=== PATIENT | male | born 1960 | race Caucasian/White ===

== ENCOUNTER 2019-11-09 02:44 | Emergency (ER) | payer OTHER, SELFPAY ==
[2019-11-09 02:57] VITALS: BP 120/82; PULSE 78; RESP 20; TEMP 37.2; O2SAT 99
--- NOTE | 2019-11-09 03:41 | ED.GENADULT ---
HPI - General Adult General Chief complaint: Unspecified Stated complaint: SORE THROAT Time Seen by Provider: 11/09/19 02:48 History of Present Illness HPI narrative: Patient is a 58-year-old male who presents the ER with sore throat and cough. Patient reports that she has had some chronic runny nose with productive cough due to sinus issues have been left untreated due to not getting allergy shots. However the last couple days patient did develop a fever with sweats and then 2 days later he is developed a hoarse voice. Symptoms are worsened by wearing his CPAP which tends to dry out the back of his throat. He has been taking throat lozenges with only transient relief of symptoms. He has no shortness of breath. He is able to swallow however it is painful. 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 Related Data Allergies Allergy/AdvReac Type Severity Reaction Status Date / Time TUBERCULIN,OLD SKIN TEST AdvReac Intermediate SOB Uncoded 07/01/19 02:14 Review of Systems Review of Systems: All systems reviewed & are unremarkable except as noted in HPI and below Constitutional: Constitutional: Reports fever(s) and Denies weakness Comments: Sweats ENT: Denies dysphagia, Reports nasal congestion and Reports sore throat Respiratory: Respiratory: Reports cough, Denies dyspnea and Denies wheezing PMFSH Past Medical History Medical History (Updated 11/09/19 @ 03:55 by López Boo MD) GERD (gastroesophageal reflux disease) Obstructive sleep apnea Surgical History Surgical History (Updated 11/09/19 @ 03:50 by López Boo MD) History of hernia repair Family History Family History (Updated 12/28/16 @ 23:56 by DOCTOR UNKNOWN) Mother Hypertension, Onset Age: 73 Patient's mother is Father Malignant neoplasm of prostate Acute myocardial infarction, Onset Age: 72 Patient's father is Other Family history of allergic disorder Social History Social History Smoking status: Never smoker Second hand tobacco smoke exposure: No Alcohol intake: never Exam Narrative: Exam Narrative: GENERAL: Well-appearing, well-nourished, and in no acute distress. HEAD: Normocephalic, atraumatic. ENT: Mucous membranes moist. No posterior pharyngeal erythema or tonsillar exudate/hypertrophy. Uvula midline and nonedematous. NECK: Supple. CHEST: Clear to auscultation. No respiratory distress. HEART: Regular rate and rhythm. Normal peripheral pulses. NEURO: Alert and oriented x3. PSYCH: Normal mood and affect. Course Course Emergency Course: Influenza and strep testing negative. Discharge home with supportive therapy. Vital Signs Vital signs: Vital Signs Temperature 98.9 F 11/09/19 02:57 Pulse Rate 78 11/09/19 02:57 Respiratory Rate 20 11/09/19 02:57 Blood Pressure 120/82 11/09/19 02:57 Pulse Oximetry 99 11/09/19 02:57 Temperature 98.9 F 11/09/19 02:57 Pulse Rate 78 11/09/19 02:57 Respiratory Rate 20 11/09/19 02:57 Blood Pressure 120/82 11/09/19 02:57 Pulse Oximetry 99 11/09/19 02:57 Medical Decision Making Vital Signs Vital Signs: Vital Signs Temperature 98.9 F 11/09/19 02:57 Pulse Rate 78 11/09/19 02:57 Respiratory Rate 20 11/09/19 02:57 Blood Pressure 120/82 11/09/19 02:57 Pulse Oximetry 99 11/09/19 02:57 Temperature 98.9 F 11/09/19 02:57 Pulse Rate 78 11/09/19 02:57 Respiratory Rate 20 11/09/19 02:57 Blood Pressure 120/82 11/09/19 02:57 Pulse Oximetry 99 11/09/19 02:57 Lab Data Labs: Influenza A Screen Negative Reference Range: Negative Influenza B Screen Negative Reference Range: Negative Strep Screen Presumptive Negative *(Reference Range: Negative)* Discharge Plan Discharge Clinical Impression: Laryngitis Patient Disposition: Home, Self-Care Condition: Stable
[2019-11-09 04:09] VITALS: BP 132/81; PULSE 80; RESP 16; O2SAT 99
== END 2019-11-09 04:12 | disposition home or self-care (01) ==
PROVIDERS: Emergency Provider Emergency Medicine; PCP Physician Assistant
DX: K21.9 Gastro-esophageal reflux disease without esophagitis (principal); G47.33 Obstructive sleep apnea (adult) (pediatric); J04.0 Acute laryngitis
CPT/HCPCS: 87081; 87804; 87880; 99283

== ENCOUNTER 2020-10-29 02:58 | Emergency (ER) | payer OTHER, SELFPAY ==
--- NOTE | ~2020-10-29 | XR_ITS ---
EXAMINATION: XR hip RT 2V w AP pelvis DATE: 10/29/2020 03:46 INDICATION: Right hip pain. TECHNIQUE: An anteroposterior view of the pelvis and 2 views of right hip were obtained. COMPARISON: CT abdomen and pelvis 08/31/2018 FINDINGS: There is 5 degrees dextrocurvature of lumbar spine. There is moderate lumbar spondylosis. N o fracture. There is moderate right hip osteoarthritis and mild left hip osteoarthritis. There is a p hlebolith in right pelvis. IMPRESSION: 1. Moderate right hip osteoarthritis and mild left hip osteoarthritis. Reviewed, dictated and finalized at location A. [employer]
[2020-10-29 03:03] VITALS: BP 130/94; PULSE 69; RESP 18; TEMP 36.7; O2SAT 100
--- NOTE | 2020-10-29 03:43 | ED.GENADULT ---
HPI - General Adult General Chief complaint: Extremity Problem,Nontraumatic Stated complaint: right leg pain x 1 month Time Seen by Provider: 10/29/20 03:07 History of Present Illness HPI narrative: Patient is a 59-year-old male who presents ER with right hip/inguinal pain. Ongoing for last month. Worse when he goes from a squatting position to a standing position but also with forward flexion of the hip. Hurts mainly over an area where he had had a previous mesh placed. Has occasional radiation down to his knee and numbness that will radiate down to his foot. Has not tried any pain medications. Has tried resting it without success. Has had no imaging and has follow-up with his primary care physician later this month. No known trauma. Related Data Home Medications Medication Instructions Recorded Confirmed aspirin 81 mg tablet,delayed 81 mg PO DAILY 11/25/19 release multivitamin 1 tablet PO DAILY 11/25/19 omega-3 fatty acids 1,000 mg 1,000 mg PO DAILY 11/25/19 capsule Allergies Allergy/AdvReac Type Severity Reaction Status Date / Time tuberculin,PPD,multi-puncture Allergy Intermediate short of Verified 10/29/20 02:59 breath Review of Systems Gastrointestinal: Gastrointestinal: Denies abdominal pain, Denies nausea and Denies vomiting Musculoskeletal: Musculoskeletal: Denies back pain, Denies arthralgias and Denies muscle cramps Comments: right inguinal pain Neurologic: Denies focal weakness, Reports numbness and Denies weakness PMFSH Past Medical History Medical History (Updated 10/29/20 @ 04:07 by López Boo MD) GERD (gastroesophageal reflux disease) Obstructive sleep apnea Surgical History Surgical History History of hernia repair Family History Family History Mother Hypertension, Onset Age: 73 Patient's mother is Father Malignant neoplasm of prostate Acute myocardial infarction, Onset Age: 72 Patient's father is Other Family history of allergic disorder Social History Social History Smoking status: Never smoker Second hand tobacco smoke exposure: No Alcohol intake: never Substance use: never Exam Narrative: Exam Narrative: GENERAL: Well-appearing, well-nourished, and in no acute distress. HEAD: Normocephalic, atraumatic. HEART: Regular rate and rhythm. Normal peripheral pulses. EXTREMITIES: Focused exam of the right lower extremity reveals tenderness over the inguinal crease and increased pain the proximal thigh near inguinal crease with forward flexion of the hip. Negative straight leg raise. No swelling of the lower extremity. No rash. SKIN: Warm, dry, no rash. NEURO: No focal deficits. Alert and oriented x3. PSYCH: Normal mood and affect. Course Course Emergency Course: Exam and history seem consistent with iliopsoas bursitis. Will start naproxen twice daily. Recommend follow-up with his PCP. X-ray unremarkable. Vital Signs Vital signs: Vital Signs Temperature 98.1 F 10/29/20 03:03 Pulse Rate 69 10/29/20 03:03 Respiratory Rate 18 10/29/20 03:03 Blood Pressure 130/94 H 10/29/20 03:03 Pulse Oximetry 100 10/29/20 03:03 Temperature 98.1 F 10/29/20 03:03 Pulse Rate 69 10/29/20 03:03 Respiratory Rate 18 10/29/20 03:03 Blood Pressure 130/94 H 10/29/20 03:03 Pulse Oximetry 100 10/29/20 03:03 Medical Decision Making Vital Signs Vital Signs: Vital Signs Temperature 98.1 F 10/29/20 03:03 Pulse Rate 69 10/29/20 03:03 Respiratory Rate 18 10/29/20 03:03 Blood Pressure 130/94 H 10/29/20 03:03 Pulse Oximetry 100 10/29/20 03:03 Temperature 98.1 F 10/29/20 03:03 Pulse Rate 69 10/29/20 03:03 Respiratory Rate 18 10/29/20 03:03 Blood Pressure 130/94 H 10/29/20 03:03 Pulse O
[2020-10-29 04:15] VITALS: BP 134/85; PULSE 65; RESP 16; TEMP 36.6; O2SAT 98
== END 2020-10-29 04:16 | disposition home or self-care (01) ==
PROVIDERS: Emergency Provider Emergency Medicine; PCP Physician Assistant
DX: M70.71 Other bursitis of hip, right hip (principal); Z79.82 Long term (current) use of aspirin; K21.9 Gastro-esophageal reflux disease without esophagitis; G47.33 Obstructive sleep apnea (adult) (pediatric)
CPT/HCPCS: 73502; 99283

== ENCOUNTER 2021-03-09 08:20 | Outpatient (CLI) | payer OTHER, SELFPAY ==
[2021-03-09 08:43] LABS: Hematocrit 42.7 % (42.0-52.0); Hemoglobin 14.4 g/dL (14.0-18.0); Mean Corpuscular HGB Conc 33.7 g/dl (32-36); Mean Corpuscular Hemoglobin 29.8 pg (26-34); Mean Corpuscular Volume 88.2 fl (80-100); Mean Platelet Volume 9.7 fl (7.4-10.4); Platelet Count Result 180 k/mm3 (150-375); Red Blood Count 4.84 M/mm3 (4.6-6.20); Red Cell Distribution Width 12.1 % (11.5-14.5)
[2021-03-09 08:52] LABS: Alanine Aminotransferase 22 U/L (4-50); Albumin Level 4.1 g/dL (3.5-5.1); Alkaline Phosphatase 59 U/L (38-126); Anion Gap 7 mmol/L (8-16); Aspartate Amino Transferase 24 U/L (17-59); Bilirubin,Total 0.8 mg/dL (0.2-1.3); Blood Urea Nitrogen 12 mg/dL (9-20); Calcium 9.6 mg/dL (8.4-10.2); Carbon Dioxide 27 mmol/L (22-30); Chloride 107 mmol/L (98-107); Cholesterol 165 mg/dL (0-200); Estimated Glomerular Filt Rate > 60; Glucose 93 mg/dL (75-110); HDL Direct 55 mg/dL; Potassium 4.3 mmol/L (3.4-5.0); Sodium 141 mmol/L (137-145); Triglycerides 138 mg/dL (<150)
[2021-03-09 10:19] LABS: Folic Acid 15.8 ng/mL (2.76->20); LDL Cholesterol Direct 72 mg/dL; Prostate Specific Antigen 0.7 ng/mL (< OR = 4.0); Thyroid Stimulating Hormone 0.951 uIU/mL (0.465-4.680)
== END 2021-03-09 08:21 | disposition home or self-care (01) ==
PROVIDERS: PCP Physician Assistant; Visit Provider Physician Assistant
DX: Z00.00 Encounter for general adult medical examination without abnormal findings (principal); Z12.5 Encounter for screening for malignant neoplasm of prostate
CPT/HCPCS: 36415; 80053; 80061; 82607; 82746; 84153; 84443; 85027; G0103

== ENCOUNTER 2021-04-12 11:08 | Emergency (ER) | payer OTHER, SELFPAY ==
[2021-04-12 11:20] VITALS: BP 136/87; PULSE 76; RESP 18; TEMP 36.8; O2SAT 100
--- NOTE | 2021-04-12 12:46 | ED.GENADULT ---
HPI - General Adult General Chief complaint: Head Injury Stated complaint: HEAD INJURY Time Seen by Provider: 04/12/21 11:12 Source: patient and RN notes reviewed Mode of arrival: ambulatory Limitations: no limitations History of Present Illness HPI narrative: Patient is a 60-year-old male who presents with abrasion to the left frontal parietal scalp there is a mild aching pain patient denies any fever chills nausea vomiting loss of conscious syncope. Patient notes only mild pain at the abrasion has no other complaints resting comfortably in the room Related Data Home Medications Medication Instructions Recorded Confirmed aspirin 81 mg tablet,delayed 81 mg PO DAILY 11/25/19 12/19/20 release multivitamin 1 tablet PO DAILY 11/25/19 12/19/20 omega-3 fatty acids 1,000 mg 1,000 mg PO DAILY 11/25/19 12/19/20 capsule Allergies Allergy/AdvReac Type Severity Reaction Status Date / Time tuberculin,PPD,multi-puncture Allergy Intermediate short of Verified 04/12/21 11:23 breath Review of Systems Review of Systems: All systems reviewed & are unremarkable except as noted in HPI and below PMFSH Past Medical History Medical History (Updated 04/12/21 @ 12:49 by Howard Garcia PA-C) GERD (gastroesophageal reflux disease) Obstructive sleep apnea Surgical History Surgical History History of hernia repair Family History Family History Mother Hypertension, Onset Age: 73 Patient's mother is Father Malignant neoplasm of prostate Acute myocardial infarction, Onset Age: 72 Patient's father is Other Family history of allergic disorder Social History Social History Smoking status: Never smoker Second hand tobacco smoke exposure: No Alcohol intake: never Substance use: never Exam Narrative: Exam Narrative: GENERAL: Well-appearing, well-nourished, and in no acute distress. HEAD: Normocephalic, small abrasion to the left frontal parietal scalp EYES: PERRLA and EOMI. ENT: Nares clear, no rhinorrhea or epistaxis. Mucous membranes moist. NECK: Supple. No adenopathy or masses. CHEST: Clear to auscultation. No respiratory distress. No wheezes rales or rhonchi HEART: Regular rate and rhythm. No murmur heard. EXTREMITIES: Normal range of motion. No edema. SKIN: Warm, dry, no rash. NEURO: No focal deficits. Alert and oriented x3. Cranial nerves II through XII grossly intact PSYCH: Normal mood and affect. Course Course Emergency Course: Patient in the room at this time aware of case findings treatment plan diagnosis felt appropriate for outpatient reevaluation agreeing to follow-up as instructed Vital Signs Vital signs: Vital Signs Temperature 98.3 F 04/12/21 11:20 Pulse Rate 76 04/12/21 11:20 Respiratory Rate 18 04/12/21 11:20 Blood Pressure 136/87 04/12/21 11:20 Pulse Oximetry 100 04/12/21 11:20 Temperature 98.3 F 04/12/21 11:20 Pulse Rate 76 04/12/21 11:20 Respiratory Rate 18 04/12/21 11:20 Blood Pressure 136/87 04/12/21 11:20 Pulse Oximetry 100 04/12/21 11:20 Medical Decision Making MDM Narrative Medical decision making narrative: Patient with minor head injury felt appropriate for outpatient reevaluation Vital Signs Vital Signs: Vital Signs Temperature 98.3 F 04/12/21 11:20 Pulse Rate 76 04/12/21 11:20 Respiratory Rate 18 04/12/21 11:20 Blood Pressure 136/87 04/12/21 11:20 Pulse Oximetry 100 04/12/21 11:20 Temperature 98.3 F 04/12/21 11:20 Pulse Rate 76 04/12/21 11:20 Respiratory Rate 18 04/12/21 11:20 Blood Pressure 136/87 04/12/21 11:20 Pulse Oximetry 100 04/12/21 11:20 Discharge Plan Discharge Clinical Impression: Abrasion of scalp, Head injury Patient Disposition: Home, Self-Care
[2021-04-12] MEDS: TETANUS,DIPHTHERIA,AC PERTUSSIS ADULT (0.5 ML) BOOSTRIX IM (12:58)
--- NOTE | 2021-04-12 13:00 | PC.NURSE ---
wound cleaned and dressed by PA
== END 2021-04-12 13:01 | disposition home or self-care (01) ==
PROVIDERS: Emergency Provider Emergency Medicine; PCP Physician Assistant
DX: S00.01XA Abrasion of scalp, initial encounter (principal); K21.9 Gastro-esophageal reflux disease without esophagitis; G47.30 Sleep apnea, unspecified; W22.09XA Striking against other stationary object, initial encounter; Z23 Encounter for immunization
CPT/HCPCS: 90471; 90715; 99282

== ENCOUNTER 2021-09-05 07:42 | Outpatient (CLI) | payer OTHER, SELFPAY ==
--- NOTE | 2021-09-25 12:40 | WPDSLEEPSTUD ---
Sleep Study Date of Study: 09/05/21 Ordering Provider: Prudencio Gill PA-C Interpreting Physician: Cori Webb MD Sleep Study Type: CPAP Titration Height: 1.75 m Weight: 80.286 kg Body Mass Index: 26.1 Neck Circumference (inches): 14.5 [place]: 19 Reason for Sleep Study Obstructive sleep apnea; current machine is old and it was recalled; he is repeating a titration due to fatigue, excessive daytime sleepiness, and needing a new machine. * 04/24/2016 - difficult CPAP titration; at 9 cm he had continued respiratory events and low sleep efficiency; Auto PAP was recommended 8-20 cm with a download in a month. * 12/02/2015 - basic sleep study, AHI 17.6, mild to moderate snoring and multiple oxygen desaturations to 85% Sleep History Adalgisa Thacker is a 60 year old man with History of obstructive sleep apnea who has a CPAP machine that was recalled. His machine is not been working well for the last year, including shutting off during the night. He feels exhausted during the day. There is a positive family history with his mother having a history of sleep apnea. He rarely awakens from sleep feeling short of breath. He does not awaken at night with heartburn, belching or coughing. He frequently snores loudly. He does not have trouble sleeping with a cold. He frequently wakes up gasping for breath at night. He constantly has breathing problems at night observed by others. He does not sweat excessively at night. he rarely notices his heart pounding or beating irregularly night. He occasionally falls asleep during the day, constantly falls asleep involuntarily and he constantly falls asleep while driving which is quite dangerous. He does not have loss of muscle tone was strong emotion. He does not have daytime difficulties at his job due to sleepiness. He does not feel paralyzed on waking or falling asleep. He rarely has vivid dreamlike scenes on awakening or falling asleep. He does not feel afraid to go to sleep. He constantly has nightmares. He constantly remembers his dreams. Occasionally has racing thoughts. He constantly feels sad, depressed and anxious. He does not have muscular tension or notice parts his body jerking. He does not kick at night. He constantly has crawling and aching feelings in his legs and leg pain at night. He does not have morning jaw pain. He does not grind his teeth during sleep. He constantly has bothered by pain during the day, constantly awakened by pain at night and constantly wakes up feeling stiff in the morning. Does not wake up with sore achy muscles but he does always wake up with pain in the neck and spine. He takes [id number] sedatives. He feels panicky when he is in traffic. He has memory problems and concentration difficulties. He takes antacids regularly. Normal bedtime is 9:00 p.m. falling asleep within 5 minutes typically waking once at night to turn over. He is able to return to sleep within 5 minutes. He wakes the morning at 5:30 a.m.. On the weekends he also goes to bed at 9:00 p.m. and wakes at 7 in the morning. He is able to sleep longer on the days off. He takes naps in the afternoon or evening. A short 10 or 15 minutes nap may be refreshing. He feels better in the morning compared other times of day. Habits: Never smoked tobacco. No caffeine, alcohol or recreational drugs. [facility] Past Medical History Medical History (Updated 09/25/21 @ 13:30 by Cori Webb MD) GERD (gastroesophageal reflux disease) Obstructive sleep apnea Surgical History Surgical History History of hernia repair Family History Family History Mother Hypertension, Onset Age: 73 Patient's mother is Father Malignant neoplasm of prostate Acute myocardial infarction, Onset Age: 72 Patient's father is Other Family history of aller
[2021-09-25 14:02] VITALS: BMI 26.1
== END 2021-09-06 06:56 | disposition home or self-care (01) ==
LOC: ANHCSM 07:43
PROVIDERS: PCP Physician Assistant; Visit Provider Physician Assistant
DX: G47.33 Obstructive sleep apnea (adult) (pediatric) (principal)
CPT/HCPCS: 95811

== ENCOUNTER 2021-10-04 10:58 | Outpatient (CLI) | payer OTHER, SELFPAY ==
--- NOTE | 2021-10-04 11:34 | ECG_ITS ---
Measurements Intervals [place] Rate: 61 P: 41 DC: 164 QRS: 18 QRSD: 88 T: 9 QT: 394 QTc: 398 Interpretive Statements SINUS RHYTHM EARLY PRECORDIAL R/S TRANSITION BORDERLINE ECG Electronically Signed On 10-04-2021 12:44:14 [employer] ENGINE[employer] by Storm Linda D.O.
[2021-10-04 11:47] LABS: Hematocrit 42.8 % (42.0-52.0); Hemoglobin 14.5 g/dL (14.0-18.0)
[2021-10-04 11:56] LABS: Urine Cotinine NEGATIVE
[2021-10-04 11:58] LABS: Hemoglobin A1C 5.2 % (<5.7)
[2021-10-04 12:00] LABS: Albumin Level 4.4 g/dL (3.5-5.1); Estimated Glomerular Filt Rate > 60; Glucose 99 mg/dL (65-110)
== END 2021-10-04 10:59 | disposition home or self-care (01) ==
PROVIDERS: PCP Physician Assistant; Visit Provider Orthopaedic Surgery
DX: Z01.818 Encounter for other preprocedural examination (principal); K21.9 Gastro-esophageal reflux disease without esophagitis; G47.33 Obstructive sleep apnea (adult) (pediatric)
CPT/HCPCS: 80307; 82040; 82565; 82947; 83036; 85014; 85018; 93005

== ENCOUNTER 2021-11-20 09:50 | Outpatient (CLI) | payer OTHER, SELFPAY ==
[2021-11-20 11:15] LABS: Basophils Percent Auto 0.5 % (0.2-1.2); Eosinophils Absolute Auto 0.3 K/mm3 (0-0.3); Eosinophils Percent Auto 4.3 % (0-4.4); Hematocrit 45.2 % (42.0-52.0); Hemoglobin 15.2 g/dL (14.0-18.0); Immature Granulocyte Absolute 0.02 K/mm3 (0.00-0.031); Immature Granulocyte Percent A 0.3 % (0-0.5); Lymphocytes Absolute Auto 1.89 K/mm3 (0.9-3.2); Mean Corpuscular HGB Conc 33.6 g/dl (32-36); Mean Corpuscular Volume 89.2 fl (80-100); Mean Platelet Volume 10.1 fl (7.4-10.4); Monocytes Absolute Auto 0.8 K/mm3 (0.1-0.6); Monocytes Percent Auto 12.4 % (2.6-8.5); Neutrophils Absolute Auto 3.3 K/mm3 (1.3-6.7); Neutrophils Percent Auto 52.5 % (45.5-73.1); Platelet Count Result 188 k/mm3 (150-375); Red Blood Count 5.07 M/mm3 (4.6-6.20); Red Cell Distribution Width 11.9 % (11.5-14.5); White Blood Count 6.3 K/mm3 (4.5-10.0)
[2021-11-20 11:26] LABS: Albumin Level 4.5 g/dL (3.5-5.1); Estimated Glomerular Filt Rate > 60; Glucose 94 mg/dL (65-110); Urine Cotinine NEGATIVE
== END 2021-11-20 09:51 | disposition home or self-care (01) ==
LOC: ANHSURGERY 09:56
PROVIDERS: PCP Physician Assistant; Visit Provider Orthopaedic Surgery
DX: Z01.818 Encounter for other preprocedural examination (principal); M16.11 Unilateral primary osteoarthritis, right hip
CPT/HCPCS: 80307; 82040; 82565; 82947; 85025; 87081

== ENCOUNTER 2021-11-30 17:40 | Emergency (ER) | payer OTHER, SELFPAY ==
--- NOTE | ~2021-11-30 | XR_ITS ---
EXAMINATION: XR hip RT 2V w AP pelvis DATE: 11/30/2021 18:56 INDICATION: Worsening right hip pain TECHNIQUE: Anteroposterior view of the pelvis and anteroposterior and frog-leg lateral views of the r ight hip were obtained. COMPARISON: 10/29/2020 FINDINGS: Alignment is normal. No fracture or suspected avascular necrosis. Mild osteoarthritis at the left hip . More severe osteoarthritis at the right hip with moderate to severe joint space narrowing superolat erally with the hip in the frog-leg lateral position. Mild bilateral sacroiliac osteoarthritis. At le ast moderate lumbar spondylosis. IMPRESSION: 1. Interval progression of now moderate to severe right hip osteoarthritis. No acute osseous abnormal ity. Reviewed, dictated and finalized at location A. [employer] ASSOCIATE IMPRESSION: 1. Interval progression of now moderate to severe right hip osteoarthritis. No acute osseous abnormality.
[2021-11-30 18:02] VITALS: BP 139/99; PULSE 80; RESP 14; TEMP 36.9; O2SAT 97
--- NOTE | 2021-11-30 18:43 | ED.LOWEXIN ---
HPI - Extremity Injury (Lower) General Chief Complaint: Extremity Injury, Lower Stated Complaint: Right Hip Pain Time Seen by Provider: 11/30/21 18:09 Source: patient Mode of arrival: ambulatory Limitations: no limitations History of Present Illness HPI Narrative: 60 year old male with know history of issues to his right hip. Patient states he has surgery scheduled for December 19 to have a hip replacement. Patient worked all day today and at home he felt sore. He used his cane to get inside the house when he felt/herd a pop to the right hip and had shooting pains. Patient able to ambulate after that but the pain had him concerned so he came here. Pain currently tolerable in a sitting position. No shortening of the leg noted. Point tenderness to the right hip area. Denies any recent falls. Related Data Home Medications Medication Instructions Recorded Confirmed multivitamin 1 tablet PO QAM 11/25/19 11/21/21 cetirizine 10 mg PO HS 11/20/21 11/21/21 rosuvastatin [Crestor] 10 mg PO HS 11/20/21 11/21/21 Allergies Allergy/AdvReac Type Severity Reaction Status Date / Time tuberculin,PPD,multi-puncture Allergy Intermediate short of Verified 11/30/21 18:21 breath Review of Systems Review of Systems: CONSTITUTIONAL: Denies fever, chills, or sweats. EYES: Denies visual changes, redness, or discharge. ENT: Denies rhinorrhea, congestion, sore throat, or otalgia. CARDIOVASCULAR: Denies chest pain, palpitations, or edema. RESPIRATORY: Denies cough or dyspnea. GASTROINTESTINAL: Denies abdominal pain, nausea, vomiting, or diarrhea. GENITOURINARY: Denies dysuria or hematuria. SKIN: Denies rash or itching. MUSCULOSKELETAL: Right hip pain. Denies back pain or myalgia. NEUROLOGIC: Denies headache, numbness, dizziness, or weakness. PSYCHIATRIC: Denies anxiety or depression. [facility] Past Medical History Medical History GERD (gastroesophageal reflux disease) Obstructive sleep apnea Surgical History Surgical History History of hernia repair Family History Family History Mother Hypertension, Onset Age: 73 Patient's mother is Father Malignant neoplasm of prostate Acute myocardial infarction, Onset Age: 72 Patient's father is Other Family history of allergic disorder Social History Social History Second hand tobacco smoke exposure: Yes (OCCASIONAL WHEN RELITIVES VISIT - SMOKE OUTSIDE) Additional smoking assessment comments: PT DENIES ALL FORMS OF TOBACCO USE Alcohol intake: former Alcohol use details: STATES OCCASIONAL GLASS OF WINE - NONE SINCE 2006 Substance use: never Substance use type: does not use Spiritual care concerns: No Exam Narrative: GENERAL: Well-appearing, well-nourished, and in no acute distress. HEAD: Normocephalic, atraumatic. EYES: PERRLA and EOMI. ENT: Nares clear, no rhinorrhea or epistaxis. Mucous membranes moist. Oropharynx without tonsillar hypertrophy exudate or other lesions. Bilateral TMs pearly meade nonbulging NECK: Supple. No adenopathy or masses. No carotid bruits or JVD CHEST: Clear to auscultation. No respiratory distress. No wheezes rales or rhonchi HEART: Regular rate and rhythm. No murmur heard. Normal peripheral pulses. ABDOMEN: Soft, nontender, nondistended, normal active bowel sounds. EXTREMITIES: Tenderness with palpation to the right hip. Normal range of motion. No edema. SKIN: Warm, dry, no rash. NEURO: No focal deficits. Alert and oriented x3. PSYCH: Normal mood and affect. Course Course Emergency Course: Results reviewed with patient. Patient aware there is no fracture but the arthritis looks worse. Patient has pain medication at home. He is ready for discharge. Patient has walker and cane av
--- NOTE | 2021-11-30 19:09 | PC.NURSE ---
assuming care of pt.
[2021-11-30 19:19] VITALS: BP 117/85; PULSE 71; RESP 14; O2SAT 98
[2021-11-30] MEDS: HYDROcodone/acetaminophen (*CRX) 5-325 MG TABLET 1 TAB PO (19:44)
[2021-11-30 20:23] VITALS: BP 128/86; PULSE 75; RESP 14; O2SAT 97
== END 2021-11-30 20:23 | disposition home or self-care (01) ==
PROVIDERS: Emergency Provider Nurse Practitioner Family; PCP Physician Assistant
DX: M16.11 Unilateral primary osteoarthritis, right hip (principal); K21.9 Gastro-esophageal reflux disease without esophagitis; G47.33 Obstructive sleep apnea (adult) (pediatric)
CPT/HCPCS: 73502; 99283; A9270

== ENCOUNTER 2021-12-19 00:58 | Day surgery (SDC) | payer OTHER, SELFPAY ==
--- NOTE | 2021-11-20 10:04 | PC.NURSE ---
Report to the Outpatient Waiting Room, entrance under the green pavilion located off [facility], at time _0830_ on date _12/19/21_. OR Time: _1030__. - You and your visitor will be asked a series of questions to screen for COVID 19 for your protection. - A mask is required within the hospital. One visitor will be allowed to accompany the patient into the hospital. Patients visitor will be instructed to remain with patient at all times or leave the building. We will allow the visitor to come back to the postoperative area when patient is ready. (VISITING HOURS 10AM-7PM, USE MAIN ENTRANCE) Preoperative COVID Testing Requirements: NONE Patients may have clear liquids (water, carbonated beverages, clear teas, apple juice) until 3 hours prior to surgery (0730 AM) with a maximum of 20 ounces. - No food from midnight until time of surgery Take the following medications with a SIP of water the morning of surgery: _NONE_ Medications to discontinue per ANESTHESIA - MULTIVITAMIN 3 DAYS PRIOR TO SURGERY, LAST DOSE TO BE TAKEN ON 12/15/21 Please no deodorant, or body powder the day of surgery. No jewelry (including any body piercings) or valuables the day of surgery, leave them at home. Please take a shower or bath the night before, or the morning of, surgery with an antibacterial soap. Wear comfortable, loose fitting clothing. - Jewelry must be removed prior to entering the operating room. Rings and piercings that are not removed may be cut off. - The hospital will not accept responsibility for valuables. - Please leave all valuables, including medications, at home the day of surgery. If you are going home after surgery, a licensed garbage collector driver must drive you home. - NO public transportation without another adult. - We recommend that an adult stay with you for 24 hours following discharge. - We also recommend that you do not drive, make important decision, drink alcoholic beverages, or take any drugs that were not prescribed by your health care provider for at least 24 hours after your discharge time. One visitor will be allowed to accompany the patient into the hospital. Patients visitor will be instructed to remain with patient at all times or leave the building. We will allow the visitor to come back to the postoperative area when patient is ready. Follow any additional instructions given to you from your surgeon. Instructions given to _PT & SPOUSE (CARMEN)_and asked if any additional questions and then verbalized understanding. Patient advised to call surgeon office or pre surgery nurse liaisonCARLINE [phone] if any additional questions.
[2021-11-20 10:23] VITALS: BP 138/86; PULSE 62; RESP 20; TEMP 36.7; O2SAT 99; BMI 26.2
[2021-12-19] VITALS (15 sets, daily range): BP systolic 101–131; BP diastolic 63–83; PULSE 71–108; RESP 12–18; TEMP 36.2–37.2; O2SAT 94–100
--- NOTE | ~2021-12-19 | XR_ITS ---
EXAMINATION: XR hip RT min 2V DATE: 12/19/2021 13:29 INDICATION: Total right hip arthroplasty. Postop. TECHNIQUE: 2 views of right hip were obtained. COMPARISON: Right hip radiographs 11/30/2021 FINDINGS: There is a total right hip arthroplasty in near-anatomic alignment. No fracture. There is g as in the soft tissues, consistent with recent surgery. IMPRESSION: 1. Total right hip arthroplasty in near-anatomic alignment. Reviewed, dictated and finalized at location A.
--- NOTE | 2021-12-19 07:17 | W.PM.PROC2 ---
Procedure Note - Detailed Date of Procedure 12/19/21 Pre-op Diagnosis primary OA right hip Post-op Diagnosis Same Procedure Performed Right Total Hip Arthroplasty Surgeon Brian Tobias MD [facility] Staff Nurse Kylah Ortiz PA-C Anesthesia General Findings Fairly good bone quality. 5 degrees southern ute femoral anteversion, and 25 degrees acetabular anteversion. Description of Procedure The patient was given preoperative antibiotics. A general anesthetic was administered. The patient was carefully placed in the lateral decubitus position on the PEG board. The shoulders and hips were carefully positioned for component and leg length positioning reference. The hip was prepped and draped in the usual sterile fashion. A longitudinal incision was created over the posterior aspect of the greater trochanter. Careful dissection was brought down through the deep fascia with electrocautery. A minimally invasive optimized posterior approach to the hip was performed. The short external rotators and capsule were taken down in an L-shaped capsulotomy. The tissue was tagged for later repair using number 2 high strength suture. The femoral neck was measured and taken in situ. The femoral head was removed. The acetabulum was carefully exposed. The inferior capsule was released. The labrum was resected. The acetabulum was sequentially reamed to one over the intended cup size. The cup was impacted into position with excellent press-fit. Typical anatomic landmarks, including the bony contact points as well as the inferior transverse acetabular ligament were used to confirm cup positioning with preoperative templating. Attention was turned to the femur, which was carefully exposed. The hip was reamed and then broached sequentially. Excellent press-fit was obtained with the broach. The hip was trialed. Measurements were utilized, including the lesser trochanter as well as the center of the femoral head and the tip of the trochanter, and excellent assessment of the offset and leg lengths were confirmed. The real component was impacted into position. Trialing confirmed appropriate leg length and offset with soft tissue balancing as well apparent feel of the leg, both at the knee and the heel. Soft tissues were assessed using the the iliotibial band. Reduction of the posterior capsule and external rotators were also used as a secondary assessment. The hip was copiously irrigated with pulsatile lavage antibiotic solution periodically throughout the procedure. The real components were then assembled and reduced. The hip was stable throughout typical maneuvers, including extension, external rotation to 70 degrees, the position of sleep as well as flexion to 90 degrees with internal rotation past 35 degrees. The shake test confirmed stability without impingement. Osteophytes were removed as necessary. The short external rotators and capsule were repaired back to the posterior trochanter through drill holes. The deep fascia was repaired with running number 2 Quill suture, followed by 0 Stratafix suture and 2-0 Stratafix suture in the dermis. Steri-Strips were placed on the skin, followed by a sterile silver occlusive dressing. There were no complications. Meticulous hemostasis was maintained with the AquaMantys device. The patient was brought to the recovery room in stable condition. There were no complications. Physician assistant professor of philosophy, Kylah Ortiz PA-C, required for surgery; including patient positioning, draping, tissue retraction, maintaining instrument position, hip dislocation/ relocation, wound closure, and dressing placement. Implants The Accolade II hip stem, 132 degree size 6 , was utilized with excellent press-fit. The 52 mm Trident II acetabular component with 10 degree elevated liner was impacted with excellent press-fit stability. The +5 , 36 mm Biolox ceramic femoral head was utilized. Estimated Blood Loss 200 Drains No Packing No Pathology None sent
--- NOTE | 2021-12-19 07:17 | WPDHPUPDATE1 ---
History and Physical Update Update Date/Time: 12/19/21 07:17 History and Physical has been reviewed, including an updated exam of the patient. There are NO changes in the patient's condition. Risks, benefits, and alternatives have been discussed and questions answered. Patient agrees to proceed with procedure.
--- NOTE | 2021-12-19 08:04 | WPDANESEPPF ---
Anes - Initial Pre Proc Eval Procedure: Operation Date: 12/19/21 10:30 Proposed Procedures p Right Total Hip Arthroplasty - Brian Tobias MD Date/Time: 12/19/21 08:04 Surgeon: Brian Tobias MD Pre Op Diagnosis: primary OA right hip Patient Data Age: 60 Gender: M Height: 1.75 m Weight: 80.7 kg Last Vital Signs Temp 36.7 C 11/20/21 10:23 Pulse 62 11/20/21 10:23 Resp 20 11/20/21 10:23 BP 138/86 11/20/21 10:23 Pulse Ox 99 11/20/21 10:23 Allergies Allergy/AdvReac Type Severity Reaction Status Date / Time tuberculin,PPD,multi-puncture Allergy Intermediate short of Verified 11/30/21 18:21 breath Home Medications Medication Instructions Recorded Confirmed Type multivitamin 1 tablet PO QAM 11/25/19 11/21/21 History pantoprazole 40 mg tablet,delayed 40 mg PO QAM #30 tablet 05/07/21 11/21/21 Rx release cetirizine 10 mg PO HS 11/20/21 11/21/21 History rosuvastatin [Crestor] 10 mg PO HS 11/20/21 11/21/21 History ECG: Date of Service: 10/04/21 Procedure(s): CA 12 lead EKG Accession Number(s): [id number] cc: ~ Measurements Intervals [place] Rate: 61 P: 41 [place]: 164 QRS: 18 QRSD: 88 T: 9 QT: 394 QTc: 398 Interpretive Statements SINUS RHYTHM EARLY PRECORDIAL R/S TRANSITION BORDERLINE ECG Electronically Signed On 10-04-2021 12:44:14 BOOK ILLUSTRATOR by Storm Linda D.O. Dictated By: Storm Linda DO 10/04/21 1244 Signed By: <Electronically signed by Storm Linda DO in OV> Patient hx anesthesia problems: none Family hx anesthesia problems: none Results Review: All pre-operative results and documents have been reviewed as part of the pre-operative evaluation. [facility] Past Medical History Medical History (Updated 12/19/21 @ 08:05 by Spencer Borjas MD) Arthritis of right hip GERD (gastroesophageal reflux disease) Hyperlipidemia Obstructive sleep apnea Overweight (BMI 25.0-29.9) Surgical History Surgical History History of hernia repair Family History Family History Mother Hypertension, Onset Age: 73 Patient's mother is Father Malignant neoplasm of prostate Acute myocardial infarction, Onset Age: 72 Patient's father is Other Family history of allergic disorder Social History Social History Second hand tobacco smoke exposure: Yes (OCCASIONAL WHEN RELITIVES VISIT - SMOKE OUTSIDE) Additional smoking assessment comments: PT DENIES ALL FORMS OF TOBACCO USE Alcohol intake: former Alcohol use details: STATES OCCASIONAL GLASS OF WINE - NONE SINCE 2006 Substance use: never Substance use type: does not use Living arrangements: with family Spiritual care concerns: No Anes - Eval Final PreProcedure Day of Procedure 12/19/21 08:04 Patient weight: overweight Heart: regular rate and rhythm Lungs: clear to auscultation and normal air movement Airway: Mallampati scale class II Neurological: alert and oriented Last oral intake: >/= 8 hours ASA classification: II Emergent: no Anesthetic plan: proceed Anesthesia type and monitoring: general LMA and ETT Results Review: All pre-operative results and documents have been reviewed as part of the pre-operative evaluation. Informed Consent: The patient's anesthetic plan and its attendant risks and benefits were discussed with the patient/family/POA. Questions were solicited and answers provided to the satisfaction of the patient/family/POA.
[2021-12-19] MEDS: ACETAMINOPHEN 500 MG TABLET 1000 MG PO (09:13)
[2021-12-19] MEDS: LACTATED RINGERS 1,000 ML 30 ML IV CONT ×2 (09:19→13:08)
[2021-12-19] MEDS: TRANEXAMIC ACID 1,000MG/ISO100 1,000 MG/100 ML BAG 200 MG IVPB (09:19)
[2021-12-19] MEDS: SCOPOLAMINE 1.5 MG PATCH TRANSDERM (10:10)
[2021-12-19] MEDS: ceFAZolin 2 GM/D5W 50 ML 2 GM/50 ML BAG IVPB ×3 (10:49→23:21)
[2021-12-19] MEDS: fentaNYL CITRATE INJ (*CRX) 100 MCG/2 ML VIAL 25 MCG IV PUSH ×8 (13:31→14:15)
--- NOTE | 2021-12-19 14:32 | ADMGEN ---
This patient, Adalgisa Thacker, was admitted to 2 Medical Room 258-. Patient/family oriented to hospital policies and general routines including ID bracelet, bed and alarms, visiting hours, pain management, procedures, bathroom and other care routines, personal items, smoking policy, room service/diet, and visiting hours. Information on how to activate the Rapid Response Team has been discussed. Patient/Family are encouraged to report perceived risks to care and to ask questions if they do not understand what they are told or what they should do.
[2021-12-19] MEDS: SODIUM CHLORIDE 0.9% IV 1,000 ML 125 ML IV CONT (15:37)
[2021-12-19] MEDS: ASPIRIN 81 MG ENTERIC TABLET PO (17:18)
[2021-12-19] MEDS: SENNA/DOCUSATE SODIUM TABLET 2 TAB PO (17:18)
[2021-12-19] MEDS: CALCIUM CARBONATE (TUMS) 500 MG (200 MG ELEMENTAL) PO (18:38)
[2021-12-19] MEDS: LORATADINE 10 MG TABLET PO (20:15)
[2021-12-19] MEDS: ROSUVASTATIN 10 MG TABLET PO (20:15)
[2021-12-19] MEDS: FAMOTIDINE 20 MG TABLET PO (20:15)
[2021-12-19] MEDS: oxyCODONE HCL (*CRX) 5 MG TAB IR PO (23:23)
[2021-12-20 00:06] VITALS: BP 131/65; PULSE 91; RESP 16; TEMP 37; O2SAT 99
[2021-12-20] MEDS: CYCLOBENZAPRINE HCL 10 MG TABLET PO (00:20)
[2021-12-20 02:47] VITALS: O2SAT 97
[2021-12-20] MEDS: oxyCODONE HCL (*CRX) 5 MG TAB IR PO (03:02)
[2021-12-20 05:29] VITALS: BP 114/73; PULSE 88; RESP 16; TEMP 36.9; O2SAT 99
[2021-12-20] MEDS: FAMOTIDINE 20 MG TABLET PO (08:01)
[2021-12-20] MEDS: SENNA/DOCUSATE SODIUM TABLET 2 TAB PO (08:01)
[2021-12-20] MEDS: ASPIRIN 81 MG ENTERIC TABLET PO (08:01)
[2021-12-20] MEDS: ceFAZolin 2 GM/D5W 50 ML 2 GM/50 ML BAG IVPB (08:02)
[2021-12-20] MEDS: PANTOPRAZOLE 40 MG TABLET PO (08:02)
[2021-12-20] MEDS: polyethylene glycoL 3350 17 GM POWD.PACK PO (08:02)
[2021-12-20] MEDS: oxyCODONE HCL (*CRX) 5 MG TAB IR 10 MG PO (08:09)
[2021-12-20 10:00] VITALS: BP 133/80; PULSE 88; RESP 16; TEMP 37.1; O2SAT 98
--- NOTE | 2021-12-20 13:44 | PM.DS ---
DS: Admitting Diagnosis Discharge Date 12/20/21 Admitting Diagnosis OA Right hip DS: Discharge Diagnosis Discharge Diagnosis (1) Status post total hip replacement, right: Code(s): Z96.641 - Presence of right artificial hip joint Status: Acute Assessment and Plan: Postop day 1: Total hip arthroplasty. Patient tolerated procedure well. No complications. Pain manageable with pain medication. No numbness or tingling. We had a lengthy discussion regarding postoperative wound care, limitations, expectations, and exercises. Patient shows good understanding. Patient has had initial physical therapy and is tolerating it well. DVT prophylaxis: 81 mg baby aspirin b.i.d. for 14 days. Short frequent walks. Pain medication: Percocet. Ibuprofen. Patient has followup appointment with Dr. Tobias in 3 weeks DS: Summary Hospital Course Reason for hospitalization: Total hip arthroplasty Hospital Course: Patient tolerated procedure well. Has had initial PT/OT and made good progress. Status at Discharge Functional status at discharge: uses cane/walker Overall status at discharge: patient is progressing back to baseline Time Spent with Patient Time attestation: Total time spent providing and/or coordinating discharge services: Exam Narrative: Normal weight 60 y/o male. Resting comfortably in bed. Wearing compression socks bilaterally. Dressing dry and intact with no drainage. Moderate swelling. No ecchymosis. No erythema. No hematoma. Range of motion limited due to pain. Calf nontender. Thigh nontender. Neurologic status intact. No varicosities. Distal pulses palpable. Discharge Plan Discharge Patient Disposition: Home, Self-Care Discharge Instructions: Remove the Scopolamine patch that was placed behind your ear in 72 hours or less. Wash your hands after touching. Review green instruction sheet and green medication sheet. Stand Alone Forms: General Discharge Instructions Discharge Medications: New oxycodone-acetaminophen 5-325 mg tablet 1 - 2 tablet PO Q4-6H MDD 6 PRN (Reason: pain) Qty: 30 RF: 0 aspirin 81 mg tablet,delayed release (DR/EC) 81 mg PO BID 14 Days Qty: 28 RF: 0 Continued multivitamin [Multiple Vitamins] Tablet 1 tablet PO QAM RF: 0 cetirizine 10 mg tablet 10 mg PO HS RF: 0 rosuvastatin [Crestor] 10 mg tablet 10 mg PO HS RF: 0 pantoprazole 40 mg tablet,delayed release (DR/EC) 40 mg PO QAM Qty: 30 RF: 11
== END 2021-12-20 15:20 | disposition home or self-care (01) ==
LOC: ANHSURGERY 11:01 → ANH2MED 14:24
PROVIDERS: PCP Physician Assistant; Visit Provider Orthopaedic Surgery
PROC: (CPT 27130; principal; 2021-12-19 10:30)
DX: M16.11 Unilateral primary osteoarthritis, right hip (principal); E78.5 Hyperlipidemia, unspecified; G47.33 Obstructive sleep apnea (adult) (pediatric); K21.9 Gastro-esophageal reflux disease without esophagitis
CPT/HCPCS: 27130; 36415; 73502; 86850; 86900; 86901; 97110; 97116; 97161; 97165; A9270; C1776; J0131; J0171; J0330; J0690; J1100; J1170; J1885; J2250; J2270; J2405; J2704; J2710; J2795; J3010; J7030; J7120

== ENCOUNTER 2022-01-27 19:34 | Inpatient (IN) | payer OTHER, SELFPAY ==
--- NOTE | ~2022-01-27 | XR_ITS ---
EXAMINATION: XR chest 1V portable Exam Date/Time: 01/27/2022 20:15 CDT CLINICAL HISTORY: cp Comparison: 08/21/2014. RESULT: Lines, tubes, and devices: None. Lungs and pleura: Senescent changes, otherwise clear. Cardiomediastinal silhouette: Stable cardiomediastinal silhouette. Other: No acute osseous or upper abdominal finding. IMPRESSION: No acute cardiopulmonary process Reviewed, dictated and finalized at location K.
[2022-01-27 19:36] VITALS: BP 124/81; PULSE 89; RESP 17; TEMP 36.8; O2SAT 99
--- NOTE | 2022-01-27 19:46 | ECG_ITS ---
Measurements Intervals [place] Rate: 84 P: 38 [place]: 179 QRS: 9 QRSD: 80 T: 30 QT: 356 QTc: 423 Interpretive Statements SINUS RHYTHM ATRIAL PREMATURE COMPLEXES EARLY PRECORDIAL R/S TRANSITION BORDERLINE ST-T WAVE ABNORMALITY- ANTERIOR LEADS BASELINE ARTIFACT- I, III, AVR, AVF BORDERLINE ECG Electronically Signed On 01-28-2022 8:50:11 CDT by Storm Linda D.O.
[2022-01-27 20:00] LABS: Basophils Percent Auto 0.3 % (0.2-1.2); Eosinophils Absolute Auto 0.3 K/mm3 (0-0.3); Eosinophils Percent Auto 2.4 % (0-4.4); Hematocrit 41.9 % (42.0-52.0); Immature Granulocyte Absolute 0.04 K/mm3 (0.00-0.031); Immature Granulocyte Percent A 0.3 % (0-0.5); Lymphocytes Absolute Auto 1.89 K/mm3 (0.9-3.2); Mean Corpuscular HGB Conc 33.4 g/dl (32-36); Mean Corpuscular Hemoglobin 30.3 pg (26-34); Mean Corpuscular Volume 90.7 fl (80-100); Mean Platelet Volume 10.2 fl (7.4-10.4); Monocytes Absolute Auto 1.4 K/mm3 (0.1-0.6); Monocytes Percent Auto 10.9 % (2.6-8.5); Neutrophils Percent Auto 71.1 % (45.5-73.1); Platelet Count Result 167 k/mm3 (150-375); Red Blood Count 4.62 M/mm3 (4.6-6.20); Red Cell Distribution Width 12.6 % (11.5-14.5); White Blood Count 12.6 K/mm3 (4.5-10.0)
--- NOTE | 2022-01-27 20:07 | ECG_ITS ---
Measurements Intervals [place] Rate: 87 P: 32 NC: 184 QRS: -9 QRSD: 85 T: 17 QT: 361 QTc: 435 Interpretive Statements SINUS RHYTHM ATRIAL PREMATURE COMPLEXES EARLY PRECORDIAL R/S TRANSITION BORDERLINE ST-T WAVE ABNORMALITY- ANTERIOR LEADS BORDERLINE ECG Electronically Signed On 01-28-2022 8:50:39 CDT by Storm Linda D.O.
[2022-01-27 20:10] LABS: Alanine Aminotransferase 57 U/L (4-50); Albumin Level 4.2 g/dL (3.5-5.1); Alkaline Phosphatase 85 U/L (38-126); Anion Gap 7 mmol/L (8-16); Aspartate Amino Transferase 248 U/L (17-59); Bilirubin,Total 0.4 mg/dL (0.2-1.3); Blood Urea Nitrogen 10 mg/dL (9-20); Calcium 9.4 mg/dL (8.4-10.2); Carbon Dioxide 30 mmol/L (22-30); Chloride 102 mmol/L (98-107); Estimated CRCL calculation 69 ml/min; Estimated Glomerular Filt Rate > 60; Glucose 120 mg/dL (65-110); Lipase 72 U/L (23-300); Potassium 3.8 mmol/L (3.4-5.0); Sodium 139 mmol/L (137-145)
[2022-01-27 20:12] VITALS: BP 116/82; PULSE 99; RESP 18; O2SAT 98; O2SAT 99
[2022-01-27 20:12] LABS: INR 1.1; Prothrombin Time 13.3 Seconds (11.1-14.7)
[2022-01-27 20:13] LABS: Partial Thromboplastin Time 29.6 SECONDS (22.3-36.8)
[2022-01-27 20:14] VITALS: PULSE 88
[2022-01-27] MEDS: ASPIRIN 81 MG CHEWABLE TABLET 324 MG PO (20:25)
[2022-01-27] MEDS: NITROGLYCERIN SL 0.4 MG TABLET SUBLINGUAL (20:25)
[2022-01-27 20:36] VITALS: BP 107/75; PULSE 89; RESP 24; O2SAT 97
--- NOTE | 2022-01-27 20:46 | ED.GENADULT ---
HPI - General Adult General Chief complaint: Chest Pain Stated complaint: chills/chest pressure Time Seen by Provider: 01/27/22 20:00 History of Present Illness HPI narrative: Patient is a 61-year-old gentleman who presents the emergency department with chief complaint of chest pain. Patient reports that he started having discomfort yesterday evening the patient states it felt as though it was indigestion felt a tightness and heaviness in his chest. The patient decided today since the pain was not going away he should come to the emergency department for evaluation. Patient states that he has no prior history of PA reports he does have history of reflux and has had a prior hip surgery in the last couple of months. The patient states that the pain is not worsened by anything or is improved by anything. Related Data Home Medications Medication Instructions Recorded Confirmed multivitamin 1 tablet PO QAM 11/25/19 01/08/22 cetirizine 10 mg PO HS 11/20/21 01/08/22 rosuvastatin [Crestor] 10 mg PO HS 11/20/21 01/08/22 Allergies Allergy/AdvReac Type Severity Reaction Status Date / Time tuberculin,PPD,multi-puncture Allergy Intermediate Other Verified 01/27/22 19:35 Review of Systems Review of Systems: A 10 system review of systems was completed on the patient and is negative except for what is stated in the HPI. Nursing and ancillary documentation was reviewed. [facility] Past Medical History Medical History Arthritis of right hip GERD (gastroesophageal reflux disease) Hyperlipidemia Obstructive sleep apnea Overweight (BMI 25.0-29.9) Surgical History Surgical History History of hernia repair Family History Family History Mother Hypertension, Onset Age: 73 Patient's mother is Father Malignant neoplasm of prostate Acute myocardial infarction, Onset Age: 72 Patient's father is Other Family history of allergic disorder Social History Social History Smoking status: Never smoker Second hand tobacco smoke exposure: Yes Alcohol intake: former Alcohol use details: STATES OCCASIONAL GLASS OF WINE - NONE SINCE 2006 Substance use: never Substance use type: does not use Spiritual care concerns: No Exam Narrative: GENERAL: Well-appearing, well-nourished, and in no acute distress. HEAD: Normocephalic, atraumatic. EYES: PERRLA and EOMI. ENT: Nares clear, no rhinorrhea or epistaxis. Mucous membranes moist. NECK: Supple. CHEST: Clear to auscultation. No respiratory distress. HEART: Regular rate and rhythm. No murmur heard. Normal peripheral pulses. ABDOMEN: Soft, nontender, nondistended, normal active bowel sounds. EXTREMITIES: Normal range of motion. No edema. SKIN: Warm, dry, no rash. NEURO: No focal deficits. Alert and oriented x3. PSYCH: Normal mood and affect. Course Course Emergency Course: Initial triage EKG showed less than 1/[address] elevation and 3 and aVF there was reciprocal ST depressions in V2 and V3. Rate was 84 sinus rhythm. This EKG was interpreted by Dr. Moore Repeat EKG showed sinus rhythm rate of [address] elevations and 3 or aVF there was ST depressions in V2 and V3. The patient's pain was minimally improved with sublingual nitro is still having minimal pain at this time patient's initial troponin was 29.7 this was discussed with the interventionalists on-call. The EKG does not meet emergent criteria for ST elevation but given the patient is still having chest discomfort and has a significantly elevated troponin with a indeterminate EKG decision was made to emergently bring the patient to the [place] [facility]. 30 minutes of critical care time was provided excluding any separate billable procedures
[2022-01-27] MEDS: MORPHINE SULFATE (*CRX) 4 MG/ML INJ IV PUSH (21:07)
[2022-01-27 21:09] LABS: Basophils Percent Auto 0.3 % (0.2-1.2); Eosinophils Absolute Auto 0.3 K/mm3 (0-0.3); Eosinophils Percent Auto 1.9 % (0-4.4); Hematocrit 39.9 % (42.0-52.0); Hemoglobin 13.3 g/dL (14.0-18.0); Immature Granulocyte Absolute 0.05 K/mm3 (0.00-0.031); Immature Granulocyte Percent A 0.4 % (0-0.5); Lymphocytes Absolute Auto 1.88 K/mm3 (0.9-3.2); Lymphocytes Percent Auto 14.4 % (18.3-44.2); Mean Corpuscular HGB Conc 33.3 g/dl (32-36); Mean Corpuscular Hemoglobin 30.7 pg (26-34); Mean Corpuscular Volume 92.1 fl (80-100); Mean Platelet Volume 10.9 fl (7.4-10.4); Monocytes Absolute Auto 1.5 K/mm3 (0.1-0.6); Monocytes Percent Auto 11.1 % (2.6-8.5); Neutrophils Absolute Auto 9.4 K/mm3 (1.3-6.7); Neutrophils Percent Auto 71.9 % (45.5-73.1); Platelet Count Result 175 k/mm3 (150-375); Red Blood Count 4.33 M/mm3 (4.6-6.20); Red Cell Distribution Width 12.6 % (11.5-14.5); White Blood Count 13.1 K/mm3 (4.5-10.0)
[2022-01-27] MEDS: HEPARIN SOD/D5W 100 UNITS/ML 25,000 UNITS/250 ML BAG 10 UNITS IV CONT (21:10)
[2022-01-27] MEDS: SODIUM CHLORIDE 0.9% IV 1,000 ML 150 ML IV CONT (21:11)
[2022-01-27 21:19] LABS: INR 1.1; Prothrombin Time 13.9 Seconds (11.1-14.7)
[2022-01-27 21:26] LABS: Partial Thromboplastin Time 181.2 SECONDS (22.3-36.8)
--- NOTE | 2022-01-27 21:34 | PC.NURSE ---
Pt ambulatory to ED tonight after chest pain started last night. EKG showed no STEMI but due to high troponin level and unstable angina the banquet director was notified and wanted a STEMI alert called. Protocols discussed w/ Dr. Joiner and followed per his VORB. All pertinent paper documentation filled out and placed in ED educator mail box and sent with cath team.
[2022-01-27 21:42] LABS: SARS-CoV-2 RNA PCR Negative
--- NOTE | 2022-01-27 22:47 | PM.CNCAR ---
Assessment and Plan Additional Plan STEMI inf-post wall, late pattern but recurrent chest pain, plan Heparin, ASA, statin, B-arlene and emergency LHC, TTE History of Present Illness History of Present Illness Consult date/time: 01/27/22 22:47 Consult reason: chest pain Reason For Visit: chills/chest pressure Narrative: Acute chest pain started yesterday at 10 pm was moderate in severity, and couldn't have good sleep and resolved in AM but was recurrent at 5 PM when he deiced to come to ER. Pain improved in ER with NTG. Pain is mid sternal squeezing, non radiating. No prior similar episodes. Review of Systems Review of Systems: All systems reviewed & are unremarkable except as noted in HPI and below PMFSH Past Medical History Medical History Arthritis of right hip GERD (gastroesophageal reflux disease) Hyperlipidemia Obstructive sleep apnea Overweight (BMI 25.0-29.9) Surgical History Surgical History History of hernia repair Family History Family History Mother Hypertension, Onset Age: 73 Patient's mother is Father Malignant neoplasm of prostate Acute myocardial infarction, Onset Age: 72 Patient's father is Other Family history of allergic disorder Social History Social History Smoking status: Never smoker Second hand tobacco smoke exposure: Yes Alcohol intake: former Alcohol use details: STATES OCCASIONAL GLASS OF WINE - NONE SINCE 2006 Substance use: never Substance use type: does not use Spiritual care concerns: No Meds Home Medications and Allergies Home Medications Medication Instructions Recorded Confirmed Type multivitamin 1 tablet PO QAM 11/25/19 01/08/22 History pantoprazole 40 mg tablet,delayed 40 mg PO QAM #30 tablet 05/07/21 01/08/22 Rx release cetirizine 10 mg PO HS 11/20/21 01/08/22 History rosuvastatin [Crestor] 10 mg PO HS 11/20/21 01/08/22 History Allergies Allergy/AdvReac Type Severity Reaction Status Date / Time tuberculin,PPD,multi-puncture Allergy Intermediate Other Verified 01/27/22 19:35 Vital Signs Vital Signs - 24 hr 01/27/22 19:36 01/27/22 20:12 01/27/22 20:14 Temperature 36.8 C Pulse Rate 89 99 88 Respiratory Rate 17 18 Blood Pressure 124/81 116/82 Pulse Oximetry 99 99 01/27/22 20:36 Temperature Pulse Rate 89 Respiratory Rate 24 H Blood Pressure 107/75 Pulse Oximetry 97 Exam Const: General: comfortable and no acute distress Other: Able to lie flat HENMT: General nose exam: Normal nares present and no epistaxis Mouth: Yes moist mucous membranes Eyes: Sclera: sclerae normal Pupils: Equal, round and reactive pupils present Neck: Neck: supple and no JVD Carotids: no bruits Resp: Auscultation: clear to auscultation bilaterally and lung sounds not diminished Other: No chest wall tenderness Cardio: Rate: regular rate Rhythm: regular rhythm Heart sounds: no gallops, no murmurs and no rubs GI: GI Palp: Yes Soft to palpation and No Tenderness to palpation present (GI) Auscultation: normal bowel sounds Skin: General skin exam: normal color, rashes and/or lesions noted and no erythema Other: Warm Neuro: Cranial nerves: Yes Equal, round and reactive pupils present Speech: normal speech Other: No obvious focal deficit or facial asymmetry Extrem: General: no edema Other: Normal capillary refills Intact distal pulses. Results Labs and Meds Result diagrams: 01/27/22 21:01 01/27/22 19:54 Lab results: Cardiac Enzymes 01/27/22 Range/Units 19:54 AST 248 H (17-59) U/L Troponin I 29.700 H* (0.000-0.034) ng/mL Coagulation 01/27/22 01/27/22 Range/Units 19:54 21:01 PT 13.
--- NOTE | 2022-01-27 22:53 | WPDCARDPROC ---
Cardiac Cath Procedure Note Date of procedure:: 01/27/22 Performing physician:: Woo Dacosta MD Assessment and Plan Additional Plan PROCEDURE 1. LHC and coronary angiogram 2. PCI to culprit lesion of NH with EVENS 3. Aspiration thrombectomy of RCA 4. IVUS 5. IC tPA INDICATION STEMI HISTORY 61 Yrs old male presented with acute chest pain and found to have STEMI inf post wall PROCEDURE DETAILS Consent obtained and access site prepped and draped in sterile fashion Time out was done Sedation was done with versed 2 mg and fentanyl 100 mcg with continuos monitoring and supervision by myself and change number operator Obtained in rt radial artery with modified Seldinger technique Coronary angiogram was done using TIG 5 F HEMODYNAMICS Aorta: 110/70 LV: 15 CORONARY ANGIOGRAM Left main: bifrucates into LAD, ramus and LCX LAD: large ectatic vessel that gives large diagonal branches, slow flow in ALD but no obstructive disease LCX: Non dominant vessel that gives large OM branch. Ectasia of LCX and OM branch with slow flow. RCA: Dominant vessel that gives PDA and rPL, ectasia of RCA and thrombus in distal RCA extending into rPL. NADINE 1 flow in rPL PCI DETAILS #1 lesion: distal RCA and rPL Pre-intervention: 99% occlusion and NADINE 1 flow, very large thrombus burden , class C lesion not previosuly treated Guide catheter: AL1 Guide wire: Whisper wire used to cross lesion into distal vessel Balloon angioplasty: aspiration thrombectomy was done using penumbra catheter but was not successful. IVUS done using [place] [facility] [place] and showed very large thrombus burden in distal RCA and rPL. Decision to proceed with IC tPA, slow injection of 10 was given over 20 min. Post-intervention: 99% occlusion in RCA, subtotal occlusion with NADINE 1 flow in rPL. very large thrombus burden COMPLICATION: None CONCLUSION unsuccessful PCI to rPL and distal RCA because of very large thrombus burden and very large vessel > 9 mm in diameter, not amenable for intervention. IC tPA was given and Ic NTG and systemic heparin and Integrilin. RECOMMENDATION Start heparin infusion in 2 hours with no bolus ASA, start Ticagrelor tomorrow He will need to be on [facility] anticoagulation along with single antiplatelet therapy consider repeat Angiogram in 72 hours
--- NOTE | 2022-01-27 23:33 | ECG_ITS ---
Measurements Intervals [place] Rate: 95 P: 27 PA: 208 QRS: -19 QRSD: 75 T: 40 QT: 335 QTc: 422 Interpretive Statements SINUS RHYTHM EARLY PRECORDIAL R/S TRANSITION INFERIOR ST ELEVATION MYOCARDIAL INFARCT- ACUTE POSTERIOR INFARCT, ACUTE BASELINE ARTIFACT- I, II, AVR ABNORMAL ECG Electronically Signed On 01-28-2022 19:13:49 CDT by Storm Linda D.O.
[2022-01-27 23:37] LABS: Activated Clotting Time 255 SEC (74-137)
[2022-01-27 23:55] VITALS: BMI 28.0
[2022-01-28] VITALS (39 sets, daily range): BP systolic 80–121; BP diastolic 51–85; PULSE 88–110; RESP 12–30; TEMP 36.6–38.2; O2SAT 89–99
[2022-01-28] MEDS: SODIUM CHLORIDE 0.9% IV 1,000 ML 125 ML IV CONT ×2 (00:16→13:17)
[2022-01-28 00:47] LABS: Basophils Percent Auto 0.3 % (0.2-1.2); Eosinophils Absolute Auto 0.2 K/mm3 (0-0.3); Eosinophils Percent Auto 1.5 % (0-4.4); Hematocrit 36.5 % (42.0-52.0); Hemoglobin 12.3 g/dL (14.0-18.0); Immature Granulocyte Absolute 0.03 K/mm3 (0.00-0.031); Immature Granulocyte Percent A 0.3 % (0-0.5); Lymphocytes Absolute Auto 1.85 K/mm3 (0.9-3.2); Lymphocytes Percent Auto 15.9 % (18.3-44.2); Mean Corpuscular HGB Conc 33.7 g/dl (32-36); Mean Corpuscular Hemoglobin 30.2 pg (26-34); Mean Corpuscular Volume 89.7 fl (80-100); Mean Platelet Volume 10.1 fl (7.4-10.4); Monocytes Absolute Auto 1.2 K/mm3 (0.1-0.6); Monocytes Percent Auto 10.4 % (2.6-8.5); Neutrophils Absolute Auto 8.3 K/mm3 (1.3-6.7); Neutrophils Percent Auto 71.6 % (45.5-73.1); Platelet Count Result 142 k/mm3 (150-375); Red Blood Count 4.07 M/mm3 (4.6-6.20); Red Cell Distribution Width 12.7 % (11.5-14.5); White Blood Count 11.6 K/mm3 (4.5-10.0)
[2022-01-28 00:57] LABS: INR 1.2; Prothrombin Time 14.9 Seconds (11.1-14.7)
--- NOTE | 2022-01-28 01:00 | ADMIMU ---
This patient, Adalgisa Thacker, was admitted to ICU status, and placed in Intensive Care Unit-4 at 2330. Patient/family oriented to hospital policies and general routines including ID bracelet, bed and alarms, visiting hours, pain management, procedures, bathroom and other care routines, personal items, smoking policy, room service/diet, and visiting hours. Information on how to activate the Rapid Response Team has been discussed. Patient/Family are encouraged to report perceived risks to care and to ask questions if they do not understand what they are told or what they should do.
[2022-01-28 01:22] LABS: Partial Thromboplastin Time > 200.0 SECONDS (22.3-36.8)
[2022-01-28 04:38] LABS: Basophils Percent Auto 0.2 % (0.2-1.2); Eosinophils Absolute Auto 0.1 K/mm3 (0-0.3); Hematocrit 37.6 % (42.0-52.0); Hemoglobin 12.4 g/dL (14.0-18.0); Immature Granulocyte Absolute 0.04 K/mm3 (0.00-0.031); Immature Granulocyte Percent A 0.3 % (0-0.5); Immature Platelet Fraction Pct 4.3 % (0.9-11.2); Lymphocytes Absolute Auto 1.45 K/mm3 (0.9-3.2); Mean Corpuscular Hemoglobin 30.5 pg (26-34); Mean Corpuscular Volume 92.6 fl (80-100); Mean Platelet Volume 10.7 fl (7.4-10.4); Monocytes Absolute Auto 1.5 K/mm3 (0.1-0.6); Monocytes Percent Auto 12.2 % (2.6-8.5); Neutrophils Percent Auto 74.3 % (45.5-73.1); Platelet Count Result 137 k/mm3 (150-375); Red Blood Count 4.06 M/mm3 (4.6-6.20); Red Cell Distribution Width 12.7 % (11.5-14.5); White Blood Count 12.1 K/mm3 (4.5-10.0)
[2022-01-28 04:47] LABS: Partial Thromboplastin Time 33.9 SECONDS (22.3-36.8)
[2022-01-28] MEDS: HEPARIN SOD/D5W 100 UNITS/ML 25,000 UNITS/250 ML BAG 10 UNITS IV CONT (06:40)
[2022-01-28] MEDS: SODIUM CHLORIDE 0.9% IV 500 ML IV CONT (09:19)
[2022-01-28] MEDS: NITROGLYCERIN SL 0.4 MG TABLET SUBLINGUAL (09:23)
[2022-01-28] MEDS: MORPHINE SULFATE (*CRX) 2 MG/ML INJ 1 MG IV PUSH ×3 (09:37→18:55)
[2022-01-28] MEDS: ONDANSETRON INJ 4 MG/2 ML VIAL IV PUSH (09:38)
[2022-01-28] MEDS: SODIUM CHLORIDE 0.9% IV 500 ML 999 ML (09:49)
[2022-01-28] MEDS: NITROGLYCERIN/D5W 200 MCG/ML 50 MG/250 ML BTL IV CONT (10:39)
--- NOTE | 2022-01-28 11:20 | WPDCNINT ---
Assessment and Plan Assessment and plan (1) Acute [place]: Qualifiers: Involved coronary artery: unspecified coronary artery Myocardial infarction type: unspecified Qualified Code(s): I21.9 - Acute myocardial infarction, unspecified Code(s): I21.9 - Acute myocardial infarction, unspecified Status: Acute Assessment and Plan: Patient presented with chest pain/pressure -he showed acute inferior wall injury -status post angiogram with unsuccessful intervention to RPL in distal RCA because of very large thrombus burden and large vessel. Intracoronary tPA and nitroglycerin were given -patient continues to have symptoms, he will be taking the patient back to laboratory equipment installer for intra-aortic balloon pump -patient has been accepted to [facility] for possible bypass surgery (2) Obstructive sleep apnea: Code(s): G47.33 - Obstructive sleep apnea (adult) (pediatric) Status: Acute Assessment and Plan: P.r.n. CPAP (3) GERD (gastroesophageal reflux disease): Code(s): K21.9 - Gastro-esophageal reflux disease without esophagitis Status: Acute Assessment and Plan: PPI Additional Plan Discussed with patient and spouse and updated them with patient's condition plan of care. Both of them aware that patient will be transferred to [facility] for possible surgical option. They also were that he has will be taken back to the laboratory equipment installer for intra-aortic balloon pump insertion. Code status: Full code Critical care time spent: 44 minute This dictation may have been done utilizing a voice recognition system. Attempts have been made to correct errors. However, there may be uncorrected grammatical, spelling, and recognition errors present. Due to a high probability of clinically significant, life threatening deterioration, the patient required my highest level of preparedness to intervene emergently and I personally spent this critical care time directly and personally managing the patient. This critical care time included obtaining a history; examining the patient; pulse oximetry; ordering and review of studies; arranging urgent treatment with development of a management plan; evaluation of patient's response to treatment; frequent reassessment; and discussions with other providers. It was exclusive of separately billable procedures and treating other patients and teaching time. Please see Assessment and Plan section and the rest of the note for further information on patient assessment and treatment [employer] Specialist Consult Note Consult date: 01/28/22 Time Seen: 07:04 Reason for consult: STEMI, status post angiogram with unsuccessful intervention to RPL and distal RCA because of very large thrombus burden and large vessel. Intracoronary tPA was given as well as intracoronary nitroglycerin. HPI: Adalgisa Thacker is a 61 year old male past medical history of hyperlipidemia, obstructive sleep apnea, overweight, GERD, arthritis presented the ED on 01/27/2022 with complaints of chest pressure/chest pain which started on 01/26/2022. Patient is initially thought it was indigestion minute tightness and heaviness in the chest increased and patient decided to come to the ER on 01/27/2022. Patient does not have any prior history of coronary artery disease/[place]. EKG showed acute inferior myocardial injury, patient was taken to laboratory equipment installer status post angiogram with unsuccessful intervention to RPL in distal RCA because of very large thrombus burden and large vessel. Intracoronary tPA and nitroglycerin were given. Patient was sent to the ICU for further management This morning patient complains of chest pain 5/10 intensity, discussed with Cardiology, patient will be transferred to high level of care after insertion of for intra-aortic balloon pump.-patient denies any shortness of breath, nausea, vomiting, abdominal pain, is anxious. is at bedside Review of Systems Review of Systems: All systems reviewed & are u
[2022-01-28] MEDS: ASPIRIN 81 MG ENTERIC TABLET PO (11:30)
[2022-01-28] MEDS: EPTIFIBATIDE 20 MG/10 ML VIAL 15.5 MG IV PUSH (11:31)
[2022-01-28] MEDS: EPTIFIBATIDE 0.75 MG/ML 75 MG/100 ML VIAL 13.79 MG IV CONT ×2 (11:32→17:24)
[2022-01-28 14:38] LABS: Partial Thromboplastin Time 120.2 SECONDS (22.3-36.8)
[2022-01-28] MEDS: ACETAMINOPHEN 325 MG TABLET PO (15:01)
[2022-01-28] MEDS: SODIUM CHLORIDE 0.9% IV 1,000 ML 999 ML IV CONT (15:14)
--- NOTE | 2022-01-28 16:58 | PM.PNCARD ---
Progress Note: A&P Additional Plan STEMI inf post wall, coronary artery ectasai and slow flow all branches, large thrombus burden in RCA, attempt for tpa and thrombectomy is not successful. Likely organized thrombus, discussed case with dr Fulton and dr Thomas in [place] and other interventionalists and surgeons dr Patterson, there is not good intervention option and decision to attempt medical therapy with triple anticoagulation and IABP. Patient was accepted by Dr Patterson at [facility]. Plan IABP insertion (done), Heparin, Integrillin, and statin Subjective Date/time seen: 01/28/22 16:58 Interval history: recurrent chest pain and BP is lower Review of Systems Review of Systems: All systems reviewed & are unremarkable except as noted in HPI and below Exam Const: General: comfortable and no acute distress HENMT: General nose exam: Normal nares present and no epistaxis Mouth: Yes moist mucous membranes Eyes: Sclera: sclerae normal Pupils: Equal, round and reactive pupils present Neck: Neck: supple and no JVD Carotids: no bruits Resp: Auscultation: clear to auscultation bilaterally and lung sounds not diminished Cardio: Rate: regular rate Rhythm: regular rhythm Heart sounds: no gallops, no murmurs and no rubs GI: Auscultation: normal bowel sounds Skin: General skin exam: normal color, rashes and/or lesions noted and no erythema Neuro: Cranial nerves: Yes Equal, round and reactive pupils present Speech: normal speech Extrem: General: no edema Objective Data Vital Signs Vital Signs: Vital Signs - 24 hr 01/27/22 19:36 01/27/22 20:12 01/27/22 20:14 Temperature 36.8 C Pulse Rate 89 99 88 Respiratory Rate 17 18 Blood Pressure 124/81 116/82 Pulse Oximetry 99 99 01/27/22 20:36 01/28/22 00:00 01/28/22 01:15 Temperature 36.8 C Pulse Rate 89 94 Respiratory Rate 24 H 19 Blood Pressure 107/75 91/67 L Pulse Oximetry 97 93 99 01/28/22 01:20 01/28/22 01:49 01/28/22 01:56 Temperature Pulse Rate 92 92 92 Respiratory Rate 18 15 15 Blood Pressure 98/67 L 98/67 L Pulse Oximetry 99 95 95 01/28/22 02:19 01/28/22 03:19 01/28/22 04:00 Temperature 36.6 C Pulse Rate 97 94 94 Respiratory Rate 17 17 15 Blood Pressure 100/68 105/71 98/67 L Pulse Oximetry 95 94 93 01/28/22 04:19 01/28/22 04:25 01/28/22 05:19 Temperature Pulse Rate 94 94 94 Respiratory Rate 17 17 15 Blood Pressure 105/71 96/67 L Pulse Oximetry 94 95 94 01/28/22 06:00 01/28/22 06:45 01/28/22 07:43 Temperature 37.4 C Pulse Rate 91 101 H 98 Respiratory Rate 16 30 H 21 H Blood Pressure 98/67 L 109/70 109/70 Pulse Oximetry 95 95 95 01/28/22 08:00 01/28/22 08:28 01/28/22 09:15 Temperature Pulse Rate 97 Respiratory Rate 25 H Blood Pressure 103/69 104/69 Pulse Oximetry 93 93 01/28/22 09:51 01/28/22 10:00 01/28/22 10:39 Temperature Pulse Rate 88 90 95 Respiratory Rate 18 17 Blood Pressure 104/65 92/64 L 90/59 L Pulse Oximetry 97 93 01/28/22 10:41 01/28/22 10:50 01/28/22 11:30 Temperature Pulse Rate 94 90 97 Respiratory Rate 16 18 Blood Pressure 101/62 94/70 L 93/61 L Pulse Oximetry 01/28/22 13:00 01/28/22 13:01 01/28/22 13:17 Temperature 37.4 C Pulse Rate 95 95 95 Respiratory Rate 22 H 22 H 22 H Blood Pressure 106/77 106/77 99/72 L Pulse Oximetry 93 93 92 01/28/22 13:30 01/28/22 14:00 01/28/22 14:30 Temperature 37.3 C Pulse Rate 93 91 94 Respiratory Rate 20 21 H Blood Pressure 103/80 103/71 106/69 Pulse Oximetry 96 95 01/28/22 15:00 01/28/22 15:30 01/28/22 15:53 Temperature 36.9 C Pulse Rate 96 93 96 Respiratory Rate 20 23 H Blood Pressure 121/81 112/68 99/64 L Pulse Oximetry 96 95 01/28/22 16:00 01/28/22 16:21 01/28/22 16:55 Temperature 37.2 C 37.3 C Pulse Rate 95 98 Respiratory Rate 15 15 Blood Pressure 98/68 L 97/65 L Pulse Oximetry 92 91 Intake/Output Intake/Output: Intake & Output 01/25/22 01/26/22 01/27/22
--- NOTE | 2022-01-28 17:05 | P.PCNCC_ITS ---
Cardiac Cath Procedure Note Date of procedure:: 01/28/22 Performing physician:: Procedure: Insertion of IABP Access site: Rt SILK SCREEN OPERATOR with US and fluoroscopy guidance Procedure details: rt SILK SCREEN OPERATOR access upgraded to 8 F sheath IABP inserted over wire and appropriate augmentation started Sheath sutured in place Plan transfer to ICU for further management Woo Dacosta MD
--- NOTE | 2022-01-28 17:05 | WPDCARDPROC ---
Cardiac Cath Procedure Note Date of procedure:: 01/28/22 Performing physician:: Procedure: Insertion of IABP Access site: Rt MECHANICAL MAINTENANCE FOREMAN with US and fluoroscopy guidance Procedure details: rt MECHANICAL MAINTENANCE FOREMAN access upgraded to 8 F sheath IABP inserted over wire and appropriate augmentation started Sheath sutured in place Plan transfer to ICU for further management Woo Dacosta MD
[2022-01-28] MEDS: NOREPINEPHRINE 8 MG/D5W 250 ML 8 MG/250 ML BAG 9.38 MG IV CONT (18:39)
--- NOTE | 2022-01-28 19:31 | PC.NURSE ---
Report called to LAKEISHA Schmidt at [facility]. All questions answered. Ramsey present to transfer patient to [facility] CV Bed 3. Patient discharged via [facility] ambulance, accompanied by LAKEISHA Gibbons.
--- NOTE | 2022-01-28 20:56 | WPDPROCEDUR ---
Procedures Central Line Placement Left Femoral: Central Line Date: 01/28/22 Central Line Time: 18:30 Discussed w/ the patient/family/POA,the placement of a central venous catheter, including its clinical necessity/indication & associated potential risks, benifits and alternatives.: Yes The patient/family/POA understand(s) and acknowledge(s) the need to proceed with central venous catheter insertion as an important element of the patient's clinical management.: Yes Time Out Performed: Yes Patient Position: supine Patient placed on monitor/pulse ox: Yes Provider Prep: mask, sterile gown, sterile gloves, Max. sterile barrier precautions, cap and hand hygiene with conventional soap/water or alcohol based hand rub Central line prep: 2% Chlorhexidine scrub Local anesthesia used: lidocaine 1% Amount of anesthesia used (ml): 6 Sterile US Technique with sterile gel/sterile probe covers: Yes Central line lumen inserted: triple Guyanese: 7 Length (cm): 20 Depth of Insertion (cm): 20 Post Procedure: sutured in place, good blood return, all ports aspirated, flushed, capped, transparent dressing, antimicrobial product and aseptic technique maintained throughout procedure Patient tolerated procedure: well Complications: none Additional comments: Miles and by
--- NOTE | 2022-02-15 19:26 | PM.TDS ---
Transfer Discharge Sum: Prov Provider Date of admission: 01/27/22 20:45 Primary care physician: Prudencio Gill PA-C Admitting clinician: Woo Dacosta MD Consults: 01/28/22 Consult to Physician Routine Comment: Consulting Provider: Rahat Bravo weight caller/MD group to consult: Lawrence Reason for consultation: critical care patient Has provider been notified: Yes DS: Admitting Diagnosis Discharge Date 01/28/22 Admitting Diagnosis STEMI DS: Discharge Diagnosis Discharge Diagnosis Plan STEMI inf post wall, coronary artery ectasia and slow flow all branches, large thrombus burden in RCA, attempt for tpa and thrombectomy is not successful. Likely organized thrombus, discussed case with dr Fulton and dr Thomas in [place] and other interventionalists and surgeons dr Patterson, there is not good intervention option and decision to attempt medical therapy with triple anticoagulation and IABP.? Patient was accepted by Dr Patterson at [facility]. IABP insertion (done), Heparin, Integrillin, and statin and transfer. Transfer Discharge Sum: Med Medications Active and Home Medications: Home Medications multivitamin (Multiple Vitamins) 1 tablet PO QAM 11/25/19 [History Confirmed 01/28/22] cetirizine 10 mg tablet 10 mg PO HS 11/20/21 [History Confirmed 01/28/22] rosuvastatin 10 mg tablet (Crestor) 10 mg PO HS 11/20/21 [History Confirmed 01/28/22] famotidine 40 mg tablet 40 mg PO DAILY #30 tabs 02/06/22 [Rx] Active Medications Multivitamins Therapeutic (Multivitamins Therapeutic Tab (*Bkc)) 1 tablet PO QAM [facility] Non-Formulary Medication (Cetirizine) 10 mg PO HS MARGARET Stop: 03/17/22 20:59 Rosuvastatin Calcium (Rosuvastatin 10 Mg Tablet) 10 mg PO HS MARGARET ASA, Integrillin, heparin and statin Transfer Discharge Sum: Hosp Hospital Course Hospital course: Adalgisa Thacker is a 61 year old male presented with STEMI inf post wall, coronary artery ectasia and slow flow all branches, large thrombus burden in RCA, attempt for tpa and thrombectomy is not successful. Likely organized thrombus, discussed case with dr Fulton and dr Thomas in [place] and other interventionalists and surgeons dr Patterson, there is not good intervention option and decision to attempt medical therapy with triple anticoagulation and IABP.? Patient was accepted by Dr Patterson at [facility]. Plan IABP insertion (done), Heparin, Integrillin, and statin Time Spent with Patient Time attestation: Total time spent providing and/or coordinating transfer services: > 0 min Exam Const: General: comfortable and no acute distress Other: Able to lie flat HENMT: General nose exam: Normal nares present and no epistaxis Mouth: Yes moist mucous membranes Eyes: Sclera: sclerae normal Pupils: Equal, round and reactive pupils present Neck: Neck: supple and no JVD Carotids: no bruits Resp: Auscultation: clear to auscultation bilaterally and lung sounds not diminished Other: No chest wall tenderness Cardio: Rate: regular rate Rhythm: regular rhythm Heart sounds: no gallops, no murmurs and no rubs GI: GI Palp: Yes Soft to palpation and No Tenderness to palpation present (GI) Auscultation: normal bowel sounds Skin: General skin exam: normal color, rashes and/or lesions noted and no erythema Other: Warm Neuro: Cranial nerves: Yes Equal, round and reactive pupils present Speech: normal speech Other: No obvious focal deficit or facial asymmetry Extrem: General: no edema Other: Normal capillary refills Intact distal pulses.
== END 2022-01-28 19:00 | disposition short-term general hospital (02) | DRG 272 ==
LOC: ANHED 21:21 → ANHCATHLAB 21:32 → ANHICU 01-28 00:25 → ANHCATHLAB 01-30 15:22 → ANHED 01-30 15:22 → ANHICU 01-30 15:22
PROVIDERS: Emergency Medicine; Admitting Provider Internal Medicine Interventional Cardiology; Emergency Provider Emergency Medicine; PCP Physician Assistant; Visit Provider Internal Medicine Interventional Cardiology
PROC: 4A023N7 Measurement of Cardiac Sampling and Pressure, Left Heart, Percutaneous Approach (ICD-10-PCS; CPT 93452; principal; 2022-01-27 21:10)
PROC: 02703ZZ Dilation of Coronary Artery, One Artery, Percutaneous Approach (ICD-10-PCS; CPT 92920; 2022-01-27 21:10)
PROC: 4A023N7 Measurement of Cardiac Sampling and Pressure, Left Heart, Percutaneous Approach (ICD-10-PCS; CPT 92973; 2022-01-27 21:10)
PROC: 4A023N7 Measurement of Cardiac Sampling and Pressure, Left Heart, Percutaneous Approach (ICD-10-PCS; 2022-01-27 21:10)
PROC: 5A02210 Assistance with Cardiac Output using Balloon Pump, Continuous (ICD-10-PCS; principal; 2022-01-28 11:05)
DX: I21.11 ST elevation (STEMI) myocardial infarction involving right coronary artery (principal); M16.11 Unilateral primary osteoarthritis, right hip; K21.9 Gastro-esophageal reflux disease without esophagitis; E78.5 Hyperlipidemia, unspecified; G47.33 Obstructive sleep apnea (adult) (pediatric); Z20.822 Contact with and (suspected) exposure to COVID-19; E66.3 Overweight; Z68.28 Body mass index [BMI] 28.0-28.9, adult; Z79.899 Other long term (current) drug therapy; Z88.8 Allergy status to other drugs, medicaments and biological substances
CPT/HCPCS: 33967; 36415; 71045; 80053; 83690; 84484; 85025; 85055; 85610; 85730; 92920; 92973; 92978; 93005; 93458; 96374; 96375; 99285; A9270; C1725; C1751; C1753; C1757; C1769; C1887; C1894; C9803; J0153; J1327; J1644; J2001; J2250; J2270; J2405; J3010; J7030; J7040; U0003; U0005

== ENCOUNTER 2022-02-12 14:44 | Outpatient (NON) | payer OTHER, SELFPAY ==
[2022-02-12 19:30] LABS: Hemoglobin 10.7 g/dL (14.0-18.0); Mean Corpuscular HGB Conc 30.6 g/dl (32-36); Mean Corpuscular Hemoglobin 29.8 pg (26-34); Mean Corpuscular Volume 97.5 fl (80-100); Mean Platelet Volume 9.2 fl (7.4-10.4); Platelet Count Result 791 k/mm3 (150-375); Red Blood Count 3.59 M/mm3 (4.6-6.20); White Blood Count 11.3 K/mm3 (4.5-10.0)
[2022-02-12 19:38] LABS: Alanine Aminotransferase 31 U/L (6-50); Albumin Level 4.2 g/dL (3.5-5.1); Alkaline Phosphatase 119 U/L (38-126); Anion Gap 11 mmol/L (8-16); Aspartate Amino Transferase 132 U/L (17-59); Bilirubin,Total 0.6 mg/dL (0.2-1.3); Blood Urea Nitrogen 18 mg/dL (9-20); Calcium 9.3 mg/dL (8.4-10.2); Carbon Dioxide 27 mmol/L (22-30); Chloride 97 mmol/L (98-107); Estimated Glomerular Filt Rate > 60; Glucose 107 mg/dL (65-110); Potassium 4.6 mmol/L (3.4-5.0); Sodium 135 mmol/L (137-145)
== END 2022-02-12 14:45 | disposition home or self-care (01) ==
PROVIDERS: PCP Physician Assistant
DX: I10 Essential (primary) hypertension (principal); Z48.812 Encounter for surgical aftercare following surgery on the circulatory system; I21.11 ST elevation (STEMI) myocardial infarction involving right coronary artery
CPT/HCPCS: 80053; 85027

== ENCOUNTER 2022-06-11 15:00 | Outpatient (RCR) | payer OTHER, SELFPAY ==
[2022-03-20 08:41] VITALS: BP 116/70; PULSE 71; O2SAT 97
[2022-03-20 09:04] VITALS: PULSE 71
== END 2022-06-13 11:25 | disposition home or self-care (01) ==
LOC: ANHCPREHAB 15:00
PROVIDERS: PCP Physician Assistant; Visit Provider Internal Medicine Cardiovascular Disease
DX: Z95.1 Presence of aortocoronary bypass graft (principal)
CPT/HCPCS: 93798

== ENCOUNTER 2022-08-02 17:23 | Emergency (ER) | payer OTHER, SELFPAY ==
--- NOTE | ~2022-08-02 | XR_ITS ---
EXAMINATION: XR foot LT min 3V DATE: 08/02/2022 18:14 INDICATION: Left foot pain. TECHNIQUE: 4 views of left foot were obtained. COMPARISON: None. FINDINGS: There is mild hallux valgus. No fracture. There is severe osteoarthritis of first metatarso phalangeal joint. There is an enthesophyte at plantar aspect of calcaneal tuberosity. IMPRESSION: 1. Mild hallux valgus. 2. Severe osteoarthritis of first metatarsophalangeal joint. Reviewed, dictated and finalized at location A. O OPERATOR
[2022-08-02 17:59] VITALS: BP 110/69; PULSE 72; RESP 16; TEMP 37.6; O2SAT 100
--- NOTE | 2022-08-02 19:18 | ED.LOWEXIN ---
HPI - Extremity Injury (Lower) General Chief Complaint: Extremity Injury, Lower Stated Complaint: toe pain Time Seen by Provider: 08/02/22 18:08 History of Present Illness HPI Narrative: 61-year-old male presents the emergency room for gradual onset of left foot pain patient states he has been experiencing pain for several days, reporting the pain is worse at the end of the day. Patient denies any new footwear. Feels like he is walking on a PE or a rock. Patient has been putting Biofreeze and applying ice to the affected area, which she states is helping his pain slightly. Related Data Home Medications Medication Instructions Recorded Confirmed multivitamin (Multiple Vitamins 1 tablet PO QAM 11/25/19 06/12/22 tablet) aspirin 81 mg tablet,delayed 81 mg PO DAILY 03/05/22 06/12/22 release clopidogrel 75 mg tablet 75 mg PO DAILY 03/05/22 06/12/22 Allergies Allergy/AdvReac Type Severity Reaction Status Date / Time tuberculin,PPD,multi-puncture Allergy Intermediate Other Verified 06/12/22 09:29 Review of Systems Review of Systems: CONSTITUTIONAL: Denies fever, chills, or sweats. EYES: Denies visual changes, redness, or discharge. ENT: Denies rhinorrhea, congestion, sore throat, or otalgia. CARDIOVASCULAR: Denies chest pain, palpitations, or edema. RESPIRATORY: Denies cough or dyspnea. GASTROINTESTINAL: Denies abdominal pain, nausea, vomiting, or diarrhea. GENITOURINARY: Denies dysuria or hematuria. SKIN: Denies rash or itching. MUSCULOSKELETAL: Reports left foot pain NEUROLOGIC: Denies headache, numbness, dizziness, or weakness. PSYCHIATRIC: Denies anxiety or depression. [facility] Past Medical History Medical History Arthritis of right hip GERD (gastroesophageal reflux disease) History of [place] (myocardial infarction) (~12/2021) Hyperlipidemia Obstructive sleep apnea Overweight (BMI 25.0-29.9) Surgical History Surgical History History of hernia repair History of total right hip arthroplasty (~12/19/21) Family History Family History Mother Hypertension, Onset Age: 73 Patient's mother is Father Malignant neoplasm of prostate Acute myocardial infarction, Onset Age: 72 Patient's father is Other Family history of allergic disorder Social History Social History Smoking status: Never smoker Second hand tobacco smoke exposure: Yes Alcohol intake: former Alcohol use details: STATES OCCASIONAL GLASS OF WINE - NONE SINCE 2006 Substance use: never Substance use type: does not use Spiritual care concerns: No Exam Narrative: GENERAL: Well-appearing, well-nourished, no physical limitations, and in no acute distress. HEAD: Normocephalic, atraumatic. EYES: Conjunctivae normal, PERRLA and EOMI. CHEST: Clear to auscultation. No respiratory distress. No wheezes rales or rhonchi. HEART: Regular rate and rhythm. No murmur heard. Normal peripheral pulses. EXTREMITIES: Left foot: Tenderness in between the first/second and second/third metatarsal webbing. No palpable mass. Full range of motion second and third toes. No obvious bony abnormalities. No erythema/ecchymosis noted, no soft tissue swelling, neurovascular is intact distally SKIN: Warm, dry, no rash. No noted wounds NEURO: No focal deficits. Alert and oriented x3. MAEW. CN's II-XI intact bilaterally, antalgic gait PSYCH: Cooperative. Normal mood and affect. Course Vital Signs Vital signs: Vital Signs Temperature 37.6 C 08/02/22 17:59 Pulse Rate 72 08/02/22 17:59 Respiratory Rate 16 08/02/22 17:59 Blood Pressure 110/69 08/02/22 17:59 Pulse Oximetry 100 08/02/22 17:59 Oxygen Delivery Room Air 08/02/22 17:59 Temperature 37.6 C 08/02/22 17:59 Pulse Rate
== END 2022-08-02 19:29 | disposition home or self-care (01) ==
LOC: ANHED 19:18
PROVIDERS: Emergency Provider Nurse Practitioner Family; PCP Physician Assistant
DX: M79.672 Pain in left foot (principal); I25.2 Old myocardial infarction; E78.5 Hyperlipidemia, unspecified; M16.11 Unilateral primary osteoarthritis, right hip; K21.9 Gastro-esophageal reflux disease without esophagitis; G47.33 Obstructive sleep apnea (adult) (pediatric); E66.3 Overweight; Z68.22 Body mass index [BMI] 22.0-22.9, adult; Z96.641 Presence of right artificial hip joint; M19.072 Primary osteoarthritis, left ankle and foot
CPT/HCPCS: 73630; 99283

== ENCOUNTER 2023-01-15 16:35 | Emergency (ER) | payer OTHER, SELFPAY ==
[2023-01-15 16:48] VITALS: BP 117/80; PULSE 86; RESP 17; TEMP 36.8; O2SAT 100
--- NOTE | 2023-01-15 17:11 | ED.WOUNDLAC ---
HPI - Wound/Laceration General Chief Complaint: Wound/Laceration Stated Complaint: post op skin ca bleeding Time Seen by Provider: 01/15/23 16:47 Source: patient Mode of arrival: ambulatory Limitations: no limitations History of Present Illness HPI narrative: Patient is a 62-year-old male who presents to the ED with report of bleeding from his skin cancer removal site. Patient reports he had a skin cancer removed from the top of his head this morning around 1030 at an outpatient dermatology center. He is unsure exactly what type of surgery was performed. He began noticing bleeding from the surgical site around dinnertime around 4:30 PM. He was unable to control the bleeding at home, which prompted his presentation. Patient was advised not to remove his bandage until 24 hours after the procedure. He is on aspirin and Plavix due to previous CABG. He denies any syncope, significant lightheadedness or dizziness, pain, vision changes. Related Data Home Medications Medication Instructions Recorded Confirmed multivitamin (Multiple Vitamins 1 tablet PO QAM 11/25/19 12/24/22 tablet) aspirin 81 mg tablet,delayed 81 mg PO DAILY 03/05/22 12/24/22 release clopidogrel 75 mg tablet 75 mg PO DAILY 03/05/22 12/24/22 Allergies Allergy/AdvReac Type Severity Reaction Status Date / Time tuberculin,PPD,multi-puncture Allergy Intermediate Other Verified 01/15/23 16:52 Review of Systems Review of Systems: CONSTITUTIONAL: Denies fever, chills, or sweats. CARDIOVASCULAR: Denies chest pain. RESPIRATORY: Denies dyspnea. GASTROINTESTINAL: Denies abdominal pain, nausea, vomiting. GENITOURINARY: Denies dysuria or hematuria. SKIN: See HPI. MUSCULOSKELETAL: Denies back pain, joint pain, or myalgia. NEUROLOGIC: See HPI. All systems reviewed & are unremarkable except as noted in HPI and below PMFSH Past Medical History Medical History Arthritis of right hip GERD (gastroesophageal reflux disease) History of [place] (myocardial infarction) (~12/2021) Hyperlipidemia Obstructive sleep apnea Overweight (BMI 25.0-29.9) Surgical History Surgical History History of hernia repair History of total right hip arthroplasty (~12/19/21) Hx of CABG Family History Family History Mother Hypertension, Onset Age: 73 Patient's mother is Father Malignant neoplasm of prostate Acute myocardial infarction, Onset Age: 72 Patient's father is Other Family history of allergic disorder Social History Social History Smoking status: Never smoker Second hand tobacco smoke exposure: Yes Alcohol intake: former Alcohol use details: STATES OCCASIONAL GLASS OF WINE - NONE SINCE 2006 Substance use: never Substance use type: does not use Lack of Transportation: No Lack of Food: Never True Current Housing: I Have Housing Concerned About Future Housing: No Difficulty Paying Gas/Electric Bills: No Difficulty Paying for Meds: No Currently Unemployed: No Education: Trade/Vocational Certificate Difficulty w/ Childcare or Family Care: No Living arrangements: with family Spiritual care concerns: No Exam Narrative: GENERAL: Well appearing, well-nourished, non-toxic, in no acute distress. HEAD: Normocephalic, atraumatic. 4 x 3.5cm scalp excision to midline top of skull, parietal region. Areas of dried blood and more recent bleeding beginning to form clots, but no active bleeding. No hematoma formation. No significant tenderness to palpation of scalp. NECK: Supple. No adenopathy, no masses. RESPIRATORY: Airway patent, respirations nonlabored. Clear to auscultation bilaterally, no rales, rhonchi, wheezing. CARDIOVASCULAR: Regular rate and rhythm without murmur
[2023-01-15] MEDS: SILVER NITRATE (*SP) STICK 1 EACH TOPICAL (17:29)
[2023-01-15] MEDS: CELLULOSE OXIDIZED 2 x 14 INCH 1 PKT XX (17:29)
[2023-01-15 18:42] VITALS: BP 116/79; PULSE 72; RESP 17; O2SAT 99
== END 2023-01-15 18:44 | disposition home or self-care (01) ==
PROVIDERS: Emergency Provider Physician Assistant; PCP Physician Assistant
DX: L76.21 Postprocedural hemorrhage of skin and subcutaneous tissue following a dermatologic procedure (principal); C44.40 Unspecified malignant neoplasm of skin of scalp and neck; K21.9 Gastro-esophageal reflux disease without esophagitis; E78.5 Hyperlipidemia, unspecified; G47.30 Sleep apnea, unspecified
CPT/HCPCS: 99282

== ENCOUNTER 2023-03-05 13:08 | Outpatient (CLI) | payer OTHER, SELFPAY ==
--- NOTE | ~2023-03-05 | CT_ITS ---
EXAMINATION: CT BRAIN W/O DATE: 03/05/2023 13:43 INDICATION: Atypical fibroxanthoma of the skin TECHNIQUE: Computed tomography (CT) of the head was performed with 100 cc Omnipaque 350 intravenous c ontrast. The dose-length product was 605.33 mGy-cm. Automated exposure control and iterative reconstr uction technique were employed. COMPARISON: No prior studies for comparison. FINDINGS: Normal brain parenchymal volume for age. Normal meade-white differentiation. No acute intrac ranial hemorrhage, infarction, mass or mass effect. No abnormal contrast enhancement. No ventriculomegaly or midline shift. Midline sagittal images demonstrate a normal corpus callosum, c raniovertebral junction and sella turcica. Basilar cisterns are patent. Paranasal sinuses and mastoids are pneumatized. No depressed skull fractures. IMPRESSION: 1. No acute intracranial abnormality. Reviewed, dictated and finalized at location L.
--- NOTE | ~2023-03-05 | CT_ITS ---
EXAMINATION: CT soft tissue neck w con DATE: 03/05/2023 13:43 INDICATION: Atypical fibroxanthoma of skin. TECHNIQUE: Computed tomography (CT) of the neck was performed with 75 mL Omnipaque-350 intravenous co ntrast. Automated exposure control and iterative reconstruction technique were employed. The dose-tod gth product was 547.43 mGy-cm. COMPARISON: None FINDINGS: There is mild scarring at the lung apices. There are likely changes of ocular lens replacem ent surgeries. There are no pathologically enlarged lymph nodes. The paranasal sinuses are clear. The mastoid air cells are normal. There is severe cervical spondylosis. IMPRESSION: 1. No evidence of metastatic disease. Reviewed, dictated and finalized at location A.
[2023-03-05 13:33] LABS: Estimated Glomerular Filt Rate > 60
== END 2023-03-05 13:09 | disposition home or self-care (01) ==
PROVIDERS: PCP Physician Assistant; Visit Provider Otolaryngology
DX: D48.5 Neoplasm of uncertain behavior of skin (principal)
CPT/HCPCS: 70460; 70491; Q9967

== ENCOUNTER 2023-03-06 14:59 | Emergency (ER) | payer OTHER, SELFPAY | END 2023-03-06 17:38 | disposition home or self-care (01) | LOC: ANHED 17:34 | PROVIDERS: Emergency Provider Physician Assistant; PCP Physician Assistant | DX: Z48.01 Encounter for change or removal of surgical wound dressing (principal); C44.40 Unspecified malignant neoplasm of skin of scalp and neck | CPT/HCPCS: 99282 ==

== ENCOUNTER 2023-04-17 07:57 | Outpatient (CLI) | payer OTHER, SELFPAY ==
[2023-04-17 08:33] LABS: Hemoglobin 14.2 g/dL (14.0-18.0); Mean Corpuscular HGB Conc 33.8 g/dl (32-36); Mean Corpuscular Hemoglobin 30.5 pg (26-34); Mean Corpuscular Volume 90.1 fl (80-100); Mean Platelet Volume 10.6 fl (7.4-10.4); Platelet Count Result 194 k/mm3 (150-375); Red Blood Count 4.66 M/mm3 (4.6-6.20); Red Cell Distribution Width 12.3 % (11.5-14.5); White Blood Count 6.2 K/mm3 (4.5-10.0)
[2023-04-17 08:45] LABS: Alanine Aminotransferase 27 U/L (6-50); Albumin Level 4.5 g/dL (3.5-5.1); Alkaline Phosphatase 77 U/L (38-126); Anion Gap 7 mmol/L (8-16); Aspartate Amino Transferase 30 U/L (17-59); Bilirubin,Total 0.8 mg/dL (0.2-1.3); Blood Urea Nitrogen 19 mg/dL (9-20); Calcium 9.6 mg/dL (8.4-10.2); Carbon Dioxide 28 mmol/L (22-30); Chloride 103 mmol/L (98-107); Cholesterol 185 mg/dL (0-200); Estimated Glomerular Filt Rate > 60; Glucose 93 mg/dL (65-110); HDL Direct 53 mg/dL; Potassium 4.2 mmol/L (3.4-5.0); Sodium 138 mmol/L (137-145); Triglycerides 106 mg/dL (<150)
[2023-04-17 08:55] LABS: LDL Cholesterol Direct 95 mg/dL
[2023-04-17 09:14] LABS: Prostate Specific Antigen 0.7 ng/mL (< OR = 4.0); Thyroid Stimulating Hormone 0.832 uIU/mL (0.465-4.680)
[2023-04-17 10:01] LABS: Folic Acid > 20.0 ng/mL (2.76->20)
== END 2023-04-17 07:58 | disposition home or self-care (01) ==
LOC: ANHLAB 07:59
PROVIDERS: PCP Physician Assistant; Visit Provider Physician Assistant
DX: Z00.00 Encounter for general adult medical examination without abnormal findings (principal); Z12.5 Encounter for screening for malignant neoplasm of prostate
CPT/HCPCS: 36415; 80053; 80061; 82607; 82746; 84153; 84443; 85027; G0103

== ENCOUNTER 2023-08-26 08:35 | Emergency (ER) | payer OTHER, SELFPAY ==
[2023-08-26 08:42] VITALS: BP 113/71; PULSE 87; RESP 20; TEMP 36.9; O2SAT 95
--- NOTE | 2023-08-26 08:51 | ED.URI ---
HPI - URI/Sore Throat General Chief Complaint: Upper Respiratory Infection Stated Complaint: sneezing/cough Time Seen by Provider: 08/26/23 08:55 Source: patient, RN notes reviewed and old records reviewed Mode of arrival: ambulatory Limitations: no limitations History of Present Illness HPI Narrative: 62-year-old male patient presents [facility] with complaint of cough and sinus congestion that started on Saturday. Patient states taking [id number] sinus/cold medications, that relieves sinus congestion, but not helping with the cough. Patient denies chest pain, dizziness, weakness, fevers, myalgias, headache. MD elicited complaint: cough and nasal congestion Onset (ago): day(s) (3-4) Severity: moderate Related Data Home Medications Medication Instructions Recorded Confirmed multivitamin (Multiple Vitamins 1 tablet PO QAM 11/25/19 08/26/23 tablet) aspirin 81 mg tablet,delayed 81 mg PO DAILY 03/05/22 08/26/23 release clopidogrel 75 mg tablet 75 mg PO DAILY 03/05/22 08/26/23 Allergies Allergy/AdvReac Type Severity Reaction Status Date / Time tuberculin,PPD,multi-puncture Allergy Intermediate Other Verified 05/01/23 07:36 Review of Systems Constitutional: Constitutional: Reports no additional constitutional complaints Eyes: Eyes: Reports no additional eye complaints ENT: Reports as per HPI, Reports nasal congestion and Reports nasal discharge Cardiovascular: Cardiovascular: Reports no additional cardiovascular complaints Respiratory: Respiratory: Reports as per HPI, Reports chest congestion and Reports cough Neurologic: Reports system reviewed and no additional complaints, except as documented [facility] Past Medical History Medical History Arthritis of right hip GERD (gastroesophageal reflux disease) History of ID (myocardial infarction) (~12/2021) Hyperlipidemia Obstructive sleep apnea Overweight (BMI 25.0-29.9) Surgical History Surgical History History of hernia repair History of total right hip arthroplasty (~12/19/21) Hx of CABG Family History Family History Mother Hypertension, Onset Age: 73 Patient's mother is Father Malignant neoplasm of prostate Acute myocardial infarction, Onset Age: 72 Patient's father is Other Family history of allergic disorder Social History Social History Smoking status: Never smoker Second hand tobacco smoke exposure: Yes Alcohol intake: former Alcohol use details: STATES OCCASIONAL GLASS OF WINE - NONE SINCE 2006 Substance use: never Substance use type: does not use Lack of Transportation: No Lack of Food: Never True Current Housing: I Have Housing Concerned About Future Housing: No Difficulty Paying Gas/Electric Bills: No Difficulty Paying for Meds: No Currently Unemployed: No Education: Trade/Vocational Certificate Difficulty w/ Childcare or Family Care: No Living arrangements: with family Spiritual care concerns: No Comments At the time of my signature, I reviewed and agree with the nursing past medical, surgical, social, and family history. There is no relevant family history pertinent to the patient complaint. Exam Const: General: cooperative, healthy appearing, no acute distress and well nourished Nutritional Appearance: well nourished Orientation/consciousness: patient oriented x3 Limitations: no limitations HENMT: Head: normal to inspection and normocephalic Ears: external ears normal, TM's normal bilaterally, mastoids normal and Abnormal EAC present Face/Nose/Sinus: normal facial exam Face and sinus: normal facial exam Mouth: Yes Normal oral and palatal mucosa present, Yes oropharynx normal and Yes moist mucous membranes Throat: po
== END 2023-08-26 09:02 | disposition home or self-care (01) ==
PROVIDERS: Emergency Provider Registered Nurse; PCP Physician Assistant
DX: J20.8 Acute bronchitis due to other specified organisms (principal); M16.11 Unilateral primary osteoarthritis, right hip; K21.9 Gastro-esophageal reflux disease without esophagitis; E78.5 Hyperlipidemia, unspecified; I25.2 Old myocardial infarction; Z95.1 Presence of aortocoronary bypass graft; Z96.641 Presence of right artificial hip joint; Z79.82 Long term (current) use of aspirin
CPT/HCPCS: 99213; G0463

== ENCOUNTER 2024-01-20 15:29 | Outpatient (CLI) | payer OTHER, SELFPAY ==
--- NOTE | ~2024-01-20 | CT_ITS ---
EXAMINATION: CT brain wo/w con DATE: 01/20/2024 16:18 INDICATION: Atypical fibroxanthoma of skin. TECHNIQUE: Computed tomography (CT) of the head was performed without and with 100 mL Omnipaque 350 i ntravenous contrast. The mA was adjusted according to patient size. Iterative reconstruction techniqu e was employed. The dose-length product was 1286.33 mGy-cm. COMPARISON: Head CT 03/05/2023 FINDINGS: There is no intracranial hemorrhage, acute infarction, or abnormal intracranial mass lesion . The ventricles are normal in size. There is mild mucosal thickening in the ethmoid sinuses. There a re likely changes of ocular lens replacement surgeries. There is a small right mastoid effusion. Ther e is a 12 x 6 x 10 mm hyperenhancing mass at the posterior superior scalp. IMPRESSION: 1. 12 x 6 x 10 mm hyperenhancing mass at the posterior superior scalp, consistent with malignancy. 2. Normal brain. Reviewed, dictated and finalized at location A. IMPRESSION: 1. 12 x 6 x 10 mm hyperenhancing mass at the posterior superior scalp, consiste nt with malignancy. 2. Normal brain.
[2024-01-20 16:04] LABS: Estimated Glomerular Filt Rate > 60
== END 2024-01-20 15:30 | disposition home or self-care (01) ==
LOC: ANHIMG 15:30
PROVIDERS: PCP Physician Assistant; Visit Provider Otolaryngology
DX: D48.5 Neoplasm of uncertain behavior of skin (principal)
CPT/HCPCS: 70470; Q9967

== ENCOUNTER 2024-02-10 07:44 | Emergency (ER) | payer OTHER, SELFPAY ==
[2024-02-10 07:56] VITALS: BP 138/94; PULSE 72; RESP 16; TEMP 36.6; O2SAT 98
[2024-02-10] MEDS: LIDOCAINE 5% PATCH 1 PATCH TRANSDERM (08:41)
[2024-02-10] MEDS: ACETAMINOPHEN 500 MG TABLET 1000 MG PO (08:41)
[2024-02-10] MEDS: predniSONE 20 MG TABLET 40 MG PO (08:42)
[2024-02-10 08:56] LABS: Appearance Urine Clear (Clear); Bilirubin Urine Negative (Negative); Blood Urine Negative (Negative); Color Urine Dark Yellow (Yellow); Glucose Urine UA Negative (Negative); Ketones Urine Negative (Negative); Leukocyte Esterase Ur Negative LEU/UL (Negative); Nitrate Urine Negative (Negative); Protein Urine Negative (Negative); Specific Grav Ur 1.016 (1.001-1.035); Urobilinogen Urine 0.2 mg/dL (<2.0)
[2024-02-10 09:14] LABS: Add Urine Microscopic? NO
--- NOTE | 2024-02-10 15:47 | ED.BACK ---
HPI - Back Pain/Injury General Chief Complaint: Back Pain/Injury Stated Complaint: sciatic nerve pain Time Seen by Provider: 02/10/24 08:19 History of Present Illness HPI Narrative: Patient with history of sciatic nerve pain on his left lower extremity presents here because he was hauling a bunch of rugs at work and thinks he hurt his back, and now has pain going down his right lower back down his leg. Is able to walk without issues. He has been doing the exercises he was prescribed by physical therapy years ago and that does help Related Data Home Medications Medication Instructions Recorded Confirmed multivitamin (Multiple Vitamins 1 tablet PO QAM 11/25/19 08/26/23 tablet) aspirin 81 mg tablet,delayed 81 mg PO DAILY 03/05/22 08/26/23 release clopidogrel 75 mg tablet 75 mg PO DAILY 03/05/22 08/26/23 Allergies Allergy/AdvReac Type Severity Reaction Status Date / Time tuberculin,PPD,multi-puncture Allergy Intermediate Other Verified 02/10/24 08:00 Review of Systems Review of Systems: All systems reviewed & are unremarkable except as noted in HPI and below PMFSH Past Medical History Medical History Arthritis of right hip GERD (gastroesophageal reflux disease) History of PA (myocardial infarction) (~12/2021) Hyperlipidemia Obstructive sleep apnea Overweight (BMI 25.0-29.9) Surgical History Surgical History History of hernia repair History of total right hip arthroplasty (~12/19/21) Hx of CABG Family History Family History Mother Hypertension, Onset Age: 73 Patient's mother is Father Malignant neoplasm of prostate Acute myocardial infarction, Onset Age: 72 Patient's father is Other Family history of allergic disorder Social History Social History Smoking status: Never smoker Second hand tobacco smoke exposure: Yes Alcohol intake: former Alcohol use details: STATES OCCASIONAL GLASS OF WINE - NONE SINCE 2006 Substance use: never Substance use type: does not use Lack of Transportation: No Lack of Food: Never True Current Housing: I Have Housing Concerned About Future Housing: No Difficulty Paying Gas/Electric Bills: No Difficulty Paying for Meds: No Currently Unemployed: No Education: Trade/Vocational Certificate Difficulty w/ Childcare or Family Care: No Living arrangements: with family Spiritual care concerns: No Exam Narrative: EXAMINATION OF ORGAN SYSTEMS/BODY AREAS: Constitutional: Vital signs per nursing GENERAL:[No acute distress, non-toxic appearing.] Very well-appearing HEAD: Normal with no signs of head trauma. EYES: EOMI, conjunctiva normal ENT: Hearing grossly intact LUNGS: Nonlabored breathing. HEART: [Regular rate and rhythm] ABD: [Soft], [tender to palpation] EXT: Normal range of motion, no midline tenderness SKIN: [No rashes or lesions.] NEURO: [Alert and oriented x 3. No gross focal sensory or strength deficits.] Ambulating with normal steady gait PSYCH: Normal affect Course Vital Signs Vital signs: Vital Signs Temperature 97.8 F 02/10/24 07:56 Pulse Rate 72 02/10/24 07:56 Respiratory Rate 16 02/10/24 07:56 Blood Pressure 138/94 H 02/10/24 07:56 Pulse Oximetry 98 02/10/24 07:56 Oxygen Delivery Room Air 02/10/24 07:56 Temperature 97.8 F 02/10/24 07:56 Pulse Rate 72 02/10/24 07:56 Respiratory Rate 16 02/10/24 07:56 Blood Pressure 138/94 H 02/10/24 07:56 Pulse Oximetry 98 02/10/24 07:56 Oxygen Delivery Room Air 02/10/24 07:56 MDM - Back Pain/Injury MDM Narrative Medical decision making narrative: ED COURSE AND MEDICAL DECISION MAKIN-year-old male with acute back pain. Normal motor and sensory exam.
== END 2024-02-10 09:54 | disposition home or self-care (01) ==
PROVIDERS: Emergency Provider Emergency Medicine; PCP Physician Assistant
DX: M54.50 Low back pain, unspecified (principal); M79.604 Pain in right leg; I25.2 Old myocardial infarction; E78.5 Hyperlipidemia, unspecified; E66.3 Overweight; Z68.24 Body mass index [BMI] 24.0-24.9, adult; G47.33 Obstructive sleep apnea (adult) (pediatric); K21.9 Gastro-esophageal reflux disease without esophagitis; M16.11 Unilateral primary osteoarthritis, right hip; Z79.82 Long term (current) use of aspirin; Z95.1 Presence of aortocoronary bypass graft; Z96.641 Presence of right artificial hip joint
CPT/HCPCS: 81003; 99283; A9270; J7512

== ENCOUNTER 2024-03-01 09:49 | Outpatient (CLI) | payer OTHER, SELFPAY ==
--- NOTE | ~2024-03-01 | CT_ITS ---
Clinical Indication: Squamous cell carcinoma scalp CT Scan of the Neck and Chest with Contrast: Technique: Contiguous sections were acquired throughout the neck and chest after intravenous administ ration of 75 cc of Omnipaque 350. Dose reduction technique was used on this scan by utilizing automat ed exposure control and iterative reconstruction technique. The dose-length product (DLP) was 863.42 mGy-cm. Findings: No lymphadenopathy or abnormal soft tissue mass seen in the neck. Parotid and submandibular glands are unremarkable. Parapharyngeal fat preserved bilaterally. Visualized aerodigestive tract is unremarkable. Thyroid gland unremarkable. Vascular structures are unremarkable. Paranasal sinuses and mastoid air c ells are clear. No orbital abnormality identified. There is no evidence of any significant mediastinal, hilar or axillary lymphadenopathy. There is no f illing defect in the pulmonary arterial tree to suggest pulmonary embolus. There is no evidence of ao rtic dissection or aneurysm. There is no evidence of pleural or pericardial effusion. The lungs are clear. No pulmonary nodules or infiltrates are noted. Images through the upper abdomen reveal 6 mm nonobstructing left renal stone. Impression: No evidence of metastatic disease in the neck or chest. 6 mm nonobstructing left renal stone. Reviewed, dictated and finalized at [facility]. Impression: No evidence of metastatic disease in the neck or chest. 6 mm nonobstructing left renal stone.
[2024-03-01 10:18] LABS: Estimated Glomerular Filt Rate > 60
== END 2024-03-01 09:50 | disposition home or self-care (01) ==
LOC: ANHIMG 09:49
PROVIDERS: PCP Physician Assistant; Visit Provider Otolaryngology
DX: C44.42 Squamous cell carcinoma of skin of scalp and neck (principal); N20.0 Calculus of kidney
CPT/HCPCS: 70491; 71260; Q9967

== ENCOUNTER 2024-07-22 08:15 | Outpatient (CLI) | payer OTHER, SELFPAY ==
[2024-07-22 09:06] LABS: Basophils Percent Auto 0.7 % (0.2-1.2); Eosinophils Absolute Auto 0.3 K/mm3 (0-0.3); Eosinophils Percent Auto 5.6 % (0-4.4); Hematocrit 41.5 % (42.0-52.0); Hemoglobin 13.2 g/dL (14.0-18.0); Immature Granulocyte Absolute 0.02 K/mm3 (0.00-0.031); Immature Granulocyte Percent A 0.3 % (0-0.5); Lymphocytes Absolute Auto 1.27 K/mm3 (0.9-3.2); Mean Corpuscular HGB Conc 31.8 g/dl (32-36); Mean Platelet Volume 11.2 fl (7.4-10.4); Monocytes Absolute Auto 0.9 K/mm3 (0.1-0.6); Monocytes Percent Auto 14.7 % (2.6-8.5); Neutrophils Absolute Auto 3.5 K/mm3 (1.3-6.7); Neutrophils Percent Auto 57.7 % (45.5-73.1); Platelet Count Result 194 k/mm3 (150-375); Red Blood Count 4.88 M/mm3 (4.6-6.20); Red Cell Distribution Width 15.1 % (11.5-14.5); White Blood Count 6.1 K/mm3 (4.5-10.0)
[2024-07-22 09:07] LABS: Alanine Aminotransferase 33 U/L (6-50); Albumin Level 4.4 g/dL (3.5-5.1); Alkaline Phosphatase 86 U/L (38-126); Anion Gap 9 mmol/L (4-12); Aspartate Amino Transferase 31 U/L (17-59); Bilirubin,Total 0.6 mg/dL (0.2-1.3); Blood Urea Nitrogen 16 mg/dL (9-20); Calcium 9.7 mg/dL (8.4-10.2); Carbon Dioxide 28 mmol/L (22-30); Chloride 103 mmol/L (98-107); Cholesterol 183 mg/dL (0-200); Estimated Glomerular Filt Rate > 60; Glucose 92 mg/dL (65-110); HDL Direct 51 mg/dL; Potassium 4.4 mmol/L (3.4-5.0); Sodium 140 mmol/L (137-145); Triglycerides 138 mg/dL (<150)
[2024-07-22 09:18] LABS: LDL Cholesterol Direct 96 mg/dL
== END 2024-07-22 08:16 | disposition home or self-care (01) ==
LOC: ANHLAB 08:17
PROVIDERS: PCP Internal Medicine; Visit Provider Internal Medicine
DX: Z00.00 Encounter for general adult medical examination without abnormal findings (principal); Z12.5 Encounter for screening for malignant neoplasm of prostate; E78.5 Hyperlipidemia, unspecified
CPT/HCPCS: 36415; 80053; 80061; 84153; 85025; G0103

== ENCOUNTER 2024-10-13 11:49 | Outpatient (CLI) | payer OTHER, SELFPAY ==
--- NOTE | ~2024-10-13 | PE_ITS ---
EXAMINATION: PET skull to mid thigh DATE: 10/13/2024 14:25 INDICATION: Lung nodule. TECHNIQUE: 9.451 mCi of 18-fluorodeoxyglucose (18-FDG) was administered i.v. Low dose computed tomogr aphy (CT) images were acquired from the base of the brain to the proximal thighs for attenuation eb ection and anatomic localization. Automated exposure control was employed. Dose-length product (DLP) was 1073 mGy-cm. Positron emission tomography (PET) images were acquired in the same distribution. COMPARISON: Chest CT 03/01/2024 FINDINGS: Head/neck: There are likely changes of ocular lens replacement surgeries. There are no pathologically enlarged lymph nodes. Chest: There is mild scarring at the lung apices. There is a 10 mm nodule in right middle lobe with m aximum SUV of 6.5. There is mild atelectasis bilaterally. A calcified left hilar lymph node is consis tent with old granulomatous disease. There is a stable 7 mm nodule in the lingula without increased a ctivity, likely benign. No pleural effusion. The heart size is normal. No pericardial effusion. There are changes of coronary artery bypass grafting. Abdomen/pelvis/proximal thighs: There are cysts in the liver measuring up to 10 mm. The gallbladder, spleen, and pancreas are normal. There are cysts in the kidneys measuring up to 7.6 cm on the left. T here is a 7 mm stone in left kidney. There is a left inguinal hernia containing fat. There is diverti culosis of the colon without evidence of diverticulitis. There are no dilated loops of bowel. The radha endix is normal. There are no pathologically enlarged lymph nodes. There is no free intraperitoneal f luid. There is a total right hip arthroplasty. IMPRESSION: 1. 10 mm right middle lobe pulmonary nodule with increased activity, new from 03/01/2024, suspicious fo r primary bronchogenic carcinoma. CT-guided biopsy is recommended. Reviewed, dictated and finalized at location B. HT [employer] IMPRESSION: 1. 10 mm right middle lobe pulmonary nodule with increased activity, new from , suspicious for primary bronchogenic carcinoma. CT-guided biopsy is rec ommended.
[2024-10-13 12:37] LABS: Glucose Point of Care 99 mg/dl (65-105)
--- OUTSIDE RECORDS SUMMARY | 2024-10-15 18:04 | XMS_ITS | Referral Summary ---
Author Organization [facility] Address [address] [place] [id number] Care Team Providers Care Financial Associate Name Role Phone Ian Michel MD Unavailable [phone] Parul Baldwin MD Unavailable [phone] Gabe George DO Primary Care Provider [phone] Encounters Date Type Department Care Team Description 10/06/2024 Telephone [facility] Surgery [address] [place] [id number] Patt Riley RMA 10/06/2024 Orders Only [facility] Surgery [address] [place] [id number] Dre Cerna MD Lung nodule (Primary Dx) 10/01/2024 Orders Only RAD ONC TREATMENTS Miscellaneous, Not In File 10/01/2024 Orders Only [facility] Department of Otolaryngology Head-Neck Division [address] Floor 5 [place] [address] Minh Orozco MD Lung nodule (Primary Dx) 09/10/2024 11:00 AM TRANSCRIBING MACHINE MECHANIC Office Visit [facility]) - [facility] ENT [address] 2nd Floor, [address] [place] [address] Minh Orozco MD Squamous cell carcinoma of scalp (Primary Dx); Pulmonary nodule 09/10/2024 9:16 AM TRANSCRIBING MACHINE MECHANIC - 09/10/2024 11:59 PM TRANSCRIBING MACHINE MECHANIC Hospital Encounter [facility] Radiology at [facility] Medicine [address] [place] [address] Squamous cell carcinoma of scalp Discharge Disposition: Discharge to home or self care 09/10/2024 9:16 AM TRANSCRIBING MACHINE MECHANIC - 09/10/2024 11:59 PM TRANSCRIBING MACHINE MECHANIC Hospital Encounter [facility] Radiology at [facility] Medicine [address] [place] [address] Squamous cell carcinoma of scalp Discharge Disposition: Discharge to home or self care 08/11/2024 9:30 AM TRANSCRIBING MACHINE MECHANIC Office Visit [facility] Radiation Oncology [address] [place] [address] Justo Wright MD Squamous cell carcinoma of scalp [C44.42] (Primary Dx) 08/03/2024 12:15 PM TRANSCRIBING MACHINE MECHANIC Office Visit [facility] Cardiology [address] [place] [address] Fleix Sher MD S/P CABG (coronary artery bypass graft) (Primary Dx); Postoperative atrial fibrillation (CMS/HCC) (HCC); Mixed hyperlipidemia; Coronary artery disease involving the [place] coronary artery of [place] heart without angina pectoris from Last 3 Months Allergies Active Allergy Reactions Criticality Noted Date Comments Tuberculin Ppd Other (See comments) Low 01/28/2022 Pt endorses TB skin test gives him bronchitis and walking pneumonia Medications cetirizine (ZyrTEC) 10 mg tabletIndication s:Allergic Rhinitis Take 1 tablet (10 mg total) by mouth nightly 2 Active rosuvastatin (CRESTOR) 10 mg tabletIndication s:hyperlipidemia Take 1 tablet (10 mg total) by mouth nightly 2 Active diphenhydrAMINE (BENADRYL) 25 mg capsule Take 0.5 tablet/capsule (12.5 mg total) by mouth nightly as needed for sleep Active aspirin 81 mg enteric coated tablet Take 1 tablet (81 mg total) by mouth daily 30 tablet 1 2 Active Additional Information Patient taking differently:81 mg oralEvery morning, Indications: prevention of thrombosis, Informant: Self, Reported on 08/03/2024 famotidine (PEPCID) 40 mg tabletIndication s:gastroesophage al reflux disease Take 1 tablet (40 mg total) by mouth every morning 3 Active MULTIVITAMIN ORALIndications: supplement Take 1 tablet by mouth every morning Active lactose-reduced food (ENSURE COMPLETE ORAL)Indications :supplement Take 1 Dose by mouth every morning Active acetaminophen (TYLENOL) 325 mg tablet Take 2 tablets (650 mg total) by mouth every 6 (six) hours as needed for pain 4 Active gabapentin (NEURONTIN) 300 mg capsule Take 1 capsule (300 mg total) by mouth 3 (three) times a day for 7 days, THEN 1 capsule (300 mg total) 2 (two) times a day for 7 days, THEN 1 capsule (300 mg total) daily for 7 days. 42 capsule 4 Active senna-docusate (PERICOLACE) 8.6-50 mgIndications:co nstipation Take 1 tablet by mouth daily as needed for constipation 14 tablet 1 4 Active oxyCODONE (ROXICODONE) 5 mg immediate release tabletIndication s:Pain Take 1 tablet (5 mg total) by mouth every 4 (four) hours as needed for pain 20 tablet 4 Active silver sulfadiazine (SILVADENE, SSD) 1 % creamIndications :Squamous cell carcinoma of scalp APPLY TOPICALLY TO THE AFFECTED AREA DAILY 50 g 4 Active clopidogreL (PLAVIX) 75 mg tablet TAKE 1 TABLET BY MOUTH DAILY 30 tablet 11 4 Active Active Problems Problem Noted Date Diagnosed Date Aftercare following surgery for neoplasm 024 Squamous cell carcinoma of scalp 03/04/2024 Mixed hyperlipidemia 06/17/2023 Atypical fibroxanthoma of skin 02/08/2023 Postoperative atrial fibrillation (CMS/HCC) 02/21 S/P CABG (coronary artery bypass graft) 03/05/20 Coronary artery disease invo lving the [place] coronary artery of [place] heart without angina pectoris 01/28/2022 Overview (01/29/2022): Added automatically from request for surgery [id number] ST elevation myocardial infa rction involving right coronary artery Social History Tobacco Use Types Packs/Day Years Used Date Smoking Tobacco: Never Smokeless Tobacco: Never Tobacco Cessation:Counseling Given: Not Answered AUDIT-C Answer Date Recorded Q1: How often do you have a drink containing alcohol? Never 06/02/2024 Q2: How many drinks containi ng alcohol do you have on a typical day when you are drinking? Patient does not drink Q3: How often do you have si x or more drinks on one occasion? Never 06/02/2024 Personal Safety Answer Date Recorded Have you ever been in or are you currently in a harmful physical or emotional relationship or is someone making you feel afraid or unsafe? Denies 04/17/2024 Sex and Gender Information Value Date Recorded Sex Assigned at Not on file Legal Sex Male 7:35 PM TRANSCRIBING MACHINE MECHANIC Gender Identity Not on file Sexual Orientation Not on file Last Filed Vital Signs Vital Sign Reading Time Taken Comments Blood Pressure 114/72 08/11/2024 9:41 AM TRANSCRIBING MACHINE MECHANIC Pulse 69 08/11/2024 9:41 AM TRANSCRIBING MACHINE MECHANIC Temperature 36.4 ??C (97.5 ??F) 08/11/2024 9:41 AM CS T Respiratory Rate 16 08/11/2024 9:41 AM TRANSCRIBING MACHINE MECHANIC Oxygen Saturation 99% 08/11/2024 9:41 AM TRANSCRIBING MACHINE MECHANIC Inhaled Oxygen Concentration - - Weight 81 kg (178 lb 9.6 oz) 09/10/2024 11:14 AM TRANSCRIBING MACHINE MECHANIC Height 175.3 cm (5' 9 ) 08/03/2024 11:58 AM TRANSCRIBING MACHINE MECHANIC Body Mass Index 26.37 08/03/2024 11:58 AM TRANSCRIBING MACHINE MECHANIC Plan of Treatment Not on file Medical Devices Implanted Type Area Planning Feeder Device Identifier Shelf Expiration Date Model / Serial / Lot [employer] Luly Blackmon Microvascular 3mm Ring Pin Protective Cover Jaw Assembly Latex Free [id number] - [id number] Implanted:Qty: 1 on 03/16/2024 by Minh Orozco MD at [facility] [place] [employer] [id number] 01/08/2028 [id number] / / [id number] Procedures Procedure Name Priority Date/Time Associated Diagnosis Comments RAD ONC ARIA COURSE SUMMARY 10/01/2024 6:53 [address]CRIBING MACHINE MECHANIC CT CHEST W CONTRAST Schedule Routine, Read Routine (OP Routine) 09/10/2024 9:54 AM TRANSCRIBING MACHINE MECHANIC Squamous cell carcinoma of scalp CT SOFT TISSUE NECK W CONTRAST Schedule Routine, Read Routine (OP Routine) 09/10/2024 9:50 AM TRANSCRIBING MACHINE MECHANIC Squamous cell carcinoma of scalp CT HEAD STEALTH W CONTRAST Schedule Routine, Read Routine (OP Routine) 09/10/2024 9:50 AM TRANSCRIBING MACHINE MECHANIC Squamous cell carcinoma of scalp POCT CREATININE - DEVICE Routine 09/10/2024 9:33 AM TRANSCRIBING MACHINE MECHANIC POCT LIPID PANEL Routine 08/03/2024 11:5 4 AM TRANSCRIBING MACHINE MECHANIC Mixed hyperlipidemia Coronary artery disease involving the [place] coronary artery of the [place] heart without angina pectoris from Last 3 Months Results * RAD ONC ARIA COURSE SUMMARY (10/01/2024 6:53 PM TRANSCRIBING MACHINE MECHANIC) Course Name [id number] ARIA Course Plan Date 05/05/2024 12:17 PM ARIA Elapsed Days 45 ARIA Treatment Start Date 05/19/2024 ARIA Treatment Site [id number] ARIA Dose Given To Date (cGy) 6,600 ARIA Session Dosage Given (cGy) 0 ARIA Plan ID SCALP ARIA Fractions Treated 33 ARIA Prescribed Dose Per Fraction (cGy) 200 ARIA Prescribed Total Dose (cGy) 6,600 ARIA 10/01/2024 6:53 PM TRANSCRIBING MACHINE MECHANIC us Not In File Miscellaneous RADIATION ONCOLOGY ORD ERABLES Final Result ARIA * CT Chest with Contrast (09/10/2024 9:54 AM TRANSCRIBING MACHINE MECHANIC) Anatomical Region Laterality Modality Body N/A Computed Tomogra phy 09/10/2024 10:2 6 AM TRANSCRIBING MACHINE MECHANIC Impressions 09/10/2024 10:26 AM TRANSCRIBING MACHINE MECHANIC 1. ??8 mm right middle lobe pulmonary nodule with ill-defined borders new from March 2024 prior worrisome for malignancy such as metastatic disease. Electronically signed by: Prakash Gan M.D. Narrative 09/10/2024 10:26 AM TRANSCRIBING MACHINE MECHANIC EXAMINATION: ??Computed tomography of the chest with intravenous contrast HISTORY: Scalp tumor; pleomorphic dermal sarcoma TECHNIQUE: ??Transaxial computed tomographic images of the chest were obtained with intravenous contrast according to standard protocol after the uneventful administration of intravenous contrast. FINDINGS: ?? Comparison March 2024. ??8 mm spiculated pulmonary nodule right middle lobe lung window image 79 not present on March 2024 prior.d 6 mm left upper lobe pulmonary nodule with morphology suggestive of intrapulmonary lymph node lung window image 63 stable compared to prior August 2023 and likely benign. ??Small nodule right lower lobe 3 mm lung window image 63 stable compared to 2022 and probably a ellen-fissural lymph node; there are similar areas of small indolent appearing nodularity throughout the left major fissure in the right minor fissure. ??There is mild atelectasis throughout the lung bases. There is some motion artifact throughout the lower chest/ lung bases CT acquisition. No suspicious thoracic lymphadenopathy. ??Assessment lower neck deferred sent to a neck CT. ??Median sternotomy wires. ??Heart size upper limit normal. There is a hypoattenuating cysts and probable cyst throughout the liver is present grossly stable to prior chest CT. ??No findings suspicious for malignancy in the imaged upper abdomen. ??There are indolent appearing left renal cysts. Procedure Note Prakash Gan MD - 09/10/2024 EXAMINATION: Computed tomography of the chest with intravenous contrast HISTORY: Scalp tumor; pleomorphic dermal sarcoma TECHNIQUE: Transaxial computed tomographic images of the chest were obtained with intravenous contrast according to standard protocol after the uneventful administration of intravenous contrast. FINDINGS: Comparison March 2024. 8 mm spiculated pulmonary nodule right middle lobe lung window image 79 not present on March 2024 prior.d 6 mm left upper lobe pulmonary nodule with morphology suggestive of intrapulmonary lymph node lung window image 63 stable compared to prior August 2023 and likely benign. Small nodule right lower lobe 3 mm lung window image 63 stable compared to 2022 and probably a ellen-fissural lymph node; there are similar areas of small indolent appearing nodularity throughout the left major fissure in the right minor fissure. There is mild atelectasis throughout the lung bases. There is some motion artifact throughout the lower chest/ lung bases CT acquisition. No suspicious thoracic lymphadenopathy. Assessment lower neck deferred sent to a neck CT. Median sternotomy wires. Heart size upper limit normal. There is a hypoattenuating cysts and probable cyst throughout the liver is present grossly stable to prior chest CT. No findings suspicious for malignancy in the imaged upper abdomen. There are indolent appearing left renal cysts. IMPRESSION: 1. 8 mm right middle lobe pulmonary nodule with ill-defined borders new from March 2024 prior worrisome for malignancy such as metastatic disease. Electronically signed by: Prakash Gan M.D. us Minh Orozco MD IMG CT PROCEDURES Final Res ult * CT Head Stealth W Contrast (09/10/2024 9:50 AM TRANSCRIBING MACHINE MECHANIC) Anatomical Region Laterality Modality Head and Neck N/A Computed Tomogra phy 09/10/2024 11:1 7 AM TRANSCRIBING MACHINE MECHANIC Impressions 09/10/2024 2:42 PM TRANSCRIBING MACHINE MECHANIC 1. Interval change of parietal scalp mass resection and latissimus dorsi flap reconstruction without enhancing nodularity in the resection bed. ??New osseous irregularity and defect of the parietal outer table along the flap reconstruction which may represent postoperative shaving of the bone. ??However without a history of surgical bony resection, osseous destruction from tumor cannot be entirely excluded. 2. No pathologically enlarged cervical lymph nodes. ??A few right cervical level 4 lymph nodes are slightly increased in size since 01/20/2024. ??Short-term follow-up is recommended. Dictated by: Eduardo Reyes M.D. The radiology attending physician has personally reviewed this study, and had reviewed and/or edited this written report and agrees with it. Electronically signed by: Anni Aguirre M.D. Narrative 09/10/2024 2:42 PM TRANSCRIBING MACHINE MECHANIC EXAMINATION: 1. CT head with contrast 2. CT neck with contrast HISTORY: Squamous cell carcinoma of the scalp status post resection and radiation 07/03/2024. ??Patient had recurrent disease within the flap reconstruction performed 03/16/2024 TECHNIQUE: CT of the head was performed with images acquired from skull base to vertex with intravenous contrast. CT of the neck was performed according to the standard protocol with intravenous contrast. Contrast information: 100 mL Optiray-350 COMPARISON: 01/20/2024, 08/29/2023 FINDINGS: HEAD: Changes of midline parietal scalp resection and muscle flap reconstruction. ??No enhancing nodularity along the resection bed. Irregularity of the outer table is seen along the flap reconstruction, new since 01/20/2024. ??This is seen series 4 image 183. No acute intracranial hemorrhage. ??No mass effect or midline shift. The meade-white differentiation is normal. ??Scattered white matter hypoattenuation is nonspecific but most commonly due to chronic small vessel ischemia. ??Ventricles are unchanged in size and morphology. No enhancing intracranial lesion. ??Lens replacements. ??Torus mandibularis. ??Mild paranasal sinus disease. ??Surgical clips are seen in the left temporal scalp. NECK: Slightly increased size of some right level 4 cervical lymph nodes. For reference a node measures 8 mm previously 5 mm seen series 2 image 178. ??No pathologically enlarged lymph nodes. Airways patent. ??The vessels of the neck are patent. ??Unchanged calcification in the left anterior parotid gland. ??Changes of median sternotomy. ??Mild dependent atelectasis within the lungs. ??Multilevel degenerative disc disease in the cervical spine. Procedure Note VoAnni MD - 09/10/2024 EXAMINATION: 1. CT head with contrast 2. CT neck with contrast HISTORY: Squamous cell carcinoma of the scalp status post resection and radiation 07/03/2024. Patient had recurrent disease within the flap reconstruction performed 03/16/2024 TECHNIQUE: CT of the head was performed with images acquired from skull base to vertex with intravenous contrast. CT of the neck was performed according to the standard protocol with intravenous contrast. Contrast information: 100 mL Optiray-350 COMPARISON: 01/20/2024, 08/29/2023 FINDINGS: HEAD: Changes of midline parietal scalp resection and muscle flap reconstruction. No enhancing nodularity along the resection bed. Irregularity of the outer table is seen along the flap reconstruction, new since 01/20/2024. This is seen series 4 image 183. No acute intracranial hemorrhage. No mass effect or midline shift. The meade-white differentiation is normal. Scattered white matter hypoattenuation is nonspecific but most commonly due to chronic small vessel ischemia. Ventricles are unchanged in size and morphology. No enhancing intracranial lesion. Lens replacements. Torus mandibularis. Mild paranasal sinus disease. Surgical clips are seen in the left temporal scalp. NECK: Slightly increased size of some right level 4 cervical lymph nodes. For reference a node measures 8 mm previously 5 mm seen series 2 image 178. No pathologically enlarged lymph nodes. Airways patent. The vessels of the neck are patent. Unchanged calcification in the left anterior parotid gland. Changes of median sternotomy. Mild dependent atelectasis within the lungs. Multilevel degenerative disc disease in the cervical spine. IMPRESSION: 1. Interval change of parietal scalp mass resection and latissimus dorsi flap reconstruction without enhancing nodularity in the resection bed. New osseous irregularity and defect of the parietal outer table along the flap reconstruction which may represent postoperative shaving of the bone. However without a history of surgical bony resection, osseous destruction from tumor cannot be entirely excluded. 2. No pathologically enlarged cervical lymph nodes. A few right cervical level 4 lymph nodes are slightly increased in size since 01/20/2024. Short-term follow-up is recommended. Dictated by: Eduardo Reyes M.D. The radiology attending physician has personally reviewed this study, and had reviewed and/or edited this written report and agrees with it. Electronically signed by: Anni Aguirre M.D. Minh Orozco MD IM CT PROCEDURES Final Res ult * CT Neck Soft Tissue W Contrast (09/10/2024 9:50 AM TRANSCRIBING MACHINE MECHANIC) Anatomical Region Laterality Modality Head and Neck N/A Computed Tomogra phy 09/10/2024 11:1 7 AM TRANSCRIBING MACHINE MECHANIC Impressions 09/10/2024 2:42 PM TRANSCRIBING MACHINE MECHANIC 1. Interval change of parietal scalp mass resection and latissimus dorsi flap reconstruction without enhancing nodularity in the resection bed. ??New osseous irregularity and defect of the parietal outer table along the flap reconstruction which may represent postoperative shaving of the bone. ??However without a history of surgical bony resection, osseous destruction from tumor cannot be entirely excluded. 2. No pathologically enlarged cervical lymph nodes. ??A few right cervical level 4 lymph nodes are slightly increased in size since 01/20/2024. ??Short-term follow-up is recommended. Dictated by: Eduardo Reyes M.D. The radiology attending physician has personally reviewed this study, and had reviewed and/or edited this written report and agrees with it. Electronically signed by: Anni Aguirre M.D. Narrative 09/10/2024 2:42 PM TRANSCRIBING MACHINE MECHANIC EXAMINATION: 1. CT head with contrast 2. CT neck with contrast HISTORY: Squamous cell carcinoma of the scalp status post resection and radiation 07/03/2024. ??Patient had recurrent disease within the flap reconstruction performed 03/16/2024 TECHNIQUE: CT of the head was performed with images acquired from skull base to vertex with intravenous contrast. CT of the neck was performed according to the standard protocol with intravenous contrast. Contrast information: 100 mL Optiray-350 COMPARISON: 01/20/2024, 08/29/2023 FINDINGS: HEAD: Changes of midline parietal scalp resection and muscle flap reconstruction. ??No enhancing nodularity along the resection bed. Irregularity of the outer table is seen along the flap reconstruction, new since 01/20/2024. ??This is seen series 4 image 183. No acute intracranial hemorrhage. ??No mass effect or midline shift. The meade-white differentiation is normal. ??Scattered white matter hypoattenuation is nonspecific but most commonly due to chronic small vessel ischemia. ??Ventricles are unchanged in size and morphology. No enhancing intracranial lesion. ??Lens replacements. ??Torus mandibularis. ??Mild paranasal sinus disease. ??Surgical clips are seen in the left temporal scalp. NECK: Slightly increased size of some right level 4 cervical lymph nodes. For reference a node measures 8 mm previously 5 mm seen series 2 image 178. ??No pathologically enlarged lymph nodes. Airways patent. ??The vessels of the neck are patent. ??Unchanged calcification in the left anterior parotid gland. ??Changes of median sternotomy. ??Mild dependent atelectasis within the lungs. ??Multilevel degenerative disc disease in the cervical spine. Procedure Note Anni Aguirre MD - 09/10/2024 EXAMINATION: 1. CT head with contrast 2. CT neck with contrast HISTORY: Squamous cell carcinoma of the scalp status post resection and radiation 07/03/2024. Patient had recurrent disease within the flap reconstruction performed 03/16/2024 TECHNIQUE: CT of the head was performed with images acquired from skull base to vertex with intravenous contrast. CT of the neck was performed according to the standard protocol with intravenous contrast. Contrast information: 100 mL Optiray-350 COMPARISON: 01/20/2024, 08/29/2023 FINDINGS: HEAD: Changes of midline parietal scalp resection and muscle flap reconstruction. No enhancing nodularity along the resection bed. Irregularity of the outer table is seen along the flap reconstruction, new since 01/20/2024. This is seen series 4 image 183. No acute intracranial hemorrhage. No mass effect or midline shift. The meade-white differentiation is normal. Scattered white matter hypoattenuation is nonspecific but most commonly due to chronic small vessel ischemia. Ventricles are unchanged in size and morphology. No enhancing intracranial lesion. Lens replacements. Torus mandibularis. Mild paranasal sinus disease. Surgical clips are seen in the left temporal scalp. NECK: Slightly increased size of some right level 4 cervical lymph nodes. For reference a node measures 8 mm previously 5 mm seen series 2 image 178. No pathologically enlarged lymph nodes. Airways patent. The vessels of the neck are patent. Unchanged calcification in the left anterior parotid gland. Changes of median sternotomy. Mild dependent atelectasis within the lungs. Multilevel degenerative disc disease in the cervical spine. IMPRESSION: 1. Interval change of parietal scalp mass resection and latissimus dorsi flap reconstruction without enhancing nodularity in the resection bed. New osseous irregularity and defect of the parietal outer table along the flap reconstruction which may represent postoperative shaving of the bone. However without a history of surgical bony resection, osseous destruction from tumor cannot be entirely excluded. 2. No pathologically enlarged cervical lymph nodes. A few right cervical level 4 lymph nodes are slightly increased in size since 01/20/2024. Short-term follow-up is recommended. Dictated by: Eduardo Reyes M.D. The radiology attending physician has personally reviewed this study, and had reviewed and/or edited this written report and agrees with it. Electronically signed by: Anni Aguirre M.D. us Minh Orozco MD IM CT PROCEDURES Final Res ult * POCT creatinine (09/10/2024 9:33 AM TRANSCRIBING MACHINE MECHANIC) Creatinine POC 1.1 0.7 - 1.3 mg/dL Blood 09/10/2024 9:33 AM TRANSCRIBING MACHINE MECHANIC 09/10/2024 9:33 AM TRANSCRIBING MACHINE MECHANIC us Self Referral LAB POCT ORDERABLES - DEVICE Fin al Result [facility] Department [place] [address] * POCT lipid panel (08/03/2024 11:54 AM TRANSCRIBING MACHINE MECHANIC) Cholesterol, POC 166 mg/dL HDL, POC 43 mg/dL Triglycerides, POC 211 mg/dL LDL Cholesterol POC 80 mg/dL Chol/HDL Ratio, POC 1.8 Non-HDL Cholesterol, POC 122 mg/dL Cholesterol Total, POC 166 mg/dL Capillary blood 08/03/2024 1 1:54 AM TRANSCRIBING MACHINE MECHANIC Felix Sher MD POINT OF CARE TEST O RDERABLES Final Result from Last 3 Months Insurance [facility] [facility] Address: [facility] [address] [place] [address] [facility] Address: [place] [phone] [place] [address] [facility] Address: [place] [phone] [place] [address] [facility] Address: [facility] [address] [place] [address] Advance Directives For more information, please contact: [phone] * Full Code (Latest Code Status on File) Date Activated Date Inactivated Comments 03/16/2024 4:36 PM 03/21/2024 3:59 PM * Full Code Date Activated Date Inactivated Comments 01/28/2022 9:19 PM 02/05/2022 5:17 PM Care Teams Financial Associate Relationship Specialty Start Date End Date Gabe George DO [address] [place] [address] PCP - General Internal Medicine 08/03/24 Ian Michel MD [address] [place] [address] [place] [address] Dermatology 02/10/23 Parul Baldwin MD [address] [place] [address] Referring Physician Dermatology 02/10/23
--- OUTSIDE RECORDS SUMMARY | 2024-10-15 18:04 | XMS_ITS | Clinical Summary ---
Author Organization [facility] Address [address] [place] [address] Care Team Providers Care Welding Foreman Name Role Phone Ian Michel MD Unavailable [phone] Parul Baldwin MD Unavailable [phone] Gabe George DO Primary Care Provider [phone] Allergies Active Allergy Reactions Criticality Noted Date [...] graft) 03/05/20 Coronary artery disease invo lving [place] coronary artery of [place] heart without angina pectoris 01/28/2022 Overview (01/29/2022): Added automatically from request for surgery [id number] ST elevation myocardial infa rction involving right coronary artery Encounters Date Type Department Care Team Description 10/06/2024 Telephone [facility] Surgery [address] [facility] [address] [place] [id number] Patt Riley RMA 10/06/2024 Orders Only [facility] Surgery [address] [facility] [address] [place] [address] Dre Cerna MD Lung nodule (Primary Dx) 10/01/2024 Orders Only RAD ONC TREATMENTS Miscellaneous, Not In File 10/01/2024 Orders Only [facility] Department of Otolaryngology Head-Neck Division [address] [facility] Floor 5 [place] [address] Minh Orozco MD Lung nodule (Primary Dx) 09/10/2024 11:00 AM ASSISTANT TEACHER Office Visit [facility] - [facility] ENT [address] [facility] 2nd Floor, [address] [place] [address] Minh Orozco MD Squamous cell carcinoma of scalp (Primary Dx); Pulmonary nodule 09/10/2024 9:16 AM ASSISTANT TEACHER - 09/10/2024 11:59 PM ASSISTANT TEACHER Hospital Encounter [facility] Radiology at [facility] [address] [place] [address] Squamous cell carcinoma of scalp Discharge Disposition: Discharge to home or self care 09/10/2024 9:16 AM ASSISTANT TEACHER - 09/10/2024 11:59 PM ASSISTANT TEACHER Hospital Encounter [facility] Radiology at [facility] [address] [place] [address] Squamous cell carcinoma of scalp Discharge Disposition: Discharge to home or self care 08/11/2024 9:30 AM ASSISTANT TEACHER Office Visit [facility] Radiation Oncology [address] [place] [address] Justo Wright MD Squamous cell carcinoma of scalp [C44.42] (Primary Dx) 08/03/2024 12:15 PM ASSISTANT TEACHER Office Visit [facility] Cardiology [address] [facility] [address] [place] [address] Felix Sher MD S/P CABG (coronary artery bypass graft) (Primary Dx); Postoperative atrial fibrillation (CMS/HCC) (HCC); Mixed hyperlipidemia; Coronary artery disease involving holy cross coronary artery of [place] cross heart without angina pectoris from Last 3 Months Surgical History Surgery Date Site/Laterality Comments CORONARY ARTERY BYPASS GRAFT [id number] HERNIA REPAIR 2017 x2, 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 HIP ARTHROPLASTY 09/23/2021 - 09/22/2022 Right COLONOSCOPY TONSILLECTOMY AND ADENOIDECTOMY CATARACT EXTRACTION Bilateral JOINT REPLACEMENT [id number] Medical History Medical History Date Comments Arthritis Sleep apnea History of transfusion Coronary artery disease PONV (postoperative nausea and vomiting) scopolamine patch has been helpful in past Family History Medical History Relation Name Comments Heart attack Father George mendoza Arthritis Mother Leanna mendoza Depression Mother Leanna mendzoa Anesthesia problems Neg Hx Relation Name Status Comments Father George mendoza Mother Leanna mendoza Social History Tobacco Use Types Packs/Day Years [...] on file Legal Sex Male 7:35 PM ASSISTANT TEACHER Gender Identity Not on file Sexual Orientation Not on file Obstetrics History Last Filed Vital Signs Vital Sign Reading Time Taken Comments Blood Pressure 114/72 08/11/2024 9:41 AM ASSISTANT TEACHER Pulse 69 08/11/2024 9:41 AM ASSISTANT TEACHER Temperature 36.4 ??C (97.5 ??F) 08/11/2024 9:41 AM CS T Respiratory Rate 16 08/11/2024 9:41 AM ASSISTANT TEACHER Oxygen Saturation 99% 08/11/2024 9:41 AM ASSISTANT TEACHER Inhaled Oxygen Concentration - - Weight 81 kg (178 lb 9.6 oz) 09/10/2024 11:14 AM ASSISTANT TEACHER Height 175.3 cm (5' 9 ) 08/03/2024 11:58 AM ASSISTANT TEACHER Body Mass Index 26.37 08/03/2024 11:58 AM ASSISTANT TEACHER Plan of Treatment Health Maintenance Due Date Last Done Comments Colon Cancer Screening-Colonoscopy 1961 Depression Screening 1961 Hepatitis C Screening 1961 Prostate Cancer Screening-PSA 1961 Pneumococcal vaccine <65 (1 of 2 - PCV) 12/29/1967 Hepatitis B Screening 12/29/1979 Regular Well Visit/Exam 18-64 12/29/1979 Zoster Vaccine (1 of 2) 1980 Covid-19 Vaccine (4 - season) 2024 06/30/2021, 09/30/2020, 09/09/2020 Influenza Vaccine (#1) 2024 DTaP/Tdap/Td Vaccine (2 - Td or Tdap) 04/12/2031 Medical Devices Implanted Type Area Recreation Counselor Device Identifier Shelf Expiration Date Model / Serial / Lot Thuuz Luly Greer Microvascular 3mm Ring Pin Protective Cover Jaw Assembly Latex Free [id number] - [id number] Implanted:Qty: 1 on 03/16/2024 by Minh Orozco MD at [facility] [place] [employer] [id number] 01/08/2028 [id number] / / [id number] Procedures Procedure Name Priority Date/Time Associated Diagnosis Comments RAD ONC ARIA COURSE SUMMARY 10/01/2024 6:[address] CHEST W CONTRAST Schedule Routine, Read Routine (OP Routine) 09/10/2024 9:54 AM ASSISTANT TEACHER Squamous cell carcinoma of scalp CT SOFT TISSUE NECK W CONTRAST Schedule Routine, Read Routine (OP Routine) 09/10/2024 9:50 AM ASSISTANT TEACHER Squamous cell carcinoma of scalp CT HEAD STEALTH W CONTRAST Schedule Routine, Read Routine (OP Routine) 09/10/2024 9:50 AM ASSISTANT TEACHER Squamous cell carcinoma of scalp POCT CREATININE - DEVICE Routine 09/10/2024 9:33 AM ASSISTANT TEACHER POCT LIPID PANEL Routine 08/03/2024 11:5 4 AM ASSISTANT TEACHER Mixed hyperlipidemia Coronary artery disease involving holy cross coronary artery of [place] cross heart without angina pectoris from Last 3 Months Results * RAD ONC ARIA COURSE SUMMARY (10/01/2024 6:53 PM ASSISTANT TEACHER) Course Name [id number] ARIA Course Plan Date 05/05/2024 12:17 PM ARIA Elapsed Days 45 ARIA Treatment Start Date 05/19/2024 ARIA Treatment Site [id number] ARIA Dose Given To Date (cGy) 6,600 ARIA Session Dosage Given (cGy) 0 ARIA Plan ID SCALP ARIA Fractions Treated 33 ARIA Prescribed Dose Per Fraction (cGy) 200 ARIA Prescribed Total Dose (cGy) 6,600 ARIA 10/01/2024 6:53 PM ASSISTANT TEACHER us Not In File Miscellaneous RADIATION ONCOLOGY ORD ERABLES Final Result ARIMarjorie * CT Chest with Contrast (09/10/2024 9:54 AM ASSISTANT TEACHER) Anatomical Region Laterality Modality Body N/A Computed Tomogra phy 09/10/2024 10:2 6 AM ASSISTANT TEACHER Impressions 09/10/2024 10:26 AM ASSISTANT TEACHER 1. ??8 mm right middle lobe pulmonary nodule with ill-defined borders new from March 2024 prior worrisome for malignancy such as metastatic disease. Electronically signed by: Prakash Gan M.D. Narrative 09/10/2024 10:26 AM ASSISTANT TEACHER EXAMINATION: ??Computed tomography of the chest with [...] disease. Electronically signed by: Prakash Gan M.D. Minh Orozco MD IM CT PROCEDURES Final Res ult * CT Head Stealth W Contrast (09/10/2024 9:50 AM ASSISTANT TEACHER) Anatomical Region Laterality Modality Head and Neck N/A Computed Tomogra phy 09/10/2024 11:1 7 AM ASSISTANT TEACHER Impressions 09/10/2024 2:42 PM ASSISTANT TEACHER 1. Interval change of parietal scalp mass [...] Anni Aguirre M.D. Narrative 09/10/2024 2:42 PM ASSISTANT TEACHER EXAMINATION: 1. CT head with contrast 2. [...] Soft Tissue W Contrast (09/10/2024 9:50 AM ASSISTANT TEACHER) Anatomical Region Laterality Modality Head and Neck N/A Computed Tomogra phy 09/10/2024 11:1 7 AM ASSISTANT TEACHER Impressions 09/10/2024 2:42 PM ASSISTANT TEACHER 1. Interval change of parietal scalp mass [...] Anni Aguirre M.D. Narrative 09/10/2024 2:42 PM ASSISTANT TEACHER EXAMINATION: 1. CT head with contrast 2. [...] by: Anni Aguirre M.D. Minh Orozco MD IMG CT PROCEDURES Final Res ult * POCT creatinine (09/10/2024 9:33 AM ASSISTANT TEACHER) Creatinine POC 1.1 0.7 - 1.3 mg/dL Blood 09/10/2024 9:33 AM ASSISTANT TEACHER 09/10/2024 9:33 AM ASSISTANT TEACHER us Self Referral LAB POCT ORDERABLES - DEVICE Fin al Result [facility]SA [facility] Department [place] [address] * POCT lipid panel (08/03/2024 11:54 AM ASSISTANT TEACHER) Cholesterol, POC 166 mg/dL HDL, POC 43 mg/dL Triglycerides, POC 211 mg/dL LDL Cholesterol POC 80 mg/dL Chol/HDL Ratio, POC 1.8 Non-HDL Cholesterol, POC 122 mg/dL Cholesterol Total, POC 166 mg/dL Capillary blood 08/03/2024 1 1:54 AM ASSISTANT TEACHER Felix Sher MD POINT OF CARE TEST O RDERABLES Final Result from Last 3 Months Insurance [facility]PP[facility] Address: [address] [phone] [facility] H[facility]/PPO Address: [address] [phone] [facility] Address: [place] [address] [facility] Address: [place] [address] Advance Directives For more information, please contact: [phone] * Full Code (Latest Code Status on File) Date Activated Date Inactivated Comments 03/16/2024 4:36 PM 03/21/2024 3:59 PM * Full Code Date Activated Date Inactivated Comments 01/28/2022 9:19 PM 02/05/2022 5:17 PM Care Teams Welding Foreman Relationship Specialty Start Date End Date Gabe George DO [address] [place] [id number] PCP - General Internal Medicine 08/03/24 Ian Michel MD [address] [place] [address] [place] [address] Dermatology 02/10/23 Parlu Baldwin MD [address] [place] [id number] Referring Physician Dermatology 02/10/23
--- OUTSIDE RECORDS SUMMARY | 2024-10-15 18:04 | XMS_ITS ---
Author Organization [facility] Address [address] [place] [address] Care Team Providers Care Control Inspector Name Role Phone Ian Michel MD Unavailable [phone] Parul Baldwin MD Unavailable [phone] Gabe George DO Primary Care Provider [phone] Active Problems Problem Noted Date Diagnosed Date Aftercare following surgery for neoplasm 024 Squamous cell carcinoma of scalp 03/04/2024 Mixed hyperlipidemia 06/17/2023 Atypical fibroxanthoma of skin 02/08/2023 Postoperative atrial fibrillation (CMS/HCC) 02/21 S/P CABG (coronary artery bypass graft) 03/05/20 22 Coronary artery disease invo lving [place] coronary artery of [place] heart without angina pectoris 01/28/2022 Overview (01/29/2022): Added automatically from request for surgery [id number] ST elevation myocardial infa rction involving right coronary artery Current Oncology Plans No current plan information found. Past Plans No past plan information found. Radiation Treatments * Plan Last Treated On Elapsed Days Fractions Treated Prescribed Fraction Dose Prescribed Total Dose SCALP 10/01/2024 45 33 200 cGy 6,600 cGy Reference Point Last Treated On Elapsed Days Session Dose Total Dose [id number] 10/01/2024 45 0 cGy 6,600 cGy Lifetime Dose Tracking * Chemical Lifetime Dose Automatic Entry Manual Entr y DLP 3,572 mGycm 3,572 mGycm 0 mGycm
--- OUTSIDE RECORDS SUMMARY | 2024-10-15 18:05 | XMS_ITS | Encounter Summary ---
Author Organization [facility] Address [address] [place] [address] Phone Care Team Providers Care Research Assistant Member Name Role Phone Ian Michel MD Unavailable [phone] Parul Baldwin MD Unavailable [phone] Gabe George DO Primary Care Provider [phone] Encounter Details Date Type Department Care Team (Late st Contact Info) Description 10/06/2024 Telephone [facility] Surgery [address] [facility] [address] [facility] [address] [place] [address] Patt Riley RMA Social History Tobacco Use Types Packs/Day Years Used Date Smoking Tobacco: Never Smokeless Tobacco: Never AUDIT-C Answer Date Recorded Q1: How often [...] on file Legal Sex Male 7:35 PM LICENSED DIRECT ENTRY MIDWIFE Gender Identity Not on file Sexual Orientation Not on file documented as of this encounter Miscellaneous Notes * Telephone Encounter - Patt Riley RMA - 10/14/2024 2:42 PM LICENSED DIRECT ENTRY MIDWIFE Spoke to pt's . They are aware of date, time and location NSED DIRECT ENTRY MIDWIFE * Telephone Encounter - Patt Riley RMA - 10/14/2024 2:14 PM LICENSED DIRECT ENTRY MIDWIFE Called pt no answer left message NSED DIRECT ENTRY MIDWIFE * Telephone Encounter - Patt Riley RMA - 10/06/2024 12:39 PM LICENSED DIRECT ENTRY MIDWIFE Scheduled pt PFT 10/27 9:30am [facility] Called pt no answer left message NSED DIRECT ENTRY MIDWIFE documented in this encounter Plan of Treatment Not on file documented as of this encounter Visit Diagnoses Not on filedocumented in this encounter Care Teams Research Assistant Member Relationship Specialty Start Date End Date Gabe George DO [address] [place] [address] PCP - General Internal Medicine 08/03/24 Ian Michel MD [address] [place] [address] Dermatology 02/10/23 Parul Baldwin MD [address] [place] [address] Referring Physician Dermatology 02/10/23 documented as of this encounter
== END 2024-10-13 11:50 | disposition home or self-care (01) ==
LOC: ANHIMG 11:55
PROVIDERS: PCP Internal Medicine; Visit Provider Otolaryngology
DX: R91.1 Solitary pulmonary nodule (principal)
CPT/HCPCS: 78815; A9552

== ENCOUNTER 2024-10-28 12:21 | Outpatient (CLI) | payer OTHER, SELFPAY ==
--- OUTSIDE RECORDS SUMMARY | 2024-10-28 13:29 | XMS_ITS | Clinical Summary ---
Author Organization [facility] Address [address] [place] [address] Care Team Providers Care Metal [employer]er [employer] Name Role Phone Ian Michel MD Unavailable Parul Baldwin MD Unavailable [phone] Gabe George DO Primary Care Provider [phone] Felix Sher MD Unavailable [phone] Allergies Active Allergy Reactions Criticality Noted Date [...] mouth daily 30 tablet 1 2 Active famotidine (PEPCID) 40 mg tabletIndication s:gastroesophage al [...] 30 tablet 11 4 Active Active Problems Patient Care Coordination No te Formatting of this note migh t be different from the original. Referring provider: Dr. Minh Orozco Mr. Adalgisa Mendoza is a 63-year-old with a lung nodule. 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 This was initially resected in 2022. He had negative margins. Unfortunately he developed recurrence. On 03/16/2024 the patient underwent a wide local resection of recurrent scalp cancer with calvarial decortication and left leg numbness dorsally free flap. He went on to receive postoperative radiation therapy that was completed in June of 2024. On 09/10/2024 the patient underwent a CT of the head, neck and chest with contrast which showed interval changes of parietal scalp mass 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 and Gerardo thus Hancock flap reconstruction without enhancing nodularity in the resection bed. There was new osseous irregularity and defect of the parietal outer table along the flap reconstruction which may represent postoperative shaving of the bone. However without a history of surgical bony resection, osseous destruction from tumor can not be entirely excluded. There was no pathologically enlarged cervical lymph nodes. There was a few right cervical level 4 lymph nodes which are slightly increased in size since 01/20/2024. There was an 8 mm right middle lobe lung nodule with ill- defined borders which was new from April 11, 2024. Patient has a history of atrial fibrillation and coronary artery disease. He has a history of a CABG x2 in 2021. He is on aspirin and Plavix. Patient is a never smoker. Patient is scheduled for pulmonary function testing on 10/28/2024. Patient presents today for further surgical evaluation. 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 [address] [place] [phone] Dre Cerna MD Lung nodule (Primary Dx) 10/22/2024 Telephone [facility] Surgery [address] [facility] [address] [place] [phone] Patt Riley RMA 10/20/2024 11:45 AM FAN MAIL CLERK Office Visit [facility] Surgery [address] [place] [phone] Dre Cerna MD Lung nodule (Primary Dx) 10/19/2024 5:00 PM FAN MAIL CLERK - 10/19/2024 11:59 PM FAN MAIL CLERK Hospital Encounter [facility] [address] [place] [address] Discharge Disposition: Discharge to home or self care 10/06/2024 Telephone [facility] Surgery [address] [place], [place] [address] [address] [place] [address] Patt Riley RMA 10/06/2024 Orders Only [facility] Surgery [address] [facility] [address] [place] [address] Dre Cerna MD Lung nodule (Primary Dx) 10/01/2024 Orders Only RAD ONC TREATMENTS Miscellaneous, Not In File 10/01/2024 Orders Only [facility] Department of Otolaryngology Head-Neck Division [address] [facility] [address] 5 [place] [address] Minh Orozco MD Lung nodule (Primary Dx) 09/10/2024 11:00 AM FAN MAIL CLERK Office Visit [facility] - [facility] ENT [address] [facility] 2nd Floor, [address] [place] [address] Minh Orozco MD Squamous cell carcinoma of scalp (Primary Dx); Pulmonary nodule 09/10/2024 9:16 AM FAN MAIL CLERK - 09/10/2024 11:59 PM FAN MAIL CLERK Hospital Encounter [facility] Radiology at [facility] [address] [place] [address] Squamous cell carcinoma of scalp Discharge Disposition: Discharge to home or self care 09/10/2024 9:16 AM FAN MAIL CLERK - 09/10/2024 11:59 PM FAN MAIL CLERK Hospital Encounter [facility] Radiology at [facility] [address] [place] [address] Squamous cell carcinoma of scalp Discharge Disposition: Discharge to home or self care 08/11/2024 9:30 AM FAN MAIL CLERK Office Visit [facility] Radiation Oncology [address] [place] [address] Justo Wright MD Squamous cell carcinoma of scalp [C44.42] (Primary Dx) 08/03/2024 12:15 PM FAN MAIL CLERK Office Visit [facility] Cardiology [address] [facility] [address] [place] [address] Felix Sher MD S/P CABG (coronary artery bypass graft) (Primary Dx); Postoperative atrial fibrillation (CMS/HCC) (HCC); Mixed hyperlipidemia; Coronary artery disease involving [place] coronary artery of [place] heart without angina pectoris from Last 3 Months Surgical History Surgery Date Site/Laterality Comments CORONARY ARTERY BYPASS GRAFT [id number] HERNIA REPAIR 2016 x2, 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 HIP ARTHROPLASTY 09/23/2021 - 09/22/2022 Right COLONOSCOPY TONSILLECTOMY AND ADENOIDECTOMY CATARACT EXTRACTION Bilateral JOINT REPLACEMENT [id number] Medical History Medical History Date Comments Arthritis Sleep apnea History of transfusion Coronary artery disease PONV (postoperative nausea and vomiting) scopolamine patch has been helpful in past Family History Medical History Relation Name Comments Heart attack Father George mendoza Arthritis Mother Leanna mendoza Depression Mother Leanna mendoza Anesthesia problems Neg Hx Relation Name Status [...] on file Legal Sex Male 7:35 PM FAN MAIL CLERK Gender Identity Not on file Sexual Orientation Not on file Obstetrics History Last Filed Vital Signs Vital Sign Reading Time Taken Comments Blood Pressure 123/76 10/20/2024 11:27 AM FAN MAIL CLERK Pulse 63 10/20/2024 11:27 AM FAN MAIL CLERK Temperature 36.4 ??C (97.6 ??F) 10/20/2024 11:[address] Respiratory Rate 16 10/20/2024 11:27 AM FAN MAIL CLERK Oxygen Saturation 98% 10/20/2024 11:27 AM FAN MAIL CLERK Inhaled Oxygen Concentration - - Weight 79.4 kg (175 lb) 10/20/2024 11:27 AM FAN MAIL CLERK Height 173.1 cm (5' 8.15 ) 10/20/2024 11:[address] Body Mass Index 26.49 10/20/2024 11:27 AM FAN MAIL CLERK Plan of Treatment Health Maintenance Due Date [...] Tdap) 04/12/2031 Medical Devices Implanted Type Area Manager Crisis Device Identifier Shelf Expiration Date Model / Serial / Lot [employer] Clacendix Allmarcelino Tarrant Microvascular 3mm Ring Pin Protective Cover Jaw Assembly Latex Free [id number] - [id number] Implanted:Qty: 1 on 03/16/2024 by Minh Orozco MD at [facility] [employer] Cl[employer]endix Allian [id number] 01/08/2028 [id number] / / [id number] Procedures Procedure Name Priority Date/Time Associated Diagnosis Comments PET OUTSIDE REFERENCE Routine 10/19/2024 5:00 PM FAN MAIL CLERK RAD ONC ARIA COURSE SUMMARY 10/01/2024 6:[address] CHEST W CONTRAST Schedule Routine, Read Routine (OP Routine) 09/10/2024 9:54 AM FAN MAIL CLERK Squamous cell carcinoma of scalp CT SOFT TISSUE NECK W CONTRAST Schedule Routine, Read Routine (OP Routine) 09/10/2024 9:50 AM FAN MAIL CLERK Squamous cell carcinoma of scalp CT HEAD STEALTH W CONTRAST Schedule Routine, Read Routine (OP Routine) 09/10/2024 9:50 AM FAN MAIL CLERK Squamous cell carcinoma of scalp POCT CREATININE - DEVICE Routine 09/10/2024 9:33 AM FAN MAIL CLERK POCT LIPID PANEL Routine 08/03/2024 11:5 4 AM FAN MAIL CLERK Mixed hyperlipidemia Coronary artery disease involving n[place] coronary artery of [place] heart without angina pectoris from Last 3 Months Results * PET Outside Reference (10/19/2024 5:00 PM FAN MAIL CLERK) Impressions [facility] - 10/19/2024 5:00 PM FAN MAIL CLERK These images are for Reference purposes only and have not been reviewed by [facility] Radiology. ??There will be no report generated by a [facility] Radiologist. Narrative [facility] - 10/19/2024 5:00 PM FAN MAIL CLERK EXAMINATION: ??Images For Reference Purposes Only us Dre Cerna MD IMG PET PROCEDURES Final Result Performing Organization Address City/[facility]/ZIP Co de Phone Number [email or web address] * RAD ONC ARIA COURSE SUMMARY (10/01/2024 6:53 PM FAN MAIL CLERK) Course Name [id number] ARIA Course Plan Date 05/05/2024 12:17 PM ARIA Elapsed Days 45 ARIA Treatment Start Date 05/19/2024 ARIA Treatment Site [id number] ARIA Dose Given To Date (cGy) 6,600 ARIA Session Dosage Given (cGy) 0 ARIA Plan ID SCALP ARIA Fractions Treated 33 ARIA Prescribed Dose Per Fraction (cGy) 200 ARIA Prescribed Total Dose (cGy) 6,600 ARIA 10/01/2024 6:53 PM FAN MAIL CLERK us Not In File Miscellaneous RADIATION ONCOLOGY ORD ERABLES Final Result ARIA * CT Chest with Contrast (09/10/2024 9:54 AM FAN MAIL CLERK) Anatomical Region Laterality Modality Body N/A Computed Tomogra phy 09/10/2024 10:2 6 AM FAN MAIL CLERK Impressions 09/10/2024 10:26 AM FAN MAIL CLERK 1. ??8 mm right middle lobe pulmonary nodule with ill-defined borders new from March 2024 prior worrisome for malignancy such as metastatic disease. Electronically signed by: Prakash Gan M.D. Narrative 09/10/2024 10:26 AM FAN MAIL CLERK EXAMINATION: ??Computed tomography of the chest with [...] Head Stealth W Contrast (09/10/2024 9:50 AM FAN MAIL CLERK) Anatomical Region Laterality Modality Head and Neck N/A Computed Tomogra phy 09/10/2024 11:1 7 AM FAN MAIL CLERK Impressions 09/10/2024 2:42 PM FAN MAIL CLERK 1. Interval change of parietal scalp mass [...] Anni Aguirre M.D. Narrative 09/10/2024 2:42 PM FAN MAIL CLERK EXAMINATION: 1. CT head with contrast 2. [...] Soft Tissue W Contrast (09/10/2024 9:50 AM FAN MAIL CLERK) Anatomical Region Laterality Modality Head and Neck N/A Computed Tomogra phy 09/10/2024 11:1 7 AM FAN MAIL CLERK Impressions 09/10/2024 2:42 PM FAN MAIL CLERK 1. Interval change of parietal scalp mass [...] Anni Aguirre M.D. Narrative 09/10/2024 2:42 PM FAN MAIL CLERK EXAMINATION: 1. CT head with contrast 2. [...] Anni Aguirre M.D. us Minh Orozco MD IMG CT PROCEDURES Final Res ult * POCT creatinine (09/10/2024 9:33 AM FAN MAIL CLERK) Creatinine POC 1.1 0.7 - 1.3 mg/dL Blood 09/10/2024 9:33 AM FAN MAIL CLERK 09/10/2024 9:33 AM FAN MAIL CLERK us Self Referral LAB POCT ORDERABLES - DEVICE Fin al [facility] Department [place] [address] * POCT lipid panel (08/03/2024 11:54 AM FAN MAIL CLERK) Cholesterol, POC 166 mg/dL HDL, POC 43 mg/dL Triglycerides, POC 211 mg/dL LDL Cholesterol POC 80 mg/dL Chol/HDL Ratio, POC 1.8 Non-HDL Cholesterol, POC 122 mg/dL Cholesterol Total, POC 166 mg/dL Capillary blood 08/03/2024 1 1:54 AM FAN MAIL CLERK us Felix Sher MD POINT OF CARE TEST O RDERABLES Final Result from Last 3 Months Insurance [facility] [place] [id number] [facility] Advance Directives For more information, please contact: [phone] * Full Code (Latest Code Status on File) Date Activated Date Inactivated Comments 03/16/2024 4:36 PM 03/21/2024 3:59 PM * Full Code Date Activated Date Inactivated Comments 01/28/2022 9:19 PM 02/05/2022 5:17 PM Care Teams Metal [employer]er [employer] Relationship Specialty Start Date End Date Gabe George DO [address] [place] [address] PCP - General Internal Medicine 08/03/24 Ian Michel MD [address] [place] [place] [address] Dermatology 02/10/23 Parul Baldwin MD [address] [place] [address] Referring Physician Dermatology 02/10/23 Felix Sher MD [address] [facility] [address] [facility] [place] [address] Consulting Physician Cardiology 10/21/24
--- OUTSIDE RECORDS SUMMARY | 2024-10-28 13:29 | XMS_ITS ---
Author Organization [facility] Address [address] [place] [address] Care Team Providers Care Cashier Self Service [employer] Name Role Phone Ian Michel MD Unavailable [phone] Parul Baldwin MD Unavailable [phone] Gabe George DO Primary Care Provider [phone] Felix Sher MD Unavailable [phone] Active Problems Patient Care Coordination No te Formatting of this note migh t be different from the original. Referring provider: Dr. Minh Orozco Mr. Adalgisa Thacker is a 63-year-old with a lung nodule. [...] showed interval changes of parietal scalp mass weekend 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 and Gerardo thus Hancock flap reconstruction [...] graft) 03/05/20 Coronary artery disease invo lving [place] coronary artery of [place] heart without angina pectoris 01/28/2022 Overview (01/29/2022): Added automatically from request for surgery [id number] ST elevation myocardial infa rction involving right [...]
--- OUTSIDE RECORDS SUMMARY | 2024-10-28 13:29 | XMS_ITS | Referral Summary ---
Author Organization [facility] Address [address] [place] [address] Care Team Providers Care Carbon Furnace Operator Name Role Phone Ian Michel MD Unavailable [phone] Parul Baldwin MD Unavailable [phone] Gabe George DO Primary Care Provider [phone] Felix Sher MD Unavailable [phone] Encounters Date Type Department Care Team Description 10/22/2024 Orders Only [facility] Surgery [address] [place] [address] [place] [phone] Dre Cerna MD Lung nodule (Primary Dx) 10/22/2024 Telephone [facility] Surgery [address] [place] [address] [place] [phone] Patt Riley RMA 10/20/2024 11:45 AM PRODUCTION SUPERVISOR TRAINEE Office Visit [facility] Surgery [address] [place] [phone] Dre Cerna MD Lung nodule (Primary Dx) 10/19/2024 5:00 PM PRODUCTION SUPERVISOR TRAINEE - 10/19/2024 11:59 PM PRODUCTION SUPERVISOR TRAINEE Hospital Encounter [facility] [address] [place] [address] Discharge Disposition: Discharge to home or self care 10/06/2024 Telephone [facility] Surgery [address] [place] [address] [place] [phone] Patt Riley RMA 10/06/2024 Orders Only [facility] Surgery [address] [place] [address] Dre Cerna MD Lung nodule (Primary Dx) 10/01/2024 Orders Only RAD ONC TREATMENTS Miscellaneous, Not In File 10/01/2024 Orders Only [facility] Department of Otolaryngology Head-Neck Division [address] [facility] Floor 5 [place] [address] Minh Orozco MD Lung nodule (Primary Dx) 09/10/2024 11:00 AM PRODUCTION SUPERVISOR TRAINEE Office Visit [facility]) - [facility] ENT [address] [facility] 2nd Floor, [address] [place] [address] Minh Orozco MD Squamous cell carcinoma of scalp (Primary Dx); Pulmonary nodule 09/10/2024 9:16 AM PRODUCTION SUPERVISOR TRAINEE - 09/10/2024 11:59 PM PRODUCTION SUPERVISOR TRAINEE Hospital Encounter [facility] Radiology at [facility] Medicine [address] [place] [address] Squamous cell carcinoma of scalp Discharge Disposition: Discharge to home or self care 09/10/2024 9:16 AM PRODUCTION SUPERVISOR TRAINEE - 09/10/2024 11:59 PM PRODUCTION SUPERVISOR TRAINEE Hospital Encounter [facility] Radiology at [address] [address] Squamous cell carcinoma of scalp Discharge Disposition: Discharge to home or self care 08/11/2024 9:30 AM PRODUCTION SUPERVISOR TRAINEE Office Visit [facility] Radiation Oncology [address] [place] [address] Justo Wright MD Squamous cell carcinoma of scalp [C44.42] (Primary Dx) 08/03/2024 12:15 PM PRODUCTION SUPERVISOR TRAINEE Office Visit [facility] Cardiology [address] [place] [address] Felix Sher MD S/P CABG (coronary artery bypass graft) (Primary Dx); Postoperative atrial fibrillation (CMS/HCC) (HCC); Mixed hyperlipidemia; Coronary artery disease involving [place] coronary artery of [place] heart without angina pectoris from Last 3 [...] showed interval changes of parietal scalp mass office manager 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 and Gerardo thus Hancock flap reconstruction [...] graft) 03/05/20 Coronary artery disease invo lving [place] coronary artery of [place] heart without angina pectoris 01/28/2022 Overview (01/29/2022): Added automatically from request for surgery [id number] ST elevation myocardial infa rction involving right [...] on file Legal Sex Male 7:35 PM PRODUCTION SUPERVISOR TRAINEE Gender Identity Not on file Sexual Orientation Not on file Last Filed Vital Signs Vital Sign Reading Time Taken Comments Blood Pressure 123/76 10/20/2024 11:27 AM PRODUCTION SUPERVISOR TRAINEE Pulse 63 10/20/2024 11:27 AM PRODUCTION SUPERVISOR TRAINEE Temperature 36.4 ??C (97.6 ??F) 10/20/2024 11:[address] Respiratory Rate 16 10/20/2024 11:27 AM PRODUCTION SUPERVISOR TRAINEE Oxygen Saturation 98% 10/20/2024 11:27 AM PRODUCTION SUPERVISOR TRAINEE Inhaled Oxygen Concentration - - Weight 79.4 kg (175 lb) 10/20/2024 11:27 AM PRODUCTION SUPERVISOR TRAINEE Height 173.1 cm (5' 8.15 ) 10/20/2024 11:[address] Body Mass Index 26.49 10/20/2024 11:27 AM PRODUCTION SUPERVISOR TRAINEE Plan of Treatment Not on file Medical Devices Implanted Type Area Radio Station Audio Engineer Device Identifier Shelf Expiration Date Model / Serial / Lot [employer] ODIN Luly Blackmon Microvascular 3mm Ring Pin Protective Cover Jaw Assembly Latex Free [id number] - [id number] Implanted:Qty: 1 on 03/16/2024 by Minh Orozco MD at [facility] Neck [employer] ODIN Ikeian [id number] 01/08/2028 [id number] / / [id number] Procedures Procedure Name Priority Date/Time Associated Diagnosis Comments PET OUTSIDE REFERENCE Routine 10/19/2024 5:00 PM PRODUCTION SUPERVISOR TRAINEE RAD ONC ARIA COURSE SUMMARY 10/01/2024 6:53 PM PR[address] SUPERVISOR TRAINEE CT CHEST W CONTRAST Schedule Routine, Read Routine (OP Routine) 09/10/2024 9:54 AM PRODUCTION SUPERVISOR TRAINEE Squamous cell carcinoma of scalp CT SOFT TISSUE NECK W CONTRAST Schedule Routine, Read Routine (OP Routine) 09/10/2024 9:50 AM PRODUCTION SUPERVISOR TRAINEE Squamous cell carcinoma of scalp CT HEAD STEALTH W CONTRAST Schedule Routine, Read Routine (OP Routine) 09/10/2024 9:50 AM PRODUCTION SUPERVISOR TRAINEE Squamous cell carcinoma of scalp POCT CREATININE - DEVICE Routine 09/10/2024 9:33 AM PRODUCTION SUPERVISOR TRAINEE POCT LIPID PANEL Routine 08/03/2024 11:5 4 AM PRODUCTION SUPERVISOR TRAINEE Mixed hyperlipidemia Coronary artery disease involving [place] coronary artery of [place] heart without angina pectoris from Last 3 Months Results * PET Outside Reference (10/19/2024 5:00 PM PRODUCTION SUPERVISOR TRAINEE) Impressions RAD_PACS_[facility] - 10/19/2024 5:00 PM PRODUCTION SUPERVISOR TRAINEE These images are for Reference purposes only and have not been reviewed by [facility] Radiology. ??There will be no report generated by a [facility] Radiologist. Narrative RAD_PACS_BJ - 10/19/2024 5:00 PM PRODUCTION SUPERVISOR TRAINEE EXAMINATION: ??Images For Reference Purposes Only us Dre Cerna MD IMG PET PROCEDURES Final Result RAD_PACS_[facility] * RAD ONC ARIA COURSE SUMMARY (10/01/2024 6:53 PM PRODUCTION SUPERVISOR TRAINEE) Course Name [id number] ARIA Course Plan Date 05/05/2024 12:17 PM ARIA Elapsed Days 45 ARIA Treatment Start Date 05/19/2024 ARIA Treatment Site [id number] ARIA Dose Given To Date (cGy) 6,600 ARIA Session Dosage Given (cGy) 0 ARIA Plan ID SCALP ARIA Fractions Treated 33 ARIA Prescribed Dose Per Fraction (cGy) 200 ARIA Prescribed Total Dose (cGy) 6,600 ARIA 10/01/2024 6:53 PM PRODUCTION SUPERVISOR TRAINEE us Not In File Miscellaneous RADIATION ONCOLOGY ORD ERABLES Final Result ARIA * CT Chest with Contrast (09/10/2024 9:54 AM PRODUCTION SUPERVISOR TRAINEE) Anatomical Region Laterality Modality Body N/A Computed Tomogra phy 09/10/2024 10:2 6 AM PRODUCTION SUPERVISOR TRAINEE Impressions 09/10/2024 10:26 AM PRODUCTION SUPERVISOR TRAINEE 1. ??8 mm right middle lobe pulmonary nodule with ill-defined borders new from March 2024 prior worrisome for malignancy such as metastatic disease. Electronically signed by: Prakash Gan M.D. Narrative 09/10/2024 10:26 AM PRODUCTION SUPERVISOR TRAINEE EXAMINATION: ??Computed tomography of the chest with [...] Head Stealth W Contrast (09/10/2024 9:50 AM PRODUCTION SUPERVISOR TRAINEE) Anatomical Region Laterality Modality Head and Neck N/A Computed Tomogra phy 09/10/2024 11:1 7 AM PRODUCTION SUPERVISOR TRAINEE Impressions 09/10/2024 2:42 PM PRODUCTION SUPERVISOR TRAINEE 1. Interval change of parietal scalp mass [...] Anni Aguirre M.D. Narrative 09/10/2024 2:42 PM PRODUCTION SUPERVISOR TRAINEE EXAMINATION: 1. CT head with contrast 2. [...] Soft Tissue W Contrast (09/10/2024 9:50 AM PRODUCTION SUPERVISOR TRAINEE) Anatomical Region Laterality Modality Head and Neck N/A Computed Tomogra phy 09/10/2024 11:1 7 AM PRODUCTION SUPERVISOR TRAINEE Impressions 09/10/2024 2:42 PM PRODUCTION SUPERVISOR TRAINEE 1. Interval change of parietal scalp mass [...] Anni Aguirre M.D. Narrative 09/10/2024 2:42 PM PRODUCTION SUPERVISOR TRAINEE EXAMINATION: 1. CT head with contrast 2. [...] ult * POCT creatinine (09/10/2024 9:33 AM PRODUCTION SUPERVISOR TRAINEE) Creatinine POC 1.1 0.7 - 1.3 mg/dL Blood 09/10/2024 9:33 AM PRODUCTION SUPERVISOR TRAINEE 09/10/2024 9:33 AM PRODUCTION SUPERVISOR TRAINEE Self Referral LAB POCT ORDERABLES - DEVICE Fin al Result [facility] Department [place] [address] * POCT lipid panel (08/03/2024 11:54 AM PRODUCTION SUPERVISOR TRAINEE) Cholesterol, POC 166 mg/dL HDL, POC 43 mg/dL Triglycerides, POC 211 mg/dL LDL Cholesterol POC 80 mg/dL Chol/HDL Ratio, POC 1.8 Non-HDL Cholesterol, POC 122 mg/dL Cholesterol Total, POC 166 mg/dL Capillary blood 08/03/2024 1 1:54 AM PRODUCTION SUPERVISOR TRAINEE us Felix Sher MD POINT OF CARE TEST O RDERABLES Final Result from Last 3 Months Insurance [facility]PP[facility] Address: [address] [facility]PPO Address: [address] [address] [facility]PPO Address: [place] [address] [facility] Address: [address] Advance Directives For more information, please contact: [phone] * Full Code (Latest Code Status on File) Date Activated Date Inactivated Comments 03/16/2024 4:36 PM 03/21/2024 3:59 PM * Full Code Date Activated Date Inactivated Comments 01/28/2022 9:19 PM 02/05/2022 5:17 PM Care Teams Carbon Furnace Operator Relationship Specialty Start Date End Date Gabe George DO [address] [place] [address] PCP - General Internal Medicine 08/03/24 Ian Michel MD [address] [facility] [place] [address] Dermatology 02/10/23 Parul Baldwin MD [address] [place] [address] Referring Physician Dermatology 02/10/23 Felix Sher MD [address] [facility] [address] [place] [address] Consulting Physician Cardiology 10/21/24
--- NOTE | 2024-10-28 18:08 | WPDPFTINT ---
PFT Procedure Performed PFT Procedure Performed Plethysmography (Lung Vol) Diffusing Cap (DLCO) Flow Vol Loop Spirometry w/o Bronchodil PFT Interpretation This is a pulmonary function test with spirometry, plethysmography and diffusing capacity. The test was performed and results interpreted in accordance with the 2019 and 2005 ATS/ERS Task Force guidelines respectively using the Global Lung Function Initiative-2012 reference equations. Patient demonstrated good effort and cooperation. Reproducibility criteria were met. The quality of the spirometry maneuver was Grade B. Findings: Spirometry: There is decreased maximal expiratory airflow at low lung volumes with concave expiratory flow tracing. The contour the inspiratory flow tracing is truncated. The FVC is 3.80 L, 89% predicted. The FEV1 is 2.44 L, 74% predicted. The FEV1: FVC ratio 64%. Plethysmography: The total lung capacity is 6.45 L, 97% predicted. The functional residual capacity is 3.27 L, 95% predicted. The residual volume is 2.07 L, 95% predicted. Diffusing capacity: The diffusing capacity unadjusted for hemoglobin and carboxyhemoglobin is 13.6, 50% predicted. The diffusing capacity adjusted for alveolar volume is 3.66, 85% predicted. Impression: There is a mild obstructive abnormality. The lung volumes are normal. The diffusing capacity unadjusted for hemoglobin and carboxyhemoglobin is moderately decreased and normalizes when adjusted for alveolar volume. There are no prior studies for comparison
== END 2024-10-28 12:22 | disposition home or self-care (01) ==
PROVIDERS: PCP Internal Medicine; Visit Provider Thoracic Surgery (Cardiothoracic Vascular Surgery)
DX: R91.1 Solitary pulmonary nodule (principal)
CPT/HCPCS: 94375; 94726; 94729

== ENCOUNTER 2024-12-01 11:03 | Outpatient (CLI) | payer OTHER, SELFPAY ==
--- NOTE | ~2024-12-01 | CT_ITS ---
Clinical Indication: Lung nodule CT Scan of the Chest with Contrast: Technique: Contiguous sections were acquired throughout the chest after intravenous administration of 75 cc of Omnipaque 350. Dose reduction technique was used on this scan by utilizing automated exposu re control and iterative reconstruction technique. The dose-length product (DLP) was 166.98 mGy-cm. COMPARISON: 03/01/2024, 10/13/2024 Findings: There is no evidence of any significant mediastinal, hilar or axillary lymphadenopathy. There is no f illing defect in the pulmonary arterial tree to suggest pulmonary embolus. There is no evidence of ao rtic dissection or aneurysm. There is no evidence of pleural or pericardial effusion. There is minimal biapical scarring. 12 mm right middle lobe pulmonary nodule is present, probably mil dly increased since 10/13/2024, suspicious for malignancy. Left lung otherwise clear. Images through the upper abdomen reveal no abnormalities. Impression: 12 mm right middle lobe pulmonary nodule, probably minimally increased since 10/13/2024. This also dem onstrate hypermetabolic activity on recent PET scan. This lesion is suspicious for malignancy until p roven otherwise. Reviewed, dictated and finalized at location . Impression: 12 mm right middle lobe pulmonary nodule, probably minimally increased since . This also demonstrate hypermetabolic activity on recent PET scan. This lesion is suspicious for malignancy until proven otherwise.
[2024-12-01 11:30] LABS: Estimated Glomerular Filt Rate > 60
--- OUTSIDE RECORDS SUMMARY | 2024-12-01 12:50 | XMS_ITS ---
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 Problem Noted Date Diagnosed Date Nodule of middle lobe of right lung 11/09/2024 Aftercare following surgery for neoplasm 024 Squamous cell carcinoma of scalp 03/04/2024 Mixed hyperlipidemia 06/17/2023 Atypical fibroxanthoma of skin 02/08/2023 Postoperative atrial fibrillation 03/05/2022 S/P CABG (coronary artery bypass graft) 03/05/20 22 Coronary artery disease invo lving [place] coronary artery of [place] heart without angina pectoris 01/28/2022 Overview (01/29/2022): Added automatically from request for surgery [id number] ST elevation myocardial infa rction involving right coronary artery Current Treatment and Therapy Plans No current plan information found. Past Treatment and Therapy Plans No past plan information found. Radiation Treatments * Course [id number]/19/2024 - 10/01/2024 Treatment Period Energy Fraction Dose Fractions Total Dose Plans Planned SCALP 05/19/2024 - 10/01/2024 200 33 / 6,600 Reference Points Delivered [id number] 05/19/2024 - 10/01/2024 6,600 Lifetime Dose Tracking * Chemical Lifetime Dose Automatic Entry Manual Entr y DLP 3,572 mGycm 3,572 mGycm 0 mGycm
--- OUTSIDE RECORDS SUMMARY | 2024-12-01 12:50 | XMS_ITS | Clinical Summary ---
Author Organization [facility] Address [address] [place] [address] Care Team Providers Care Gathering Machine Feeder Name Role Phone Ian Michel MD Unavailable [phone] Parul Baldwin MD Unavailable [phone] Gabe George DO Primary Care Provider Felix Sher MD Unavailable [phone] Allergies Active Allergy Reactions Criticality Noted Date Comments Tuberculin Ppd Other (See comments) Low 01/28/2022 Pt endorses TB skin test gives him bronchitis and walking pneumonia Medications cetirizine (ZyrTEC) 10 mg tabletIndication s:Allergic Rhinitis Take 1 tablet (10 mg total) by mouth nightly 11/10/19 22 Active rosuvastatin (CRESTOR) 10 mg tabletIndication s:hyperlipidemia Take 1 tablet (10 mg total) by mouth nightly 01/07/20 22 Active diphenhydrAMINE (BENADRYL) 25 mg capsule Take 0.5 tablet/capsule (12.5 mg total) by mouth nightly as needed for sleep Active famotidine (PEPCID) 40 mg tabletIndication s:gastroesophage al reflux disease Take 1 tablet (40 mg total) by mouth every morning 01/24/20 23 Active MULTIVITAMIN ORALIndications: supplement Take 1 tablet by mouth every morning Active lactose-reduced food (ENSURE COMPLETE ORAL)Indications :supplement Take 1 Dose by mouth every morning Active clopidogreL (PLAVIX) 75 mg tablet TAKE 1 TABLET BY MOUTH DAILY 30 tablet 11 08/12/20 24 Active aspirin 81 mg enteric coated tablet Take 1 tablet (81 mg total) by mouth daily Active chlorhexidine (PERIDEX) 0.12 % oral rinseIndications :Mouth Infection Prevention Swish and spit 15 mL 3 (three) times a day for 5 days 225 mL 12/01/19 25 025 Active aspirin 81 mg enteric coated tablet Take 1 tablet (81 mg total) by mouth daily 30 tablet 1 02/07/20 22 025 Discontin ued(Dupli tania order) acetaminophen (TYLENOL) 325 mg tablet Take 2 tablets (650 mg total) by mouth every 6 (six) hours as needed for pain 03/21/20 24 025 Discontin ued(Thera py completed ) gabapentin (NEURONTIN) 300 mg capsule Take 1 capsule (300 mg total) by mouth 3 (three) times a day for 7 days, THEN 1 capsule (300 mg total) 2 (two) times a day for 7 days, THEN 1 capsule (300 mg total) daily for 7 days. 42 capsule 03/21/20 24 025 Discontin ued(Thera py completed ) senna-docusate (PERICOLACE) 8.6-50 mgIndications:co nstipation Take 1 tablet by mouth daily as needed for constipation 14 tablet 1 03/21/20 24 025 Discontin ued(Thera py completed ) oxyCODONE (ROXICODONE) 5 mg immediate release tabletIndication s:Pain Take 1 tablet (5 mg total) by mouth every 4 (four) hours as needed for pain 20 tablet 03/21/20 24 025 Discontin ued(Thera py completed ) silver sulfadiazine (SILVADENE, SSD) 1 % creamIndications :Squamous cell carcinoma of scalp APPLY TOPICALLY TO THE AFFECTED AREA DAILY 50 g 07/14/20 24 025 Discontin ued(Thera py completed ) Active Problems Patient Care Coordination No te [...] showed interval changes of parietal scalp 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 unit 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 and Gerardo thus Hancock flap reconstruction [...] 03/05/20 22 Coronary artery disease invo lving jamul coronary artery of jamul heart without angina pectoris 01/28/2022 Overview (01/29/2022): Added automatically from request for surgery [id number] ST elevation myocardial infa rction involving right coronary artery Encounters Date Type Department Care Team Description 11/30/2024 1:03 PM CDT - 11/30/2024 11:59 PM CDT Hospital Encounter [facility] [address] [place] [id number] Arrived Discharge Disposition: Discharge to home or self care 11/30/2024 12:15 PM CDT Pre-Admission Testing [facility] Pre Anesthesia Testing [address] [place] [address] Preoperative testing (Primary Dx) 11/30/2024 Orders Only [facility] Surgery [address] [facility] Floor [address] [place] [phone] Radha Riley NP Gingivitis (Primary Dx) 11/20/2024 Telephone [facility] Surgery [address] [place] [address] [place] [phone] Patt Riley [facility] 11/19/2024 Telephone [facility] Surgery [address] [place] [address] [place] [phone] Patt Riley A 11/13/2024 Orders Only [facility] Surgery [address] [place] [address] [place] [phone] Dre Cerna MD Lung nodule (Primary Dx) 11/13/2024 Orders Only [facility] Surgery [address] [place] [phone] Cori Carpenter 11/02/2024 12:15 PM MARINE PILOT - 11/02/2024 11:59 PM MAR[facility] PILOT Hospital Encounter [facility] [address] [place] [phone] Diagnosis unknown Discharge Disposition: Discharge to home or self care 10/22/2024 Orders Only [facility] Surgery [address] [place] [address] [place] [phone] Dre Cerna MD Lung nodule (Primary Dx) 10/22/2024 Telephone [facility] Surgery [address] [place] [address] [place] [phone] Patt Riley RMMarjorie 10/20/2024 11:45 AM MARINE PILOT Office Visit [facility] [address] [place] [phone] Dre Cerna MD Lung nodule (Primary Dx) 10/19/2024 5:00 PM MARINE PILOT - 10/19/2024 11:59 PM MARINE PILOT Hospital Encounter [facility] ([facility]) [address] [place] [address] Discharge Disposition: Discharge to home or self care 10/06/2024 Telephone [facility] Surgery [address] [facility] [address] [place] [address] Patt Riley RMA 10/06/2024 Orders Only [facility] Surgery [address] [facility] [address] [place] [phone] Dre Cerna MD Lung nodule (Primary Dx) 10/01/2024 Orders Only RAD ONC TREATMENTS Miscellaneous, Not In File 10/01/2024 Orders Only [facility] Department of Otolaryngology Head-Neck Division [address] [facility] [address] [place] [address] Minh Orozco MD Lung nodule (Primary Dx) 09/10/2024 11:00 AM MARINE PILOT Office Visit [facility] ([facility]) - [facility] ENT [address] [facility] 2nd Floor, [address] [place] [address] Minh Orozco MD Squamous cell carcinoma of scalp (Primary Dx); Pulmonary nodule 09/10/2024 9:16 AM MARINE PILOT - 09/10/2024 11:59 PM MARINE PILOT Hospital Encounter [facility] Radiology at [facility] [address] [place] [address] Squamous cell carcinoma of scalp Discharge Disposition: Discharge to home or self care 09/10/2024 9:16 AM MARINE PILOT - 09/10/2024 11:59 PM MARINE PILOT Hospital Encounter [facility]iology at [facility] [address] [place] [address] Squamous cell carcinoma of scalp Discharge Disposition: Discharge to home or self care from Last 3 Months Surgical History Surgery Date Site/Laterality Comments CORONARY ARTERY BYPASS GRAFT [id number] double bypass HERNIA REPAIR 2016 x2, 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 HIP ARTHROPLASTY 09/23/2021 - 09/22/2022 Right COLONOSCOPY TONSILLECTOMY AND ADENOIDECTOMY CATARACT EXTRACTION Bilateral JOINT REPLACEMENT [id number] Medical History Medical History Date Comments Arthritis Sleep apnea History of transfusion Coronary artery disease PONV (postoperative nausea and vomiting) scopolamine patch has been helpful in past Myocardial infarction (HCC) STEM I Atrial fibrillation (HCC) postop erative afib Postoperative atrial fibrillation (HCC) Hyperlipidemia 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 Nodule of middle lobe of right lung GERD (gastroesophageal reflux disease) Kidney stone patient-reported Anxiety Cataract Family History Medical History Relation Name Comments [...] you have a drink containing alcohol? Never 11/30/2024 Q2: How many drinks containi ng alcohol do you have on a typical day when you are drinking? Patient does not drink Q3: How often do you have si x or more drinks on one occasion? Never 11/30/2024 Personal Safety Answer Date Recorded Have you ever been in or are you currently in a harmful physical or emotional relationship or is someone making you feel afraid or unsafe? Denies 04/17/2024 Sex and Gender Information Value Date Recorded Sex Assigned at Not on file Legal Sex Male 7:35 PM MARINE PILOT Gender Identity Not on file Sexual Orientation Not on file Obstetrics History Last Filed Vital Signs Vital Sign Reading Time Taken Comments Blood Pressure 133/82 11/30/2024 12:52 PM CDT Pulse 61 11/30/2024 12:52 PM CDT Temperature 36.8 C (98.3 F) 11/30/2024 12:52 PM CDT Respiratory Rate 18 11/30/2024 12:52 PM CDT Oxygen Saturation 99% 11/30/2024 12:52 PM CDT Inhaled Oxygen Concentration - - Weight 79.4 kg (175 lb) 10/20/2024 11:27 AM MARINE PILOT Height 173.1 cm (5' 8.15 ) 10/20/2024 11:[address] Body Mass Index 26.49 10/20/2024 11:27 AM MARINE PILOT Plan of Treatment Upcoming Encounters Date Type Department Care Team (Latest Contact Info) Description 12/11/2024 10:00 AM CDT Hospital Encounter [facility] [id number] [place] [address] Dre Cerna MD [id number] [place] [address] 12/11/2024 10:00 AM CDT Anesthesia Event [facility] [address] [place] [address] [place] [address] [facility] [place] [address] [place] [address] [facility] [address] [place] [address] 12/11/2024 10:00 AM CDT - 12/11/2024 2:00 PM CDT Surgery [facility] [address] [place] [address] Dre Cerna MD [address] [facility] [id number] [place] [address] XI ROBOTIC THORACIC RIGHT MIDDLE LOBE WEDGE RESECTION, POSSIBLE LOBECTOMY, POSSIBLE OPEN/180MIN [09108 (CPT )] Scheduled Procedures Name Priority Associated Diagnoses Date/Ti me XI ROBOTIC THORACIC WEDGE RESECTION Nodule of middle lobe of right lung 12/11/2024 10:00 AM CDT Health Maintenance Due Date Last Done Comments Colon Cancer Screening-Colonoscopy 1961 Depression Screening 1961 Hepatitis C Screening 1961 Prostate Cancer Screening-PSA 1961 Hepatitis B Screening 12/29/1979 Regular Well Visit/Exam 18-64 12/29/1979 Pneumococcal vaccine <65 (1 of 2 - PCV) 1980 Zoster Vaccine (1 of 2) 1980 Covid-19 Vaccine (4 - 2023- season) 2024 06/30/2021, 09/30/2020, 09/09/2020 Influenza Vaccine (#1) 2024 DTaP/Tdap/Td Vaccine (2 - Td or Tdap) 04/12/2031 Medical Devices Implanted Type Area Gas Desulfurizer Device Identifier Shelf Expiration Date Model / Serial / Lot [employer] Luly Blackmon Microvascular 3mm Ring Pin Protective Cover Jaw Assembly Latex Free [id number] - [id number] Implanted:Qty: 1 on 03/16/2024 by Minh Orozco MD at [facility] [employer] Luly [id number] 01/08/2028 [id number] / / [id number] Procedures Procedure Name Priority Date/Time Associated Diagnosis Comments ECG 12-LEAD Routine 11/30/2024 1:25 PM CDT Preoperative testing XR CHEST PA LATERAL 2 VIEWS Schedule Routine, Read Routine (OP Routine) 11/30/2024 1:16 PM CDT Preoperative testing EGFR Routine 11/30/2024 1:03 PM CDT Preoperative testing DIFFERENTIAL AUTO Routine 11/30/2024 1:0 3 PM CDT Preoperative testing BASIC METABOLIC PANEL Routine 11/30/2024 1:03 PM CDT Preoperative testing CBC WITH AUTO DIFFERENTIAL Routine 11/30/2024 1:03 PM CDT Preoperative testing TYPE AND SCREEN Routine 11/30/2024 1:03 PM CDT Preoperative testing PROTIME-INR Routine 11/30/2024 1:03 PM CDT Preoperative testing APTT Routine 11/30/2024 1:03 PM CDT Preoperative testing URINALYSIS AND REFLEX TO MICROSCOPIC AND CULTURE Routine 11/30/2024 1:03 PM CDT Preoperative testing PET OUTSIDE CONSULT Routine 11/02/2024 1 2:15 PM MARINE PILOT Diagnosis unknown PET OUTSIDE REFERENCE Routine 10/19/2024 5:00 PM MARINE PILOT RAD ONC ARIA COURSE SUMMARY 10/01/2024 6:[address] CHEST W CONTRAST Schedule Routine, Read Routine (OP Routine) 09/10/2024 9:54 AM MARINE PILOT Squamous cell carcinoma of scalp CT SOFT TISSUE NECK W CONTRAST Schedule Routine, Read Routine (OP Routine) 09/10/2024 9:50 AM MARINE PILOT Squamous cell carcinoma of scalp CT HEAD STEALTH W CONTRAST Schedule Routine, Read Routine (OP Routine) 09/10/2024 9:50 AM MARINE PILOT Squamous cell carcinoma of scalp POCT CREATININE - DEVICE Routine 09/10/2024 9:33 AM MARINE PILOT from Last 3 Months Results * ECG 12 lead (11/30/2024 1:25 PM CDT) 11/30/2024 1:25 PM CDT Narrative [facility] - 11/30/2024 1:41 PM CDT Vent Rate: 60 bpm RR Interval: 999 msec TN Interval: 119 msec QRS Duration: 87 msec QT Interval: 396 msec QTC Interval: 396 msec P-R-T [place]: 34 - -14 - -18 degrees IMPRESSION: SINUS RHYTHM WITH SHORT TN INTERVAL BORDERLINE ECG Electronically Signed By: Emilie Vance MD us Shayla Goff NP ECG ORDERABLES Final Result [facility] * XR Chest PA Lateral 2 Views (11/30/2024 1:16 PM CDT) Anatomical Region Laterality Modality Body, Chest N/A Computed Radiogr aphy 11/30/2024 1:19 PM CDT Impressions 11/30/2024 1:19 PM CDT No active disease. Electronically signed by: oH Pretty M.D. Narrative 11/30/2024 1:19 PM CDT EXAMINATION: XR CHEST PA LATERAL 2 VIEWS DATE: 11/30/2024 1:05 PM HISTORY: lung nodule, pre-op FINDINGS: Sternal wires indicate prior cardiac surgery. There is no infiltrate, effusion or pneumothorax. Heart size, mediastinum and pulmonary vascularity are normal. Procedure Note Ho Pretty MD - 11/30/2024 EXAMINATION: XR CHEST PA LATERAL 2 VIEWS DATE: 11/30/2024 1:05 PM HISTORY: lung nodule, pre-op FINDINGS: Sternal wires indicate prior cardiac surgery. There is no infiltrate, effusion or pneumothorax. Heart size, mediastinum and pulmonary vascularity are normal. IMPRESSION: No active disease. Electronically signed by: Ho Pretty M.D. us Shayla Goff NP IMG XR PROCEDURES Final Result * eGFR (11/30/2024 1:03 PM CDT) eGFR 85 >=60 mL/min/1. 73 m2 Comment: Interpretive Data Reference Interval Normal >/= 90 mL/min/1.73m2 Mildly decreased* 60 - 89 mL/min/1.73m2 Mildly to moderately decreased 45 - 59 mL/min/1.73m2 Moderately to severely decreased 30 - 44 mL/min/1.73m2 Severely decreased 15 - 29 mL/min/1.73m2 Kidney Failure < 15 mL/min/1.73m2 *Relative to young adult level Estimated glomerular filtration rate is determined by the 2020 CKD-EPI equation recommended by the National Kidney Foundation (A Unifying Approach to GFR Estimation: Recommendations of the NKF-ASK Task Force on Reassessing the Inclusion of Race in Diagnosing Kidney Disease, JASN 2020). The CKD-EPI equation should not be used for patients with unstable renal function and has not been validated in children and those over 70. Current interpretive data was last reviewed 2021. Blood 11/30/2024 1:03 PM CDT 11/30/2024 1:16 PM CDT us Shayla Goff NP LAB BLOOD ORDERABLES Final Res ult ASA [address] [place] [address] * Differential, auto (11/30/2024 1:03 PM CDT) Neutrophil abs 4.6 1.5 - 6.5 K/cumm Imm gran abs 0.0 0.0 - 0.1 K/cumm CERNER Lymphocyte abs 1.6 0.8 - 3.3 K/cumm CERNER Monocyte abs 0.7 0.2 - 0.8 K/cumm CERNER Eosinophil abs 0.3 0.0 - 0.5 K/cumm CERNER Basophil abs 0.0 0.0 - 0.1 K/cumm [facility] Neutrophil pct 63.2 % CERNER Comment: Interpretive Data Percent cell count reference ranges are not reported, since discordance with absolute values may lead to misinterpretation of CBC data. Current Interpretive Data was last revised on 2017. Imm gran pct 0.4 % CERNER Comment: Interpretive Data Percent cell count reference ranges are not reported, since discordance with absolute values may lead to misinterpretation of CBC data. Current Interpretive Data was last revised on 2017. Lymphocyte pct 22.2 % [facility] Comment: Interpretive Data Percent cell count reference ranges are not reported, since discordance with absolute values may lead to misinterpretation of CBC data. Current Interpretive Data was last revised on 2017. Monocyte pct 10.1 % CERNER Comment: Interpretive Data Percent cell count reference ranges are not reported, since discordance with absolute values may lead to misinterpretation of CBC data. Current Interpretive Data was last revised on 2017. Eosinophil pct 3.5 % CERNER Comment: Interpretive Data Percent cell count reference ranges are not reported, since discordance with absolute values may lead to misinterpretation of CBC data. Current Interpretive Data was last revised on 2017. Basophil pct 0.6 % CERNER Comment: Interpretive Data Percent cell count reference ranges are not reported, since discordance with absolute values may lead to misinterpretation of CBC data. Current Interpretive Data was last revised on 2017. Blood 11/30/2024 1:03 PM CDT 11/30/2024 1:17 PM CDT Shayla Goff NP LAB BLOOD ORDERABLES Final Res ult Performing Organization Address City/[facility]/ZIP Co de Phone Number ASA BELLO [address] [place] [address] * Urinalysis reflex to microscopic and culture Urine, clean voided (11/30/2024 1:03 PM CDT) Color, ur Yellow Yellow Clarity, ur Clear Clear CERNER CH Specific gravity, ur 1.017 1.003 - 1.030 CERNER CH pH, urine 6.5 [facility]ER CH Comment: Interpretive Data U rine pH is affected by diet, medications, systemic acid-base disturbances, and renal tubular function. pH may affect urinary stone formation. For example, urine pH below 6.0 may help reduce the tendency for calcium phosphate stones and pH greater than 6.0 may reduce the tendency for uric acid stone formation. Source: [facility] [employer] Current Interpretive Data was last revised on 2017 Protein, ur ql Negative Negative C[facility]ER CH Glucose, ur ql Negative Negative [facility] CH Ketones, ur Negative Negative [facility] CH Bilirubin, ur Negative Negative [facility] CH Blood, ur Negative Negative [facility] CH Urobilinogen, ur <2.0 <2.0 mg/dL [facility] CH Nitrite, ur Negative Negative [facility] CH Leukocyte esterase, ur Negative Negative [facility] CH UA reflex comment Reflex conditions for microscopic UA and culture not met. [facility] CH Urine, clean voided 11/30/2024 1:03 PM CDT 11/30/2024 2:06 PM CDT Shayla Goff NP LAB MICROBIOLOGY - GENERAL ORD ERABLES Final Result [facility]SA BE[facility]O [address] Department [place] [address] * CBC with auto differential (11/30/2024 1:03 PM CDT) WBC 7.2 3.8 - 9.9 K/cumm Hgb 14.4 13.0 - 17.5 g/dL C[facility] CH Hct 42.7 38.9 - 50.3 % [facility] Plt 191 150 - 400 K/cumm [facility] MPV 10.1 9.1 - 12.3 fL [facility] RBC 4.72 4.30 - 5.80 M/cumm [facility] MCV 90.5 81.3 - 96.4 fL [facility] MCH 30.5 27.1 - 33.3 pg [facility] MCHC 33.7 32.3 - 35.7 g/dL [facility] RDW CV 12.2 11.1 - 14.9 % [facility] RDW SD 40.3 35.7 - 48.1 fL [facility] NRBC abs 0.00 0.00 - 0.01 K/cumm [facility] Blood 11/30/2024 1:03 PM CDT 11/30/2024 1:17 PM CDT Shayla Goff NP LAB BLOOD ORDERABLES Final Res ult Performing Organization Address [facility] Co de Phone Number ASA BELLO [phone] [place] [address] * aPTT (11/30/2024 1:03 PM CDT) aPTT 34 28 - 38 sec Comment: Interpretive Data Heparin therapeutic range: 66.0 - 100.0 seconds. Range based on correlation with therapeutic heparin activity range of 0.3 - 0.7 Units/mL. Current interpretive data was last revised on 2023. Blood 11/30/2024 1:03 PM CDT 11/30/2024 1:17 PM CDT Shayla Goff MEDICAL BILLING SERVICE LAB BLOOD ORDERABLES Final Res ult Performing Organization Address City/[facility] Co de Phone Number ASA BELLO [phone] [address] [facility] [employer] [place] [address] * Protime-INR (11/30/2024 1:03 PM CDT) PT 10.9 9.7 - 13.0 sec INR 1.01 0.90 - 1.20 [facility] Comment: Interpretive data Oral anticoagulant therapeutic ranges: Venous thromboembolism prophylaxis or treatment: 2.0-3.0 CARDIOLOGY Standard range: 2.0-3.0 High-intensity range: 2.5-3.5 Refer to indication-specific guidelines for appropriate target ranges for prosthetic heart valve replacement. Current interpretive data was last revised on 2019. Blood 11/30/2024 1:03 PM CDT 11/30/2024 1:17 PM CDT Shayla Goff NP LAB BLOOD ORDERABLES Final Res ult Performing Organization Address [facility] Co de Phone Number ASA ACE [phone] [place] [address] * Type and screen (11/30/2024 1:03 PM CDT) Pathologist [facility] Jacek, indirect Negative ABO Rh O Positive [facility] Blood 11/30/2024 1:03 PM CDT 11/30/2024 1:21 PM CDT Narrative [facility] - 11/30/2024 2:04 PM CDT Is this test being ordered in advance for a procedure?->Yes Expected date of procedure:->12/11/24 Has the patient been transfused in the past 3 months?->Unknown Shayla Goff NP LAB BLOOD BANK TEST ORDERABLES Final Result Performing Organization Address [facility] Co de Phone Number [facility] BELLO [phone] [address] [facility] [employer] [place], [place] [id number] * Basic metabolic panel (11/30/2024 1:03 PM CDT) Sodium 140 135 - 145 mmol/L Potassium, pl 4.3 3.3 - 4.9 mmol/L [facility] Chloride 105 97 - 110 mmol/L [facility] CO2 24 22 - 32 mmol/L [facility] Anion gap 11 2 - 15 mmol/L [facility] BUN 18 6 - 25 mg/dL [facility] Creatinine 1.00 0.80 - 1.30 mg/dL [facility] Glucose 75 70 - 199 mg/dL [facility] Comment: Interpretive Data Fasting glucose >/= 126 mg/dl is diagnostic for diabetes. Fasting is defined as no caloric intake for at least 8 hours. Fasting glucose between 100 mg/dl to 125 mg/dl is diagnostic of prediabetes. In a patient with classic symptoms of hyperglycemia or hyperglycemic crisis, a random glucose >/= 200 mg/dl is diagnostic for diabetes. In the absence of unequivocal hyperglycemia, results should be confirmed by repeat testing. The classification and Diagnosis of Diabetes Diabetes Care 2021; 46: S19-S40. Current interpretive data was last revised 2022. Calcium 9.7 8.5 - 10.3 mg/dL [facility] Blood 11/30/2024 1:03 PM CDT 11/30/2024 1:16 PM CDT us Shayla Goff MEDICAL BILLING SERVICE LAB BLOOD ORDERABLES Final Res ult [facility] [address] Department [place] [address] * PET Outside Consult (11/02/2024 12:15 PM MARINE PILOT) Anatomical Region Laterality Modality N/A Nuclear Medicine 11/02/2024 3:25 PM MARINE PILOT Impressions 11/02/2024 3:58 PM MARINE PILOT 1. Indeterminant right middle lobe pulmonary nodule. Differential diagnosis includes metastasis, primary lung malignancy, and less likely infectious/inflammatory nodule. 2. No identifiable FDG avid underlying occult malignancy. The findings, conclusions and recommendations within this report do not replace the initial findings, conclusions and recommendations made at the facility where the study was performed based upon the imaging and clinical condition at that time. Comparison with the prior report and clinical history is necessary. The provided images may or may not represent the jamul source data set and thus may contain changes that may lower the accuracy of this second-opinion interpretation. Dictated by: Larry Corral MD The radiology attending physician has personally reviewed this study, and had reviewed and/or edited this written report and agrees with it. Electronically signed by: Antony Rodas DO Narrative 11/02/2024 3:58 PM MARINE PILOT EXAMINATION: RADIOLOGY CONSULTATION ON OUTSIDE IMAGING STUDY . STUDY INITIALLY PERFORMED: 10/13/2024, images acquired at [facility]. TYPE OF STUDY: FDG-PET/CT. The images available for review consisted of axial attenuation-corrected and uncorrected PET images and axial CT images. The total scanned area was skull base to the proximal thighs. The mean liver SUV (reported for software quality analyst purposes) is 3.8. The study was interpreted on the [employer] workstation. The protocol was adequate to address the clinical question. The outside final report was available at the time of this second opinion interpretation. 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 Initial treatment strategy. All reported SUVs are maximum SUVs, unless otherwise specified. COMPARISON: CT 08/31/2024, 04/18/2024 DESCRIPTORS OF LESION FDG AVIDITY: Minimal: <= blood pool Mild: > blood pool and <= liver Moderate: > liver and <= 2x SUVmax liver Moderate to marked: >2x SUVmax liver and <= 3x SUVmax liver Marked: > 3x SUVmax liver FINDINGS: There is an oval-shaped 9 mm pulmonary nodule in the right middle lobe, with SUV measuring 6.5. It is unchanged in size or configuration compared to CT dated 09/10/2024, but new compared to 04/18/2024. There is no abnormal hilar adenopathy. No additional suspicious or avid pulmonary nodule. There is dependent atelectasis. No abnormal radiotracer uptake below the diaphragm. The most FDG-avid lesion is a right middle lobe pulmonary nodule, has a maximum SUV of 6.5, and approximate axial dimensions of [address] findings: Postsurgical changes of median sternotomy. Aortic atherosclerotic calcifications, and coronary artery atherosclerotic calcifications are noted. Nonobstructing renal calculus seen in the left upper pole collecting system. Bilateral non-FDG avid cystic lesions arising off both kidneys are compatible with simple cysts. There is extensive colonic diverticulosis, predominantly in the sigmoid colon. Significant streak artifact from a right hip arthroplasty is noted. Multilevel spondylosis in the imaged spine. Procedure Note Antony Rodas DO - 11/02/2024 EXAMINATION: RADIOLOGY CONSULTATION ON OUTSIDE IMAGING STUDY . STUDY INITIALLY PERFORMED: 10/13/2024, images acquired at [facility]. TYPE OF STUDY: FDG-PET/CT. The images available for review consisted of axial attenuation-corrected and uncorrected PET images and axial CT images. The total scanned area was skull base to the proximal thighs. The mean liver SUV (reported for software quality analyst purposes) is 3.8. The study was interpreted on the [employer] workstation. The protocol was adequate to address the clinical question. The outside final report was available at the time of this second opinion interpretation. 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 Initial treatment strategy. All reported SUVs are maximum SUVs, unless otherwise specified. COMPARISON: CT 08/31/2024, 04/18/2024 DESCRIPTORS OF LESION FDG AVIDITY: Minimal: <= blood pool Mild: > blood pool and <= liver Moderate: > liver and <= 2x SUVmax liver Moderate to marked: >2x SUVmax liver and <= 3x SUVmax liver Marked: > 3x SUVmax liver FINDINGS: There is an oval-shaped 9 mm pulmonary nodule in the right middle lobe, with SUV measuring 6.5. It is unchanged in size or configuration compared to CT dated 09/10/2024, but new compared to 04/18/2024. There is no abnormal hilar adenopathy. No additional suspicious or avid pulmonary nodule. There is dependent atelectasis. No abnormal radiotracer uptake below the diaphragm. The most FDG-avid lesion is a right middle lobe pulmonary nodule, has a maximum SUV of 6.5, and approximate axial dimensions of [address] findings: Postsurgical changes of median sternotomy. Aortic atherosclerotic calcifications, and coronary artery atherosclerotic calcifications are noted. Nonobstructing renal calculus seen in the left upper pole collecting system. Bilateral non-FDG avid cystic lesions arising off both kidneys are compatible with simple cysts. There is extensive colonic diverticulosis, predominantly in the sigmoid colon. Significant streak artifact from a right hip arthroplasty is noted. Multilevel spondylosis in the imaged spine. IMPRESSION: 1. Indeterminant right middle lobe pulmonary nodule. Differential diagnosis includes metastasis, primary lung malignancy, and less likely infectious/inflammatory nodule. 2. No identifiable FDG avid underlying occult malignancy. The findings, conclusions and recommendations within this report do not replace the initial findings, conclusions and recommendations made at the facility where the study was performed based upon the imaging and clinical condition at that time. Comparison with the prior report and clinical history is necessary. The provided images may or may not represent the jamul source data set and thus may contain changes that may lower the accuracy of this second-opinion interpretation. Dictated by: Larry Corral MD The radiology attending physician has personally reviewed this study, and had reviewed and/or edited this written report and agrees with it. Electronically signed by: Antony Rodas DO Dre Cerna MD IMG PET PROCEDURES Final Result * PET Outside Reference (10/19/2024 5:00 PM MARINE PILOT) Impressions RAD_PACS_[facility]J - 10/19/2024 5:00 PM MARINE PILOT These images are for Reference purposes only and have not been reviewed by [facility] Radiology. There will be no report generated by a [facility] Radiologist. Narrative RAD_PACS_BJ - 10/19/2024 5:00 PM MARINE PILOT EXAMINATION: Images For Reference Purposes Only Dre Cerna MD IM PET PROCEDURES Final Result Performing Organization Address City/[facility] Co de Phone Number [id number] * RAD ONC ARIA COURSE SUMMARY (10/01/2024 6:53 PM MARINE PILOT) Course Name [id number] ARIA Course Plan Date 05/05/2024 12:17 PM ARIA Elapsed Days 45 ARIA Treatment Start Date 05/19/2024 ARIA Treatment Site [id number] ARIA Dose Given To Date (cGy) 6,600 ARIA Session Dosage Given (cGy) 0 ARIA Plan ID SCALP ARIA Fractions Treated 33 ARIA Prescribed Dose Per Fraction (cGy) 200 ARIA Prescribed Total Dose (cGy) 6,600 ARIA 10/01/2024 6:53 PM MARINE PILOT us Not In File Miscellaneous RADIATION ONCOLOGY ORD ERABLES Final Result Performing Organization Address City/[facility] Co de Phone Number ARIA * CT Chest with Contrast (09/10/2024 9:54 AM MARINE PILOT) Anatomical Region Laterality Modality Body N/A Computed Tomogra phy 09/10/2024 10:2 6 AM MARINE PILOT Impressions 09/10/2024 10:26 AM MARINE PILOT 1. 8 mm right middle lobe pulmonary nodule with ill-defined borders new from March 2024 prior worrisome for malignancy such as metastatic disease. Electronically signed by: Prakash Gan M.D. Narrative 09/10/2024 10:26 AM MARINE PILOT EXAMINATION: Computed tomography of the chest with [...] There are indolent appearing left renal cysts. Procedure [...] lung window image 63 stable compared to 202 and probably a ellen-fissural lymph node; there [...] Head Stealth W Contrast (09/10/2024 9:50 AM MARINE PILOT) Anatomical Region Laterality Modality Head and Neck N/A Computed Tomogra phy 09/10/2024 11:1 7 AM MARINE PILOT Impressions 09/10/2024 2:42 PM MARINE PILOT 1. Interval change of parietal scalp mass [...] Anni Aguirre M.D. Narrative 09/10/2024 2:42 PM MARINE PILOT EXAMINATION: 1. CT head with contrast 2. [...] Soft Tissue W Contrast (09/10/2024 9:50 AM MARINE PILOT) Anatomical Region Laterality Modality Head and Neck N/A Computed Tomogra phy 09/10/2024 11:1 7 AM MARINE PILOT Impressions 09/10/2024 2:42 PM MARINE PILOT 1. Interval change of parietal scalp mass [...] Anni Aguirre M.D. Narrative 09/10/2024 2:42 PM MARINE PILOT EXAMINATION: 1. CT head with contrast 2. [...] ult * POCT creatinine (09/10/2024 9:33 AM MARINE PILOT) Creatinine POC 1.1 0.7 - 1.3 mg/dL Blood 09/10/2024 9:33 AM MARINE PILOT 09/10/2024 9:33 AM MARINE PILOT us Self Referral LAB POCT ORDERABLES - DEVICE Fin al Result Performing Organization Address City/State/[facility] Co de Phone Number [facility] Department [place] [address] from Last 3 Months Insurance [facility] Member Subscriber Plan / Payer (Ef fective 2012-Present) Name:Adalgisa Mendoza Relation to Subscriber:Self Name:Adalgisa Mendoza Payer ID:[id number] (NA) Type:[facility] Address: [address] Advance Directives For more information, please contact: [phone] * Full Code (Latest Code Status on File) Date Activated Date Inactivated Comments 03/16/2024 4:36 PM 03/21/2024 3:59 PM * Full Code Date Activated Date Inactivated Comments 01/28/2022 9:19 PM 02/05/2022 5:17 PM Care Teams Gathering Machine Feeder Relationship Specialty Start Date End Date Gabe George DO [address] [place] [address] PCP - General Internal Medicine 08/03/24 Ian Michel MD [address] [place] [address] [place] [address] Dermatology 02/10/23 Parul Baldwin MD [address] [place] [address] Referring Physician Dermatology 02/10/23 Felix Sher MD [address] [facility] [address], [place] [address] Consulting Physician Cardiology 10/21/24
--- OUTSIDE RECORDS SUMMARY | 2024-12-01 12:50 | XMS_ITS | Encounter Summary ---
Author Organization [facility] Address [address] [place] [address] Phone Care Team Providers Care Literary Writer Name Role Phone Ian Michel MD Unavailable [phone] Parul Baldwin MD Unavailable [phone] Gabe George DO Primary Care Provider [phone] Felix Sher MD Unavailable [phone] Encounter Details Date Type Department Care Team (Late st Contact Info) Description 11/30/2024 Orders Only [facility] Surgery [address] [facility] [address] 5 [place] [address] Radha Riely, HANSARD REPORTER [address] [place] [address] Gingivitis (Primary Dx) Social History Tobacco Use Types Packs/Day Years [...] on file 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 Never 11/30/2024 12:48 PM aRdha Wilks RN Q2: How many drinks containing alcohol do you have on a typical day when you are drinking? Patient does not drink 11/30/2024 12:48 PM Radha Wilks RN Q3: How often do you have six or more drinks on one occasion? Never 11/30/2024 12:48 PM Radha Wilks RN documented as of this encounter Ordered Prescriptions Prescription Sig Dispense Quantity Refills Last Filled Start Date End Date chlorhexidine (PERIDEX) 0.12 % oral rinseIndications:[facility] Infection Prevention Swish and spit 15 mL 3 (three) times a day for 5 days 225 mL 11/30/2024 12/05/2024 documented in this encounter Plan of Treatment Upcoming Encounters Date Type Department Care Team (Latest Contact Info) Description 12/11/2024 10:00 AM CDT Hospital Encounter [facility] Operating Room [address] [place] [address] Dre Cerna MD [id number] [place] [address] 12/11/2024 10:00 AM CDT Anesthesia Event [facility] Operating Room [address] [place] [address] [place] [address] [facility] [place] [address] [place] [address] [facility] [address] [place] [address] 12/11/2024 10:00 AM CDT - 12/11/2024 2:00 PM CDT Surgery [facility] Operating Room [address] [place] [address] Dre Cerna MD [id number] [place] [address] XI ROBOTIC THORACIC RIGHT MIDDLE LOBE WEDGE RESECTION, POSSIBLE LOBECTOMY, POSSIBLE OPEN/180MIN [04607 (CPT )] Scheduled Procedures Name Priority Associated Diagnoses Date/Ti me XI ROBOTIC THORACIC WEDGE RESECTION Nodule of middle lobe of right lung 12/11/2024 10:00 AM CDT documented as of this encounter Visit Diagnoses Diagnosis Nodule of middle lobe of right lung- Primary Gingivitis- Primary Chronic gingivitis, plaque induced Nodule of middle lobe of right lung documented in this encounter Care Teams Literary Writer Relationship Specialty Start Date End Date Gabe George DO [address] [place] [address] PCP - General Internal Medicine 08/03/24 Ian Michel MD [address] [facility] [place] [address] Dermatology 02/10/23 Parul Baldwin MD [address] [place] [address] Referring Physician Dermatology 02/10/23 Felix Sher MD [address] [facility] [address] [address] Consulting Physician Cardiology 10/21/24 documented as of this encounter
--- OUTSIDE RECORDS SUMMARY | 2024-12-01 12:50 | XMS_ITS | Encounter Summary ---
Author Organization [facility] Healthcare Address [address] [place] [address] Care Team Providers Care Ball Thread Machine Tender Name Role Phone Ian Michel MD Unavailable [phone] Parul Baldwin MD Unavailable [phone] Gabe George DO Primary Care Provider [phone] Fleix Sher MD Unavailable [phone] Encounter Details Date Type Department Care Team (Latest Contact Info) Description 11/30/2024 1:03 PM CDT - 11/30/2024 11:59 PM CDT Hospital Encounter 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 Never 11/30/2024 12:48 PM Radha Wilks RN Q2: How many drinks containing alcohol do you have on a typical day when you are drinking? Patient does not drink 11/30/2024 12:48 PM Radha Wilks RN Q3: How often do you have six or more drinks on one occasion? Never 11/30/2024 12:48 PM Radha Wilks RN documented as of this encounter Medications at Time of Discharge aspirin 81 mg enteric coated tablet Take 1 tablet (81 mg total) by mouth daily cetirizine (ZyrTEC) 10 mg tabletIndications :Allergic Rhinitis Take 1 tablet (10 mg total) by mouth nightly 11/10/2021 chlorhexidine (PERIDEX) 0.12 % oral rinseIndications: Mouth Infection Prevention Swish and spit 15 mL 3 (three) times a day for 5 days 225 mL 11/30/2024 12/05/2024 clopidogreL (PLAVIX) 75 mg tablet TAKE 1 TABLET BY MOUTH DAILY 30 tablet 11 08/12/2024 diphenhydrAMINE (BENADRYL) 25 mg capsule Take 0.5 tablet/capsul e (12.5 mg total) by mouth nightly as needed for sleep famotidine (PEPCID) 40 mg tabletIndications :gastroesophageal reflux disease Take 1 tablet (40 mg total) by mouth every morning 01/23/2023 lactose-reduced food (ENSURE COMPLETE ORAL)Indications: supplement Take 1 Dose by mouth every morning MULTIVITAMIN ORALIndications:s upplement Take 1 tablet by mouth every morning rosuvastatin (CRESTOR) 10 mg tabletIndications :hyperlipidemia Take 1 tablet (10 mg total) by mouth nightly 01/06/2022 documented as of this encounter Discharge Disposition Disposition Code Departure Means Destination Discharge to home or self care documented in this encounter Plan of Treatment Upcoming Encounters Date Type Department Care Team (Latest Contact Info) Description 12/11/2024 10:00 AM CDT Hospital Encounter [facility] Operating Room [address] [place] [address] Dre Cerna MD [id number] [place] [address] 12/11/2024 10:00 AM CDT Anesthesia Event [facility] Operating Room [address] [place] [address] [place] [address] [facility] [place] [address] [place] [address] [facility] [address] [place] [address] 12/11/2024 10:00 AM CDT - 12/11/2024 2:00 PM CDT Surgery [facility] Operating Room [address] [place] [address] Dre Cerna MD [address] [facility] [id number] [place] [address] XI ROBOTIC THORACIC RIGHT MIDDLE LOBE WEDGE RESECTION, POSSIBLE LOBECTOMY, POSSIBLE OPEN/180MIN [66312 (CPT )] Scheduled Procedures Name Priority Associated Diagnoses Date/Ti me XI ROBOTIC THORACIC WEDGE RESECTION Nodule of middle lobe of right lung 12/11/2024 10:00 AM CDT documented as of this encounter Procedures Procedure Name Priority Date/Time Associated Diagnosis Comments XR CHEST PA LATERAL 2 VIEWS Schedule Routine, Read Routine (OP Routine) 11/30/2024 1:16 PM CDT Preoperative testing documented in this encounter Results * XR Chest PA Lateral 2 Views (11/30/2024 1:16 PM CDT) Anatomical Region Laterality Modality Body, Chest N/A Computed Radiogr aphy 11/30/2024 1:19 PM CDT Impressions 11/30/2024 1:19 PM CDT No active disease. Electronically signed by: Ho Pretty M.D. Narrative 11/30/2024 1:19 PM CDT EXAMINATION: XR CHEST PA LATERAL 2 VIEWS DATE: 11/30/2024 1:05 PM HISTORY: lung nodule, pre-op FINDINGS: Sternal wires indicate prior cardiac surgery. There is no infiltrate, effusion or pneumothorax. Heart size, mediastinum and pulmonary vascularity are normal. Procedure Note Ho Pretyt MD - 11/30/2024 EXAMINATION: XR CHEST PA LATERAL 2 VIEWS DATE: 11/30/2024 1:05 PM HISTORY: lung nodule, pre-op FINDINGS: Sternal wires indicate prior cardiac surgery. There is no infiltrate, effusion or pneumothorax. Heart size, mediastinum and pulmonary vascularity are normal. IMPRESSION: No active disease. Electronically signed by: Ho Pretty M.D. Shayla Goff TH[facility] IMG XR PROCEDURES Final Result documented in this encounter Visit Diagnoses Not on filedocumented in this encounter Care Teams Ball Thread Machine Tender Relationship Specialty Start Date End Date Gabe George DO [address] [place] [address] PCP - General Internal Medicine 08/03/24 Ian Michel MD [address] [facility] [place] [address] Dermatology 02/10/23 Parul Baldwin MD [address] [place] [address] Referring Physician Dermatology 02/10/23 Felix Sher MD [address] [place] [address], [place] [address] Consulting Physician Cardiology 10/21/24 documented as of this encounter
--- OUTSIDE RECORDS SUMMARY | 2024-12-01 12:51 | XMS_ITS | Referral Summary ---
Author Organization [facility] Address [address] [place] [address] Care Team Providers Care Work Adjustment Instructor Name Role Phone Ian Michel MD Unavailable [phone] Parul Baldwin MD Unavailable [phone] Gabe George DO Primary Care Provider [phone] Felix Sher MD Unavailable [phone] Encounters Date Type Department Care Team Description 11/30/[address] [facility] Surgery [address] [facility] Floor 5 [place] [address] Radha Riley NP Gingivitis (Primary Dx) 11/30/2024 1:03 PM CDT - 11/30/2024 11:59 PM CDT Hospital Encounter [facility] Diagnostic Imaging [address] [place] [address] Arrived Discharge Disposition: Discharge to home or self care 11/30/2024 12:15 PM CDT Pre-Admission Testing [facility] Pre Anesthesia Testing [address] [place] [address] Preoperative testing (Primary Dx) 11/20/[address] [facility] Surgery [address] [place] [address] [place] [phone] Patt Riley RMA 11/19/[address] [facility] Surgery [address] [place] [address] [place] [phone] Patt Riley RMA 11/13/[address] [facility] Surgery [address] [facility] [address] [place] [address] Dre Cerna MD Lung nodule (Primary Dx) 11/13/[address] [facility] Surgery [address] [place] [phone] CarpenterCori moraJemma 11/02/2024 12:15 PM AREA CLEANER - 11/02/2024 11:59 PM AREA CLEANER Hospital Encounter [facility] [address] [place] [address] Diagnosis unknown Discharge Disposition: Discharge to home or self care 10/22/[address] [facility] Surgery [address] [place] [address] [place] [phone] Dre Cerna MD Lung nodule (Primary Dx) 10/22/[address] [facility] Surgery [address] [place] [address] [place] [phone] Patt Riley RMA 10/20/2024 11:45 AM AREA CLEANER Office Visit [facility] Surgery [address] [place] [phone] Dre Cerna MD Lung nodule (Primary Dx) 10/19/2024 5:00 PM AREA CLEANER - 10/19/2024 11:59 PM AREA CLEANER Hospital Encounter [facility] [address] [place] [address] Discharge Disposition: Discharge to home or self care 10/06/[address] [facility] Surgery [address] [place] [address] [place] [phone] Patt Riley RMMarjorie 10/06/[address] [facility] Surgery [address] [place] [address] [place] [phone] Dre Cerna MD Lung nodule (Primary Dx) 10/01/2024 Orders Only RAD ONC TREATMENTS Miscellaneous, Not In File 10/01/[address] [facility] Department of Otolaryngology Head-Neck Division [address] [facility] Floor 5 [place] [phone] Minh Orozco MD Lung nodule (Primary Dx) 09/10/2024 11:00 AM AREA CLEANER Office Visit [facility] [address] [facility] 2nd Floor, [address] [place] [address] Minh Orozco MD Squamous cell carcinoma of scalp (Primary Dx); Pulmonary nodule 09/10/2024 9:16 AM AREA CLEANER - 09/10/2024 11:59 PM AREA CLEANER Hospital Encounter [facility] [address] [place] [address] Squamous cell carcinoma of scalp Discharge Disposition: Discharge to home or self care 09/10/2024 9:16 AM AREA CLEANER - 09/10/2024 11:59 PM AREA CLEANER Hospital Encounter [facility] [address] [place] [address] Squamous cell carcinoma of scalp Discharge Disposition: Discharge to home or self care from Last 3 Months Allergies Active Allergy [...] showed interval changes of parietal scalp mass outpatient 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 and Gerardo thus [place] flap reconstruction without enhancing nodularity in the [...] 03/05/20 22 Coronary artery disease invo lving [place] coronary artery of [place] heart without angina pectoris 01/28/2022 Overview (01/29/2022): Added automatically from request for surgery [id number] ST elevation myocardial infa rction involving right [...] on file Legal Sex Male 7:35 PM AREA CLEANER Gender Identity Not on file Sexual Orientation [...] 79.4 kg (175 lb) 10/20/2024 11:27 AM AREA CLEANER Height 173.1 cm (5' 8.15 ) 10/20/2024 11:[address] Body Mass Index 26.49 10/20/2024 11:27 AM AREA CLEANER Plan of Treatment Upcoming Encounters Date Type Department Care Team (Latest Contact Info) Description 12/11/2024 10:00 AM CDT Hospital Encounter [facility] Operating Room [address] [place] [address] Dre Cerna MD [id number] [place] [address] 12/11/2024 10:00 AM CDT Anesthesia Event [facility] Operating Room [address] [place] [address] [place] [address] [facility] [place] [address] [place] [address] [facility] [address] [place] [address] 12/11/2024 10:00 AM CDT - 12/11/2024 2:00 PM CDT Surgery [facility] Operating Room [address] [place] [address] Dre Cerna MD [id number] [place] [address] XI ROBOTIC THORACIC RIGHT MIDDLE LOBE WEDGE RESECTION, POSSIBLE LOBECTOMY, POSSIBLE OPEN/180MIN [22331 (CPT )] Scheduled Procedures Name Priority Associated Diagnoses Date/Ti me XI ROBOTIC THORACIC WEDGE RESECTION Nodule of middle lobe of right lung 12/11/2024 10:00 AM CDT Medical Devices Implanted Type Area Cupola Patcher Helper Device Identifier Shelf Expiration Date Model / Serial / Lot [employer] Luly [employer] Microvascular 3mm Ring Pin Protective Cover Jaw Assembly Latex Free [id number] - [id number] Implanted:Qty: 1 on 03/16/2024 by Minh Orozco MD at [facility] [place] [employer]uly [id number] 01/08/2028 [id number] / / [id number] Procedures Procedure Name Priority Date/Time Associated Diagnosis [...] OUTSIDE CONSULT Routine 11/02/2024 1 2:15 PM AREA CLEANER Diagnosis unknown PET OUTSIDE REFERENCE Routine 10/19/2024 5:00 PM AREA CLEANER RAD ONC ARIA COURSE SUMMARY 10/01/2024 6:[address] CHEST W CONTRAST Schedule Routine, Read Routine (OP Routine) 09/10/2024 9:54 AM AREA CLEANER Squamous cell carcinoma of scalp CT SOFT TISSUE NECK W CONTRAST Schedule Routine, Read Routine (OP Routine) 09/10/2024 9:50 AM AREA CLEANER Squamous cell carcinoma of scalp CT HEAD STEALTH W CONTRAST Schedule Routine, Read Routine (OP Routine) 09/10/2024 9:50 AM AREA CLEANER Squamous cell carcinoma of scalp POCT CREATININE - DEVICE Routine 09/10/2024 9:33 AM AREA CLEANER from Last 3 Months Results * ECG 12 lead (11/30/2024 1:25 PM CDT) 11/30/2024 1:25 PM CDT Narrative [facility] - 11/30/2024 1:41 PM CDT Vent Rate: 60 bpm RR Interval: 999 msec IA Interval: 119 msec QRS Duration: 87 msec QT Interval: 396 msec QTC Interval: 396 msec P-R-T [place]: 34 - -14 - -18 degrees IMPRESSION: SINUS RHYTHM WITH SHORT IA INTERVAL BORDERLINE ECG Electronically Signed By: Emilie Vance MD us Shayla Goff NP ECG ORDERABLES Final Result [facility] * XR Chest PA Lateral [...] signed by: Ho Pretty M.D. Shayla Goff HEATING PLANT SUPERINTENDENT IMG XR PROCEDURES Final Result * eGFR [...] 11/30/2024 1:16 PM CDT us Shayla Goff HEATING PLANT SUPERINTENDENT LAB BLOOD ORDERABLES Final Res ult [facility] [address] [place] [address] * Differential, auto (11/30/2024 1:03 PM CDT) Neutrophil abs 4.6 1.5 - 6.5 K/cumm Imm gran abs 0.0 0.0 - 0.1 K/cumm [facility] Lymphocyte abs 1.6 0.8 - 3.3 K/cumm [facility] Monocyte abs 0.7 0.2 - 0.8 K/cumm [facility] Eosinophil abs 0.3 0.0 - 0.5 K/cumm [facility] Basophil abs 0.0 0.0 - 0.1 K/cumm [facility] Neutrophil pct 63.2 % [facility] Comment: Interpretive Data Percent cell count reference ranges are not reported, since discordance with absolute values may lead to misinterpretation of CBC data. Current Interpretive Data was last revised on 2017. Imm gran pct 0.4 % [facility] Comment: Interpretive Data Percent cell count reference ranges are not reported, since discordance with absolute values may lead to misinterpretation of CBC data. Current Interpretive Data was last revised on 2017. Lymphocyte pct 22.2 % [facility] Comment: Interpretive Data Percent cell count reference ranges are not reported, since discordance with absolute values may lead to misinterpretation of CBC data. Current Interpretive Data was last revised on 2017. Monocyte pct 10.1 % [facility] Comment: Interpretive Data Percent cell count reference ranges are not reported, since discordance with absolute values may lead to misinterpretation of CBC data. Current Interpretive Data was last revised on 2017. Eosinophil pct 3.5 % [facility] Comment: Interpretive Data Percent cell count reference ranges are not reported, since discordance with absolute values may lead to misinterpretation of CBC data. Current Interpretive Data was last revised on 2017. Basophil pct 0.6 % [facility] Comment: Interpretive Data Percent cell count reference ranges are not reported, since discordance with absolute values may lead to misinterpretation of CBC data. Current Interpretive Data was last revised on 2017. Blood 11/30/2024 1:03 PM CDT 11/30/2024 1:17 PM CDT Shayla Goff HEATING PLANT SUPERINTENDENT LAB BLOOD ORDERABLES Final Res ult [facility] [address] Department [place] [address] * Urinalysis reflex to microscopic and culture [...] tendency for uric acid stone formation. Source: [facility] Current Interpretive Data was last revised on [...] GENERAL ORD ERABLES Final Result [facility] [address] [place] [address] * CBC with auto differential (11/30/2024 1:03 PM CDT) WBC 7.2 3.8 - 9.9 K/cumm Hgb 14.4 13.0 - 17.5 g/dL [facility] Hct 42.7 38.9 - 50.3 % [facility] Plt 191 150 - 400 K/cumm [facility] MPV 10.1 9.1 - 12.3 fL [facility] RBC 4.72 4.30 - 5.80 M/cumm [facility] MCV 90.5 81.3 - 96.4 fL [facility] MCH 30.5 27.1 - 33.3 pg [facility] MCHC 33.7 32.3 - 35.7 g/dL [facility] RDW CV 12.2 11.1 - 14.9 % [facility] RDW SD 40.3 35.7 - 48.1 fL [facility] NRBC abs 0.00 0.00 - 0.01 K/cumm [facility] Blood 11/30/2024 1:03 PM CDT 11/30/2024 1:17 PM CDT Shayla Goff NP LAB BLOOD ORDERABLES Final Res ult [facility] [address] [place], [place] [id number] * aPTT (11/30/2024 1:03 PM CDT) aPTT [...] ORDERABLES Final Res ult Performing Organization Address [facility] Co de Phone Number [facility] [address] [facility] [place] [address] * Protime-INR (11/30/2024 1:03 PM CDT) PT 10.9 9.7 - 13.0 sec INR 1.01 0.90 - 1.20 [facility] Comment: Interpretive data Oral anticoagulant therapeutic ranges: Venous thromboembolism prophylaxis or treatment: 2.0-3.0 CARDIOLOGY Standard range: 2.0-3.0 High-intensity range: 2.5-3.5 Refer to indication-specific guidelines for appropriate target ranges for prosthetic heart valve replacement. Current interpretive data was last revised on 2019. Blood 11/30/2024 1:03 PM CDT 11/30/2024 1:17 PM CDT Shayla Goff NP LAB BLOOD ORDERABLES Final Res ult Performing Organization Address [facility] de Phone Number [facility] [address] [facility] [place] [address] * Type and screen (11/30/2024 1:03 PM CDT) Jacek, indirect Negative ABO Rh O Positive [facility] Blood 11/30/2024 1:03 PM CDT 11/30/2024 1:21 PM CDT Narrative [facility] - 11/30/2024 2:04 PM CDT Is this test being ordered in advance for a procedure?->Yes Expected date of procedure:->12/11/24 Has the patient been transfused in the past 3 months?->Unknown Shayla Goff NP LAB BLOOD BANK TEST ORDERABLES Final Result Performing Organization Address City/[facility] Co de Phone Number [facility] [address] [facility] [place] [address] * Basic metabolic panel (11/30/2024 1:03 PM CDT) Sodium 140 135 - 145 mmol/L Potassium, pl 4.3 3.3 - 4.9 mmol/L [facility] Chloride 105 97 - 110 mmol/L [facility] CO2 24 22 - 32 mmol/L [facility] Anion gap 11 2 - 15 mmol/L [facility] BUN 18 6 - 25 mg/dL [facility] Creatinine 1.00 0.80 - 1.30 mg/dL [facility] Glucose 75 70 - 199 mg/dL [facility] Comment: Interpretive Data Fasting glucose >/= 126 [...] 2022. Calcium 9.7 8.5 - 10.3 mg/dL [facility] Blood 11/30/2024 1:03 PM CDT 11/30/2024 1:16 PM CDT us Shayla Goff HEATING PLANT SUPERINTENDENT LAB BLOOD ORDERABLES Final Res ult [facility] [address] Department [place] [address] * PET Outside Consult (11/02/2024 12:15 PM AREA CLEANER) Anatomical Region Laterality Modality N/A Nuclear Medicine 11/02/2024 3:25 PM AREA CLEANER Impressions 11/02/2024 3:58 PM AREA CLEANER 1. Indeterminant right middle lobe pulmonary nodule. [...] images may or may not represent the [place] source data set and thus may contain changes that may lower the accuracy of this second-opinion interpretation. Dictated by: Larry Corral MD The radiology attending physician has personally reviewed this study, and had reviewed and/or edited this written report and agrees with it. Electronically signed by: DO Elisabeth Cadena 11/02/2024 3:58 PM AREA CLEANER EXAMINATION: RADIOLOGY CONSULTATION ON OUTSIDE IMAGING STUDY . STUDY INITIALLY PERFORMED: 10/13/2024, images acquired at [facility]. TYPE OF STUDY: FDG-PET/CT. The images available for review consisted of axial attenuation-corrected and uncorrected PET images and axial CT images. The total scanned area was skull base to the proximal thighs. The mean liver SUV (reported for quality consultant purposes) is 3.8. The study was interpreted on the [employer] workstation. The protocol was adequate to address [...] in the imaged spine. Procedure Note Antony Rodas, - 11/02/2024 EXAMINATION: RADIOLOGY CONSULTATION ON OUTSIDE IMAGING STUDY . STUDY INITIALLY PERFORMED: 10/13/2024, images acquired at [facility]. TYPE OF STUDY: FDG-PET/CT. The images available for review consisted of axial attenuation-corrected and uncorrected PET images and axial CT images. The total scanned area was skull base to the proximal thighs. The mean liver SUV (reported for quality consultant purposes) is 3.8. The study was interpreted on the [employer] workstation. The protocol was adequate to address [...] images may or may not represent the [place] source data set and thus may contain changes that may lower the accuracy of this second-opinion interpretation. Dictated by: Larry Corral MD The radiology attending physician has personally reviewed this study, and had reviewed and/or edited this written report and agrees with it. Electronically signed by: Antony Rodas DO Dre Cerna MD IM PET PROCEDURES Final Result * PET Outside Reference (10/19/2024 5:00 PM AREA CLEANER) Impressions [facility] - 10/19/2024 5:00 PM AREA CLEANER These images are for Reference purposes only and have not been reviewed by [facility]. There will be no report generated by a [facility] Radiologist. Narrative [facility] - 10/19/2024 5:00 PM AREA CLEANER EXAMINATION: Images For Reference Purposes Only Dre Cerna MD IM PET PROCEDURES Final Result [facility] * RAD ONC ARIA COURSE SUMMARY (10/01/2024 6:53 PM AREA CLEANER) Course Name [id number] [facility] Course Plan Date 05/05/2024 12:17 PM [facility]A Elapsed Days 45 ARIA Treatment Start Date 05/19/2024 [facility] Treatment Site [id number] [facility] Dose Given To Date (cGy) 6,600 [facility] Session Dosage Given (cGy) 0 ARIA Plan ID SCALP [facility]A Fractions Treated 33 [facility] Prescribed Dose Per Fraction (cGy) 200 [facility] Prescribed Total Dose (cGy) 6,600 ARIA 10/01/2024 6:53 PM AREA CLEANER us Not In File Miscellaneous RADIATION ONCOLOGY ORD ERABLES Final Result [facility] * CT Chest with Contrast (09/10/2024 9:54 AM AREA CLEANER) Anatomical Region Laterality Modality Body N/A Computed Tomogra phy 09/10/2024 10:2 6 AM AREA CLEANER Impressions 09/10/2024 10:26 AM AREA CLEANER 1. 8 mm right middle lobe pulmonary nodule with ill-defined borders new from March 2024 prior worrisome for malignancy such as metastatic disease. Electronically signed by: Prakash Gan M.D. Narrative 09/10/2024 10:26 AM AREA CLEANER EXAMINATION: Computed tomography of the chest with [...] Head Stealth W Contrast (09/10/2024 9:50 AM AREA CLEANER) Anatomical Region Laterality Modality Head and Neck N/A Computed Tomogra phy 09/10/2024 11:1 7 AM AREA CLEANER Impressions 09/10/2024 2:42 PM AREA CLEANER 1. Interval change of parietal scalp mass [...] Anni Aguirre M.D. Narrative 09/10/2024 2:42 PM AREA CLEANER EXAMINATION: 1. CT head with contrast 2. [...] Anni Aguirre M.D. us Minh Orozco MD [facility] [place] PROCEDURES Final Res ult * CT Neck Soft Tissue W Contrast (09/10/2024 9:50 AM AREA CLEANER) Anatomical Region Laterality Modality Head and Neck N/A Computed Tomogra phy 09/10/2024 11:1 7 AM AREA CLEANER Impressions 09/10/2024 2:42 PM AREA CLEANER 1. Interval change of parietal scalp mass [...] Anni Aguirre M.D. Narrative 09/10/2024 2:42 PM AREA CLEANER EXAMINATION: 1. CT head with contrast 2. [...] ult * POCT creatinine (09/10/2024 9:33 AM AREA CLEANER) Creatinine POC 1.1 0.7 - 1.3 mg/dL Blood 09/10/2024 9:33 AM AREA CLEANER 09/10/2024 9:33 AM AREA CLEANER us Self Referral LAB POCT ORDERABLES - DEVICE Fin al Result Performing Organization Address City/State/[facility] Co de Phone Number [facility] [place] [address] from Last 3 Months Insurance [facility] HMO/PPO Address: [facility] [address] [place] [address] [facility] H[facility]/PPO Address: [place] [id number] [facility] H[facility]/PPO Address: [place] [address] [facility] H[facility]/PPO Address: [facility] [address] [place] [address] [facility] Advance Directives For more information, please contact: [phone] * Full Code (Latest Code Status on File) Date Activated Date Inactivated Comments 03/16/2024 4:36 PM 03/21/2024 3:59 PM * Full Code Date Activated Date Inactivated Comments 01/28/2022 9:19 PM 02/05/2022 5:17 PM Care Teams Work Adjustment Instructor Relationship Specialty Start Date End Date Gabe George DO [address] [place] [address] PCP - General Internal Medicine 08/03/24 Ian Michel MD [address] [place] [address] [place] [address] Dermatology 02/10/23 Parul Baldwin MD [address] [place] [address] Referring Physician Dermatology 02/10/23 Felix Sher MD [address] [place] [address] [address] [place] [address] Consulting Physician Cardiology 10/21/24
--- OUTSIDE RECORDS SUMMARY | 2024-12-01 12:51 | XMS_ITS | Encounter Summary ---
Author Organization [facility] Healthcare Address [address] [place] [address] Care Team Providers Care Rip/Mould Operator Name Role Phone Ian Michel MD Unavailable [phone] Parul Baldwin MD Unavailable [phone] Gabe George DO Primary Care Provider [phone] Felix Sher MD Unavailable [phone] Reason for Referral * Cardiology (Routine) - Authorized Specialty Diagnoses / Procedures Referred By Contac t Referred To Contact Diagnoses Preoperative testing Procedures ECG 12 lead Shayla Goff NP [address] [place] [address] Phone: tel: fax: [address] [address] Referral ID Status Reason Start Date Expiration Date V isits Requested Visits Authorized [id number] Authorized 11/27/2024 12/27/2025 1 1 [employer] Encounter Details Date Type Department Care Team (Latest Contact Info) Description 11/30/2024 12:15 PM CDT Pre-Admission Testing [facility] Pre Anesthesia Testing [address] [place] [address] Preoperative testing (Primary Dx) Anesthesia Record Procedure Summary Procedure Name Responsible Anesthesiologist Anesthesia Start Time Anesthesia Stop Time XI ROBOTIC THORACIC RIGHT MIDDLE LOBE WEDGE RESECTION, POSSIBLE LOBECTOMY, POSSIBLE OPEN/180MIN (Right: Chest) Events No events on file. Meds * Agents No agents on file. * Blood No blood administrations on file. Lines, Drains, and Airways Type Details Placement Removal Peripheral IV Placement Date: 02/22 01/14; Placement Time: 0750 (created via procedure documentation); Catheter Size: 16 G; Orientation: Right; Location: Hand; Site Prep: Alcohol; Insertion Attempts: 1 03/16/24 0750 by Cindy Vásquez CRNA Closed/Suction/Open Drain 03/16/24; 1200 ; 1; Left, Superior; Back; Bulb; 15 Fr. 03/16/24 1200 by Martin Castro RN Closed/Suction/Open Drain 03/16/24; 1200 ; 2; Left, Inferior; Back; Bulb; 15 Fr. 03/16/24 1200 by Martin Castro RN documented in this encounter Social History Tobacco Use Types Packs/Day Years [...] on file Legal Sex Male 7:35 PM [employer] Gender Identity Not on file Sexual Orientation Not on file documented as of this encounter Last Filed Vital Signs Vital Sign Reading Time Taken Comments Blood Pressure 133/82 11/30/2024 12:52 PM CDT Pulse 61 11/30/2024 12:52 PM CDT Temperature 36.8 C (98.3 F) 11/30/2024 12:52 PM CDT Respiratory Rate 18 11/30/2024 12:52 PM CDT Oxygen Saturation 99% 11/30/2024 12:52 PM CDT Inhaled Oxygen Concentration - - Weight - - Height - - Body Mass Index - - documented in this encounter Functional Status * Audit-C Score [...] Wilks RN documented as of this encounter Miscellaneous Notes * Pre-Procedure Instructions - Radha Tapia RN - 11/30/2024 12:15 [place] [address] We are pleased that you and your doctor have chosen [facility] for your surgery. We hope that the following information will help make your visit a pleasant one. Surgery Date: 12/11/2024 Arrive at 8:00am Before your surgery: Notify your doctor of ANY change in your health such as a cold, sore throat, fever, Rash, an infection, or a change in the problem for which you are having your surgery, if you were in the hospital or Emergency Room. Notify your surgeon if you test positive for COVID. Follow any instructions given to you by your doctor or surgeon. If you take any type of blood thinner, including ASPIRIN and PLAVIX: YOU ARE RESPONSIBLE FOR CALLING your physician to determine when it should be held for your surgery. You are to STOP TAKING: ALL vitamin/herbal supplements 14 days prior to surgery, or as soon as feasible. Any anti-inflammatory medicines, including Excedrin, Motrin/Advil (Ibuprofen), Aleve (Naproxen), Indocin (Indomethacin), Toradol (Ketorolac), Diclofenac (Voltaren) (both oral and topical), and/or Mobic (meloxicam) 7 days prior to surgery. If you have pain, you may take Tylenol/Extra Strength Tylenol (unless it is not recommended by yourphysician). 24 hours before your surgery: Hydrate yourself (water) - if no restrictions. No shaving for 24 hours prior to your surgery. Night before your surgery: Between 8-10pm, drink two of the provided Ensure protein drinks. Please finish both drinks within 15 minutes. DO NOT eat or drink anything after midnight. Nothing to eat includes hard candy, mints, gum, chewable antacids, and cough drops. Follow surgeon's instructions for anti-bacterial (CHG) shower night before and morning of surgery. Shower Instructions: Clean your hair using normal shampoo and/or conditioner products. Using your own normal soap and one washcloth, wash your face. Move away from the shower stream. Using a second freshly washed washcloth and the CHG soap, thoroughly wash from neck down (avoid face, hair, and genital area). Use enough soap to thoroughly cover your body. You may need help if some areas cannot easily be reached, such as your back. Wash with the CHG soap for 2-3 minutes then Rinse thoroughly and dry with a clean towel (use a different freshly washed towel for each shower). Dress in clean, freshly washed pajamas or clothing. Do not use perfume/cologne, make-up, nail guyanese, lotions, oil/Vaseline, or powders on your skin. Powder-free deodorant is permitted. No hair products (including hairspray, gel, mousse, etc) Do not shave below the neck on the night before or day of surgery The night before surgery sleep on clean linen, no pets. Day of surgery: Repeat your shower You may brush your teeth and rinse your mouth out. Do not swallow any extra water. Wear comfortable clothes that will not be tight over the area of your surgery. Leave all valuables and jewelry (including all body piercing jewelry and permanent jewelry) at home. You may shampoo/condition your hair, but do NOT use any other hair products, such as hairspray, mousse or gels. Please bring your photo ID, insurance cards, and medication list (including all [id number] medications) with you. If having outpatient surgery, please bring drake or preferred debit/credit card to pay for any prescriptions that the surgeon may write for you at discharge. If you have an implantable device with a remote, bring the remote with you. You may have up to 6 ounces of water until 7:00am the morning of your surgery, along the the final Ensure protein drink provided. Please finish the protein drink within 15 minutes. ONLY take these pills with a small sip of water: Pre-Surgery Instructions Medication Instructions cetirizine (ZyrTEC) Take if needed famotidine (PEPCID) Take if needed rosuvastatin (CRESTOR) Side effects that you may have from surgery or anesthesia: Drowsiness Nausea, vomiting, gas/bloating, or headache Sore throat, dry mouth, or thirst Shivering or coldness Soreness or discomfort Inform your recovery or post-op nurse if you have any side effects What to bring if you are spending the night with us: Bring toiletry items such as: robe, slippers, toothbrush, toothpaste, brush, or comb. Bring contact lens, hearing aids, glass case, and denture container. The hospital will provide you with a gown. If you use a CPAP machine, please bring it with you to wear after your surgery. Questions or concerns: If you have any questions, or concerns regarding your procedure, or to cancel your surgery/procedure - contact your surgeon as soon as possible. If you have questions regarding your Pre-Admission Screen/Testing, or these instructions, please call Radha at . * Pre-Procedure Instructions - Shayla Goff NP - 11/30/2024 12:15 PM CDT Diet/Nutrition Instructions: Instructed patient to use Lee and Ensure Pre-Surgery supplements in preparation for procedure. Provided patient with written copy of tracking document and discussed regimen below: Consume 2 packets of Lee per day (with breakfast and dinner) for 5 days prior to surgery. The night before surgery (between 8-10pm), carb load by drinking 2 bottles of Ensure Pre-Surgery within 10-15 minutes. Do not eat solid foods 8 hours prior to surgery. 16 oz of Clear liquids allowed up to 3 hours priorto surgery. On the way to the hospital (3 hours prior to planned surgery), drink 1 more bottle of Ensure Pre-Surgery within 10-15 minutes. Patient received supplements and verbalized understanding. documented in this encounter Plan of Treatment Upcoming Encounters Date Type Department Care Team (Latest Contact Info) Description 12/11/2024 10:00 AM CDT Hospital Encounter [facility] Operating Room [address] [place] [address] Dre Cerna MD [address] [facility] [place] [id number] [place] [address] 12/11/2024 10:00 AM CDT Anesthesia Event [facility] Operating Room [address] [place] [address] [place] [address] [facility] [place] [address] Shayla Goff [place] [id number] [place] [address] [address] [place] [address] 12/11/2024 10:00 AM CDT - 12/11/2024 2:00 PM CDT Surgery [facility] Operating Room [address] [place] [address] Dre Cerna MD [address] [facility] [place] [id number] [place] [id number] XI ROBOTIC THORACIC RIGHT MIDDLE LOBE WEDGE RESECTION, POSSIBLE LOBECTOMY, POSSIBLE OPEN/180MIN [72696 (CPT )] Scheduled Procedures Name Priority Associated [...] 11/30/2024 1:0 3 PM CDT Preoperative testing URINALYSIS AND REFLEX TO MICROSCOPIC AND CULTURE Routine 11/30/2024 1:03 PM CDT Preoperative testing CBC WITH AUTO DIFFERENTIAL Routine 11/30/2024 1:03 PM CDT Preoperative testing APTT Routine 11/30/2024 1:03 PM CDT Preoperative testing PROTIME-INR Routine 11/30/2024 1:03 PM CDT Preoperative testing TYPE AND SCREEN Routine 11/30/2024 1:03 PM CDT Preoperative testing BASIC METABOLIC PANEL Routine 11/30/2024 1:03 PM CDT Preoperative testing documented in this encounter Results * ECG 12 lead (11/30/2024 1:25 PM CDT) 11/30/2024 1:25 PM CDT Narrative [facility] - 11/30/2024 1:41 PM CDT Vent Rate: 60 bpm RR Interval: 999 msec SD Interval: 119 msec QRS Duration: 87 msec QT Interval: 396 msec QTC Interval: 396 msec P-R-T [place]: 34 - -14 - -18 degrees IMPRESSION: SINUS RHYTHM WITH SHORT SD INTERVAL BORDERLINE ECG Electronically Signed By: Emilie Vance MD Shayla Goff NP ECG ORDERABLES Final Result [facility] * XR Chest PA Lateral [...] signed by: Ho Pretty M.D. Shayla Goff [facility] IMG XR PROCEDURES Final Result * eGFR [...] 11/30/2024 1:16 PM CDT us Shayla Goff [facility] LAB BLOOD ORDERABLES Final Res ult ASA [address] Department [place] [address] * Differential, auto (11/30/2024 1:03 PM CDT) Neutrophil abs 4.6 1.5 - 6.5 K/cumm Imm gran abs 0.0 0.0 - 0.1 K/cumm [facility] Lymphocyte abs 1.6 0.8 - 3.3 K/cumm [facility] Monocyte abs 0.7 0.2 - 0.8 K/cumm [facility] Eosinophil abs 0.3 0.0 - 0.5 K/cumm [facility] Basophil abs 0.0 0.0 - 0.1 K/cumm [facility] Neutrophil pct 63.2 % [facility] Comment: Interpretive Data Percent cell count reference ranges are not reported, since discordance with absolute values may lead to misinterpretation of CBC data. Current Interpretive Data was last revised on 2017. Imm gran pct 0.4 % [facility] Comment: Interpretive Data Percent cell count reference ranges are not reported, since discordance with absolute values may lead to misinterpretation of CBC data. Current Interpretive Data was last revised on 2017. Lymphocyte pct 22.2 % [facility] Comment: Interpretive Data Percent cell count reference ranges are not reported, since discordance with absolute values may lead to misinterpretation of CBC data. Current Interpretive Data was last revised on 2017. Monocyte pct 10.1 % [facility] Comment: Interpretive Data Percent cell count reference ranges are not reported, since discordance with absolute values may lead to misinterpretation of CBC data. Current Interpretive Data was last revised on 2017. Eosinophil pct 3.5 % [facility] Comment: Interpretive Data Percent cell count reference [...] ORDERABLES Final Res ult Performing Organization Address [facility] de Phone Number ASA BELLO [address] [place] [address] * Urinalysis reflex to microscopic [...] tendency for uric acid stone formation. Source: [facility] Current Interpretive Data was last revised [...] microscopic UA and culture not met. CERNER Urine, clean voided 11/30/2024 1:03 PM CDT 11/30/2024 2:06 PM CDT Shayla Goff NP LAB MICROBIOLOGY - GENERAL ORD ERABLES Final Result Performing Organization Address [facility] Co de Phone Number GRUPOHOSSEIN ACE [address] [place] [address] * aPTT (11/30/2024 1:03 PM CDT) aPTT [...] ORDERABLES Final Res ult Performing Organization Address [facility]/ZIP Co de Phone Number GRUPOHOSSEIN BELLO [address] [place] [address] * Protime-INR (11/30/2024 1:03 PM CDT) PT [...] BLOOD ORDERABLES Final Res ult ASA BELLO [address] [facility] [place] [address] * Type and screen (11/30/2024 1:03 PM CDT) Jacek, indirect Negative ABO Rh O Positive ASA Blood 11/30/2024 1:03 PM CDT 11/30/2024 1:21 PM CDT Narrative [facility] - 11/30/2024 2:04 PM CDT Is this test being ordered in advance for a procedure?->Yes Expected date of procedure:->12/11/24 Has the patient been transfused in the past 3 months?->Unknown Shayla Goff NP LAB BLOOD BANK TEST ORDERABLES Final Result Performing Organization Address [facility] Co de Phone Number ASA BELLO [address] [place] [address] * CBC with auto differential (11/30/2024 1:03 PM CDT) WBC 7.2 3.8 - 9.9 K/cumm Hgb 14.4 13.0 - 17.5 g/dL [facility] Hct 42.7 38.9 - 50.3 % [facility] Plt 191 150 - 400 K/cumm [facility] MPV 10.1 9.1 - 12.3 fL [facility] RBC 4.72 4.30 - 5.80 M/cumm [facility] MCV 90.5 81.3 - 96.4 fL [facility] MCH 30.5 27.1 - 33.3 pg [facility] MCHC 33.7 32.3 - 35.7 g/dL [facility] RDW CV 12.2 11.1 - 14.9 % [facility] RDW SD 40.3 35.7 - 48.1 fL [facility] NRBC abs 0.00 0.00 - 0.01 K/cumm [facility] Blood 11/30/2024 1:03 PM CDT 11/30/2024 1:17 PM CDT Shayla Goff NP LAB BLOOD ORDERABLES Final Res ult Performing Organization Address [facility] Co de Phone Number ASA BELLO [address] Department [place] [address] * Basic metabolic panel (11/30/2024 1:03 PM CDT) Pathologist [facility] Sodium 140 135 - 145 mmol/L Potassium, pl 4.3 3.3 - 4.9 mmol/L CERNER Chloride 105 97 - 110 mmol/L CERN[facility] CO2 24 22 - 32 mmol/L [facility] Anion gap 11 2 - 15 mmol/L CERN[facility] CH BUN 18 6 - 25 mg/dL [facility] Creatinine 1.00 0.80 - 1.30 mg/dL [facility] Glucose 75 70 - 199 mg/dL [facility] Comment: Interpretive Data Fasting glucose >/= 126 [...] 2022. Calcium 9.7 8.5 - 10.3 mg/dL [facility] Blood 11/30/2024 1:03 PM CDT 11/30/2024 1:16 PM CDT Shayla Goff NP LAB BLOOD ORDERABLES Final Res ult ASA [address] [address] Department of Laboratories [place] [phone] documented in this encounter Visit Diagnoses Diagnosis Nodule of middle lobe of right lung- Primary Preoperative testing- Primary Unspecified pre-operative examination Nodule of middle lobe of right lung documented in this encounter Discontinued Medications Medication Sig Discontinue Reason Start Date End Da te acetaminophen (TYLENOL) 325 mg tablet Take 2 tablets (650 mg total) by mouth every 6 (six) hours as needed for pain Therapy completed 03/21/2024 11/30/2024 gabapentin (NEURONTIN) 300 mg capsule Take 1 capsule (300 mg total) by mouth 3 (three) times a day for 7 days, THEN 1 capsule (300 mg total) 2 (two) times a day for 7 days, THEN 1 capsule (300 mg total) daily for 7 days. Therapy completed 03/21/2024 11/30/2024 oxyCODONE (ROXICODONE) 5 mg immediate release tabletIndications:Pain Take 1 tablet (5 mg total) by mouth every 4 (four) hours as needed for pain Therapy completed 03/21/2024 11/30/2024 senna-docusate (PERICOLACE) 8.6-50 mgIndications:constipa tion Take 1 tablet by mouth daily as needed for constipation Therapy completed 03/21/2024 11/30/2024 silver sulfadiazine (SILVADENE, SSD) 1 % creamIndications:Squam ous cell carcinoma of scalp APPLY TOPICALLY TO THE AFFECTED AREA DAILY Therapy completed 07/14/2024 11/30/2024 aspirin 81 mg enteric coated tablet Take 1 tablet (81 mg total) by mouth daily Duplicate order 02/06/2022 11/30/2024 documented as of this encounter Historical Medications * This list may reflect changes made after this encounter. aspirin 81 mg enteric coated tablet Take 1 tablet (81 mg total) by mouth daily added in this encounter Care Teams Rip/Mould Operator Relationship Specialty Start Date End Date Gabe George DO [address] [place], [place] [id number] PCP - General Internal Medicine 08/03/24 Ian Michel MD [address] [facility] [place] [address] Dermatology 02/10/23 Parul Baldwin MD [address] [place] [address] Referring Physician Dermatology 02/10/23 Felix Sher MD [address] [facility] [address] [facility] [place] [place] [address] Consulting Physician Cardiology 10/21/24 documented as of this encounter
== END 2024-12-01 11:04 | disposition home or self-care (01) ==
LOC: ANHIMG 11:05
PROVIDERS: PCP Internal Medicine; Visit Provider Thoracic Surgery (Cardiothoracic Vascular Surgery)
DX: R91.1 Solitary pulmonary nodule (principal)
CPT/HCPCS: 71260; Q9967

== ENCOUNTER 2025-01-15 11:48 | Emergency (ER) | payer OTHER, SELFPAY ==
[2025-01-15 11:57] VITALS: BP 133/83; PULSE 58; RESP 16; TEMP 36.5; O2SAT 99
--- OUTSIDE RECORDS SUMMARY | 2025-01-15 12:02 | XMS_ITS ---
Author Organization [facility] Address [address] [place] [address] Care Team Providers Care Leather Leveler Name Role Phone Ariel Gabe ADEN Unavailable Gabe George DO Unavailable Ian Michel MD Unavailable [phone] Parul Baldwin MD Unavailable [phone] Felix Sher MD Unavailable [phone] Dre Cerna MD Unavailable Crystal Mir MD Primary Care Provider [phone] Active Problems Patient Care Coordination No te [...] showed interval changes of parietal scalp mass car attendant and Gerardo thus [place] flap reconstruction without [...] surgical evaluation. 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
--- OUTSIDE RECORDS SUMMARY | 2025-01-15 12:02 | XMS_ITS | Referral Summary ---
Author Organization [facility] Address 1 [place] [address] Care Team Providers Care Hat Sizer Name Role Phone Ariel, Gabe ADEN Unavailable Gabe George DO Unavailable Ian Michel MD Unavailable [phone] Parul Baldwin MD Unavailable [phone] Felix Sher MD Unavailable [phone] Dre Cerna MD Unavailable Crystal Mir MD Primary Care Provider [phone] Encounters Date Type Department Care Team Description 01/14/2025 Orders Only [facility] [address] [place] [address] Dre Cerna MD Lung nodule 01/13/2025 2:00 PM CDT Clinical Support [address] Advanced Medicine 1st [place] [address] Halina Ocasio, PhD Anxiety in cancer patient 01/07/2025 8:58 AM CDT - 01/07/2025 11:59 PM CDT Hospital Encounter [facility] MOB 1 DIAG IMG [address] [place] [address] Lung nodule Discharge Disposition: Discharge to home or self care 01/07/2025 1:00 PM CDT Office Visit [facility] Oncology [address] [facility] Floor 6 [place] [phone] 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 9:30 AM CDT Office Visit [facility] Physicians [facility] Surgery [address] [facility] [address] [place] [address] Dre Cerna MD Lung nodule (Primary Dx) 12/30/2024 Telephone [facility] [address] [place] [address] Amara Dhaliwal, RN Internet Request 12/29/2024 Telephone [facility] [address] [place] [address] [place] [phone] Fouzia Hamilton LCSW 12/29/2024 Orders Only [facility] Surgery [address] [facility] [address] [place] [address] Dre Cerna MD Lung nodule (Primary Dx) 12/29/2024 Orders Only [facility] Surgery [address] [facility] Floor 5 [place] [address] Radha Riley NP Stress and adjustment reaction (Primary Dx) 12/29/2024 Telephone [facility] Surgery [address] [facility] Floor 5 [place] [address] Radha Riley NP 12/29/2024 Orders Only [facility] Surgery [facility] Floor 5 [place] [address] 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 Emergency Department 1 [place] [address] Narciso Delgadillo MD Post-operative pain (Primary Dx) Discharge Disposition: Discharge to home or self care 12/24/2024 10:46 AM CDT - 12/24/2024 11:59 PM CDT Hospital Encounter [facility] MOB 1 DIAG IMG [address] [place] [address] Lung nodule Discharge Disposition: Discharge to home or self care 12/24/2024 11:15 AM CDT Office Visit [facility] Surgery [address] [facility] [address] [place] [phone] Dre Cerna MD Lung nodule (Primary Dx) 12/17/2024 [facility] Post Discharge Follow up phone call [address] [address] Rosalee Gerardo 12/17/2024 [facility] Post Discharge Follow up phone call [address] [address] Karla Romo RN 12/15/2024 Orders Only [facility] Surgery [address] [place] [phone] Ian Cardenas NP 12/11/2024 9:39 AM CDT - 12/15/2024 11:57 AM CDT Hospital Encounter [address] [address] Dre Cerna MD Nodule of middle lobe of right lung Discharge Disposition: Discharge to home or self care 12/11/2024 12:00 PM CDT - 12/11/2024 4:00 PM CDT Surgery [facility] Operating Room [address] [place] [address] Dre Cerna MD XI ROBOTIC THORACIC RIGHT MIDDLE LOBECTOMY [93084 (CPT )] 12/11/2024 12:17 PM CDT Anesthesia Event [facility] Operating Room [address] [place] [address] Kevan Torrez MD Tadros, Hany B., MD 12/04/2024 Telephone [facility] Surgery [address] [place] [address] 5 [place] [phone] Radha Riley NP 12/03/2024 6:53 PM CDT - 12/03/2024 11:59 PM CDT Hospital Encounter [facility] [address] [place] [address] Discharge Disposition: Discharge to home or self care 11/30/2024 Orders Only [facility] Surgery [address] [place] [address] 5 [place] [phone] Radha Riley NP Gingivitis (Primary Dx) 11/30/2024 1:03 PM CDT - 11/30/2024 11:59 PM CDT Hospital Encounter [facility] Diagnostic Imaging [address] [place] [address] Discharge Disposition: Discharge to home or self care 11/30/2024 12:15 PM CDT Pre-Admission Testing [facility] Pre Anesthesia Testing [address] [place] [address] Preoperative testing (Primary Dx) 11/20/2024 Telephone [facility] Surgery [address] [place] [address] [place] [phone] Patt Riley, RMA 11/19/2024 Telephone [facility] Surgery [address] [place] [address] [place] [phone] Patt Riley, RMA 11/13/2024 Orders Only [facility] Surgery [address] [place] [address] [address] [place] [phone] Dre Cerna MD Lung nodule (Primary Dx) 11/13/2024 Orders Only [facility] Surgery [address] [place] [phone] Cori Carpenter 11/02/2024 12:15 PM [employer]ENTER SALES [employer] SERVICE ASSOCIATE - 11/02/2024 11:59 PM [employer]ENTER SAL[employer] SERVICE ASSOCIATE Hospital Encounter [facility] [address] [place] [address] Diagnosis unknown Discharge Disposition: Discharge to home or self care 10/22/2024 Orders Only [facility] Surgery [address] [facility] [address] [place] [phone] Dre Cerna MD Lung nodule (Primary Dx) 10/22/2024 Telephone [facility] Surgery [address] [facility] [address] [place] [phone] OsvaldoLeonelrileyFITZ lauren 10/20/2024 11:45 AM CENTER SALES AND SERVICE ASSOCIATE Office Visit [facility] Surgery [address] [place] [phone] Dre Cerna MD Lung nodule (Primary Dx) 10/19/2024 5:00 PM CENTER SALES AND SERVICE ASSOCIATE - 10/19/2024 11:59 PM CENTER SALES AND SERVICE ASSOCIATE Hospital Encounter [facility] [address] [place] [address] Discharge Disposition: Discharge to home or self care from Last 3 Months Allergies Active Allergy Reactions Criticality Noted Date Comments Tuberculin Ppd Other (See comments) Low 01/28/2022 Pt endorses TB skin test gives him bronchitis and walking pneumonia Medications cetirizine (ZyrTEC) 10 mg tabletIndicatio ns:Allergic Rhinitis Take 1 tablet (10 mg total) by mouth nightly 2 Active rosuvastatin (CRESTOR) 10 mg tabletIndicatio ns:hyperlipidem ia Take 1 tablet (10 mg total) by mouth nightly 2 Active famotidine (PEPCID) 40 mg tabletIndicatio ns:gastroesopha geal reflux disease Take 1 tablet (40 mg total) by mouth every morning 3 Active MULTIVITAMIN ORALIndications :supplement Take 1 tablet by mouth every morning Active lactose-reduced food (ENSURE COMPLETE ORAL)Indication s:supplement Take 1 Dose by mouth every morning Active clopidogreL (PLAVIX) 75 mg tablet TAKE 1 TABLET BY MOUTH DAILY 30 tablet 11 4 Active aspirin 81 mg enteric coated tablet Take 1 tablet (81 mg total) by mouth daily Active acetaminophen 500 mg capsuleIndicati ons:Fever,Pain Take 2 capsules (1,000 mg total) by mouth every 6 (six) hours as needed for pain 5 Active amiodarone (PACERONE) 200 mg tabletIndicatio ns:Prevention of A. Fib Post Cardio-Thoracic Surgery Take 2 tablets (400 mg total) by mouth 3 (three) times a day for 6 days, THEN 2 tablets (400 mg total) 2 (two) times a day for 7 days, THEN 2 tablets (400 mg total) daily for 7 days. 78 tablet 5 Active metoprolol tartrate (LOPRESSOR) 25 mg immediate release tablet Take 1 tablet (25 mg total) by mouth 2 (two) times a day 60 tablet 1 5 02/14/20 25 Active gabapentin (NEURONTIN) 100 mg capsuleIndicati ons:Postoperati ve Acute Pain Take 2 capsules (200 mg total) by mouth 3 (three) times a day 180 capsule 5 01/28/20 25 Active ibuprofen-diphe nhydramine HCl 200-25 mg capsule Take by mouth Active gabapentin (NEURONTIN) 100 mg capsuleIndicati ons:Postoperati ve Acute Pain Take 2 capsules (200 mg total) by mouth 3 (three) times a day for 7 days 42 capsule 5 12/29/19 25 Discontinue d(Reorder) methocarbamoL (ROBAXIN) 500 mg tabletIndicatio ns:Muscle Spasm Take 1 tablet (500 mg total) by mouth 3 (three) times a day for 7 days 21 tablet 5 12/23/19 25 oxyCODONE (ROXICODONE) 5 mg immediate release tabletIndicatio ns:Pain Take 1 tablet (5 mg total) by mouth every 4 (four) hours as needed for pain 10 tablet 5 12/22/19 25 Discontinue d(Reorder) oxyCODONE (ROXICODONE) 5 mg immediate release tabletIndicatio ns:Pain Take 1 tablet (5 mg total) by mouth every 12 (twelve) hours as needed for pain for up to 7 days 14 tablet 5 12/26/19 25 Discontinue d(Reorder) oxyCODONE (ROXICODONE) 5 mg immediate release tabletIndicatio ns:Pain Take 1 tablet (5 mg total) by mouth every 12 (twelve) hours as needed for pain for up to 7 days 14 tablet 5 01/08/20 25 Active Problems Patient Care Coordination No te Formatting of this note migh t be different from the original. Referring provider: Dr. Minh Orozco Mr. Adalgisa Merida is a 63-year-old with a lung nodule. 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 Never 12/11/2024 Q2: How many drinks containi ng alcohol do you have on a typical day when you are drinking? Patient does not drink Q3: How often do you have si x or more drinks on one occasion? Never 12/11/2024 Personal Safety Answer Date Recorded Have you ever been in or are you currently in a harmful physical or emotional relationship or is someone making you feel afraid or unsafe? 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 Gender Identity Not on file Sexual Orientation Not on file Last Filed Vital Signs Vital Sign Reading Time Taken Comments Blood Pressure 110/74 01/07/2025 9:26 AM CDT Pulse 63 01/07/2025 9:26 AM CDT Temperature 36.4 C (97.5 F) 01/07/2025 9:26 AM CDT Respiratory Rate 18 01/07/2025 9:26 AM CDT Oxygen Saturation 97% 01/07/2025 9:26 AM CDT Inhaled Oxygen Concentration - - Weight 81.2 kg (179 lb) 01/07/2025 9:26 AM CDT Height 175.3 cm (5' 9 ) 01/07/2025 9:26 AM CDT Body Mass Index 26.43 01/07/2025 9:26 AM CDT Plan of Treatment Not on file Medical Devices Implanted Type Area Trust Officer Device Identifier Shelf Expiration Date Model / Serial / Lot MyClasses Luly Blackmon Microvascular 3mm Ring Pin Protective Cover Jaw Assembly Latex Free [id number] - [id number] Implanted:Qty: 1 on 03/16/2024 by Minh Orozco MD at [facility] [employer] Luly [id number] 01/08/2028 [id number] / / [id number] Procedures Procedure Name Priority Date/Time Associated Diagnosis Comments XR CHEST PA LATERAL 2 VIEWS Schedule Routine, Read Routine (OP Routine) 01/07/2025 9:00 AM CDT Lung nodule SEPSIS LACTATE WITH REFLEX Timed 12/27/2024 1:[address] CHEST W CONTRAST ED 12/27/2024 1 2:50 PM CDT XR CHEST PA LATERAL 2 VIEWS ED 12/27/2024 10:21 AM CDT EGFR STAT 12/27/2024 10:10 AM CDT DIFFERENTIAL AUTO STAT 12/27/2024 10: 10 AM CDT SEPSIS LACTATE WITH REFLEX STAT 12/27/2024 10:10 AM CDT COMPREHENSIVE METABOLIC PANEL STAT 12/27/2024 10:10 AM CDT CBC WITH AUTO DIFFERENTIAL STAT 12/27/2024 10:10 AM CDT XR CHEST PA LATERAL 2 VIEWS Schedule Routine, Read Routine (OP Routine) 12/24/2024 10:49 AM CDT Lung nodule XR CHEST 1 VIEW IP Routine 12/15/2024 6:16 AM CDT EGFR Routine 12/15/2024 3:50 AM CDT DIFFERENTIAL AUTO Routine 12/15/2024 3:5 0 AM CDT BASIC METABOLIC PANEL Routine 12/15/2024 3:50 AM CDT CBC WITH AUTO DIFFERENTIAL Routine 12/15/2024 3:50 AM CDT MAGNESIUM Add-On 12/14/2024 4:26 AM CDT EGFR Routine 12/14/2024 4:26 AM CDT DIFFERENTIAL AUTO Routine 12/14/2024 4:2 6 AM CDT BASIC METABOLIC PANEL Routine 12/14/2024 4:26 AM CDT CBC WITH AUTO DIFFERENTIAL Routine 12/14/2024 4:26 AM CDT XR CHEST 1 VIEW IP Routine 12/14/2024 4:14 AM CDT XR CHEST 1 VIEW IP Routine 12/13/2024 5:54 AM CDT EGFR Routine 12/13/2024 3:58 AM CDT DIFFERENTIAL AUTO Routine 12/13/2024 3:5 8 AM CDT BASIC METABOLIC PANEL Routine 12/13/2024 3:58 AM CDT CBC WITH AUTO DIFFERENTIAL Routine 12/13/2024 3:58 AM CDT EGFR Timed 12/12/2024 5:18 PM CDT BASIC METABOLIC PANEL Timed 12/12/2024 5:18 PM CDT CRITICAL CARE Routine 12/12/2024 6:55 AM CDT Nodule of middle lobe of right lung TROPONIN T HIGH-SENSITIVITY 2-HOUR Timed 12/12/2024 3:47 AM CDT XR CHEST 1 VIEW ED Urgent/IP Urgent 12/12/2024 1:58 AM CDT EGFR STAT 12/12/2024 1:57 AM CDT DIFFERENTIAL AUTO STAT 12/12/2024 1:5 7 AM CDT MAGNESIUM STAT 12/12/2024 1:57 AM CDT CALCIUM,IONIZED, WHOLE BLOOD STAT 12/12/2024 1:57 AM CDT CBC WITH AUTO DIFFERENTIAL STAT 12/12/2024 1:57 AM CDT BASIC METABOLIC PANEL STAT 12/12/2024 1:57 AM CDT TROPONIN T HIGH-SENSITIVITY SERIES (BASELINE, 2HR, 4HR, 6HR) STAT 12/12/2024 1:57 AM CDT ECG 12-LEAD STAT 12/12/2024 1:51 AM CDT CRITICAL CARE Routine 12/11/2024 9:53 PM CDT Nodule of middle lobe of right lung CBC WITHOUT DIFFERENTIAL Timed 12/11/2024 9:40 PM CDT EGFR Timed 12/11/2024 9:39 PM CDT BASIC METABOLIC PANEL Timed 12/11/2024 9:39 PM CDT POCT GLUCOSE DEVICE Routine 12/11/2024 6 :26 PM CDT XR CHEST 1 VIEW ED Urgent/IP Urgent 12/11/2024 5:06 PM CDT PREPARE RBC STAT 12/11/2024 2:12 PM CDT MO AN ELECTIVE ENDOTRACHEAL AIRWAY Routine 12/11/2024 12:29 PM CDT ANESTHESIA ARTERIAL LINE PLACEMENT Routine 12/11/2024 12:28 PM CDT PERIPHERAL LINE Routine 12/11/2024 12:28 PM CDT MO THORACOSCOPY W/DX BX OF LUNG INFILTRATE UNILATRL 12/11/2024 12:17 PM CDT Nodule of middle lobe of right lung PREPARE RBC STAT 12/11/2024 9:45 AM CDT SURGICAL PATHOLOGY Routine 12/11/2024 9: 26 AM CDT Nodule of middle lobe of right lung MISCELLANEOUS LAB TEST Routine 12/11/2024 12:[address] BODY OUTSIDE REFERENCE Routine 12/03/2024 6:53 PM CDT ECG 12-LEAD Routine 11/30/2024 1:25 PM CDT [...] OUTSIDE CONSULT Routine 11/02/2024 1 2:15 PM CENTER SALES AND SERVICE ASSOCIATE Diagnosis unknown PET OUTSIDE REFERENCE Routine 10/19/2024 5:00 PM CENTER SALES AND SERVICE ASSOCIATE from Last 3 Months Results * X-ray chest 2 views (01/07/2025 9:00 AM CDT) Anatomical Region Laterality Modality Body, Chest N/A Computed Radiogr aphy 01/13/2025 9:16 AM CDT Narrative 01/13/2025 9:20 AM CDT EXAM DESCRIPTION: XR CHEST PA LATERAL 2 VIEWS REASON FOR STUDY: postoperative care, eval following robotic thoracic right middle lobectomy TECHNIQUE: 2 radiographic view(s) of the chest. COMPARISON: 12/27/2024 FINDINGS: LUNGS: Residual opacity in the right cardiophrenic angle is unchanged. No definite right pleural effusion was seen. HEART/MEDIASTINUM: Cardiac silhouette normal in size. Mediastinal and hilar contours appear normal. LINES/TUBES: Sternal wires are seen. BONES: No acute osseous abnormality. IMPRESSION: Residual opacity in the right cardiophrenic angle, unchanged. THIS IS AN ELECTRONICALLY VERIFIED FINAL REPORT 01/13/2025 9:20 AM - Electronically signed by Pranay Grace M.D. ANANT: ANANT Report ID: [id number] Reading Location: [id number] Procedure Note Wilian Grace MD - 01/13/2025 EXAM DESCRIPTION: XR CHEST PA LATERAL 2 VIEWS REASON FOR STUDY: postoperative care, eval following robotic thoracicright middle lobectomy TECHNIQUE: 2 radiographic view(s) of the chest. COMPARISON: 12/27/2024 FINDINGS: LUNGS: Residual opacity in the right cardiophrenic angle is unchanged. No definite right pleural effusion was seen. HEART/MEDIASTINUM: Cardiac silhouette normal in size. Mediastinal andhilar contours appear normal. LINES/TUBES: Sternal wires are seen. BONES: No acute osseous abnormality. IMPRESSION: Residual opacity in the right cardiophrenic angle, unchanged. THIS IS AN ELECTRONICALLY VERIFIED FINAL REPORT 01/13/2025 9:20 AM - Electronically signed by Pranay Grace M.D. ANANT: ANANT Report ID: [id number] Reading Location: [id number] Dre Cerna MD IMG XR PROCEDURES Final Result * Sepsis Lactate w/ Reflex (12/27/2024 1:04 PM CDT) Sepsis Lactate 1.3 0.7 - 2.0 mmol/L Blood 12/27/2024 1:04 PM CDT 12/27/2024 1:07 PM CDT Osvaldo Wu MD LAB BLOOD ORDERABLES Final R esult [facility]) 1 [facility] Department [place] [address] * CT Chest W Contrast (12/27/2024 12:50 PM CDT) Anatomical Region Laterality Modality Body N/A Computed Tomogra phy 12/27/2024 12:5 4 PM CDT Narrative 12/27/2024 1:03 PM CDT EXAM DESCRIPTION: CT CHEST W CONTRAST REASON FOR STUDY: Postop pain Right side chest pain today, pt recently had part of right lung removed. TECHNIQUE: CT scan of the chest performed with intravenous contrast using helical scanning technique with dynamic intravenous contrast injection. Reconstructed coronal and sagittal MPR images reviewed. All images stored on PACS. Automated exposure control was used as a dose optimization technique for this examination. CONTRAST TYPE/DOSE: 75mL of IOVERSOL 350 MG IODINE/ML INTRAVENOUS SYRINGE injected via intravenous COMPARISON: 12/27/2024 FINDINGS: LUNGS: There is right apical pleural thickening and scarring. There is mild left apical pleural thickening and scarring. There is no definite evidence of a pneumothorax. The central airways are grossly patent. There is scattered subsegmental atelectasis and scarring, which is most significant in the lung bases. There are postsurgical changes noted of right middle lobe lobectomy with associated volume loss, mild parenchymal scarring and atelectasis. There is a small right pleural effusion, which is grossly similar to prior chest x-ray dated 12/15/2024, and may be related to postsurgical changes. There are mild patchy consolidative right basilar airspace opacities, which is likely related to compressive subsegmental atelectasis/scarring and less likely developing airspace disease. There is interval development of a couple of tubular nodular opacities in the right lower lobe measuring 1.4 by 0.6 cm (axial image 52) and 1.7 by 0.7 cm (axial image 54), which are indeterminate in etiology and may represent foci of mucous plugging/mucoid impaction. There are scattered pulmonary nodules noted, which are overall grossly unchanged since 08/29/2023. For example, there is stable 0.4 cm fissural nodule along the right major fissure (axial image 50). There is a stable subtle subpleural 0.3 cm pulmonary nodule in the anterior left upper lobe (axial image 35). There is stable 0.4 cm subpleural pulmonary nodule in the medial right upper lobe abutting the mediastinum (axial image 35). MEDIASTINUM/FE: The heart size is stable. There is no definite evidence of pericardial effusion. There are mild atherosclerotic changes of the aorta. There is no definite evidence of mediastinal, hilar, or axillary lymphadenopathy. There are scattered subcentimeter mediastinal lymph nodes noted with largest measuring 0.7 cm in the subcarinal region (axial image 47). CHEST WALL: No masses. No subcutaneous air. HARDWARE/LINES/TUBES: Postsurgical changes midline sternotomy wires are noted. UPPER ABDOMEN: There is a small hiatal hernia. There are multiple too small to characterize hypoattenuating lesions in the liver with the largest measuring 0.8 cm in the left hepatic dome, which are overall grossly unchanged in comparison to prior CT dated 08/29/2023, and therefore do not require follow-up imaging. The bilateral adrenal glands are grossly stable and unremarkable. There is partial visualization of multiple cysts in the visualized portions of the bilateral kidneys, which are better evaluated on prior PET-CT dated 10/13/2024.. MUSCULOSKELETAL: There is mild osteopenia. There is a mild S shaped scoliotic curvature of the spine with degenerative changes. OTHER: No other significant abnormality. IMPRESSION: Postsurgical changes of right middle lobe lobectomy with associated volume loss, mild parenchymal scarring and atelectasis. Small right pleural effusion, which is grossly similar to prior chest x-ray dated 12/15/2024, and is presumably related to postsurgical changes. Mild patchy consolidative right basilar airspace opacities, which is likely related to compressive subsegmental atelectasis/scarring and less likely developing airspace disease. Interval development of a couple of tubular nodular opacities in the right lower lobe, which are indeterminate in etiology and may represent foci of mucous plugging/mucoid impaction. Short-term follow-up chest CT in 6-12 weeks is recommended to assess for stability and/or resolution as clinically indicated. The necessity of further evaluation with bronchoscopy can be determined clinically. Scattered pulmonary nodules noted, which are overall grossly unchanged since 08/29/2023. Please see below for follow-up recommendations per Fleischner criteria. Recent guidelines by the Fleischner Society (Radiology 972828,2017) divides patient into low vs. high risk (for example, patients who smoke are considered high risk) and provides followup recommendations as follows: SOLITARY PULMONARY NODULE: Patients considered LOW RISK for lung cancer and a nodule less than 6 mm in diameter require no follow-up. In patients at a HIGHER RISK optional follow-up is in 1 year. MULTIPLE PULMONARY NODULES: Patients considered LOW RISK for lung cancer and multiple nodules less than 6 mm in diameter require no follow-up. In patients at a HIGHER RISK optional follow-up is in 1 year. Note: These recommendations do not apply to lung cancer screening, patients with immunosuppression, or patients with known primary cancer. http://pubs.rsna.org/doi/pdf/10.1148/radiol.7168430446 THIS IS AN ELECTRONICALLY VERIFIED FINAL REPORT 12/27/2024 1:03 PM - Electronically signed by Damian Dorsey D.O. PS: PS Report ID: [id number] Reading Location: [id number] Procedure Note Damian Dorsey DO - 12/27/2024 EXAM DESCRIPTION: CT CHEST W CONTRAST REASON FOR STUDY: Postop pain Right side chest pain today, pt recently had part of right lung removed. TECHNIQUE: CT scan of the chest performed with intravenous contrast using helical scanning technique with dynamic intravenous contrast injection. Reconstructed coronal and sagittal MPR images reviewed. All images storedon PACS. Automated exposure control was used as a dose optimizationtechnique for this examination. CONTRAST TYPE/DOSE: 75mL of IOVERSOL 350 MG IODINE/ML INTRAVENOUS SYRINGE injected via intravenous COMPARISON: 12/27/2024 FINDINGS: LUNGS: There is right apical pleural thickening and scarring. There ismild left apical pleural thickening and scarring. There is no definiteevidence of a pneumothorax. The central airways are grossly patent. There isscattered subsegmental atelectasis and scarring, which is most significant in thelung bases. There are postsurgical changes noted of right middle lobe lobectomy with associated volume loss, mild parenchymal scarring and atelectasis. Thereis a small right pleural effusion, which is grossly similar to prior chestx-ray dated 12/15/2024, and may be related to postsurgical changes. There aremild patchy consolidative right basilar airspace opacities, which is likelyrelated to compressive subsegmental atelectasis/scarring and less likelydeveloping airspace disease. There is interval development of a couple of tubular nodular opacities inthe right lower lobe measuring 1.4 by 0.6 cm (axial image 52) and 1.7 by 0.7cm (axial image 54), which are indeterminate in etiology and may representfoci of mucous plugging/mucoid impaction. There are scattered pulmonary nodules noted, which are overall grossly unchanged since 08/29/2023. For example, there is stable 0.4 cm fissural nodule along the right major fissure (axial image 50). There is a stable subtle subpleural 0.3 cm pulmonary nodule in the anterior left upper lobe (axial image 35). There is stable 0.4 cm subpleural pulmonary nodule inthe medial right upper lobe abutting the mediastinum (axial image 35). MEDIASTINUM/FE: The heart size is stable. There is no definiteevidence of pericardial effusion. There are mild atherosclerotic changes of theaorta. There is no definite evidence of mediastinal, hilar, or axillary lymphadenopathy. There are scattered subcentimeter mediastinal lymphnodes noted with largest measuring 0.7 cm in the subcarinal region (axial image47). CHEST WALL: No masses. No subcutaneous air. HARDWARE/LINES/TUBES: Postsurgical changes midline sternotomy wires are noted. UPPER ABDOMEN: There is a small hiatal hernia. There are multiple toosmall to characterize hypoattenuating lesions in the liver with the largest measuring 0.8 cm in the left hepatic dome, which are overall grosslyunchanged in comparison to prior CT dated 08/29/2023, and therefore do not require follow-up imaging. The bilateral adrenal glands are grossly stable and unremarkable. There is partial visualization of multiple cysts in the visualized portions of the bilateral kidneys, which are better evaluatedon prior PET-CT dated 10/13/2024.. MUSCULOSKELETAL: There is mild osteopenia. There is a mild S shaped scoliotic curvature of the spine with degenerative changes. OTHER: No other significant abnormality. IMPRESSION: Postsurgical changes of right middle lobe lobectomy with associatedvolume loss, mild parenchymal scarring and atelectasis. Small right pleural effusion, which is grossly similar to prior chestx-ray dated 12/15/2024, and is presumably related to postsurgical changes. Mild patchy consolidative right basilar airspace opacities, which islikely related to compressive subsegmental atelectasis/scarring and less likely developing airspace disease. Interval development of a couple of tubular nodular opacities in theright lower lobe, which are indeterminate in etiology and may represent foci of mucous plugging/mucoid impaction. Short-term follow-up chest CT in 6-12weeks is recommended to assess for stability and/or resolution as clinically indicated. The necessity of further evaluation with bronchoscopy can be determined clinically. Scattered pulmonary nodules noted, which are overall grossly unchangedsince 08/29/2023. Please see below for follow-up recommendations per Fleischner criteria. Recent guidelines by the Fleischner Society (Radiology 155586,2017)divides patient into low vs. high risk (for example, patients who smoke areconsidered high risk) and provides followup recommendations as follows: SOLITARY PULMONARY NODULE: Patients considered LOW RISK for lung cancerand a nodule less than 6 mm in diameter require no follow-up. In patients at a HIGHER RISK optional follow-up is in 1 year. MULTIPLE PULMONARY NODULES: Patients considered LOW RISK for lung cancerand multiple nodules less than 6 mm in diameter require no follow-up. Inpatients at a HIGHER RISK optional follow-up is in 1 year. Note: These recommendations do not apply to lung cancer screening,patients with immunosuppression, or patients with known primary cancer. http://pubs.rsna.org/doi/pdf/10.1148/radiol.6516269446 THIS IS AN ELECTRONICALLY VERIFIED FINAL REPORT 12/27/2024 1:03 PM - Electronically signed by Damian Dorsey D.O. PS: PS Report ID: [id number] Reading Location: [id number] Maryam Adam HATCH IMJuani CT PROCEDURES Final Result * XR Chest PA Lateral 2 Views (12/27/2024 10:21 AM CDT) Anatomical Region Laterality Modality Body, Chest N/A Computed Radiogr aphy 12/27/2024 10:2 9 AM CDT Narrative 12/27/2024 10:31 AM CDT EXAM DESCRIPTION: XR CHEST PA LATERAL 2 VIEWS REASON FOR STUDY: post op complication Pt to the ED with c/o possible post op infection and increased pain. Pt had lymph node and part of his lung removed on 12/11. Pt stated that he had follow up on and he reported swelling at site to doctor. Pt had xray done which they reported came back ok. Pt stated that he can't handle the pain anymore. Unable to sleep. TECHNIQUE: Frontal and lateral radiographic view(s) of the chest. COMPARISON: 12/24/2024 FINDINGS: The heart, mediastinum, and pulmonary vasculature are grossly stable. There is biapical pleural thickening and scarring. Postsurgical changes midline sternotomy wires are noted. There is no definite evidence of a pneumothorax. There are grossly stable mild patchy bibasilar airspace opacities. There is stable small right pleural effusion. The osseous structures are acutely grossly stable. IMPRESSION: Grossly stable mild patchy bibasilar airspace opacities. Grossly stable small right pleural effusion. THIS IS AN ELECTRONICALLY VERIFIED FINAL REPORT 12/27/2024 10:31 AM - Electronically signed by Damian Dorsey D.O. PS: PS Report ID: [id number] Reading Location: [id number] Procedure Note Damian Dorsey DO - 12/27/2024 EXAM DESCRIPTION: XR CHEST PA LATERAL 2 VIEWS REASON FOR STUDY: post op complication Pt to the ED with c/o possible post op infection and increased pain. Pthad lymph node and part of his lung removed on 12/11. Pt stated that he hadfollow up on and he reported swelling at site to doctor. Pt had xraydone which they reported came back ok. Pt stated that he can't handle thepain anymore. Unable to sleep. TECHNIQUE: Frontal and lateral radiographic view(s) of the chest. COMPARISON: 12/24/2024 FINDINGS: The heart, mediastinum, and pulmonary vasculature are grossly stable.There is biapical pleural thickening and scarring. Postsurgical changes midline sternotomy wires are noted. There is no definite evidence of apneumothorax. There are grossly stable mild patchy bibasilar airspace opacities. Thereis stable small right pleural effusion. The osseous structures are acutely grossly stable. IMPRESSION: Grossly stable mild patchy bibasilar airspace opacities. Grossly stable small right pleural effusion. THIS IS AN ELECTRONICALLY VERIFIED FINAL REPORT 12/27/2024 10:31 AM - Electronically signed by Damian Dorsey D.O. PS: PS Report ID: [id number] Reading Location: [place] [address] Narciso Delgadillo MD IMG XR PROCEDURES Final Resu lt * (ABNORMAL) Sepsis Lactate w/ Reflex (12/27/2024 10:10 AM CDT) Sepsis Lactate 2.3(H) 0.7 - 2.0 mmol/L Blood 12/27/2024 10:1 0 AM CDT 12/27/2024 10:41 AM CDT Narciso Delgadillo MD LAB BLOOD ORDERABLES Final R esult [facility] ([place]) [facility] Department [place] [address] * eGFR (12/27/2024 10:10 AM CDT) eGFR 69 >=60 mL/min/1. 73 m2 Comment: Interpretive Data [...] interpretive data was last reviewed 2021. Blood 12/27/2024 10:1 0 AM CDT 12/27/2024 10:41 AM CDT Narciso Delgadillo MD LAB BLOOD ORDERABLES Final R esult [facility] ([place]) [facility] Department [place] [address] * (ABNORMAL) Differential, auto (12/27/2024 10:10 AM CDT) Neutrophil abs 9.17(H) 1.50 - 6.50 K/cumm Imm gran abs 0.07 0.00 - 0.10 K/cumm [facility] ([place]) Lymphocyte abs 1.43 0.80 - 3.30 K/cumm [facility] ([place]) Monocyte abs 1.03(H) 0.20 - 0.80 K/cumm [facility] ([place]) Eosinophil abs 0.62(H) 0.00 - 0.50 K/cumm [facility] ([place]) Basophil abs 0.10 0.00 - 0.10 K/cumm [facility] ([place]) Neutrophil pct 73.8 % [facility] ([place]) Comment: Interpretive Data Percent cell count reference ranges are not reported, since discordance with absolute values may lead to misinterpretation of CBC data. Current Interpretive Data was last revised on 2017. Imm gran pct 0.6 % [facility] ([place]) Comment: Interpretive Data Percent cell count reference ranges are not reported, since discordance with absolute values may lead to misinterpretation of CBC data. Current Interpretive Data was last revised on 2017. Lymphocyte pct 11.5 % [facility] ([place]) Comment: Interpretive Data Percent cell count reference ranges are not reported, since discordance with absolute values may lead to misinterpretation of CBC data. Current Interpretive Data was last revised on 2017. Monocyte pct 8.3 % [facility] ([place]) Comment: Interpretive Data Percent cell count reference ranges are not reported, since discordance with absolute values may lead to misinterpretation of CBC data. Current Interpretive Data was last revised on 2017. Eosinophil pct 5.0 % [facility] ([place]) Comment: Interpretive Data Percent cell count reference ranges are not reported, since discordance with absolute values may lead to misinterpretation of CBC data. Current Interpretive Data was last revised on 2017. Basophil pct 0.8 % [facility] ([place]) Comment: Interpretive Data Percent cell count reference ranges are not reported, since discordance with absolute values may lead to misinterpretation of CBC data. Current Interpretive Data was last revised on 2017. Blood 12/27/2024 10:1 0 AM CDT 12/27/2024 10:41 AM CDT us Narciso Delgadillo MD LAB BLOOD ORDERABLES Final R esult [facility] ([place]) [facility] Department [place] [address] * (ABNORMAL) CBC with auto differential (12/27/2024 10:10 AM CDT) WBC 12.42(H) 3.80 - 9.90 K/cumm Hgb 15.3 13.0 - 17.5 g/dL [facility] ([place]) Hct 45.1 38.9 - 50.3 % [facility] ([place]) Plt 427(H) 150 - 400 K/cumm [facility] ([place]) MPV 9.7 9.1 - 12.3 fL [facility] ([place]) RBC 4.95 4.30 - 5.80 M/cumm [facility] ([place]) MCV 91.1 81.3 - 96.4 fL [facility] ([place]) MCH 30.9 27.1 - 33.3 pg [facility] ([place]) MCHC 33.9 32.3 - 35.7 g/dL [facility] ([place]) RDW CV 13.0 11.1 - 14.9 % [facility] ([place]) RDW SD 42.8 35.7 - 48.1 fL [facility] ([place]) NRBC abs 0.00 0.00 - 0.01 K/cumm [facility] ([place]) Blood 12/27/2024 10:1 0 AM CDT 12/27/2024 10:41 AM CDT Narciso Delgadillo MD LAB BLOOD ORDERABLES Final R esult [facility] ([place]) [facility] Department [place] [address] * Comprehensive metabolic panel (12/27/2024 10:10 AM CDT) Pathologist [facility] Sodium 135 135 - 145 mmol/L Potassium, pl 4.3 3.3 - 4.9 mmol/L [facility] ([place]) Chloride 98 97 - 110 mmol/L [facility] ([place]) CO2 25 22 - 32 mmol/L [facility] ([place]) Anion gap 12 2 - 15 mmol/L [facility] ([place]) BUN 18 6 - 25 mg/dL [facility] ([place]) Creatinine 1.19 0.80 - 1.30 mg/dL [facility] ([place]) Glucose 109 70 - 199 mg/dL [facility] ([place]) Comment: Interpretive Data Fasting glucose >/= 126 [...] interpretive data was last revised 2022. Calcium 9.8 8.5 - 10.3 mg/dL [facility] ([place]) Bilirubin, total 0.5 0.1 - 1.2 mg/dL [facility] ([place]) Protein, pl 7.6 6.5 - 8.5 g/dL [facility] ([place]) Albumin 4.2 3.5 - 5.0 g/dL [facility] ([place]) Alk phos 93 40 - 130 Units/L [facility] ([place]) ALT 29 7 - 55 Units/L [facility] ([place]) AST 26 10 - 50 Units/L [facility] ([place]) Comment: Hemolysis present. Results may be affected. Slightly Hemolyzed Specimen Blood 12/27/2024 10:1 0 AM CDT 12/27/2024 10:41 AM CDT Narciso Delgadillo MD LAB BLOOD ORDERABLES Final R esult [facility] ([place]) [facility] Department [place] [address] * X-ray chest 2 views (12/24/2024 10:49 AM CDT) Anatomical Region Laterality Modality Body, Chest N/A Computed Radiogr aphy 01/02/2025 2:44 PM CDT Narrative 01/02/2025 2:46 PM CDT EXAM DESCRIPTION: XR CHEST PA LATERAL 2 VIEWS REASON FOR STUDY: postoperative care, eval following robotic thoracic right middle lobectomy Follow up, left side tenderness TECHNIQUE: 2 radiographic view(s) of the chest. COMPARISON: 12/15/2024 FINDINGS: LUNGS: Abnormal density is suspected at the right base best seen in the lateral view. This is this is favored to represent atelectasis. The left lung appears better preserved. Mild diffuse underlying chronic lung changes are suspected. HEART/MEDIASTINUM: Cardiac silhouette normal in size. Mediastinal and hilar contours appear normal. LINES/TUBES: None. BONES: No acute osseous abnormality. IMPRESSION: Right base atelectasis is suspected. THIS IS AN ELECTRONICALLY VERIFIED FINAL REPORT 01/02/2025 2:46 PM - Electronically signed by Yeison GIBBS: SAI Report ID: [id number] Reading Location: [id number] Procedure Note Yeison Davenport MD - 01/02/2025 EXAM DESCRIPTION: XR CHEST PA LATERAL 2 VIEWS REASON FOR STUDY: postoperative care, eval following robotic thoracicright middle lobectomy Follow up, left side tenderness TECHNIQUE: 2 radiographic view(s) of the chest. COMPARISON: 12/15/2024 FINDINGS: LUNGS: Abnormal density is suspected at the right base bestseen in the lateral view. This is this is favored to represent atelectasis. Theleft lung appears better preserved. Mild diffuse underlying chronic lungchanges are suspected. HEART/MEDIASTINUM: Cardiac silhouette normal in size. Mediastinal andhilar contours appear normal. LINES/TUBES: None. BONES: No acute osseous abnormality. IMPRESSION: Right base atelectasis is suspected. THIS IS AN ELECTRONICALLY VERIFIED FINAL REPORT 01/02/2025 2:46 PM - Electronically signed by Yeison GIBBS: SAI Report ID: [id number] Reading Location: [id number] Dre eCrna MD IMG XR PROCEDURES Final Result * XR Chest 1 View (12/15/2024 6:16 AM CDT) Anatomical Region Laterality Modality Body, Chest N/A Computed Radiogr aphy 12/15/2024 10:2 9 AM CDT Impressions 12/15/2024 10:29 AM CDT No pneumothorax. Electronically signed by: Bhavik Huffman M.D. Narrative 12/15/2024 10:29 AM CDT EXAMINATION: XR CHEST 1 VIEW HISTORY: The patient is a 63-year-old male who has had removal of a right thoracostomy tube. Comparison made with the previous study dated 12/14/2024. TECHNIQUE: AP portable view of the chest. FINDINGS: There is no definite right pneumothorax. Allowing for the poor inspiration the lungs are clear. Heart not enlarged. No failure. Procedure Note Bhavik Huffman MD - 12/15/2024 EXAMINATION: XR CHEST 1 VIEW HISTORY: The patient is a 63-year-old male who has had removal of a right thoracostomy tube. Comparison made with the previous study dated 12/14/2024. TECHNIQUE: AP portable view of the chest. FINDINGS: There is no definite right pneumothorax. Allowing for the poor inspiration the lungs are clear. Heart not enlarged. No failure. IMPRESSION: No pneumothorax. Electronically signed by: Bhavik Huffman M.D. Dre Cerna MD IMG XR PROCEDURES Final Result * eGFR (12/15/2024 3:50 AM CDT) eGFR >90 >=60 mL/min/1. 73 m2 Comment: Interpretive Data [...] interpretive data was last reviewed 2021. Blood 12/15/2024 3:50 AM CDT 12/15/2024 4:13 AM CDT us Cherry Newby [employer] LAB BLOOD ORDERABLES Mague octavia Result [facility] [address] Department [place] [address] * (ABNORMAL) Differential, auto (12/15/2024 3:50 AM CDT) Neutrophil abs 6.8(H) 1.5 - 6.5 K/cumm Imm gran abs 0.1 0.0 - 0.1 K/cumm [facility] Lymphocyte abs 1.2 0.8 - 3.3 K/cumm [facility] Monocyte abs 1.0(H) 0.2 - 0.8 K/cumm [facility] Eosinophil abs 0.6(H) 0.0 - 0.5 K/cumm [facility] Basophil abs 0.0 0.0 - 0.1 K/cumm [facility] Neutrophil pct 70.4 % [facility] Comment: Interpretive Data Percent cell count reference ranges are not reported, since discordance with absolute values may lead to misinterpretation of CBC data. Current Interpretive Data was last revised on 2017. Imm gran pct 0.7 % [facility] Comment: Interpretive Data Percent cell count reference ranges are not reported, since discordance with absolute values may lead to misinterpretation of CBC data. Current Interpretive Data was last revised on 2017. Lymphocyte pct 12.4 % [facility] Comment: Interpretive Data Percent cell count reference ranges are not reported, since discordance with absolute values may lead to misinterpretation of CBC data. Current Interpretive Data was last revised on 2017. Monocyte pct 10.4 % [facility] Comment: Interpretive Data Percent cell count reference ranges are not reported, since discordance with absolute values may lead to misinterpretation of CBC data. Current Interpretive Data was last revised on 2017. Eosinophil pct 5.7 % [facility] Comment: Interpretive Data Percent cell count reference ranges are not reported, since discordance with absolute values may lead to misinterpretation of CBC data. Current Interpretive Data was last revised on 2017. Basophil pct 0.4 % [facility] Comment: Interpretive Data Percent cell count reference ranges are not reported, since discordance with absolute values may lead to misinterpretation of CBC data. Current Interpretive Data was last revised on 2017. Blood 12/15/2024 3:50 AM CDT 12/15/2024 4:12 AM CDT us Cherry Newby NP LAB BLOOD ORDERABLES Mague dudley Result [facility] [address] [address] Department [place] [address] * (ABNORMAL) CBC with auto differential (12/15/2024 3:50 AM CDT) WBC 9.7 3.8 - 9.9 K/cumm Hgb 12.3(L) 13.0 - 17.5 g/dL [facility] Hct 34.7(L) 38.9 - 50.3 % [facility] Plt 164 150 - 400 K/cumm [facility] MPV 10.2 9.1 - 12.3 fL [facility] RBC 3.87(L) 4.30 - 5.80 M/cumm [facility] MCV 89.7 81.3 - 96.4 fL [facility] MCH 31.8 27.1 - 33.3 pg [facility] MCHC 35.4 32.3 - 35.7 g/dL [facility] RDW CV 13.2 11.1 - 14.9 % [facility] RDW SD 43.3 35.7 - 48.1 fL [facility] NRBC abs 0.00 0.00 - 0.01 K/cumm [facility] Blood 12/15/2024 3:50 AM CDT 12/15/2024 4:12 AM CDT Cherry Newby [employer] LAB BLOOD ORDERABLES Mague l Result [facility] [id number] Department [place] [address] * Basic metabolic panel (12/15/2024 3:50 AM CDT) Sodium 139 135 - 145 mmol/L Potassium, pl 4.4 3.3 - 4.9 mmol/L [facility] Chloride 108 97 - 110 mmol/L [facility] CO2 23 22 - 32 mmol/L [facility] Anion gap 8 2 - 15 mmol/L [facility] BUN 18 6 - 25 mg/dL [facility] Creatinine 0.86 0.80 - 1.30 mg/dL [facility] Glucose 100 70 - 199 mg/dL [facility] Comment: Interpretive Data Fasting glucose >/= [...] interpretive data was last revised 2022. Calcium 9.0 8.5 - 10.3 mg/dL [facility] Blood 12/15/2024 3:50 AM CDT 12/15/2024 4:13 AM CDT us Cherry Newby [employer] LAB BLOOD ORDERABLES Mague l Result [facility] [id number] Department [place] [address] * eGFR (12/14/2024 4:26 AM CDT) eGFR >90 >=60 mL/min/1. 73 m2 Comment: Interpretive Data [...] interpretive data was last reviewed 2021. Blood 12/14/2024 4:26 AM CDT 12/14/2024 5:16 AM CDT us Cherry Newby NP LAB BLOOD ORDERABLES Mague dudley Result [facility] [address] [address] Department [place] [address] * (ABNORMAL) Differential, auto (12/14/2024 4:26 AM CDT) Neutrophil abs 6.7(H) 1.5 - 6.5 K/cumm Imm gran abs 0.0 0.0 - 0.1 K/cumm [facility] Lymphocyte abs 1.4 0.8 - 3.3 K/cumm [facility] Monocyte abs 1.0(H) 0.2 - 0.8 K/cumm [facility] Eosinophil abs 0.4 0.0 - 0.5 K/cumm [facility] Basophil abs 0.0 0.0 - 0.1 K/cumm [facility] Neutrophil pct 69.4 % [facility] Comment: Interpretive Data Percent cell count reference ranges are not reported, since discordance with absolute values may lead to misinterpretation of CBC data. Current Interpretive Data was last revised on 2017. Imm gran pct 0.4 % [facility] Comment: Interpretive Data Percent cell count reference ranges are not reported, since discordance with absolute values may lead to misinterpretation of CBC data. Current Interpretive Data was last revised on 2017. Lymphocyte pct 14.9 % [facility] Comment: Interpretive Data Percent cell count reference ranges are not reported, since discordance with absolute values may lead to misinterpretation of CBC data. Current Interpretive Data was last revised on 2017. Monocyte pct 10.4 % [facility] Comment: Interpretive Data Percent cell count reference ranges are not reported, since discordance with absolute values may lead to misinterpretation of CBC data. Current Interpretive Data was last revised on 2017. Eosinophil pct 4.6 % [facility] Comment: Interpretive Data Percent cell count reference ranges are not reported, since discordance with absolute values may lead to misinterpretation of CBC data. Current Interpretive Data was last revised on 2017. Basophil pct 0.3 % [facility] Comment: Interpretive Data Percent cell count reference ranges are not reported, since discordance with absolute values may lead to misinterpretation of CBC data. Current Interpretive Data was last revised on 2017. Blood 12/14/2024 4:26 AM CDT 12/14/2024 5:14 AM CDT us Cherry Newby NP LAB BLOOD ORDERABLES Mague dudley Result [facility] [address] Department of Laboratories [place], [place] [id number] * (ABNORMAL) CBC with auto differential (12/14/2024 4:26 AM CDT) WBC 9.6 3.8 - 9.9 K/cumm Hgb 12.2(L) 13.0 - 17.5 g/dL [facility] Hct 36.3(L) 38.9 - 50.3 % [facility] Plt 150 150 - 400 K/cumm [facility] MPV 10.7 9.1 - 12.3 fL [facility] RBC 4.06(L) 4.30 - 5.80 M/cumm [facility] MCV 89.4 81.3 - 96.4 fL [facility] MCH 30.0 27.1 - 33.3 pg [facility] MCHC 33.6 32.3 - 35.7 g/dL [facility] RDW CV 13.0 11.1 - 14.9 % [facility] RDW SD 42.7 35.7 - 48.1 fL [facility] NRBC abs 0.00 0.00 - 0.01 K/cumm [facility] Blood 12/14/2024 4:26 AM CDT 12/14/2024 5:14 AM CDT Cherry Newby [employer] LAB BLOOD ORDERABLES Mague l Result [facility] [address] [address] [facility] [place] [address] * Magnesium (12/14/2024 4:26 AM CDT) [facility] Magnesium 2.1 1.4 - 2.5 mg/dL Blood 12/14/2024 4:26 AM CDT 12/14/2024 12:13 PM CDT Cherry Newby [employer] LAB BLOOD ORDERABLES Mague l Result Performing Organization Address [facility] Co de Phone Number [facility] [address] [address] [facility] [place] [address] * Basic metabolic panel (12/14/2024 4:26 AM CDT) Pathologist [facility] Sodium 139 135 - 145 mmol/L Potassium, pl 3.8 3.3 - 4.9 mmol/L [facility] Chloride 107 97 - 110 mmol/L [facility] CO2 23 22 - 32 mmol/L [facility] Anion gap 9 2 - 15 mmol/L [facility] BUN 15 6 - 25 mg/dL [facility] Creatinine 0.89 0.80 - 1.30 mg/dL [facility] Glucose 93 70 - 199 mg/dL [facility] Comment: Interpretive Data Fasting glucose >/= [...] interpretive data was last revised 2022. Calcium 8.7 8.5 - 10.3 mg/dL [facility] Blood 12/14/2024 4:26 AM CDT 12/14/2024 5:16 AM CDT us Cherry Newby NP LAB BLOOD ORDERABLES Mague octavia Result [facility] [id number] Department [place] [address] * XR Chest 1 View (12/14/2024 4:14 AM CDT) Anatomical Region Laterality Modality Body, Chest N/A Computed Radiogr aphy 12/14/2024 11:0 5 AM CDT Impressions 12/14/2024 11:05 AM CDT Near complete resolution of previous right apical pneumothorax. Persistent right lower/ middle lobe opacities probably atelectasis. Electronically signed by: Diane Russ M.D. Narrative 12/14/2024 11:05 AM CDT Examination: XR CHEST 1 VIEW Date: 12/14/2024 3:25 AM History: Check tube placement Comparison: 12/13/2024. Findings: The right thoracostomy tube has been removed. Minimal residual right apical pneumothorax of 3 mm thickness is decreased in size. Patchy right basal/middle lobe opacities again noted. The left hemithorax is essentially clear. Normal heart size and sternotomy seen. Procedure Note Diane Russ MD - 12/14/2024 Examination: XR CHEST 1 VIEW Date: 12/14/2024 3:25 AM History: Check tube placement Comparison: 12/13/2024. Findings: The right thoracostomy tube has been removed. Minimal residual right apical pneumothorax of 3 mm thickness is decreased in size. Patchy right basal/middle lobe opacities again noted. The left hemithorax is essentially clear. Normal heart size and sternotomy seen. IMPRESSION: Near complete resolution of previous right apical pneumothorax. Persistent right lower/ middle lobe opacities probably atelectasis. Electronically signed by: Diane Russ M.D. Dre Cerna MD IMG XR PROCEDURES Final Result * XR Chest 1 View (12/13/2024 5:54 AM CDT) Anatomical Region Laterality Modality Body, Chest N/A Computed Radiogr aphy 12/13/2024 10:1 2 AM CDT Impressions 12/13/2024 10:12 AM CDT Postop change right hemithorax with thoracostomy tube and unchanged small right pneumothorax. Electronically signed by: Diane Russ M.D. Narrative 12/13/2024 10:12 AM CDT Examination: XR CHEST 1 VIEW Date: 12/13/2024 5:45 AM History: Check tube placement Comparison: 12/12/2024. Findings: Postoperative change of the right hemithorax is seen with thoracostomy tube in the apex. A small right apical pneumothorax is unchanged. Right basilar perihilar opacities again noted. The left hemithorax is clear. Normal heart size is mildly is present. Gas enlarged bowel is noted. Subcutaneous emphysema is seen in the right supraclavicular fossa and lower chest wall. Procedure Note Diane Russ MD - 12/13/2024 Examination: XR CHEST 1 VIEW Date: 12/13/2024 5:45 AM History: Check tube placement Comparison: 12/12/2024. Findings: Postoperative change of the right hemithorax is seen with thoracostomy tube in the apex. A small right apical pneumothorax is unchanged. Right basilar perihilar opacities again noted. The left hemithorax is clear. Normal heart size is mildly is present. Gas enlarged bowel is noted. Subcutaneous emphysema is seen in the right supraclavicular fossa and lower chest wall. IMPRESSION: Postop change right hemithorax with thoracostomy tube and unchanged small right pneumothorax. Electronically signed by: Diane Russ M.D. us Dre Cerna MD IMG XR PROCEDURES Final Result * eGFR (12/13/2024 3:58 AM CDT) eGFR 88 >=60 mL/min/1. 73 m2 Comment: Interpretive Data [...] interpretive data was last reviewed 2021. Blood 12/13/2024 3:58 AM CDT 12/13/2024 4:34 AM CDT us Cherry Newby [employer] LAB BLOOD ORDERABLES [place] dudley Result [facility] [id number] Department [place] [address] * (ABNORMAL) Differential, auto (12/13/2024 3:58 AM CDT) Neutrophil abs 9.7(H) 1.5 - 6.5 K/cumm Imm gran abs 0.0 0.0 - 0.1 K/cumm [facility] Lymphocyte abs 1.3 0.8 - 3.3 K/cumm [facility] Monocyte abs 1.2(H) 0.2 - 0.8 K/cumm [facility] Eosinophil abs 0.3 0.0 - 0.5 K/cumm [facility] Basophil abs 0.0 0.0 - 0.1 K/cumm [facility] Neutrophil pct 77.0 % [facility] Comment: Interpretive Data Percent cell count reference ranges are not reported, since discordance with absolute values may lead to misinterpretation of CBC data. Current Interpretive Data was last revised on 2017. Imm gran pct 0.3 % [facility] Comment: Interpretive Data Percent cell count reference ranges are not reported, since discordance with absolute values may lead to misinterpretation of CBC data. Current Interpretive Data was last revised on 2017. Lymphocyte pct 10.6 % [facility] Comment: Interpretive Data Percent cell count reference ranges are not reported, since discordance with absolute values may lead to misinterpretation of CBC data. Current Interpretive Data was last revised on 2017. Monocyte pct 9.3 % [facility] Comment: Interpretive Data Percent cell count reference ranges are not reported, since discordance with absolute values may lead to misinterpretation of CBC data. Current Interpretive Data was last revised on 2017. Eosinophil pct 2.5 % [facility] Comment: Interpretive Data Percent cell count reference ranges are not reported, since discordance with absolute values may lead to misinterpretation of CBC data. Current Interpretive Data was last revised on 2017. Basophil pct 0.3 % [facility] Comment: Interpretive Data Percent cell count reference ranges are not reported, since discordance with absolute values may lead to misinterpretation of CBC data. Current Interpretive Data was last revised on 2017. Blood 12/13/2024 3:58 AM CDT 12/13/2024 4:34 AM CDT us Cherry Newby NP LAB BLOOD ORDERABLES [place] dudley Result [facility] [id number] Department [place] [address] * (ABNORMAL) CBC with auto differential (12/13/2024 3:58 AM CDT) WBC 12.6(H) 3.8 - 9.9 K/cumm Hgb 13.2 13.0 - 17.5 g/dL [facility] Hct 38.8(L) 38.9 - 50.3 % [facility] Plt 151 150 - 400 K/cumm [facility] MPV 10.7 9.1 - 12.3 fL [facility] RBC 4.29(L) 4.30 - 5.80 M/cumm [facility] MCV 90.4 81.3 - 96.4 fL [facility] MCH 30.8 27.1 - 33.3 pg [facility] MCHC 34.0 32.3 - 35.7 g/dL [facility] RDW CV 12.9 11.1 - 14.9 % [facility] RDW SD 42.4 35.7 - 48.1 fL [facility] NRBC abs 0.00 0.00 - 0.01 K/cumm [facility] Blood 12/13/2024 3:58 AM CDT 12/13/2024 4:34 AM CDT us Cherry Newby [employer] LAB BLOOD ORDERABLES [place] dudley Result [facility] [id number] Department [place] [address] * (ABNORMAL) Basic metabolic panel (12/13/2024 3:58 AM CDT) Sodium 137 135 - 145 mmol/L Potassium, pl 3.9 3.3 - 4.9 mmol/L [facility] Chloride 106 97 - 110 mmol/L [facility] CO2 22 22 - 32 mmol/L [facility] Anion gap 9 2 - 15 mmol/L [facility] BUN 17 6 - 25 mg/dL [facility] Creatinine 0.97 0.80 - 1.30 mg/dL [facility] Glucose 108 70 - 199 mg/dL [facility] Comment: Interpretive Data Fasting glucose >/= [...] classification and Diagnosis of Diabetes Diabetes Care 202; 46: S19-S40. Current interpretive data was last revised 2022. Calcium 8.4(L) 8.5 - 10.3 mg/dL [facility] Blood 12/13/2024 3:58 AM CDT 12/13/2024 4:34 AM CDT Cherry Newby [employer] LAB BLOOD ORDERABLES Mague l Result Performing Organization Address City/[facility]/ZIP Co de Phone Number [facility] [address] [place] [address] * eGFR (12/12/2024 5:18 PM CDT) eGFR 71 >=60 mL/min/1. 73 m2 Comment: Interpretive Data [...] interpretive data was last reviewed 2021. Blood 12/12/2024 5:18 PM CDT 12/12/2024 5:26 PM CDT us Rosalina Novoa PA LAB BLOOD ORDERABLES F inal Result Performing Organization Address [facility]/ZIP Co de Phone Number [facility] [address] Department of [employer] [place], [place] [id number] * (ABNORMAL) Basic metabolic panel (12/12/2024 5:18 PM CDT) Sodium 134(L) 135 - 145 mmol/L Potassium, pl 3.7 3.3 - 4.9 mmol/L [facility] Chloride 100 97 - 110 mmol/L [facility] CO2 26 22 - 32 mmol/L [facility] Anion gap 8 2 - 15 mmol/L [facility] BUN 16 6 - 25 mg/dL [facility] Creatinine 1.16 0.80 - 1.30 mg/dL [facility] Glucose 113 70 - 199 mg/dL [facility] Comment: Interpretive Data Fasting glucose >/= [...] interpretive data was last revised 2022. Calcium 8.5 8.5 - 10.3 mg/dL [facility] Blood 12/12/2024 5:18 PM CDT 12/12/2024 5:26 PM CDT us Rosalina HATCH LAB BLOOD ORDERABLES F inal Result [facility] [address] [facility] Department [place] [address] * Critical Care (12/12/2024 6:55 AM CDT) Narrative Oneal Caal MD - 12/12/2024 6:55 AM CDT Oneal Caal MD 12/13/2024 7:24 AM Critical Care Performed by: Rosalina Novoa PA Authorized by: Rosalina Novoa PA CRITICAL CARE: Team: ROMEL Shift: AM Level of Billing: Subsequent Hospital Visit Level 3 My time spent with this patient was 75 minutes: Critical Provider Statement: I have seen and examined the patient on this day of service. I have reviewed and confirmed the history, physical exam, laboratory, and radiographic data as documented in the ICU note. I have reviewed and discussed my treatment plan with the patient's team and other medical/loss control consultant staff. This time was in addition to and separate from care provided by other practitioners on this day of service. I spent time reviewing and interpreting data from bedside monitors, laboratory results, and imaging, I spent time discussing the management of this critically ill patient with consultants and the medical staff and I spent time documenting in the medical record Rosalina HATCH IN CLINIC/BEDSIDE KRISTENNupur MÓNICA Final Result * Troponin T high-sensitivity 2-hour (12/12/2024 3:47 AM CDT) Trop T hs 15 <=22 ng/L Comment: Interpretive Data For further hscTnT resources including the diagnostic algorithm and an aid in interpretation, copy and paste this link: https://nrl.testcatalog.org/show/hsTrop Current Interpretive Data last revised 2020. Trop T hs delta 2 ng/L [facility] Trop T hs interp Insignificant [facility] Blood 12/12/2024 3:47 AM CDT 12/12/2024 3:55 AM CDT López Valadez APRN LAB BLOOD ORDERABL ES Final Result [facility] [address] Department [place] [address] * XR Chest 1 Vw Portable (12/12/2024 1:58 AM CDT) Anatomical Region Laterality Modality Body, Chest N/A Computed Radiogr aphy 12/12/2024 12:0 2 PM CDT Impressions 12/12/2024 12:02 PM CDT No change since the last study. Electronically signed by: Bhavik Huffman M.D. Narrative 12/12/2024 12:02 PM CDT EXAMINATION: XR CHEST 1 VIEW HISTORY: The patient is a 63-year-old male who presents with shortness of breath. Comparison is made with the previous study dated 12/11/2024. TECHNIQUE: AP portable view of the chest. FINDINGS: Right thoracostomy tube in situ. Unchanged tiny right apical pneumothorax. Patchy infiltrates seen in the right lower lobe with the remainder of the lungs being clear. Borderline Cardiomegaly with no failure. Procedure Note Bhavik Huffman MD - 12/12/2024 EXAMINATION: XR CHEST 1 VIEW HISTORY: The patient is a 63-year-old male who presents with shortness of breath. Comparison is made with the previous study dated 12/11/2024. TECHNIQUE: AP portable view of the chest. FINDINGS: Right thoracostomy tube in situ. Unchanged tiny right apical pneumothorax. Patchy infiltrates seen in the right lower lobe with the remainder of the lungs being clear. Borderline Cardiomegaly with no failure. IMPRESSION: No change since the last study. Electronically signed by: Bhavik Huffman M.D. López Valadez APRN IMG XR PROCEDURES Final Result * Troponin T high-sensitivity series (baseline, 2hr, 4hr, 6hr) (12/12/2024 1:57 AM CDT) [facility] Trop T hs 13 <=22 ng/L Comment: Slight hemolysis may result in decreased troponin measurement. Consider recollection. Interpretive Data For further hscTnT resources including the diagnostic algorithm and an aid in interpretation, copy and paste this link: https://nrl.testcatalog.org/show/hsTrop Current Interpretive Data last revised 2020. Blood 12/12/2024 1:57 AM CDT 12/12/2024 2:07 AM CDT López Valadez APRN LAB BLOOD ORDERABL ES Final Result [facility] [id number] Department of Laboratories [place], [place] [id number] * Calcium, ionized, whole blood (12/12/2024 1:57 AM CDT) [facility] Ca, ionized, bld 4.53 4.50 - 5.10 mg/dL Blood 12/12/2024 1:57 AM CDT 12/12/2024 2:07 AM CDT López Valadez APRN LAB BLOOD ORDERABL ES Final Result Performing Organization Address [facility] Co de Phone Number [facility] [address] [place] [address] * eGFR (12/12/2024 1:57 AM CDT) [facility] eGFR >90 >=60 mL/min/1. 73 m2 Comment: Interpretive Data [...] interpretive data was last reviewed 2021. Blood 12/12/2024 1:57 AM CDT 12/12/2024 2:07 AM CDT López Valadez APRN LAB BLOOD ORDERABL ES Final Result Performing Organization Address City/[facility]/ZIP Co de Phone Number [facility] [address] Department [employer] [place], [place] [id number] * (ABNORMAL) Differential, auto (12/12/2024 1:57 AM CDT) Neutrophil abs 14.1(H) 1.5 - 6.5 K/cumm Imm gran abs 0.1 0.0 - 0.1 K/cumm [facility] Lymphocyte abs 0.8 0.8 - 3.3 K/cumm [facility] Monocyte abs 1.9(H) 0.2 - 0.8 K/cumm [facility] Eosinophil abs 0.0 0.0 - 0.5 K/cumm [facility] Basophil abs 0.0 0.0 - 0.1 K/cumm [facility] Neutrophil pct 83.2 % [facility] Comment: Interpretive Data Percent cell count reference ranges are not reported, since discordance with absolute values may lead to misinterpretation of CBC data. Current Interpretive Data was last revised on 2017. Imm gran pct 0.5 % [facility] Comment: Interpretive Data Percent cell count reference ranges are not reported, since discordance with absolute values may lead to misinterpretation of CBC data. Current Interpretive Data was last revised on 2017. Lymphocyte pct 4.7 % [facility] Comment: Interpretive Data Percent cell count reference ranges are not reported, since discordance with absolute values may lead to misinterpretation of CBC data. Current Interpretive Data was last revised on 2017. Monocyte pct 11.3 % [facility] Comment: Interpretive Data Percent cell count reference ranges are not reported, since discordance with absolute values may lead to misinterpretation of CBC data. Current Interpretive Data was last revised on 2017. Eosinophil pct 0.2 % [facility] Comment: Interpretive Data Percent cell count reference ranges are not reported, since discordance with absolute values may lead to misinterpretation of CBC data. Current Interpretive Data was last revised on 2017. Basophil pct 0.1 % [facility] Comment: Interpretive Data Percent cell count reference ranges are not reported, since discordance with absolute values may lead to misinterpretation of CBC data. Current Interpretive Data was last revised on 2017. Blood 12/12/2024 1:57 AM CDT 12/12/2024 2:07 AM CDT us López Valadez APRN LAB BLOOD ORDERABL ES Final Result [facility] [address] [place] [address] * (ABNORMAL) CBC with auto differential (12/12/2024 1:57 AM CDT) WBC 17.0(H) 3.8 - 9.9 K/cumm Hgb 14.1 13.0 - 17.5 g/dL [facility] Hct 41.2 38.9 - 50.3 % [facility] Plt 194 150 - 400 K/cumm [facility] MPV 10.4 9.1 - 12.3 fL [facility] RBC 4.60 4.30 - 5.80 M/cumm [facility] MCV 89.6 81.3 - 96.4 fL [facility] MCH 30.7 27.1 - 33.3 pg [facility] MCHC 34.2 32.3 - 35.7 g/dL [facility] RDW CV 12.6 11.1 - 14.9 % [facility] RDW SD 41.0 35.7 - 48.1 fL [facility] NRBC abs 0.00 0.00 - 0.01 K/cumm [facility] Blood 12/12/2024 1:57 AM CDT 12/12/2024 2:07 AM CDT López Valadez APRN LAB BLOOD ORDERABL ES Final Result Performing Organization Address [facility] Co de Phone Number [facility] [address] [place] [address] * Magnesium (12/12/2024 1:57 AM CDT) Pathologist [facility] Magnesium 2.0 1.4 - 2.5 mg/dL Blood 12/12/2024 1:57 AM CDT 12/12/2024 2:07 AM CDT López Valadez APRN LAB BLOOD ORDERABL ES Final Result Performing Organization Address [facility] Co de Phone Number [facility] [address] Department [place] [address] * (ABNORMAL) Basic metabolic panel (12/12/2024 1:57 AM CDT) Sodium 138 135 - 145 mmol/L Potassium, pl 5.2(H) 3.3 - 4.9 mmol/L [facility] Comment:Hemolysis present. R esults may be affected. Chloride 104 97 - 110 mmol/L [facility] CO2 21(L) 22 - 32 mmol/L [facility] Anion gap 13 2 - 15 mmol/L [facility] BUN 14 6 - 25 mg/dL [facility] Creatinine 0.94 0.80 - 1.30 mg/dL [facility] Glucose 144 70 - 199 mg/dL [facility] Comment: [...] classification and Diagnosis of Diabetes Diabetes Care 202; 46: S19-S40. Current interpretive data was last revised 2022. Calcium 8.5 8.5 - 10.3 mg/dL [facility] Blood 12/12/2024 1:57 AM CDT 12/12/2024 2:07 AM CDT López Valadez APRN LAB BLOOD ORDERABL ES Final Result [facility] [address] [place] [address] * ECG 12 lead (12/12/2024 1:51 AM CDT) 12/12/2024 1:51 AM CDT Narrative [facility] - 12/12/2024 7:40 AM CDT Vent Rate: 155 bpm RR Interval: 386 msec MO Interval: 0 msec QRS Duration: 126 msec QT Interval: 220 msec QTC Interval: 307 msec P-R-T [place]: 0 - -13 - -36 degrees IMPRESSION: ATRIAL FLUTTER/TACHYCARDIA WITH RAPID VENTRICULAR RESPONSE MODERATE INTRAVENTRICULAR CONDUCTION DELAY [110+ ms QRS DURATION] NONSPECIFIC ST \T\ T-WAVE ABNORMALITY CRITICAL TEST RESULT Compared to prior EKG, heart rate has increased Anterolateral ST segment depressions are new Patient probably in atrial flutter Electronically Signed By: Mauricio Boswell MD López Valadez APRN ECG ORDERABLES Fi nal Result [facility] * Critical Care (12/11/2024 9:53 PM CDT) Narrative Daniel Arvizu MD - 12/11/2024 9:53 PM CDT Daniel Arvizu MD 12/12/2024 6:23 AM Critical Care Performed by: López Valadez APRN Authorized by: López Valadez APRN CRITICAL CARE: Team: ROMEL Shift: PM Level of Billing: Critical Care My time spent with this patient was 60 minutes: Critical Provider Statement: I have seen and examined the patient on this day of service. I have reviewed and confirmed the history, physical exam, laboratory and radiologic data as documented in the signed ICU note. I have reviewed and discussed my treatment plan with the ICU team and other medical/loss control consultant staff, making frequent assessments and decisions regarding this patient's complex medical care. Critical Care time was exclusive of time spent performing separately billed procedures, treating other patients, and teaching. This time was in addition to and separate from critical care provided by other practitioners in my group on this day of service. Critical Care was necessary to treat or prevent imminent or life-threatening deterioration of the following conditions: I spent time reviewing and interpreting data from bedside monitors, laboratory results, and imaging, I spent time discussing the management of this critically ill patient with consultants and the medical staff and I spent time documenting in the medical record López Valadez APRN IN CLINIC/BEDSIDE ORDERABLES Final Result * (ABNORMAL) CBC without differential (12/11/2024 9:40 PM CDT) WBC 18.2(H) 3.8 - 9.9 K/cumm Hgb 14.0 13.0 - 17.5 g/dL [facility] Hct 40.0 38.9 - 50.3 % [facility] Plt 179 150 - 400 K/cumm [facility] MPV 10.6 9.1 - 12.3 fL [facility] RBC 4.47 4.30 - 5.80 M/cumm [facility] MCV 89.5 81.3 - 96.4 fL [facility] MCH 31.3 27.1 - 33.3 pg [facility] MCHC 35.0 32.3 - 35.7 g/dL [facility] RDW CV 12.3 11.1 - 14.9 % [facility] RDW SD 40.5 35.7 - 48.1 fL [facility] NRBC abs 0.00 0.00 - 0.01 K/cumm [facility] Blood 12/11/2024 9:40 PM CDT 12/11/2024 9:40 PM CDT us Dre Cerna MD LAB BLOOD ORDERABLES Final Resul t [facility] [id number] Department [place] [address] * eGFR (12/11/2024 9:39 PM CDT) eGFR >90 >=60 mL/min/1. 73 m2 Comment: Interpretive Data [...] interpretive data was last reviewed 2021. Blood 12/11/2024 9:39 PM CDT 12/11/2024 9:39 PM CDT Dre Cerna MD LAB BLOOD ORDERABLES Final Resul t [facility] [address] [place] [address] * (ABNORMAL) Basic metabolic panel (12/11/2024 9:39 PM CDT) Sodium 138 135 - 145 mmol/L Potassium, pl 4.6 3.3 - 4.9 mmol/L [facility] Chloride 106 97 - 110 mmol/L [facility] CO2 21(L) 22 - 32 mmol/L [facility] Anion gap 11 2 - 15 mmol/L [facility] BUN 15 6 - 25 mg/dL [facility] Creatinine 0.92 0.80 - 1.30 mg/dL [facility] Glucose 157 70 - 199 mg/dL [facility] Comment: Interpretive Data Fasting glucose >/= [...] classification and Diagnosis of Diabetes Diabetes Care 202; 46: S19-S40. Current interpretive data was last revised 2022. Calcium 8.3(L) 8.5 - 10.3 mg/dL [facility] Blood 12/11/2024 9:39 PM CDT 12/11/2024 9:39 PM CDT us Dre Cerna MD LAB BLOOD ORDERABLES Final Resul t [facility] [address] [place] [address] * POCT glucose (12/11/2024 6:26 PM CDT) Glucose, POC 189 70 - 199 mg/dL POC Performer [phone] [facility] Blood 12/11/2024 6:26 PM CDT 12/11/2024 6:26 PM CDT us Dre Cerna MD LAB POCT ORDERABLES - DEVICE Fin al Result [facility] [address] [place] [address] * XR Chest 1 View - in ICU (12/11/2024 5:06 PM CDT) Anatomical Region Laterality Modality Body, Chest N/A Computed Radiogr aphy 12/11/2024 5:47 PM CDT Impressions 12/11/2024 5:47 PM CDT Thoracostomy tube in the right apex with small postop right pneumothorax. Electronically signed by: Diane Russ M.D. Narrative 12/11/2024 5:47 PM CDT Examination: XR CHEST 1 VIEW Date: 12/11/2024 5:00 PM History: postop Comparison: 11/30/2024. Findings: Postoperative change of the middle lobe is seen with volume loss, ill-defined perihilar opacities, diaphragm elevation and thoracostomy tube in the right apex. A small right apical pneumothorax with 8 mm pleural separation is present. The left hemithorax is clear. Normal heart size and sternotomy is seen. Procedure Note Diane Russ MD - 12/11/2024 Examination: XR CHEST 1 VIEW Date: 12/11/2024 5:00 PM History: postop Comparison: 11/30/2024. Findings: Postoperative change of the middle lobe is seen with volume loss, ill-defined perihilar opacities, diaphragm elevation and thoracostomy tube in the right apex. A small right apical pneumothorax with 8 mm pleural separation is present. The left hemithorax is clear. Normal heart size and sternotomy is seen. IMPRESSION: Thoracostomy tube in the right apex with small postop right pneumothorax. Electronically signed by: Diane Russ M.D. Dre Cerna MD IMG XR PROCEDURES Final Result * Prepare RBC: 1 Units (12/11/2024 2:12 PM CDT) Product code [id number] Unit Number [id number] 7-I [facility] Product Blood Type OPOS [facility] Dispense Status RETURNED [facility] Blood 12/11/2024 2:12 PM CDT Narrative ASA - 12/12/2024 12:21 AM CDT Are special requirements needed? (All products are leukoreduced and CMV- safe)- >No Date required:-[id number] LRRBC # of Svroh-[id number] Reasons:-Intra-op transfusion} Dre Cerna MD BLOOD BANK PRODUCT ORDERABLES Fi nal Result [facility] [address] Department [place] [address] * [place] AN ELECTIVE ENDOTRACHEAL AIRWAY (12/11/2024 12:29 PM CDT) Narrative Inderjit Delgadillo AA - 12/11/2024 12:29 PM CDT Inderjit Delgadillo AA 12/11/2024 12:29 PM Airway Patient location: OR Urgency: elective Date/time: 12/11/2024 12:26 PM Indications for airway management: anesthesia Difficult airway: no Staff: Supervising provider: Candido Chapman DO Placed by: AA: Inderjit Delgadillo AA Emergent airway documentation: Risks and benefits discussed: yes Consent obtained: yes Consent given by: patient Airway prep: Preoxygenated: yes Patient position: sniffing Mask difficulty assessment: 1 - vent by mask Spontaneous ventilation during airway: absent Sedation level during airway: GA Final airway details: Final airway type: endotracheal airway Tube type: ETT - double lumen left ETT double lumen: 39 fr Cuffed: yes Technique used for successful ETT placement: video laryngoscopy Insertion site: oral Blade type: Sharri Video blade type: Garcia Blade size: 4 Cormack-Lehane (video): grade I - full view of glottis Cuff inflated with: air Placement verified by: auscultation and CO2 detection Airway secured with: silk tape Number of attempts: 1 us Inderjit SHEFFIELD ANESTHESIA ORDERABLES Fin al Result * Arterial Line (12/11/2024 12:28 PM CDT) Narrative Inderjit Delgadillo AA - 12/11/2024 12:28 PM CDT Inderjit Delgadillo AA 12/11/2024 12:29 PM Arterial Line Patient location: pre-op holding Indication: continuous blood pressure monitoring and blood sampling needed Ultrasound assisted: yes Staff: Supervising provider: Candido Chapman DO Placed by: AA: Inderjit Delgadillo AA Procedure prep: Prep solution: chlorhexadine/alcohol Prep: provider hat/mask and sterile gloves Skin infiltrated with lidocaine 1%: yes Arterial line: Catheter size: 20 gauge Catheter length: 1 and 3/4 inch Catheter type: wire-guided catheter Seldinger technique: yes Laterality: left Site: radial artery Line secured: Tegaderm and tape Results: good waveform and good blood return Number of attempts: 2 Assessment: Events: patient tolerated procedure well with no complications us Inderjit SHEFFIELD ANESTHESIA ORDERABLES Fin al Result * Peripheral IV Catheter (12/11/2024 12:28 PM CDT) Narrative Inderjit Delgadillo AA - 12/11/2024 12:28 PM CDT Inderjit Delgadillo AA 12/11/2024 12:28 PM Peripheral IV Catheter Patient location: OR Staff: Placed by: AA: nIderjit Delgadillo AA Preprocedure prep: Prep solution: alcohol PPE: gloves and provider hat/mask PIV line: Laterality: right Site: forearm Catheter size: 16 g Technique: direct visualization and anatomical landmarks Procedure details: good blood return Number of attempts: 1 Assessment: Events: patient tolerated procedure well with no complications us Inderjit SHEFFIELD ANESTHESIA ORDERABLES Fin al Result * Prepare RBC: 1 Units (12/11/2024 9:45 AM CDT) Product code [id number] Unit Number [id number] 5-V [facility] Product Blood Type OPOS [facility] Dispense Status RETURNED [facility] Blood 12/11/2024 9:45 AM CDT Narrative [facility] - 12/12/2024 12:21 AM CDT Specify Procedure:->robotic wedge resection Are special requirements needed? (All products are leukoreduced and CMV- safe)- >No Date required:-[id number] LRRBC # of Mumnd-1-Nmxpb Reasons:-Hold for procedure (specify procedure)} us Cherry Newby NP BLOOD BANK PRODUCT ORDERA BLES Final Result [facility] [address] Department [place] [address] * Surgical pathology (12/11/2024 9:26 AM CDT) Tissue specimen (specimen) (Lymph Node, Single excision) 12/11/2024 1:10 PM CDT Tissue specimen (specimen) (Lymph Node, Single excision) 12/11/2024 1:15 PM CDT Tissue specimen (specimen) (Lymph Node, Single excision) 12/11/2024 1:16 PM CDT Tissue specimen (specimen) (Lymph Node, Single excision) 12/11/2024 1:18 PM CDT Tissue specimen (specimen) (Lymph Node, Single excision) 12/11/2024 1:24 PM CDT Tissue specimen (specimen) (Lymph Node, Single excision) 12/11/2024 1:27 PM CDT Tissue specimen (specimen) (Lymph Node, Single excision) 12/11/2024 1:48 PM CDT Tissue specimen (specimen) (Lymph Node, Single excision) 12/11/2024 1:53 PM CDT Tissue specimen (specimen) (Lymph Node, Single excision) 12/11/2024 2:01 PM CDT Tissue specimen (specimen) (Lymph Node, Single excision) 12/11/2024 2:12 PM CDT Tissue specimen (specimen) (Lymph Node, Single excision) 12/11/2024 2:27 PM CDT Tissue specimen (specimen) (Lung, total / lobe / segmental, tumor) 12/11/2024 3:37 PM CDT Narrative PATHOLOGY CH - 12/16/2024 3:33 PM CDT EPIC results best viewed via link to PDF [facility] Department of Pathology [address] [place] [id number] Note to Patients: This report may contain a detailed description of human tissue sent by a health care provider to the laboratory for pathologic evaluation. The content of this report is essential for diagnosis and may provide important critical findings. This information may be unfamiliar to patients to review without a medical professional present. It is advised that the patient review this report in the presence of a health care provider who can answer questions and explain the details. Final Report with Addendum Patient Name: ADALGISA MEIRDA Address: [address] [place] [address] Gender: M : 1960 (Age: 63) Service: Cardiothoracic Location: Hospital #: [id number] Patient Type: [facility] Taken: 12/11/2024 Received: 12/14/2024 Accessioned: 12/14/2024 Reported: 12/16/2024 Physician(s):Niru Fernandez D.O. Dr. Nabil A. Munfakh, M.D. Diagnosis: A. Lymph node station 9 #1- Negative for malignancy B. Lymph node station 8 #1- Negative for malignancy C. Lymph node station 7 #1- Negative for malignancy D. Lymph node station 10 #1- Negative for malignancy E. Lymph node station 11 #1- Negative for malignancy F. Lymph node station 11 #2- Negative for malignancy G. Lymph node station 11 #3- Negative for malignancy H. Lymph node station 12 #1- Negative for malignancy I. Lymph node station 12 #2- Negative for malignancy J. Lymph node station 12 #3- Negative for malignancy K. Lymph node station 11 #4- Negative for malignancy L. 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 Report Electronically Reviewed and Signed Out By Kasia Andino M.D. 12/16/2024 15:33:03 Procedure/Addenda: Addendum Addendum Comment The external consult report from [facility] ([id number]) has been finalized and is attached. For the loss control consultant s comment, please see scanned image of report or the report can be viewed in the Electronic Medical Record of the patient. If access to the EMR is not available, please call pathology for a hard copy of the report ([phone]). 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 See comment. Kasia Andino M.D.Report Electronically Reviewed and Signed Out By Kasia Andino M.D. 12/29/2024 15:28:15 Archive Tissue Molecular Test Addendum Comment A request for Molecular Archival Tissue Testing was received, which is to be performed on tissue from the attached case. The associated original pathology report, slides, and blocks were retrieved from archives. The pathologist (whose signature appears below) reviewed the original pathology report, examined the H&E slides, and selected the appropriate block(s) for the specifications of the ordered molecular analysis. Materials were forwarded to [facility] where the testing will be performed.. Note: Refer to scanned physician request. Kasia Andino M.D.Report Electronically Reviewed and Signed Out By Kasia Andino M.D. 01/08/2025 09:58:29 Specimen(s) Received: A: Lymph node station 9 #1 B: Lymph node station 8 #1 C: Lymph node station 7 #1 D: Lymph node station 10 #1 E: Lymph node station 11 #1 F: Lymph node station 11 #2 G: Lymph node station 11 #3 H: Lymph node station 12 #1 I: Lymph node station 12 #2 J: Lymph node station 12 #3 K: Lymph node station 11 #4 L: FS1 - Right middle lobe freeze lesion Intraoperative Diagnosis: Lung - 9.5 x 10.3 x 3.9cm Lesion - 11 x 11mm Freeze the lesion Findings - Positive for malignancy, conveyed to Dr. Cerna, via telephone at 15:50pm Kasia Andino, M.D. Microscopic Description: All separately submitted lymph nodes are negative for metastatic carcinoma (0/11). The right middle lobe lobectomy specimen demonstrates a highly cellular spindle cell neoplasm showing moderate to focally marked nuclear pleomorphism, abundant mitotic activity including occasional atypical mitotic figures and foci of geographic necrosis. The lesion extends through the surrounding pleural surface. The bronchovascular margins negative including an adjacent benign lymph node. 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 Slides are not available for review. An extensive panel of IHC stains with appropriate controls show tumor positivity for CD68 and CD10 with slight scattered positivity for S100. Staining appears negative for ANTHONY, HMB45, Melan-A, P63, SMM-HWC, SMA, GFAP, AE1/AE 3, cam 5.2, CD117, CK7, CK20, TTF-1, Napsin a and SOX10. In summary, submitted material demonstrates a pleomorphic spindle cell neoplasm with prominent mitotic activity, atypia and geographic necrosis, consistent with a pleomorphic sarcoma. This case will be submitted for outside consultation with results to follow in an addendum. Dr. Rob has reviewed this case and concurs with the interpretation. This case was discussed with Dr. Cerna by Dr. Andino on today's date. Clinical History: Nodule of middle lobe of right lung Procedure: XI robotic thoracic right midle lobectomy Gross Description: The specimen is submitted in twelve containers labeled ADALGISA BOWERONY . A. The first container is labeled lymph node station 9 #1 . Is a meade-acevedo lymph node measuring 9 mm. Entirely in A. B. The second container is labeled lymph node station 8 #1 . It is a meade-acevedo lymph node measuring 9 mm. Entirely in B. C. The third container is labeled lymph node station 7 #1 . It is a meade-acevedo lymph node measuring 5 mm. Entirely in C. D. The fourth container is labeled lymph node station 10 #1 . It is 1 meade-acevedo lymph node measuring 4 mm. Entirely in D. E. The fifth container is labeled lymph node station 11 #1 . It is 1 meade-acevedo lymph node measuring 2 cm. Entirely in E. F. The sixth container is labeled lymph node station 11 #2 . It is 1 meade-acevedo lymph node measuring 6 mm. Entirely in F. G. The seventh container is labeled lymph node station 11 #3 . It is 1 meade-acevedo lymph node measuring 5 mm. Entirely in G. H. The eighth container is labeled lymph node station 12 #1 . It is 1 meade-acevedo lymph node measuring 3 mm. Entirely in H. I. The ninth container is labeled lymph node station 12 #2 . It is 1 meade-acevedo lymph node measuring 9 mm. Entirely in I. J. The tenth container is labeled lymph node station 12 #3 . It is 1 meade-acevedo lymph node measuring 2 mm. Entirely in J. K. The eleventh container is labeled lymph node station 11 #4 . It is to meade-acevedo lymph node fragments measuring 1.0 and 1.5 cm. Entirely in K. L. The twelfth container is labeled right middle lobe . Received fresh for frozen is a wedge-shaped piece of lung that measures 9.5 x 10.3 x 3.9 cm. The pleural surface is red-acevedo with adhesions and an area of puckering. Deep to the puckering is a acevedo lesion measuring 1.6 x 1.1 x 0.9 cm. It is located at least 4.5 cm from the staple line margin. The surrounding lung is dark red and spongy and without additional lesions. A portion of the lesion is submitted for frozen section evaluation with the tissue embedded in cassette L1. Senior Chemist sections are submitted: Tumor with pleura L2 through L4, staple line margin that includes vessels and bronchus L5, random lung L6 and L7 Odell Ceja R.N., P.A./Kasia Andino M.D. REPORT IMAGES AND SCANNED DOCUMENTS, IF INCLUDED, ONLY VIEWABLE IN PDF VERSION OF REPORT The performance characteristics of some immunohistochemical stains, fluorescence in-situ hybridization tests and immunophenotyping by flow cytometry cited in this report (if any) were determined by the Surgical Pathology Department at [facility] as part of an ongoing auditor/quality program and in compliance with federally mandated regulations drawn from the Clinical Laboratory Improvement Act of 1988 (CLIA '88). Some of these tests rely on the use of analyte specific reagents and are subject to specific labeling requirements by the US Food and Drug Administration. Such diagnostic tests may only be performed in a facility that is certified by the Department of Health and Human Services as a high complexity laboratory under CLIA '88. The FDA has determined that such clearance or approval is not necessary. This test is used for clinical purposes. It should not be regarded as investigational or for research. Nevertheless, federal rules concerning the medical use of analyte specific reagents require that the following disclaimer be attached to the report: This test was developed and its performance characteristics determined by the Surgical Pathology Department [facility]. It has not been cleared or approved by the U. S. Food and Drug Administration. Note for decalcified specimens: This assay has not been validated on decalcified tissues. Results should be interpreted with caution given the possibility of false negativity on decalcified specimens us Dre Cerna MD LAB PATHOLOGY ORDERABLES Final R esult Performing Organization Address [facility] de Phone Number PATHOLOGY [address] [place] [address] * - Miscellaneous Lab Test (12/11/2024 12:00 AM CDT) Pathologist [facility] lab See Comment Comment:see scanned report Miscellaneous 12/11/2024 12/31/2024 9:40 AM CDT Narrative [facility] - 12/31/2024 9:41 AM CDT [id number] us Dre Cerna MD LAB BLOOD ORDERABLES Final Resul t Performing Organization Address [facility] de Phone Number [facility] [address] Department [place] [address] * CT Body Outside Reference (12/03/2024 6:53 PM CDT) Impressions RAD_PACS_[facility] - 12/03/2024 6:53 PM CDT These images are for Reference purposes only and have not been reviewed by [facility] Radiology. There will be no report generated by a [facility] Radiologist. Narrative [facility] - 12/03/2024 6:53 PM CDT EXAMINATION: Images For Reference Purposes Only us Dre Cerna MD IMG CT PROCEDURES Final Result Performing Organization Address [facility] de Phone Number [email or web address] * ECG 12 lead (11/30/2024 1:25 PM CDT) 11/30/2024 1:25 PM CDT Narrative [facility] - 11/30/2024 1:41 PM CDT Vent Rate: 60 bpm RR Interval: 999 msec MO Interval: 119 msec QRS Duration: 87 msec QT Interval: 396 msec QTC Interval: 396 msec P-R-T [place]: 34 - -14 - -18 degrees IMPRESSION: SINUS RHYTHM WITH SHORT MO INTERVAL BORDERLINE ECG Electronically Signed By: Emilie Vance MD us Shayla Goff NP ECG ORDERABLES Final Result [facility] * XR Chest PA Lateral 2 Views [...] pulmonary vascularity are normal. Procedure Note Ho Prtety MD - 11/30/2024 EXAMINATION: XR CHEST PA LATERAL 2 VIEWS DATE: 11/30/2024 1:05 PM HISTORY: lung nodule, pre-op FINDINGS: Sternal wires indicate prior cardiac surgery. There is no infiltrate, effusion or pneumothorax. Heart size, mediastinum and pulmonary vascularity are normal. IMPRESSION: No active disease. Electronically signed by: Ho Pretty M.D. us Shayla Goff [employer] IMG XR PROCEDURES Final Result * eGFR [...] LAB BLOOD ORDERABLES Final Res ult [facility] [address] Department [place] [address] * Differential, auto (11/30/2024 1:03 PM CDT) Pathologist [facility] Neutrophil abs 4.6 1.5 - 6.5 K/cumm [...] revised on 2017. Lymphocyte pct 22.2 % C[facility]ER Comment: Interpretive Data Percent cell [...] 1:03 PM CDT 11/30/2024 1:17 PM CDT us Shayla Goff [employer] LAB BLOOD ORDERABLES Final Res ult [facility] [address] Department [place] [address] * Urinalysis reflex to microscopic and culture Urine, clean voided (11/30/2024 1:03 PM CDT) Color, ur Yellow Yellow Clarity, ur Clear Clear [facility] Specific gravity, ur 1.017 1.003 - 1.030 [facility] pH, urine 6.5 [facility] Comment: Interpretive Data U rine pH is affected by diet, medications, systemic acid-base disturbances, and renal tubular function. pH may affect urinary stone formation. For example, urine pH below 6.0 may help reduce the tendency for calcium phosphate stones and pH greater than 6.0 may reduce the tendency for uric acid stone formation. Source: [facility] Current Interpretive Data was last revised on [...] for microscopic UA and culture not met. [facility] Urine, clean voided 11/30/2024 1:03 PM CDT 11/30/2024 2:06 PM CDT us Shayla Goff [employer] LAB MICROBIOLOGY - GENERAL ORD ERABLES Final Result [facility] [address] Department [place] [address] * CBC with auto differential (11/30/2024 1:03 PM CDT) WBC 7.2 3.8 - 9.9 K/cumm Hgb 14.4 13.0 - 17.5 g/dL [facility] Hct 42.7 38.9 - 50.3 % CERNER Plt 191 150 - 400 K/cumm [facility] MPV 10.1 9.1 - 12.3 fL [facility] RBC 4.72 4.30 - 5.80 M/cumm [facility] MCV 90.5 81.3 - 96.4 fL [facility] MCH 30.5 27.1 - 33.3 pg [facility]ERNER MCHC 33.7 32.3 - 35.7 g/dL [facility] CH RDW CV 12.2 11.1 - 14.9 % CERNER CH RDW SD 40.3 35.7 - 48.1 fL [facility] NRBC abs 0.00 0.00 - 0.01 K/cumm [facility] Blood 11/30/2024 1:03 PM CDT 11/30/2024 1:17 PM CDT Shayla Goff [employer] LAB BLOOD ORDERABLES Final Res ult Performing Organization Address [facility] Co de Phone Number [facility]SA BE[facility] [address] [address] [facility] [place] [address] * aPTT (11/30/2024 1:03 PM CDT) aPTT [...] ORDERABLES Final Res ult Performing Organization Address [facility] de Phone Number ASA BELLO [address] [facility] [place] [address] * Protime-INR (11/30/2024 1:03 PM CDT) PT [...] ORDERABLES Final Res ult Performing Organization Address [facility] Co de Phone Number ASA BELLO [address] [facility] [place] [address] * Type and screen (11/30/2024 1:03 PM CDT) Jacek, indirect Negative ABO Rh O Positive [facility] CH Blood 11/30/2024 1:03 PM CDT 11/30/2024 1:21 PM CDT Narrative [facility] CH - 11/30/2024 2:04 PM CDT Is this test being ordered in advance for a procedure?->Yes Expected date of procedure:->12/11/24 Has the patient been transfused in the past 3 months?->Unknown Shayla Goff [employer] LAB BLOOD BANK TEST ORDERABLES Final Result [facility] [address] Department [place] [address] * Basic metabolic panel (11/30/2024 1:03 PM CDT) Sodium 140 135 - 145 mmol/L Potassium, pl 4.3 3.3 - 4.9 mmol/L C[facility] Chloride 105 97 - 110 mmol/L [facility] CH CO2 24 22 - 32 mmol/L [facility] CH Anion gap 11 2 - 15 mmol/L [facility] BUN 18 6 - 25 mg/dL [facility] Creatinine 1.00 0.80 - 1.30 mg/dL [facility] Glucose 75 70 - 199 mg/dL [facility] Comment: Interpretive Data Fasting glucose >/= 126 [...] 2022. Calcium 9.7 8.5 - 10.3 mg/dL [facility] Blood 11/30/2024 1:03 PM CDT 11/30/2024 1:16 PM CDT us Shayla Goff [employer] LAB BLOOD ORDERABLES Final Res ult [facility]SA [facility] [address] [place] [address] * PET Outside Consult (11/02/2024 12:15 PM [employer]ENTER [employer]ICE [employer]OCIATE) Anatomical Region Laterality Modality N/A Nuclear Medicine 11/02/2024 3:25 PM CENTER [employer] SERVICE [employer]OCIATE Impressions 11/02/2024 3:58 PM [employer]ENTER [employer] SERVICE ASSOCIATE 1. Indeterminant right middle lobe pulmonary nodule. [...] images may or may not represent the [employer] [place] [employer] source data set and thus may contain changes that may lower the accuracy of this second-opinion interpretation. Dictated by: Larry Corral MD The radiology attending physician has personally reviewed this study, and had reviewed and/or edited this written report and agrees with it. Electronically signed by: Antony Rodas DO Narrative 11/02/2024 3:58 PM CENTER [employer] SERVICE ASSOCIATE EXAMINATION: RADIOLOGY CONSULTATION ON OUTSIDE IMAGING STUDY . STUDY INITIALLY PERFORMED: 10/13/2024, images acquired at [facility]. TYPE OF STUDY: FDG-PET/CT. The images available for review consisted of axial attenuation-corrected and uncorrected PET images and axial CT images. The total scanned area was skull base to the proximal thighs. The mean liver SUV (reported for quality assurance calibrator purposes) is 3.8. The study was interpreted on the [employer] workstation. The protocol was adequate to address [...] STUDY INITIALLY PERFORMED: 10/13/2024, images acquired at [facility]. TYPE OF STUDY: FDG-PET/CT. The images available for review consisted of axial attenuation-corrected and uncorrected PET images and axial CT images. The total scanned area was skull base to the proximal thighs. The mean liver SUV (reported for quality assurance calibrator purposes) is 3.8. The study was interpreted on the [employer] workstation. The protocol was adequate to address [...] images may or may not represent the [place] source data set and thus may contain changes that may lower the accuracy of this second-opinion interpretation. Dictated by: Larry Corral MD The radiology attending physician has personally reviewed this study, and had reviewed and/or edited this written report and agrees with it. Electronically signed by: Antony Rodas DO us Dre Cerna MD IMG PET PROCEDURES Final Result * PET Outside Reference (10/19/2024 5:00 PM CENTER SALES [employer] SERVICE ASSOCIATE) Impressions RAD_PACS_[facility] - 10/19/2024 5:00 PM CENTER SALES AND SERVICE ASSOCIATE These images are for Reference purposes only and have not been reviewed by [facility] Radiology. There will be no report generated by a [facility] Radiologist. Narrative [facility] - 10/19/2024 5:00 PM CENTER SALES AND SERVICE ASSOCIATE EXAMINATION: Images For Reference Purposes Only us Dre Cerna MD IMG PET PROCEDURES Final Result RAD_PACS_[facility] from Last 3 Months Insurance [facility] Member Subscriber Plan / Payer (Ef fective 2012-Present) Name:Adalgisa Merida Octavia Relation to Subscriber:Self Name:KedarAdalgisa harris Payer ID:[id number] ([facility]) Type:[facility] HMO/PPO Address: [address] Advance Directives For more information, please contact: [phone] * Full Code (Latest Code Status on File) Date Activated Date Inactivated Comments 12/11/2024 6:31 PM 12/15/2024 3:57 PM * Full Code Date Activated Date Inactivated Comments 03/16/2024 4:36 PM 03/21/2024 3:59 PM * Full Code Date Activated Date Inactivated Comments 01/28/2022 9:19 PM 02/05/2022 5:17 PM Care Teams Hat Sizer Relationship Specialty Start Date End Date Crystal Mir MD [address] [place] [address] PCP - General Medical Oncology 12/30/24 Gabe George DO [address] [address] Internal Medicine 12/30/24 Gabe George DO [address] [address] Internal Medicine 12/30/24 Ian Michel MD [address] [place] [address] [place] [address] Dermatology 02/10/23 Parul Baldwin MD [address] [facility] [address] [place] [address] Referring Physician Dermatology 02/10/23 Felix Sher MD [facility] [facility] [address], [place] [address] Consulting Physician Cardiology 10/21/24 Dre Cerna MD [address] [facility] [id number] [place] [address] Surgeon Thoracic Surgery 12/15/24
--- OUTSIDE RECORDS SUMMARY | 2025-01-15 12:02 | XMS_ITS | Clinical Summary ---
Author Organization [facility] Address [address] [place] [address] Care Team Providers Care Primer Charger Name Role Phone Ariel, Gabe Unavailable Gabe George DO Unavailable Ian Michel MD Unavailable [phone] Parul Baldwin MD Unavailable [phone] Felix Sher MD Unavailable [phone] Dre Cerna MD Unavailable Crystal Mir MD Primary Care Provider [phone] Allergies Active Allergy Reactions Criticality Noted Date [...] showed interval changes of parietal scalp mass human resources 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 and Gerardo thus Hancock flap reconstruction [...] graft) 03/05/20 Coronary artery disease invo lving [place] coronary artery of [place] heart without angina pectoris 01/28/2022 Overview (01/29/2022): Added automatically from request for surgery [id number] ST elevation myocardial infa rction involving right coronary artery Encounters Date Type Department Care Team Description 01/14/2025 Orders Only [facility] [address] [place] [address] Dre Cerna MD Lung nodule 01/13/2025 2:00 PM CDT Clinical Support [place] [id number] [facility] 1st [place] [phone] Halina Ocasio, PhD Anxiety in cancer patient 01/07/2025 1:00 PM CDT Office Visit [facility] Oncology [address] 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 9:30 AM CDT Office Visit [facility] Physicians [facility] Surgery [address] [facility] [address] [place] [address] Dre Cerna MD Lung nodule (Primary Dx) 01/07/2025 8:58 AM CDT - 01/07/2025 11:59 PM CDT Hospital Encounter [facility] MOB 1 DIAG IMG [address] [place] [address] Lung nodule Discharge Disposition: Discharge to home or self care 12/30/2024 Telephone [facility] [address] [place] [address] Amara Dhaliwal, RN Internet Request 12/29/2024 Telephone [facility] COTA Work [place] [address] [place] [address] Fouzia Hamilton LCSW 12/29/2024 Orders Only [facility] Surgery [address] [facility] [address] [place] [address] Dre Cerna MD Lung nodule (Primary Dx) 12/29/2024 Orders Only [facility] Surgery [address] [facility] Floor 5 [place] [phone] Radha Riley NP Stress and adjustment reaction (Primary Dx) 12/29/2024 Telephone [facility] Surgery [address] [facility] Floor 5 [place] [address] Radha Riley NP 12/29/2024 Orders Only [facility] Surgery [facility] [facility] Floor 5 [place] [address] Radha Riley NP Pleomorphic dermal sarcoma (Primary Dx) 2024 Orders Only [facility] Surgery [address] [facility] Floor 5 [place] [address] Radha Riley NP Nerve pain (Primary Dx) 2024 Telephone [facility] Cardiothoracic Surgery Counts include 234 beds at the [facility] 8th Floor [address] Room [address] [address] Daphnie Agrawal 12/27/2024 12:13 PM CDT - 12/27/2024 2:31 PM CDT Emergency [facility] Department 1 [place] [address] Narciso Delgadillo MD Post-operative pain (Primary Dx) Discharge Disposition: Discharge to home or self care 12/27/2024 Telephone [facility] Surgeon 1 [place] [address] Ana Blank MD Pain (Pain at incision site, new abdominal pain ) 12/24/2024 11:15 AM CDT Office Visit [facility] Surgery [facility] [facility] [address] [place] [address] Dre Cerna MD Lung nodule (Primary Dx) 12/24/2024 10:46 AM CDT - 12/24/2024 11:59 PM CDT Hospital [facility] MOB 1 DIAG IMG [facility] [place] [address] Lung nodule Discharge Disposition: Discharge to home or self care 12/17/2024 [facility] Post Discharge Follow up phone call [address] [address] Rosalee Gerardo 12/17/2024 [facility] Post Discharge Follow up phone call [address] [address] Karla Romo RN 12/15/2024 Orders Only [facility] Surgery [address] [facility] [address] [place] [phone] Ian Cardenas NP 12/11/2024 12:17 PM CDT Anesthesia Event [facility] Operating Room [address] [place] [address] Kevan Torrez MD Tadros, Hany B., MD 12/11/2024 12:00 PM CDT - 12/11/2024 4:00 PM CDT Surgery [facility] Operating Room [address] [place] [address] Dre Cerna MD XI ROBOTIC THORACIC RIGHT MIDDLE LOBECTOMY [39009 (CPT )] 12/11/2024 9:39 AM CDT - 12/15/2024 11:57 AM CDT Hospital Encounter [address] [address] Dre Cerna MD Nodule of middle lobe of right lung Discharge Disposition: Discharge to home or self care 12/04/2024 Telephone [facility] Surgery [address] [facility] Floor 5 [place] [address] Radha Riley NP 12/03/2024 6:53 PM CDT - 12/03/2024 11:59 PM CDT Hospital Encounter [facility] [address] [place] [id number] Discharge Disposition: Discharge to home or self care 11/30/2024 1:03 PM CDT - 11/30/2024 11:59 PM CDT Hospital Encounter [facility] Diagnostic Imaging [address] [place] [address] Discharge Disposition: Discharge to home or self care 11/30/2024 12:15 PM CDT Pre-Admission Testing [facility] Pre Anesthesia Testing [address] [place] [address] Preoperative testing (Primary Dx) 11/30/2024 Orders Only [facility] Surgery [address] [facility] Floor 5 [place] [phone] Radha Riley NP Gingivitis (Primary Dx) 11/20/2024 Telephone [facility] Surgery [address] [place] [address] [place] [phone] Patt Riley [facility] 11/19/2024 Telephone [facility] Surgery [address] [place] [address] [place] [phone] Patt Riley RMA 11/13/2024 Orders Only [facility] Surgery [address] [place] [address] [place] [phone] Dre Cerna MD Lung nodule (Primary Dx) 11/13/2024 Orders Only [facility] Surgery [address] [place] [phone] Cori Carpenter 11/02/2024 12:15 PM BUS PERSON DISHWASHER - 11/02/2024 11:59 PM BUS PERSON DISHWASHER Hospital Encounter [facility] [address] [place] [address] Diagnosis unknown Discharge Disposition: Discharge to home or self care 10/22/2024 Orders Only [facility] Surgery [address] [place] [address] [place] [phone] Dre Cerna MD Lung nodule (Primary Dx) 10/22/2024 Telephone [facility] Surgery [address] [place] [address] [place] [phone] Patt Riley, RMMarjorie 10/20/2024 11:45 AM BUS PERSON DISHWASHER Office Visit [facility] Surgery [address] [place] [phone] Dre Cerna MD Lung nodule (Primary Dx) 10/19/2024 5:00 PM BUS PERSON DISHWASHER - 10/19/2024 11:59 PM BUS PERSON DISHWASHER Hospital Encounter [facility] [address] [place], [place] [phone] Discharge Disposition: Discharge to home or self care from Last 3 Months Surgical History Surgery Date Site/Laterality Comments CORONARY ARTERY BYPASS GRAFT [id number] double bypass HERNIA REPAIR 2016 x2, 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 HIP ARTHROPLASTY 09/23/2021 - 09/22/2022 Right COLONOSCOPY TONSILLECTOMY AND ADENOIDECTOMY CATARACT EXTRACTION Bilateral JOINT REPLACEMENT [id number] Medical History Medical History Date Comments Arthritis Sleep apnea History of transfusion Coronary artery disease PONV (postoperative nausea a nd vomiting) scopolamine patch has been h elpful in past Myocardial infarction (HCC) STEM I Atrial fibrillation (HCC) postop erative afib Postoperative atrial fibrill ation (HCC) Hyperlipidemia 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 Nodule of middle lobe of right lung GERD (gastroesophageal reflux disease) Kidney stone patient-reported Anxiety 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 Family History Medical History Relation Name Comments Heart attack Father George merida Arthritis Mother Leanna merida Depression Mother Leanna merida Anesthesia problems Neg Hx Relation Name Status Comments Father George merida Mother Leanna merida Social History Tobacco Use Types Packs/Day Years [...] on file Legal Sex Male 7:35 PM BUS PERSON DISHWASHER Gender Identity Not on file Sexual Orientation [...] 01/07/2025 9:26 AM CDT Plan of Treatment Health Maintenance Due Date Last Done Comments Colon Cancer Screening-Colonoscopy 1961 Depression Screening 1961 Hepatitis C Screening 1961 Prostate Cancer Screening-PSA 1961 Hepatitis B Screening 12/29/1979 Regular Well Visit/Exam 18-64 12/29/1979 Pneumococcal vaccine <65 (1 of 2 - PCV) 1980 Zoster Vaccine (1 of 2) 1980 Covid-19 Vaccine ( season) 2024 06/30/2021, 09/30/2020, 09/09/2020 Influenza Vaccine (Season Ended) 2025 DTaP/Tdap/Td Vaccine (2 - Td or Tdap) 04/12/2031 Medical Devices Implanted Type Area Electrical Tech Device Identifier Shelf Expiration Date Model / Serial / Lot [employer] Luly Blackmon Microvascular 3mm Ring Pin Protective Cover Jaw Assembly Latex Free [id number] - [id number] Implanted:Qty: 1 on 03/16/2024 by Minh Orozco MD at [facility] [place] [employer] [place] Luly [id number] 01/08/2028 [id number] / / [id number] Procedures Procedure Name Priority Date/Time Associated Diagnosis [...] PREPARE RBC STAT 12/11/2024 2:12 PM CDT ID AN ELECTIVE ENDOTRACHEAL AIRWAY Routine 12/11/2024 12:29 PM CDT ANESTHESIA ARTERIAL LINE PLACEMENT Routine 12/11/2024 12:28 PM CDT PERIPHERAL LINE Routine 12/11/2024 12:28 PM CDT ID THORACOSCOPY W/DX BX OF LUNG INFILTRATE UNILATRL [...] OUTSIDE CONSULT Routine 11/02/2024 1 2:15 PM BUS PERSON DISHWASHER Diagnosis unknown PET OUTSIDE REFERENCE Routine 10/19/2024 5:00 PM BUS PERSON DISHWASHER from Last 3 Months Results * X-ray [...] Pranay Grace M.D. ANANT: ANANT Report ID: [id number] Reading Location: [id number] Procedure Note Wilian Grace MD - 01/13/2025 [...] Pranay Grace M.D. ANANT: ANANT Report ID: [id number] Reading Location: [id number] Dre Cerna MD IMG XR PROCEDURES Final Result * Sepsis Lactate w/ Reflex (12/27/2024 1:04 PM CDT) Sepsis Lactate 1.3 0.7 - 2.0 mmol/L Blood 12/27/2024 1:04 PM CDT 12/27/2024 1:07 PM CDT us Osvaldo Wu MD LAB BLOOD ORDERABLES Final R esult [facility] [place]) 1 [facility] [place] [address] * CT Chest W Contrast (12/27/2024 12:50 [...] Recent guidelines by the Fleischner Society (Radiology 354896,2017) divides patient into low vs. high risk [...] immunosuppression, or patients with known primary cancer. http://pubs.rsna.org/doi/pdf/10.1148/radiol.9443813786 THIS IS AN ELECTRONICALLY VERIFIED FINAL REPORT 12/27/2024 1:03 PM - Electronically signed by Damian Dorsey D.O. PS: PS Report ID: [id number] Reading Location: [id number] Procedure Note Damian Dorsey, DO - 12/27/2024 EXAM DESCRIPTION: CT CHEST [...] Recent guidelines by the Fleischner Society (Radiology 312826,2017)divides patient into low vs. high risk (for [...] immunosuppression, or patients with known primary cancer. http://pubs.rsna.org/doi/pdf/10.1148/radiol.5910378162 THIS IS AN ELECTRONICALLY VERIFIED FINAL REPORT 12/27/2024 1:03 PM - Electronically signed by Damian Dorsey D.O. PS: PS Report ID: [id number] Reading Location: [place] [address] Maryam Medina PA IMG CT PROCEDURES Final Result * XR Chest [...] Damian Dorsey D.O. PS: PS Report ID: [id number] Reading Location: [id number] Procedure Note Damian Dorsey DO - 12/27/2024 [...] Damian Dorsey D.O. PS: PS Report ID: [id number] Reading Location: [place] [address] Narciso Delgadillo MD IMG XR PROCEDURES Final Resu lt * (ABNORMAL) Sepsis Lactate w/ Reflex (12/27/2024 10:10 AM CDT) Pathologist [facility] Sepsis Lactate 2.3(H) 0.7 - 2.0 mmol/L Blood 12/27/2024 10:1 0 AM CDT 12/27/2024 10:41 AM CDT Narciso Delgadillo MD LAB BLOOD ORDERABLES Final R esult [facility] [place]) 9 [facility] [place] [address] * eGFR (12/27/2024 10:10 AM CDT) eGFR [...] BLOOD ORDERABLES Final R esult [facility] ([place]) 1 [facility] [place] [address] * (ABNORMAL) Differential, auto (12/27/2024 10:10 AM [...] Imm gran pct 0.6 % [facility] ([place]) Comment: Interpretive Data Percent cell count reference [...] LAB BLOOD ORDERABLES Final R esult [facility] ([place]) 1 [facility] [place] [address] * (ABNORMAL) CBC with auto differential (12/27/2024 10:10 AM CDT) WBC 12.42(H) 3.80 - 9.90 K/cumm Hgb 15.3 13.0 - 17.5 g/dL [facility] ([place]) Hct 45.1 38.9 - 50.3 % [facility] ([place]) Plt 427(H) 150 - 400 K/cumm [facility] ([place]) MPV 9.7 9.1 - 12.3 fL [facility] ([place]) RBC 4.95 4.30 - 5.80 M/cumm [facility] ([place]) MCV 91.1 81.3 - 96.4 fL [facility] ([place]) MCH 30.9 27.1 - 33.3 pg [facility] ([place]) MCHC 33.9 32.3 - 35.7 g/dL [facility] ([place]) RDW CV 13.0 11.1 - 14.9 % [facility] ([place]) RDW SD 42.8 35.7 - 48.1 fL [facility] ([place]) NRBC abs 0.00 0.00 - 0.01 K/cumm [facility] ([place]) Blood 12/27/2024 10:1 0 AM CDT 12/27/2024 10:41 AM CDT Narciso Delgadillo MD LAB BLOOD ORDERABLES Final R esult [facility] ([place]) 1 [facility] [place] [address] * Comprehensive metabolic panel (12/27/2024 10:10 AM CDT) Sodium 135 135 - 145 mmol/L Potassium, pl 4.3 3.3 - 4.9 mmol/L [facility] ([place]) Chloride 98 97 - 110 mmol/L [facility] ([place]) CO2 25 22 - 32 mmol/L [facility] ([place]) Anion gap 12 2 - 15 mmol/L [facility] ([place]) BUN 18 6 - 25 mg/dL [facility] ([place]) Creatinine 1.19 0.80 - 1.30 mg/dL [facility] ([place]) Glucose 109 70 - 199 mg/dL [facility] ([place]) Comment: Interpretive Data Fasting glucose >/= [...] Final R esult [facility] ([place]) 1 [facility] [place] [address] * X-ray chest 2 views (12/24/2024 10:49 [...] signed by Yeison GIBBS: SAI Report ID: [id number] Reading Location: [id number] Procedure Note Yeison Davenport MD - 01/02/2025 [...] 2:46 PM - Electronically signed by Yeison Davenport M.D. KH: SAI Report ID: [id number] Reading Location: [id number] Dre Cerna MD IMG XR PROCEDURES Final [...] pneumothorax. Electronically signed by: Bhavik Huffman M.D. us Dre Cerna MD IMG XR [...] of Race in Diagnosing Kidney Disease, JASN 202). The CKD-EPI equation should not be used for patients with unstable renal function and has not been validated in children and those over 70. Current interpretive data was last reviewed 2021. Blood 12/15/2024 3:50 AM CDT 12/15/2024 4:13 AM CDT us Cherry Newby PAPER STEAMER LAB BLOOD ORDERABLES [place] Result [facility] [address] Department [place] [address] * (ABNORMAL) Differential, auto (12/15/2024 3:50 AM CDT) Neutrophil abs 6.8(H) 1.5 - 6.5 K/cumm Imm gran abs 0.1 0.0 - 0.1 K/cumm [facility] Lymphocyte abs 1.2 0.8 - 3.3 K/cumm [facility] Monocyte abs 1.0(H) 0.2 - 0.8 K/cumm [facility] Eosinophil abs 0.6(H) 0.0 - 0.5 K/cumm [facility] Basophil abs 0.0 0.0 - 0.1 K/cumm [facility] Neutrophil pct 70.4 % [facility] Comment: Interpretive Data Percent cell count reference ranges are not reported, since discordance with absolute values may lead to misinterpretation of CBC data. Current Interpretive Data was last revised on 2017. Imm gran pct 0.7 % [facility] Comment: Interpretive Data Percent cell count reference ranges are not reported, since discordance with absolute values may lead to misinterpretation of CBC data. Current Interpretive Data was last revised on 2017. Lymphocyte pct 12.4 % [facility] Comment: Interpretive Data Percent cell count reference ranges are not reported, since discordance with absolute values may lead to misinterpretation of CBC data. Current Interpretive Data was last revised on 2017. Monocyte pct 10.4 % [facility] Comment: Interpretive Data Percent cell count reference ranges are not reported, since discordance with absolute values may lead to misinterpretation of CBC data. Current Interpretive Data was last revised on 2017. Eosinophil pct 5.7 % [facility] Comment: Interpretive Data Percent cell count reference ranges are not reported, since discordance with absolute values may lead to misinterpretation of CBC data. Current Interpretive Data was last revised on 2017. Basophil pct 0.4 % [facility] Comment: Interpretive Data Percent cell count reference ranges are not reported, since discordance with absolute values may lead to misinterpretation of CBC data. Current Interpretive Data was last revised on 2017. Blood 12/15/2024 3:50 AM CDT 12/15/2024 4:12 AM CDT Cherry Newby PAPER STE[employer]ER LAB BLOOD ORDERABLES [place] Result Performing Organization Address [facility]/ZIP Co de Phone Number ASA BELL[facility] [address] Department [place] [address] * (ABNORMAL) CBC with auto differential (12/15/2024 3:50 AM CDT) WBC 9.7 3.8 - 9.9 K/cumm Hgb 12.3(L) 13.0 - 17.5 g/dL [facility] Hct 34.7(L) 38.9 - 50.3 % [facility] Plt 164 150 - 400 K/cumm [facility] MPV 10.2 9.1 - 12.3 fL [facility] RBC 3.87(L) 4.30 - 5.80 M/cumm [facility] MCV 89.7 81.3 - 96.4 fL [facility] MCH 31.8 27.1 - 33.3 pg [facility] MCHC 35.4 32.3 - 35.7 g/dL [facility] RDW CV 13.2 11.1 - 14.9 % [facility] RDW SD 43.3 35.7 - 48.1 fL [facility] NRBC abs 0.00 0.00 - 0.01 K/cumm [facility] Blood 12/15/2024 3:50 AM CDT 12/15/2024 4:12 AM CDT Cherry Newby PAPER STE[employer]ER LAB BLOOD ORDERABLES [place] Result Performing Organization Address City/[facility]/ZIP Co de Phone Number ASA BELLO [address] Department [place] [address] * Basic metabolic panel (12/15/2024 3:50 AM CDT) Sodium 139 135 - 145 mmol/L Potassium, pl 4.4 3.3 - 4.9 mmol/L [facility] Chloride 108 97 - 110 mmol/L [facility] CO2 23 22 - 32 mmol/L [facility] Anion gap 8 2 - 15 mmol/L [facility] BUN 18 6 - 25 mg/dL [facility] Creatinine 0.86 0.80 - 1.30 mg/dL [facility] Glucose 100 70 - 199 mg/dL [facility] Comment: Interpretive Data Fasting glucose >/= [...] 2022. Calcium 9.0 8.5 - 10.3 mg/dL [facility] Blood 12/15/2024 3:50 AM CDT 12/15/2024 4:13 AM CDT us Cherry Newby NP LAB BLOOD ORDERABLES [place] Result [facility] [address] Department [place] [address] * eGFR (12/14/2024 4:26 AM CDT) eGFR [...] Inclusion of Race in Diagnosing Kidney Disease, JONNYSKimo 2020). The CKD-EPI equation should not be used for patients with unstable renal function and has not been validated in children and those over 70. Current interpretive data was last reviewed 2021. Blood 12/14/2024 4:26 AM CDT 12/14/2024 5:16 AM CDT us Cherry Newby PAPER STE[employer]ER LAB BLOOD ORDERABLES [place] Result [facility] [address] Department [place] [address] * (ABNORMAL) Differential, auto (12/14/2024 4:26 AM CDT) Neutrophil abs 6.7(H) 1.5 - 6.5 K/cumm Imm gran abs 0.0 0.0 - 0.1 K/cumm [facility] Lymphocyte abs 1.4 0.8 - 3.3 K/cumm [facility] Monocyte abs 1.0(H) 0.2 - 0.8 K/cumm [facility] Eosinophil abs 0.4 0.0 - 0.5 K/cumm [facility] Basophil abs 0.0 0.0 - 0.1 K/cumm [facility] Neutrophil pct 69.4 % [facility] Comment: Interpretive Data Percent cell count reference ranges are not reported, since discordance with absolute values may lead to misinterpretation of CBC data. Current Interpretive Data was last revised on 2017. Imm gran pct 0.4 % [facility] Comment: Interpretive Data Percent cell count reference ranges are not reported, since discordance with absolute values may lead to misinterpretation of CBC data. Current Interpretive Data was last revised on 2017. Lymphocyte pct 14.9 % [facility] Comment: Interpretive Data Percent cell count reference ranges are not reported, since discordance with absolute values may lead to misinterpretation of CBC data. Current Interpretive Data was last revised on 2017. Monocyte pct 10.4 % [facility] Comment: Interpretive Data Percent cell count reference ranges are not reported, since discordance with absolute values may lead to misinterpretation of CBC data. Current Interpretive Data was last revised on 2017. Eosinophil pct 4.6 % [facility] Comment: Interpretive Data Percent cell count reference ranges are not reported, since discordance with absolute values may lead to misinterpretation of CBC data. Current Interpretive Data was last revised on 2017. Basophil pct 0.3 % [facility] Comment: Interpretive Data Percent cell count reference ranges are not reported, since discordance with absolute values may lead to misinterpretation of CBC data. Current Interpretive Data was last revised on 2017. Blood 12/14/2024 4:26 AM CDT 12/14/2024 5:14 AM CDT us Cherry Newby NP LAB BLOOD ORDERABLES [place] Result [facility] [address] Department [place] [address] * (ABNORMAL) CBC with auto differential (12/14/2024 4:26 AM CDT) WBC 9.6 3.8 - 9.9 K/cumm Hgb 12.2(L) 13.0 - 17.5 g/dL [facility] Hct 36.3(L) 38.9 - 50.3 % [facility] Plt 150 150 - 400 K/cumm [facility] MPV 10.7 9.1 - 12.3 fL [facility] RBC 4.06(L) 4.30 - 5.80 M/cumm [facility] MCV 89.4 81.3 - 96.4 fL [facility] MCH 30.0 27.1 - 33.3 pg [facility] MCHC 33.6 32.3 - 35.7 g/dL [facility] RDW CV 13.0 11.1 - 14.9 % [facility] RDW SD 42.7 35.7 - 48.1 fL [facility] NRBC abs 0.00 0.00 - 0.01 K/cumm [facility] Blood 12/14/2024 4:26 AM CDT 12/14/2024 5:14 AM CDT Cherry Abernathy Odin PAPER STEAMER LAB BLOOD ORDERABLES Mague l Result Performing Organization Address City/[facility]/ZIP Co de Phone Number ASA [phone] [facility] [place] [address] * Magnesium (12/14/2024 4:26 AM CDT) Pathologist [facility] Magnesium 2.1 1.4 - 2.5 mg/dL Blood 12/14/2024 4:26 AM CDT 12/14/2024 12:13 PM CDT Cherry Abernathy Odin PAPER STEAMER LAB BLOOD ORDERABLES Mague l Result Performing Organization Address [facility] de Phone Number ASA [phone] [facility] [place] [address] * Basic metabolic panel (12/14/2024 4:26 AM CDT) Pathologist [facility] Sodium 139 135 - 145 mmol/L Potassium, pl 3.8 3.3 - 4.9 mmol/L [facility] Chloride 107 97 - 110 mmol/L [facility] CO2 23 22 - 32 mmol/L [facility] Anion gap 9 2 - 15 mmol/L [facility] BUN 15 6 - 25 mg/dL [facility] Creatinine 0.89 0.80 - 1.30 mg/dL [facility] Glucose 93 70 - 199 mg/dL [facility] Comment: Interpretive Data Fasting glucose >/= [...] 2022. Calcium 8.7 8.5 - 10.3 mg/dL [facility] Blood 12/14/2024 4:26 AM CDT 12/14/2024 5:16 AM CDT us Cherry Newby PAPER STEAMER LAB BLOOD [place]AB[place] [address] [address] [place] [address] * XR Chest 1 View (12/14/2024 4:14 [...] atelectasis. Electronically signed by: Diane Russ M.D. us [...] by: Diane Russ M.D. Dre Cerna MD IM XR PROCEDURES Final Result * eGFR (12/13/2024 [...] of Race in Diagnosing Kidney Disease, JASN 202). The CKD-EPI equation should not be used for patients with unstable renal function and has not been validated in children and those over 70. Current interpretive data was last reviewed 2021. Blood 12/13/2024 3:58 AM CDT 12/13/2024 4:34 AM CDT us Cherry Newby NP LAB BLOOD ORDERABLES [place]ud[place] Result [facility] [address] Department of Laboratories [place], [place] [id number] * (ABNORMAL) Differential, auto (12/13/2024 3:58 AM CDT) Neutrophil abs 9.7(H) 1.5 - 6.5 K/cumm Imm gran abs 0.0 0.0 - 0.1 K/cumm [facility] Lymphocyte abs 1.3 0.8 - 3.3 K/cumm [facility] Monocyte abs 1.2(H) 0.2 - 0.8 K/cumm [facility] Eosinophil abs 0.3 0.0 - 0.5 K/cumm [facility] Basophil abs 0.0 0.0 - 0.1 K/cumm [facility] Neutrophil pct 77.0 % [facility] Comment: Interpretive Data Percent cell count reference ranges are not reported, since discordance with absolute values may lead to misinterpretation of CBC data. Current Interpretive Data was last revised on 2017. Imm gran pct 0.3 % [facility] Comment: Interpretive Data Percent cell count reference ranges are not reported, since discordance with absolute values may lead to misinterpretation of CBC data. Current Interpretive Data was last revised on 2017. Lymphocyte pct 10.6 % [facility] Comment: Interpretive Data Percent cell count reference ranges are not reported, since discordance with absolute values may lead to misinterpretation of CBC data. Current Interpretive Data was last revised on 2017. Monocyte pct 9.3 % [facility] Comment: Interpretive Data Percent cell count reference ranges are not reported, since discordance with absolute values may lead to misinterpretation of CBC data. Current Interpretive Data was last revised on 2017. Eosinophil pct 2.5 % [facility] Comment: Interpretive Data Percent cell count reference ranges are not reported, since discordance with absolute values may lead to misinterpretation of CBC data. Current Interpretive Data was last revised on 2017. Basophil pct 0.3 % [facility] Comment: Interpretive Data Percent cell count reference ranges are not reported, since discordance with absolute values may lead to misinterpretation of CBC data. Current Interpretive Data was last revised on 2017. Blood 12/13/2024 3:58 AM CDT 12/13/2024 4:34 AM CDT us Cherry Newby P[employer]ER STE[employer]ER LAB BLOOD ORDERABLES Mague dudley Result [facility] [address] Department [place] [address] * (ABNORMAL) CBC with auto differential (12/13/2024 3:58 AM CDT) WBC 12.6(H) 3.8 - 9.9 K/cumm Hgb 13.2 13.0 - 17.5 g/dL [facility] Hct 38.8(L) 38.9 - 50.3 % [facility] Plt 151 150 - 400 K/cumm [facility] MPV 10.7 9.1 - 12.3 fL [facility] RBC 4.29(L) 4.30 - 5.80 M/cumm [facility] MCV 90.4 81.3 - 96.4 fL [facility] MCH 30.8 27.1 - 33.3 pg [facility] MCHC 34.0 32.3 - 35.7 g/dL [facility] RDW CV 12.9 11.1 - 14.9 % [facility] RDW SD 42.4 35.7 - 48.1 fL [facility] NRBC abs 0.00 0.00 - 0.01 K/cumm [facility] Blood 12/13/2024 3:58 AM CDT 12/13/2024 4:34 AM CDT us Cherry Newby P[employer]ER [employer] LAB BLOOD ORDERABLES Mague l Result [facility] [address] Department [place] [address] * (ABNORMAL) Basic metabolic panel (12/13/2024 3:58 AM CDT) Sodium 137 135 - 145 mmol/L Potassium, pl 3.9 3.3 - 4.9 mmol/L [facility] Chloride 106 97 - 110 mmol/L [facility] CO2 22 22 - 32 mmol/L [facility] Anion gap 9 2 - 15 mmol/L [facility] BUN 17 6 - 25 mg/dL [facility] Creatinine 0.97 0.80 - 1.30 mg/dL [facility] Glucose 108 70 - 199 mg/dL [facility] Comment: Interpretive Data Fasting glucose >/= [...] 2022. Calcium 8.4(L) 8.5 - 10.3 mg/dL [facility] Blood 12/13/2024 3:58 AM CDT 12/13/2024 4:34 AM CDT us Ellen Newby P[employer]ER STE[employer]ER LAB BLOOD ORDERABLES Mague l Result Performing Organization Address [facility] Co de Phone Number ASA BELLO [address] Department [place] [address] * eGFR (12/12/2024 5:18 PM CDT) eGFR [...] 5:18 PM CDT 12/12/2024 5:26 PM CDT Rosalina HATCH LAB BLOOD ORDERABLES F inal Result Performing Organization Address [facility] Co de Phone Number GRUPOHOSSEIN BELLO [address] Department [place] [address] * (ABNORMAL) Basic metabolic panel (12/12/2024 5:18 PM CDT) Sodium 134(L) 135 - 145 mmol/L Potassium, pl 3.7 3.3 - 4.9 mmol/L [facility] Chloride 100 97 - 110 mmol/L [facility] CO2 26 22 - 32 mmol/L [facility] Anion gap 8 2 - 15 mmol/L [facility] BUN 16 6 - 25 mg/dL [facility] Creatinine 1.16 0.80 - 1.30 mg/dL [facility] Glucose 113 70 - 199 mg/dL [facility] Comment: Interpretive Data Fasting glucose >/= [...] 2022. Calcium 8.5 8.5 - 10.3 mg/dL [facility] Blood 12/12/2024 5:18 PM CDT 12/12/2024 5:26 PM CDT us Rosalina HATCH LAB BLOOD ORDERABLES F inal Result [facility] [address] [facility] Department [place] [address] * Critical Care (12/12/2024 6:55 AM CDT) [...] plan with the patient's team and other medical/managed services sales consultant staff. This time was in addition to and separate from care provided by other practitioners on this day of service. I spent time reviewing and interpreting data from bedside monitors, laboratory results, and imaging, I spent time discussing the management of this critically ill patient with consultants and the medical staff and I spent time documenting in the medical record us Rosalina HATCH IN CLINIC/[facility]EDSIDE [employer] Final Result * Troponin T high-sensitivity 2-hour (12/12/2024 3:47 AM CDT) Trop T hs 15 <=22 ng/L Comment: Interpretive Data For further hscTnT resources including the diagnostic algorithm and an aid in interpretation, copy and paste this link: [email or web address].testcatalog.org/show/hsTrop Current Interpretive Data last revised 2020. Trop T hs delta 2 ng/L [facility] Trop T hs interp Insignificant [facility] Blood 12/12/2024 3:47 AM CDT 12/12/2024 3:55 AM CDT López Sebastian Valadez APRN LAB BLOOD ORDERABL ES Final Result Performing Organization Address City/State/[facility] Co de Phone Number ASA [address] Department [place] [address] * XR Chest 1 Vw Portable (12/12/2024 [...] 2hr, 4hr, 6hr) (12/12/2024 1:57 AM CDT) Trop T hs 13 <=22 ng/L Comment: Slight hemolysis may result in decreased troponin measurement. Consider recollection. Interpretive Data For further hscTnT resources including the diagnostic algorithm and an aid in interpretation, copy and paste this link: [email or web address]://nrl.testcatalog.org/show/hsTrop Current Interpretive Data last revised 2020. Blood 12/12/2024 1:57 AM CDT 12/12/2024 2:07 AM CDT Result [facility] López Valadez APRN LAB BLOOD ORDERABL ES Final Result Performing Organization Address [facility] de Phone Number ASA ACE [address] [place] [address] * Calcium, ionized, whole blood (12/12/2024 1:57 AM CDT) Ca, ionized, bld 4.53 4.50 - 5.10 mg/dL Blood 12/12/2024 1:57 AM CDT 12/12/2024 2:07 AM CDT López Valadez APRN LAB BLOOD ORDERABL ES Final Result Performing Organization Address [facility] de Phone Number ASA BELLO [address] Department [place] [address] * eGFR (12/12/2024 1:57 AM CDT) eGFR >90 >=60 mL/min/1. 73 [...] APRN LAB BLOOD ORDERABL ES Final Result [facility] [address] [place] [address] * (ABNORMAL) Differential, auto (12/12/2024 1:57 AM CDT) Neutrophil abs 14.1(H) 1.5 - 6.5 K/cumm Imm gran abs 0.1 0.0 - 0.1 K/cumm [facility] Lymphocyte abs 0.8 0.8 - 3.3 K/cumm [facility] Monocyte abs 1.9(H) 0.2 - 0.8 K/cumm [facility] Eosinophil abs 0.0 0.0 - 0.5 K/cumm [facility] Basophil abs 0.0 0.0 - 0.1 K/cumm [facility] Neutrophil pct 83.2 % [facility] Comment: Interpretive Data Percent cell count reference ranges are not reported, since discordance with absolute values may lead to misinterpretation of CBC data. Current Interpretive Data was last revised on 2017. Imm gran pct 0.5 % [facility] Comment: Interpretive Data Percent cell count reference ranges are not reported, since discordance with absolute values may lead to misinterpretation of CBC data. Current Interpretive Data was last revised on 2017. Lymphocyte pct 4.7 % [facility] Comment: Interpretive Data Percent cell count reference ranges are not reported, since discordance with absolute values may lead to misinterpretation of CBC data. Current Interpretive Data was last revised on 2017. Monocyte pct 11.3 % [facility] Comment: Interpretive Data Percent cell count reference ranges are not reported, since discordance with absolute values may lead to misinterpretation of CBC data. Current Interpretive Data was last revised on 2017. Eosinophil pct 0.2 % [facility] Comment: Interpretive Data Percent cell count reference ranges are not reported, since discordance with absolute values may lead to misinterpretation of CBC data. Current Interpretive Data was last revised on 2017. Basophil pct 0.1 % [facility] Comment: Interpretive Data Percent cell count reference ranges are not reported, since discordance with absolute values may lead to misinterpretation of CBC data. Current Interpretive Data was last revised on 2017. Blood 12/12/2024 1:57 AM CDT 12/12/2024 2:07 AM CDT López Valadez APRN LAB BLOOD ORDERABL ES Final Result [facility] [address] Department [place] [address] * (ABNORMAL) CBC with auto differential (12/12/2024 1:57 AM CDT) WBC 17.0(H) 3.8 - 9.9 K/cumm Hgb 14.1 13.0 - 17.5 g/dL [facility] Hct 41.2 38.9 - 50.3 % [facility] Plt 194 150 - 400 K/cumm [facility] MPV 10.4 9.1 - 12.3 fL [facility] RBC 4.60 4.30 - 5.80 M/cumm [facility] MCV 89.6 81.3 - 96.4 fL [facility] MCH 30.7 27.1 - 33.3 pg [facility] MCHC 34.2 32.3 - 35.7 g/dL [facility] RDW CV 12.6 11.1 - 14.9 % [facility] RDW SD 41.0 35.7 - 48.1 fL [facility] NRBC abs 0.00 0.00 - 0.01 K/cumm [facility] Blood 12/12/2024 1:57 AM CDT 12/12/2024 2:07 AM CDT López Valadez APRN LAB BLOOD ORDERABL ES Final Result Performing Organization Address [facility] de Phone Number [facility] [address] [place] [address] * Magnesium (12/12/2024 1:57 AM CDT) Pathologist [facility] Magnesium 2.0 1.4 - 2.5 mg/dL Blood 12/12/2024 1:5 7 AM CDT 12/12/2024 2:07 AM CDT López Valadez APRN LAB BLOOD ORDERABL ES Final Result Performing Organization Address [facility] de Phone Number [facility] [address] [place] [employer] [address] * (ABNORMAL) Basic metabolic panel (12/12/2024 1:57 AM CDT) Sodium 138 135 - 145 mmol/L Potassium, pl 5.2(H) 3.3 - 4.9 mmol/L [facility] Comment:Hemolysis present. R esults may be affected. Chloride 104 97 - 110 mmol/L [facility] CO2 21(L) 22 - 32 mmol/L [facility] Anion gap 13 2 - 15 mmol/L [facility] BUN 14 6 - 25 mg/dL [facility] Creatinine 0.94 0.80 - 1.30 mg/dL [facility] Glucose 144 70 - 199 mg/dL [facility] Comment: Interpretive Data Fasting glucose >/= [...] 2022. Calcium 8.5 8.5 - 10.3 mg/dL [facility] Blood 12/12/2024 1:57 AM CDT 12/12/2024 2:07 AM CDT López Valadez APRN LAB BLOOD ORDERABL ES Final Result [facility] [address] [place] [address] * ECG 12 lead (12/12/2024 1:51 AM CDT) 12/12/2024 1:51 AM CDT Narrative [facility] - 12/12/2024 7:40 AM CDT Vent Rate: 155 bpm RR Interval: 386 msec ID Interval: 0 msec QRS Duration: 126 msec QT Interval: 220 msec QTC Interval: 307 msec P-R-T [place]: 0 - -13 - -36 degrees IMPRESSION: ATRIAL FLUTTER/TACHYCARDIA WITH RAPID VENTRICULAR RESPONSE MODERATE INTRAVENTRICULAR CONDUCTION DELAY [110+ ms QRS DURATION] NONSPECIFIC ST \T\ T-WAVE ABNORMALITY CRITICAL TEST RESULT Compared to prior EKG, heart rate has increased Anterolateral ST segment depressions are new Patient probably in atrial flutter Electronically Signed By: Mauricio Boswell MD López Valadez APRN ECG ORDERABLES Fi nal Result [facility] * Critical Care (12/11/2024 9:53 PM CDT) [...] plan with the ICU team and other medical/managed services sales consultant staff, making frequent assessments and decisions [...] K/cumm Hgb 14.0 13.0 - 17.5 g/dL [facility] Hct 40.0 38.9 - 50.3 % [facility] Plt 179 150 - 400 K/cumm [facility] MPV 10.6 9.1 - 12.3 fL [facility] RBC 4.47 4.30 - 5.80 M/cumm [facility] MCV 89.5 81.3 - 96.4 fL [facility] MCH 31.3 27.1 - 33.3 pg [facility] MCHC 35.0 32.3 - 35.7 g/dL [facility] RDW CV 12.3 11.1 - 14.9 % [facility] RDW SD 40.5 35.7 - 48.1 fL [facility] NRBC abs 0.00 0.00 - 0.01 K/cumm [facility] Blood 12/11/2024 9:40 PM CDT 12/11/2024 9:40 PM CDT us Dre Cerna MD LAB BLOOD ORDERABLES Final Resul t Performing Organization Address [facility] Co de Phone Number [facility]SA BELLO [address] [place] [address] * eGFR (12/11/2024 9:39 PM [...] ORDERABLES Final Resul t Performing Organization Address City/[facility]/ZIP Co de Phone Number ASA BELLO [address] Department [place] [address] * (ABNORMAL) Basic metabolic panel (12/11/2024 9:39 PM CDT) Sodium 138 135 - 145 mmol/L Potassium, pl 4.6 3.3 - 4.9 mmol/L [facility] Chloride 106 97 - 110 mmol/L [facility] CO2 21(L) 22 - 32 mmol/L [facility] Anion gap 11 2 - 15 mmol/L [facility] BUN 15 6 - 25 mg/dL [facility] Creatinine 0.92 0.80 - 1.30 mg/dL [facility] Glucose 157 70 - 199 mg/dL [facility] Comment: [...] 2022. Calcium 8.3(L) 8.5 - 10.3 mg/dL [facility] Blood 12/11/2024 9:39 PM CDT 12/11/2024 9:39 PM CDT us Dre Cerna MD LAB BLOOD ORDERABLES Final Resul t [facility] [address] [place] [address] * POCT glucose (12/11/2024 6:26 PM CDT) Glucose, POC 189 70 - 199 mg/dL POC Performer [id number] [facility] Blood 12/11/2024 6:26 PM CDT 12/11/2024 6:26 PM CDT us Dre Cerna MD LAB POCT ORDERABLES - DEVICE Fin al Result [facility] [address] [place] [address] * XR Chest 1 View - in [...] Units (12/11/2024 2:12 PM CDT) Product code K0202G59 Unit Number [id number] 7-[id number] [facility] Product Blood Type OPOS [facility] Dispense Status RETURNED [facility] Blood 12/11/2024 2:12 PM CDT Narrative [facility] - 12/12/2024 12:21 AM CDT Are special requirements needed? (All products are leukoreduced and CMV- safe)- >No Date required:-20241211 LRRBC # of [id number] Reasons:-Intra-op transfusion} us Dre Cerna MD BLOOD BANK PRODUCT ORDERABLES Fi nal Result [facility] [address] [place] [address] * ID AN ELECTIVE ENDOTRACHEAL AIRWAY (12/11/2024 12:29 PM [...] Supervising provider: Candido Chapman DO Placed by: YOHANNES: Inderjit Delgadillo AA Procedure prep: Prep solution: [...] patient tolerated procedure well with no complications Inderjit SHEFFIELD ANESTHESIA ORDERABLES Fin al Result * Peripheral IV Catheter (12/11/2024 12:28 PM CDT) Narrative Inderjit Delgadillo AA - 12/11/2024 12:28 PM CDT Inderjit Delgadillo AA 12/11/2024 12:28 PM Peripheral IV Catheter Patient location: OR Staff: Placed by: AA: Inderjit Delgadillo AA Preprocedure prep: Prep solution: alcohol PPE: gloves and provider hat/mask PIV line: Laterality: right Site: forearm Catheter size: 16 g Technique: direct visualization and anatomical landmarks Procedure details: good blood return Number of attempts: 1 Assessment: Events: patient tolerated procedure well with no complications Inderjit SHEFFIELD ANESTHESIA ORDERABLES Fin al Result * Prepare RBC: 1 Units (12/11/2024 9:45 AM CDT) Product code [id number] Unit Number [id number] 5-[id number] [facility] Product Blood Type OPOS [facility] Dispense Status RETURNED [facility] Blood 12/11/2024 9:45 AM CDT Narrative [facility] - 12/12/2024 12:21 AM CDT Specify Procedure:->robotic wedge resection Are special requirements needed? (All products are leukoreduced and CMV- safe)- >No Date required:-20241211 LRRBC # of [id number] Reasons:-Hold for procedure (specify procedure)} us Cherry Newby PAPER STEAMER BLOOD BANK PRODUCT ORDERA BLES Final Result [facility] [id number] [place] [address] [place] [address] * Surgical pathology (12/11/2024 9:26 [...] best viewed via link to PDF [facility] Department of Pathology [address] [place] [id number] Note to Patients: This report may [...] Final Report with Addendum Patient Name: ADALGISA MERIDA Address: [address] [place], [place] [address] Gender: M : 1960 (Age: 63) Service: Cardiothoracic Location: Hospital #: [id number] Patient Type: [facility] Taken: 12/11/2024 Received: 12/14/2024 Accessioned: 12/14/2024 Reported: [...] Addendum Comment The external consult report from [facility] ([id number]) has been finalized and is attached. For the managed services sales consultant s comment, please see scanned image of report or the report can be viewed in the Electronic Medical Record of the patient. If access to the EMR is not available, please call pathology for a hard copy of the report ([phone]). Lung, right middle lobe, lobectomy ([id number]/[id number]; 12/11/2024): Malignant spindle cell neoplasm consistent with [...] ordered molecular analysis. Materials were forwarded to [facility] where the testing will be performed.. Note: [...] Dr. Cerna, via telephone at 15:50pm Kasia Andino M.D. Microscopic Description: All separately submitted lymph [...] specimen is submitted in twelve containers labeled ADALGISAYURIDIA MERIDA . A. The first container is labeled [...] with the tissue embedded in cassette L1. Heel Slugger sections are submitted: Tumor with pleura L2 [...] by the Surgical Pathology Department at [facility] as part of an ongoing microbiology quality control technician program and in compliance with federally mandated [...] characteristics determined by the Surgical Pathology Department [facility]. It has not been cleared or approved by the U. S. Food and Drug Administration. Note for decalcified specimens: This assay has not been validated on decalcified tissues. Results should be interpreted with caution given the possibility of false negativity on decalcified specimens Dre Cerna MD LAB PATHOLOGY ORDERABLES Final R esult Performing Organization Address [facility] de Phone Number PATHOLOGY [address] [place] [address] * - Miscellaneous Lab Test (12/11/2024 12:00 AM CDT) [facility] lab See Comment Comment:see scanned report Miscellaneous 12/11/2024 12/31/2024 9:40 AM CDT [facility]ative [facility] 12/31/2024 9:41 AM CDT [id number] Dre Cerna MD LAB BLOOD ORDERABLES Final Resul t Performing Organization Address [facility] de Phone Number [facility] [address] [facility] [place] [address] * CT Body Outside Reference (12/03/2024 6:53 PM CDT) Impressions RAD_[facility] - 12/03/2024 6:53 PM CDT These images are for Reference purposes only and have not been reviewed by [facility] Radiology. There will be no report generated by a [facility] Radiologist. Narrative [facility] - 12/03/2024 6:53 PM CDT EXAMINATION: Images For Reference Purposes Only Dre Cerna MD IMG CT PROCEDURES Final Result Performing Organization Address [facility] Co de Phone Number [id number] * ECG 12 lead (11/30/2024 1:25 PM CDT) 11/30/2024 1:25 PM CDT Narrative [facility] - 11/30/2024 1:41 PM CDT Vent Rate: 60 bpm RR Interval: 999 msec ID Interval: 119 msec QRS Duration: 87 msec QT Interval: 396 msec QTC Interval: 396 msec P-R-T [place]: 34 - -14 - -18 degrees IMPRESSION: SINUS RHYTHM WITH SHORT ID INTERVAL BORDERLINE ECG Electronically Signed By: Emilie Vance MD Shayla Goff NP ECG ORDERABLES Final Result [facility] * XR Chest PA Lateral 2 Views [...] signed by: Ho Pretty M.D. Shayla Goff P[employer]ER STEAMER IMG XR PROCEDURES Final Result * eGFR [...] LAB BLOOD ORDERABLES Final Res ult [facility] [address] [place] [address] * Differential, auto (11/30/2024 1:03 PM CDT) Neutrophil abs 4.6 1.5 - 6.5 K/cumm Imm gran abs 0.0 0.0 - 0.1 K/cumm [facility] Lymphocyte abs 1.6 0.8 - 3.3 K/cumm [facility] Monocyte abs 0.7 0.2 - 0.8 K/cumm [facility] Eosinophil abs 0.3 0.0 - 0.5 K/cumm [facility] Basophil abs 0.0 0.0 - 0.1 K/cumm [facility] Neutrophil pct 63.2 % [facility] Comment: Interpretive Data Percent cell count reference ranges are not reported, since discordance with absolute values may lead to misinterpretation of CBC data. Current Interpretive Data was last revised on 2017. Imm gran pct 0.4 % [facility] Comment: Interpretive Data Percent cell count reference ranges are not reported, since discordance with absolute values may lead to misinterpretation of CBC data. Current Interpretive Data was last revised on 2017. Lymphocyte pct 22.2 % [facility] Comment: Interpretive Data Percent cell count reference ranges are not reported, since discordance with absolute values may lead to misinterpretation of CBC data. Current Interpretive Data was last revised on 2017. Monocyte pct 10.1 % [facility] Comment: Interpretive Data Percent cell count reference ranges are not reported, since discordance with absolute values may lead to misinterpretation of CBC data. Current Interpretive Data was last revised on 2017. Eosinophil pct 3.5 % [facility] Comment: Interpretive Data Percent [...] 11/30/2024 1:17 PM CDT us Shayla Goff PAPER STEAMER LAB BLOOD ORDERABLES Final Res ult [facility] [address] Department [place] [address] * Urinalysis reflex to microscopic and culture [...] tendency for uric acid stone formation. Source: [facility] Automated Insights Current Interpretive Data was last revised on 2017 Protein, ur ql Negative Negative [facility] Glucose, ur ql Negative Negative [facility] Ketones, ur Negative Negative [facility] Bilirubin, ur Negative Negative [facility] Blood, ur Negative Negative [facility] Urobilinogen, ur <2.0 <2.0 mg/dL [facility] Nitrite, ur Negative Negative [facility] Leukocyte esterase, ur Negative Negative [facility] UA reflex comment Reflex conditions for microscopic UA and culture not met. [facility]ER Urine, clean voided 11/30/2024 1:03 PM CDT 11/30/2024 2:06 PM CDT Shayla Goff NP LAB MICROBIOLOGY - GENERAL ORD ERABLES Final Result Performing Organization Address City/[facility]/ZIP Co de Phone Number A[facility] [address] [place] [address] * CBC with auto differential (11/30/2024 1:03 PM CDT) WBC 7.2 3.8 - 9.9 K/cumm Hgb 14.4 13.0 - 17.5 g/dL [facility] Hct 42.7 38.9 - 50.3 % [facility] Plt 191 150 - 400 K/cumm [facility] MPV 10.1 9.1 - 12.3 fL [facility] RBC 4.72 4.30 - 5.80 M/cumm [facility] MCV 90.5 81.3 - 96.4 fL [facility] MCH 30.5 27.1 - 33.3 pg CERNER MCHC 33.7 32.3 - 35.7 g/dL [facility] RDW CV 12.2 11.1 - 14.9 % [facility] RDW SD 40.3 35.7 - 48.1 fL [facility] NRBC abs 0.00 0.00 - 0.01 K/cumm [facility] Blood 11/30/2024 1:03 PM CDT 11/30/2024 1:17 PM CDT Shayla Goff NP LAB BLOOD ORDERABLES Final Res ult Performing Organization Address City/[facility]/ZIP Co de Phone Number ASA [address] Department [employer] [place], [place] [id number] * aPTT (11/30/2024 1:03 PM CDT) Pathologist [facility] aPTT 34 28 - 38 sec Comment: Interpretive Data Heparin therapeutic range: 66.0 - 100.0 seconds. Range based on correlation with therapeutic heparin activity range of 0.3 - 0.7 Units/mL. Current interpretive data was last revised on 2023. Blood 11/30/2024 1:03 PM CDT 11/30/2024 1:17 PM CDT Shayla Goff NP LAB BLOOD ORDERABLES Final Res ult Performing Organization Address [facility] de Phone Number [facility] [address] [employer] [place] [address] * Protime-INR (11/30/2024 1:03 PM [...] ORDERABLES Final Res ult Performing Organization Address [facility] de Phone Number [facility] [address] [facility] [place] [address] * Type and screen (11/30/2024 1:03 PM CDT) Jacek, indirect Negative ABO Rh O Positive ASA Blood 11/30/2024 1:03 PM CDT 11/30/2024 1:21 PM CDT Narrative [facility] - 11/30/2024 2:04 PM CDT Is this test being ordered in advance for a procedure?->Yes Expected date of procedure:->12/11/24 Has the patient been transfused in the past 3 months?->Unknown Shayla Goff NP LAB BLOOD BANK TEST ORDERABLES Final Result [facility] [address] Department [place] [address] * Basic metabolic panel (11/30/2024 1:03 PM CDT) [facility] Sodium 140 135 - 145 mmol/L Potassium, pl 4.3 3.3 - 4.9 mmol/L [facility] Chloride 105 97 - 110 mmol/L [facility] CO2 24 22 - 32 mmol/L [facility] Anion gap 11 2 - 15 mmol/L [facility] BUN 18 6 - 25 mg/dL [facility] Creatinine 1.00 0.80 - 1.30 mg/dL [facility] Glucose 75 70 - 199 mg/dL [facility] Comment: Interpretive Data Fasting glucose >/= [...] 2022. Calcium 9.7 8.5 - 10.3 mg/dL [facility] Blood 11/30/2024 1:03 PM CDT 11/30/2024 1:16 PM CDT Shayla Goff NP LAB BLOOD ORDERABLES Final Res ult [facility] [address] Department [place] [address] * PET Outside Consult (11/02/2024 12:15 PM BUS PERSON DISHWASHER) Anatomical Region Laterality Modality N/A Nuclear Medicine 11/02/2024 3:25 PM BUS PERSON DISHWASHER Impressions 11/02/2024 3:58 PM BUS PERSON DISHWASHER 1. Indeterminant right middle lobe pulmonary nodule. [...] images may or may not represent the [place] source data set and thus may contain changes that may lower the accuracy of this second-opinion interpretation. Dictated by: Larry Corral MD The radiology attending physician has personally reviewed this study, and had reviewed and/or edited this written report and agrees with it. Electronically signed by: DO Elisabeth Cadena 11/02/2024 3:58 PM BUS PERSON DISHWASHER EXAMINATION: RADIOLOGY CONSULTATION ON OUTSIDE IMAGING STUDY . STUDY INITIALLY PERFORMED: 10/13/2024, images acquired at [facility]. TYPE OF STUDY: FDG-PET/CT. The images available for review consisted of axial attenuation-corrected and uncorrected PET images and axial CT images. The total scanned area was skull base to the proximal thighs. The mean liver SUV (reported for quality assurance supervisor final purposes) is 3.8. The study was interpreted on the [employer] workstation. The protocol was adequate to address [...] the imaged spine. Procedure Note Antony Rodas, DO - 11/02/2024 EXAMINATION: RADIOLOGY CONSULTATION ON OUTSIDE IMAGING STUDY . STUDY INITIALLY PERFORMED: 10/13/2024, images acquired at [facility]. TYPE OF STUDY: FDG-PET/CT. The images available for review consisted of axial attenuation-corrected and uncorrected PET images and axial CT images. The total scanned area was skull base to the proximal thighs. The mean liver SUV (reported for quality assurance supervisor final purposes) is 3.8. The study was interpreted on the [employer] workstation. The protocol was adequate to address [...] images may or may not represent the [place] source data set and thus may contain changes that may lower the accuracy of this second-opinion interpretation. Dictated by: Larry Corral MD The radiology attending physician has personally reviewed this study, and had reviewed and/or edited this written report and agrees with it. Electronically signed by: Antony Rodas DO Dre Cerna MD [facility] PET PROCEDURES Final Result * PET Outside Reference (10/19/2024 5:00 PM BUS PERSON DISHWASHER) Impressions [facility] - 10/19/2024 5:00 PM BUS PERSON DISHWASHER These images are for Reference purposes only and have not been reviewed by [facility] Radiology. There will be no report generated by a [facility] Radiologist. Narrative [facility] - 10/19/2024 5:00 PM BUS PERSON DISHWASHER EXAMINATION: Images For Reference Purposes Only Dre Cerna MD [facility] PET PROCEDURES Final Result [facility] from Last 3 Months Insurance [facility] H[facility]/PPO Address: [place] [id number] [facility]/PPO Address: [address] [place] [phone] [id number] [facility]/PPO Address: [place] [address] [facility]/PPO Address: [address] Advance Directives For more information, please contact: [phone] * Full Code (Latest Code Status on File) Date Activated Date Inactivated Comments 12/11/2024 6:31 PM 12/15/2024 3:57 PM * Full Code Date Activated Date Inactivated Comments 03/16/2024 4:36 PM 03/21/2024 3:59 PM * Full Code Date Activated Date Inactivated Comments 01/28/2022 9:19 PM 02/05/2022 5:17 PM Care Teams Primer Charger Relationship Specialty Start Date End Date Crystal Mir MD [address] [facility] [address] [place] [place] [address] PCP - General Medical Oncology 12/30/24 Gabe George DO [address] [address] Internal Medicine 12/30/24 Gabe George DO [address] [address] Internal Medicine 12/30/24 Ian Michel MD [address] [place] [address] [place], [place] [id number] Dermatology 02/10/23 Parul Baldwin MD [address] [place] [address] Referring Physician Dermatology 02/10/23 Felix Sher MD [facility] [facility] [address] [address] Consulting Physician Cardiology 10/21/24 Dre Cerna MD [address] [facility] [address]234[address]22 [place] [address] Surgeon Thoracic Surgery 12/15/24
--- OUTSIDE RECORDS SUMMARY | 2025-01-15 12:02 | XMS_ITS | Encounter Summary ---
Author Organization [facility] Healthcare Address [address] [place] [address] Care Team Providers Care Message Clerk Name Role Phone Gabe George DO Primary Care Provider [phone] Gabe George DO Unavailable Gabe George DO Unavailable Ian Michel MD Unavailable [phone] Parul Baldwin MD Unavailable [phone] Felix Sher MD Unavailable [phone] Dre Cerna MD Unavailable Crystal Mir MD Primary Care Provider [phone] Encounter Details Date Type Department Care Team (Late st Contact Info) Description 12/17/2024 [facility] Post Discharge Follow up phone call [address] [address] Rosalee Gerardo Social History Tobacco Use Types Packs/Day Years [...] making you feel afraid or unsafe? 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 Gender Identity Not on file Sexual Orientation Not on file documented as of this encounter Plan of Treatment Not on file documented as of this encounter Visit Diagnoses Not on filedocumented in this encounter Care Teams Message Clerk Relationship Specialty Start Date End Date Gabe George DO [address] [facility] [address] [place] [address] PCP - General Internal Medicine 08/03/24 12/29/24 Crystal Mir MD [address] [place] [address] PCP - General Medical Oncology 12/30/24 Gabe George DO [address] [facility] [address] [address] Internal Medicine 12/30/24 Gabe George DO [address] [address] Internal Medicine 12/30/24 Ian Michel MD [address] [place] [address] DR Stephani [place] [id number] Dermatology 02/10/23 Parul Baldwin MD [address] [facility] [address] [place] [address] Referring Physician Dermatology 02/10/23 Felix Sher MD [address] [facility] [address], [place] [address] Consulting Physician Cardiology 10/21/24 Dre Cerna MD [address] [facility] [address] [place] [address] Surgeon Thoracic Surgery 12/15/24 documented as of this encounter
--- OUTSIDE RECORDS SUMMARY | 2025-01-15 12:02 | XMS_ITS | Encounter Summary ---
Author Organization [facility] Healthcare Address [address] [place] [address] Care Team Providers Care Explosives Handler Name Role Phone Gabe George DO Primary Care Provider [phone] Gabe George DO Unavailable Gabe George DO Unavailable Ian Michel MD Unavailable [phone] Parul Baldwin MD Unavailable [phone] Felix Sher MD Unavailable [phone] Dre Cerna MD Unavailable Crystal Mir MD Primary Care Provider [phone] Encounter Details Date Type Department Care Team (Late st Contact Info) Description 12/17/2024 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 Gender Identity Not on file Sexual Orientation Not on file documented as of this encounter Plan of Treatment Not on file documented as of this encounter Visit Diagnoses Not on filedocumented in this encounter Care Teams Explosives Handler Relationship Specialty Start Date End Date Gabe George DO [address] [address] PCP - General Internal Medicine 08/03/24 12/29/24 Crystal Mir MD [address] [place] [address] PCP - General Medical Oncology 12/30/24 Gabe George DO [address] [facility] [address] [address] Internal Medicine 12/30/24 Gabe George DO [address] [address] Internal Medicine 12/30/24 Ian Michel MD [address] [place] [address] DR Stephani [place] [id number] Dermatology 02/10/23 Parul Baldwin MD [address] [facility] [address] [place] [address] Referring Physician Dermatology 02/10/23 Felix Sher MD [address] [facility] [address] [address] Consulting Physician Cardiology 10/21/24 Dre Cerna MD [address] [facility] [address] [place] [address] Surgeon Thoracic Surgery 12/15/24 documented as of this encounter
--- OUTSIDE RECORDS SUMMARY | 2025-01-15 12:02 | XMS_ITS | Encounter Summary ---
Author Organization [facility] Address [address] [facility] [address] [place] [address] Phone Care Team Providers Care Access Developer Name Role Phone Ariel Gabe ADEN Unavailable Gabe George DO Unavailable Ian Michel MD Unavailable [phone] Parul Baldwin MD Unavailable [phone] Felix Sher MD Unavailable [phone] Dre Cerna MD Unavailable Crystal Mir MD Primary Care Provider [phone] Encounter Details Date Type Department Care Team (Late st Contact Info) Description 01/14/2025 Orders Only [facility] [address] [place] [address] Dre Cerna MD [address] [facility] [address] [place] [address] Lung nodule Social History Tobacco Use Types Packs/Day Years [...] on file 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 Gender Identity Not on file Sexual Orientation Not on file documented as of this encounter Plan of Treatment Pending Results Name Type Priority Associated Diagnoses Date /Time Surgical pathology Pathology and Cytology Routine Lung nodule 01/14/2025 2:23 PM CDT documented as of this encounter Visit Diagnoses Diagnosis Lung nodule Other diseases of lung, not elsewhere classified documented in this encounter Care Teams Access Developer Relationship Specialty Start Date End Date Crystal Mir MD [address] [place] [address] PCP - General Medical Oncology 12/30/24 Gabe George DO [address] [address] Internal Medicine 12/30/24 Gabe George DO [address] [facility] [address] [address] Internal Medicine 12/30/24 Ian Michel MD [address] [place] [address] DR Stephani [place] [id number] Dermatology 02/10/23 Parul Baldwin MD [address] [place] [address] Referring Physician Dermatology 02/10/23 Felix Sher MD [address] [facility] [address], [place] [address] Consulting Physician Cardiology 10/21/24 Dre Cerna MD [address] [facility] [address] [place] [address] Surgeon Thoracic Surgery 12/15/24 documented as of this encounter
--- OUTSIDE RECORDS SUMMARY | 2025-01-15 12:25 | XMS_ITS ---
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
--- OUTSIDE RECORDS SUMMARY | 2025-01-15 12:25 | XMS_ITS | Clinical Summary ---
Author Organization [facility] Address 1 [place] [address] Care Team Providers Care Buffing Wheel Presser Name Role Phone Ariel, Gabe Unavailable Gabe George DO Unavailable Ian Michel MD Unavailable [phone] Parul Baldwin MD Unavailable [phone] Felix Sher MD Unavailable [phone] Dre Cerna MD Unavailable Crystal Mir MD Primary Care Provider [phone] Allergies Active Allergy Reactions Criticality Noted Date [...] graft) 03/05/20 Coronary artery disease invo lving salt river coronary artery of salt river heart without angina pectoris 01/28/2022 Overview (01/29/2022): Added automatically from request for surgery [id number] 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 Physicians [facility] Surgery [address] [facility] [address] [place] [address] Dre Cerna MD Lung nodule (Primary Dx) 01/07/2025 8:58 AM CDT - 01/07/2025 11:59 PM CDT Hospital Encounter [facility] MOB 1 DIAG IMG [address] [place] [address] Lung nodule Discharge Disposition: Discharge to home or self care 12/30/2024 Telephone [facility] [address] [place] [address] Amara Dhaliwal, RN Internet Request 12/29/2024 Telephone [facility] [employer] [place] [address] [place] [address] Fouzia Hamilton LCSW 12/29/2024 Orders Only [facility] Surgery [address] [facility] [address] [place] [address] Dre Cerna MD Lung nodule (Primary Dx) 12/29/2024 Orders Only [facility] Surgery [address] [facility] Floor 5 [place] [phone] Radha Riley NP Stress and adjustment reaction (Primary Dx) 12/29/2024 Telephone [facility] Surgery [address] [facility] Floor 5 [place] [address] Radha Riley NP 12/29/2024 Orders Only [facility] Surgery [facility] [facility] Floor 5 [place] [address] Radha Riley NP Pleomorphic dermal sarcoma (Primary Dx) 2024 Orders Only [facility] Surgery [address] [facility] Floor 5 [place] [address] Radha Riley NP Nerve pain (Primary Dx) 2024 Telephone [facility] Cardiothoracic Surgery [facility]1 [facility] 8th Floor [address] Room [address] [address] Daphnie Agrawal 12/27/2024 12:13 PM CDT - 12/27/2024 2:31 PM CDT Emergency [facility] Emergency Department 1 [place] [address] Narciso Delgadillo MD Post-operative pain (Primary Dx) Discharge Disposition: Discharge to home or self care 12/27/2024 Telephone [facility] Surgeon 1 [place] [address] Ana Blank MD Pain (Pain at incision site, new abdominal pain ) 12/24/2024 11:15 AM CDT Office Visit [facility] Surgery [facility] [address] [place] [address] Dre Cerna MD Lung nodule (Primary Dx) 12/24/2024 10:46 AM CDT - 12/24/2024 11:59 PM CDT Hospital [facility] MOB 1 DIAG IMG [facility] [place] [address] Lung nodule Discharge Disposition: Discharge to home or self care 12/17/2024 [facility] Post Discharge Follow up phone call [address] [address] Rosalee Gerardo 12/17/2024 [facility] Post Discharge Follow up phone call [address] [address] Karla Romo RN 12/15/2024 Orders Only [facility] Surgery [address] [facility] [address] [place] [phone] Ian Cardenas NP 12/11/2024 12:17 PM CDT Anesthesia Event [facility] Operating Room [address] [place] [address] Kevan Torrez MD Tadros, Hany B., MD 12/11/2024 12:00 PM CDT - 12/11/2024 4:00 PM CDT Surgery [facility] Operating Room [address] [place] [address] Dre Cerna MD XI ROBOTIC THORACIC RIGHT MIDDLE LOBECTOMY [[id number] (CPT )] 12/11/2024 9:39 AM CDT - 12/15/2024 11:57 AM CDT Hospital Encounter [address] [address] Dre Cerna MD Nodule of middle lobe of right lung Discharge Disposition: Discharge to home or self care 12/04/2024 Telephone [facility] Surgery [address] [facility] Floor 5 [place] [address] Radha Riley NP 12/03/2024 6:53 PM CDT - 12/03/2024 11:59 PM CDT Hospital Encounter [facility] [address] [place] [phone] Discharge Disposition: Discharge to home or self care 11/30/2024 1:03 PM CDT - 11/30/2024 11:59 PM CDT Hospital Encounter [facility] Diagnostic Imaging [address] [place] [address] Discharge Disposition: Discharge to home or self care 11/30/2024 12:15 PM CDT Pre-Admission Testing [facility] Pre Anesthesia Testing [address] [place] [address] Preoperative testing (Primary Dx) 11/30/2024 Orders Only [facility] Surgery [address] [facility] Floor 5 [place] [phone] Radha Riley NP Gingivitis (Primary Dx) 11/20/2024 Telephone [facility] Surgery [address] [place] [address] [place] [phone] Patt Riley [facility] 11/19/2024 Telephone [facility] Surgery [address] [place] [address] [place] [phone] Patt Riley RMA 11/13/2024 Orders Only [facility] Surgery [address] [place] [address] [place] [phone] Dre Cerna MD Lung nodule (Primary Dx) 11/13/2024 Orders Only [facility] Surgery [address] [place] [phone] Cori Carpenter 11/02/2024 12:15 PM WIRE COATING MACHINE OPERATOR - 11/02/2024 11:59 PM WIRE COATING MACHINE OPERATOR Hospital Encounter [facility] [address] [place] [address] Diagnosis unknown Discharge Disposition: Discharge to home or self care 10/22/2024 Orders Only [facility] Surgery [address] [place] [address] [place] [phone] Dre Cerna MD Lung nodule (Primary Dx) 10/22/2024 Telephone [facility] Surgery [address] [place] [address] [place] [phone] Patt Riley, RMMarjorie 10/20/2024 11:45 AM WIRE COATING MACHINE OPERATOR Office Visit [facility] Surgery [address] [place] [phone] Dre Cerna MD Lung nodule (Primary Dx) 10/19/2024 5:00 PM WIRE COATING MACHINE OPERATOR - 10/19/2024 11:59 PM WIRE COATING MACHINE OPERATOR Hospital Encounter 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 HIP ARTHROPLASTY 09/23/2021 - 09/22/2022 Right COLONOSCOPY TONSILLECTOMY AND ADENOIDECTOMY CATARACT EXTRACTION Bilateral JOINT REPLACEMENT [id number] Medical History Medical History Date Comments Arthritis [...] on file Legal Sex Male 7:35 PM WIRE COATING MACHINE OPERATOR Gender Identity Not on file Sexual Orientation [...] (1 of 2) 1980 Covid-19 Vaccine ( - season) 2024 06/30/2021, 09/30/2020, 09/09/2020 Influenza Vaccine (Season Ended) 2025 DTaP/Tdap/Td Vaccine (2 - Td or Tdap) 04/12/2031 Medical Devices Implanted Type Area Corn Lab Technician Device Identifier Shelf Expiration Date Model / Serial / Lot CaLivingBenefits Luly Blackmon Microvascular 3mm Ring Pin Protective Cover Jaw Assembly Latex Free [id number] - [id number] Implanted:Qty: 1 on 03/16/2024 by Minh Orozco MD at [facility] [employer] Luly [id number] 01/08/2028 [id number] / / [id number] Procedures Procedure Name Priority Date/Time Associated Diagnosis Comments SURGICAL PATHOLOGY Routine 01/14/2025 2: 23 PM CDT Lung nodule XR CHEST PA LATERAL 2 VIEWS Schedule [...] OUTSIDE CONSULT Routine 11/02/2024 1 2:15 PM WIRE COATING MACHINE OPERATOR Diagnosis unknown PET OUTSIDE REFERENCE Routine 10/19/2024 5:00 PM WIRE COATING MACHINE OPERATOR from Last 3 Months Results * Surgical pathology (01/14/2025 2:23 PM CDT) Tissue (Consult Material) 01/14/2025 2:23 PM CDT 01/14/2025 2:23 PM CDT Narrative [facility] PATHOLOGY [facility] - 01/15/2025 12:18 PM CDT EPIC results best viewed via link to PDF [facility] Pathology Consult Service [address], [place] [address] Note to Patients: This report may contain [...] can answer questions and explain the details. SURGICAL PATHOLOGY REPORT * Consult Report * [facility] is providing an additional review of previously collected tissue. FINAL Patient Name: ADALGISA MERIDA Address: [address] [place] [phone] Gender: M : 1960 (Age: 64) Hospital #: [id number] Patient Type: [facility] Location: UNKNOWN Taken: 01/14/2025 Received: 01/14/2025 Accessioned: 01/14/2025 Reported: 01/15/2025 Physician(s): Dre Cerna M.D. [facility] Pathology [facility] Department of Pathology [address] [place] [address] P: [phone] F: [phone] Diagnosis: Consult material received from [place], [place] A. 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 Ernesto Alex M.D. Report Electronically Reviewed and Signed Out By Ernesto Alex M.D. 01/15/2025 12:18:02 Microscopic Description and Comment: Immunohistochemical stains performed by the referring institution are available for review and show the malignant cells to be positive for CD10, S100 (focal), actin (focal) and desmin (focal) and to be negative for pancytokeratin, CAM5.2, CK7, CK20, ANTHONY, CD68, GFAP, Sox-10, HMB45, Melan A, TTF-1, Napsin A, smooth muscle myosin and p63. History: The patient is a 64-year-old man with history of lung nodule. Materials Received: Received for review are twenty-six slides labeled [id number], accompanied by a corresponding pathology report. The material originates from [place], [place]. Selected slide(s) may be digitally scanned for our files, and all materials are returned to the referring institution, along with a copy of our final report. Any testing required for diagnostic purposes was performed in the Department of Pathology and Immunology at [facility], [address] [place] [address] CLIA # [id number] The performance characteristics of the testing cited in this report (if any) were determined by the [facility] Department of Pathology and Immunology [facility], as part of an ongoing quality auditor program and in compliance with federally mandated regulations drawn from the Clinical Laboratory Improvement Act of 1988 (CLIA '88). Some of these tests rely on the use of analyte specific reagents (ASR) and are subject to specific labeling requirements by the US Food and Drug Administration. Such diagnostic tests may only be performed in a facility that is certified by the Department of Health and Human Services as a high complexity laboratory under CLIA '88. The FDA has determined that such clearance or approval is not necessary. ASRs should not be regarded as investigational or for research. ASRs were developed and the performance characteristics determined by the [facility], [facility] Department of Pathology and Immunology. It has not been cleared or approved by the U.S. Food and Drug Administration. Any test designated as LDT was developed and its performance characteristics determined by [facility]. It has not been cleared or approved by the FDA. This test is used for clinical purposes and should not be regarded as investigational or for research. Report images and/or scanned reports, if included, only viewable in PDF version of report. us Dre Cerna MD LAB PATHOLOGY ORDERABLES Final R esult [facility] PATH[facility]Y [facility] [address] [address] * X-ray chest 2 views (01/07/2025 9:00 [...] Pranay Grace M.D. ANANT: ANANT Report ID: [id number] Reading Location: [id number] Procedure Note Wilian Grace MD - 01/13/2025 [...] Pranay Grace M.D. ANANT: ANANT Report ID: [id number] Reading Location: [id number] Dre Cerna MD IMG XR PROCEDURES Final Result * Sepsis Lactate w/ Reflex (12/27/2024 1:04 PM CDT) Sepsis Lactate 1.3 0.7 - 2.0 mmol/L Blood 12/27/2024 1:04 PM CDT 12/27/2024 1:07 PM CDT Osvaldo Wu MD LAB BLOOD ORDERABLES Final R esult [facility] [place]) 1 [facility] Department [place] [address] * CT Chest W Contrast [...] Recent guidelines by the Fleischner Society (Radiology 549358,2017) divides patient into low vs. high risk [...] immunosuppression, or patients with known primary cancer. http://pubs.rsna.org/doi/pdf/10.1148/radiol.0233103205 THIS IS AN ELECTRONICALLY VERIFIED FINAL REPORT 12/27/2024 1:03 PM - Electronically signed by Damian Dorsey D.O. PS: PS Report ID: [id number] Reading Location: [id number] Procedure Note Damian Dorsey, DO - 12/27/2024 [...] Recent guidelines by the Fleischner Society (Radiology 691683,2017)divides patient into low vs. high risk (for [...] immunosuppression, or patients with known primary cancer. http://pubs.rsna.org/doi/pdf/10.1148/radiol.9325797462 THIS IS AN ELECTRONICALLY VERIFIED FINAL REPORT 12/27/2024 1:03 PM - Electronically signed by Damian Dorsey D.O. PS: PS Report ID: [id number] Reading Location: [id number] Maryam Adam HATCH IMG CT PROCEDURES Final Result * XR [...] Damian Dorsey D.O. PS: PS Report ID: [id number] Reading Location: [id number] Procedure Note Damian Dorsey DO - 12/27/2024 [...] Damian Dorsey D.O. PS: PS Report ID: [id number] Reading Location: [id number] Narciso Delgadillo MD IMG XR PROCEDURES Final Resu lt * (ABNORMAL) Sepsis Lactate w/ Reflex (12/27/2024 10:10 AM CDT) Sepsis Lactate 2.3(H) 0.7 - 2.0 mmol/L Blood 12/27/2024 10:1 0 AM CDT 12/27/2024 10:41 AM CDT Narciso Delgadillo MD LAB BLOOD ORDERABLES Final R esult [facility] 1 [facility] Department [place] [address] * eGFR (12/27/2024 10:10 AM [...] LAB BLOOD ORDERABLES Final R esult [facility] 1 [facility] [place] [address] * (ABNORMAL) Differential, auto (12/27/2024 10:10 AM [...] Final R esult [facility] 1 [facility] Department [place] [address] * (ABNORMAL) CBC with auto differential (12/27/2024 10:10 AM CDT) WBC 12.42(H) 3.80 - 9.90 K/cumm Hgb 15.3 13.0 - 17.5 g/dL [facility] ([place] Hct 45.1 38.9 - 50.3 % [facility] Plt 427(H) 150 - 400 K/cumm [facility] ([place]) MPV 9.7 9.1 - 12.3 fL [facility] RBC 4.95 4.30 - 5.80 M/cumm [facility] ([place]) MCV 91.1 81.3 - 96.4 fL [facility] [...] MD LAB BLOOD ORDERABLES Final R esult [facility] 1 [facility] Department [place] [address] * Comprehensive metabolic panel (12/27/2024 10:10 AM CDT) Sodium 135 135 - 145 mmol/L Potassium, pl 4.3 3.3 - 4.9 mmol/L [facility] Chloride 98 97 - 110 mmol/L [facility] CO2 25 22 - 32 mmol/L [facility] Anion gap 12 2 - 15 mmol/L [facility] BUN 18 6 - 25 mg/dL [facility] ([place]) Creatinine 1.19 0.80 - 1.30 [...] LAB BLOOD ORDERABLES Final R esult [facility] ([place]) 1 [facility] Department [place] [address] * X-ray chest 2 views (12/24/2024 10:49 [...] signed by Yeison GIBBS: SAI Report ID: [id number] Reading Location: [id number] Procedure Note Yeison Davenport MD - 01/02/2025 [...] signed by Yeison GIBBS: SAI Report ID: [id number] Reading Location: [id number] Dre Cerna MD IMG XR PROCEDURES Final [...] Inclusion of Race in Diagnosing Kidney Disease, JONNYSN 2020). The CKD-EPI equation should not be used for patients with unstable renal function and has not been validated in children and those over 70. Current interpretive data was last reviewed 2021. Blood 12/15/2024 3:50 AM CDT 12/15/2024 4:13 AM CDT us Cherry Newby NP LAB BLOOD ORDERABLES Mague octavia Result [facility] [address] Department [place] [address] * (ABNORMAL) Differential, auto (12/15/2024 3:50 AM CDT) Neutrophil abs 6.8(H) 1.5 - 6.5 K/cumm Imm gran abs 0.1 0.0 - 0.1 K/cumm [facility] Lymphocyte abs 1.2 0.8 - 3.3 K/cumm [facility] Monocyte abs 1.0(H) 0.2 - 0.8 K/cumm [facility] Eosinophil abs 0.6(H) 0.0 - 0.5 K/cumm [facility] Basophil abs 0.0 0.0 - 0.1 K/cumm [facility] Neutrophil pct 70.4 % [facility] Comment: Interpretive Data Percent cell count reference ranges are not reported, since discordance with absolute values may lead to misinterpretation of CBC data. Current Interpretive Data was last revised on 2017. Imm gran pct 0.7 % [facility] Comment: Interpretive Data Percent cell count reference ranges are not reported, since discordance with absolute values may lead to misinterpretation of CBC data. Current Interpretive Data was last revised on 2017. Lymphocyte pct 12.4 % [facility] Comment: Interpretive Data Percent cell count reference ranges are not reported, since discordance with absolute values may lead to misinterpretation of CBC data. Current Interpretive Data was last revised on 2017. Monocyte pct 10.4 % [facility] Comment: Interpretive Data Percent cell count reference ranges are not reported, since discordance with absolute values may lead to misinterpretation of CBC data. Current Interpretive Data was last revised on 2017. Eosinophil pct 5.7 % [facility] Comment: Interpretive Data Percent cell count reference ranges are not reported, since discordance with absolute values may lead to misinterpretation of CBC data. Current Interpretive Data was last revised on 2017. Basophil pct 0.4 % [facility] Comment: Interpretive Data Percent cell count reference ranges are not reported, since discordance with absolute values may lead to misinterpretation of CBC data. Current Interpretive Data was last revised on 2017. Blood 12/15/2024 3:50 AM CDT 12/15/2024 4:12 AM CDT us Cherry Newby NP LAB BLOOD ORDERABLES Mague dudley Result [facility] [address] Department [place] [address] * (ABNORMAL) CBC with auto differential (12/15/2024 3:50 AM CDT) Pathologist [facility] WBC 9.7 3.8 - 9.9 K/cumm Hgb 12.3(L) 13.0 - 17.5 g/dL [facility] Hct 34.7(L) 38.9 - 50.3 % [facility] Plt 164 150 - 400 K/cumm [facility] MPV 10.2 9.1 - 12.3 fL [facility] RBC 3.87(L) 4.30 - 5.80 M/cumm [facility] MCV 89.7 81.3 - 96.4 fL [facility] MCH 31.8 27.1 - 33.3 pg [facility] MCHC 35.4 32.3 - 35.7 g/dL [facility] RDW CV 13.2 11.1 - 14.9 % [facility] RDW SD 43.3 35.7 - 48.1 fL [facility] NRBC abs 0.00 0.00 - 0.01 K/cumm [facility] Blood 12/15/2024 3:50 AM CDT 12/15/2024 4:12 AM CDT us Cherry Newby [employer] LAB BLOOD ORDERABLES Mague l Result [facility] [address] [place] [address] * Basic metabolic panel (12/15/2024 3:50 AM CDT) Sodium 139 135 - 145 mmol/L Potassium, pl 4.4 3.3 - 4.9 mmol/L [facility] Chloride 108 97 - 110 mmol/L [facility] CO2 23 22 - 32 mmol/L [facility] Anion gap 8 2 - 15 mmol/L [facility] BUN 18 6 - 25 mg/dL [facility] Creatinine 0.86 0.80 - 1.30 mg/dL [facility] Glucose 100 70 - 199 mg/dL [facility] Comment: Interpretive Data Fasting glucose >/= [...] 2022. Calcium 9.0 8.5 - 10.3 mg/dL [facility] Blood 12/15/2024 3:50 AM CDT 12/15/2024 4:13 AM CDT us Cherry Newby [employer]BA[employer] RESELL[employer] LAB BLOOD ORDERABLES Mague l Result [facility] [address] [place] [address] * eGFR (12/14/2024 4:26 AM CDT) eGFR [...] 12/14/2024 5:16 AM CDT us Cherry Newby EBAY RESELLER LAB BLOOD ORDERABLES Mague dudley Result [facility] [address] Department [place] [address] * (ABNORMAL) Differential, auto (12/14/2024 4:26 AM CDT) Neutrophil abs 6.7(H) 1.5 - 6.5 K/cumm Imm gran abs 0.0 0.0 - 0.1 K/cumm [facility] Lymphocyte abs 1.4 0.8 - 3.3 K/cumm [facility] Monocyte abs 1.0(H) 0.2 - 0.8 K/cumm [facility] Eosinophil abs 0.4 0.0 - 0.5 K/cumm [facility] Basophil abs 0.0 0.0 - 0.1 K/cumm [facility] Neutrophil pct 69.4 % [facility] Comment: Interpretive Data Percent cell [...] revised on 2017. Lymphocyte pct 14.9 % [facility] Comment: Interpretive Data Percent cell count reference ranges are not reported, since discordance with absolute values may lead to misinterpretation of CBC data. Current Interpretive Data was last revised on 2017. Monocyte pct 10.4 % [facility] Comment: Interpretive Data Percent cell count reference ranges are not reported, since discordance with absolute values may lead to misinterpretation of CBC data. Current Interpretive Data was last revised on 2017. Eosinophil pct 4.6 % [facility] Comment: Interpretive Data Percent cell count reference ranges are not reported, since discordance with absolute values may lead to misinterpretation of CBC data. Current Interpretive Data was last revised on 2017. Basophil pct 0.3 % [facility] Comment: Interpretive Data Percent cell count reference ranges are not reported, since discordance with absolute values may lead to misinterpretation of CBC data. Current Interpretive Data was last revised on 2017. Blood 12/14/2024 4:26 AM CDT 12/14/2024 5:14 AM CDT us Cherry Newby NP LAB BLOOD ORDERABLES Mague dudley Result [facility] [address] Department [place] [address] * (ABNORMAL) CBC with auto differential (12/14/2024 4:26 AM CDT) WBC 9.6 3.8 - 9.9 K/cumm Hgb 12.2(L) 13.0 - 17.5 g/dL [facility] Hct 36.3(L) 38.9 - 50.3 % [facility] Plt 150 150 - 400 K/cumm [facility] MPV 10.7 9.1 - 12.3 fL [facility] RBC 4.06(L) 4.30 - 5.80 M/cumm [facility] MCV 89.4 81.3 - 96.4 fL [facility] MCH 30.0 27.1 - 33.3 pg [facility] MCHC 33.6 32.3 - 35.7 g/dL [facility] RDW CV 13.0 11.1 - 14.9 % [facility] RDW SD 42.7 35.7 - 48.1 fL [facility] NRBC abs 0.00 0.00 - 0.01 K/cumm [facility] Blood 12/14/2024 4:26 AM CDT 12/14/2024 5:14 AM CDT Cherry Newby EBAY RESELLER LAB BLOOD ORDERABLES Mague l Result Performing Organization Address City/[facility]/ZIP Co de Phone Number [facility] [address] [facility] [place] [address] * Magnesium (12/14/2024 4:26 AM CDT) Pathologist [facility] Magnesium 2.1 1.4 - 2.5 mg/dL Blood 12/14/2024 4:26 AM CDT 12/14/2024 12:13 PM CDT Cherry Newby EBAY RESELLER LAB BLOOD ORDERABLES Mague l Result Performing Organization Address [facility] de Phone Number [facility] [address] [facility] [place] [address] * Basic metabolic panel (12/14/2024 4:26 AM CDT) Sodium 139 135 - 145 mmol/L Potassium, pl 3.8 3.3 - 4.9 mmol/L [facility] Chloride 107 97 - 110 mmol/L [facility] CO2 23 22 - 32 mmol/L [facility] Anion gap 9 2 - 15 mmol/L [facility] BUN 15 6 - 25 mg/dL [facility] Creatinine 0.89 0.80 - 1.30 mg/dL [facility] Glucose 93 70 - 199 mg/dL [facility] Comment: Interpretive Data Fasting glucose >/= [...] LAB BLOOD ORDERABLES Mague dudley Result ASA BELLO [address] [place] [address] * XR Chest 1 View (12/14/2024 4:14 [...] NP LAB BLOOD ORDERABLES Mague dudley Result [facility] [address] [place] [address] * (ABNORMAL) Differential, auto (12/13/2024 3:58 AM CDT) Neutrophil abs 9.7(H) 1.5 - 6.5 K/cumm Imm gran abs 0.0 0.0 - 0.1 K/cumm [facility] Lymphocyte abs 1.3 0.8 - 3.3 K/cumm [facility] Monocyte abs 1.2(H) 0.2 - 0.8 K/cumm [facility] Eosinophil abs 0.3 0.0 - 0.5 K/cumm [facility] Basophil abs 0.0 0.0 - 0.1 K/cumm ASA Neutrophil pct 77.0 % [facility]SA Comment: Interpretive [...] revised on 2017. Lymphocyte pct 10.6 % [facility] Comment: Interpretive Data Percent cell count reference ranges are not reported, since discordance with absolute values may lead to misinterpretation of CBC data. Current Interpretive Data was last revised on 2017. Monocyte pct 9.3 % [facility] Comment: Interpretive Data Percent cell count reference ranges are not reported, since discordance with absolute values may lead to misinterpretation of CBC data. Current Interpretive Data was last revised on 2017. Eosinophil pct 2.5 % [facility] Comment: Interpretive Data Percent cell count reference ranges are not reported, since discordance with absolute values may lead to misinterpretation of CBC data. Current Interpretive Data was last revised on 2017. Basophil pct 0.3 % [facility] Comment: Interpretive Data Percent cell count reference ranges are not reported, since discordance with absolute values may lead to misinterpretation of CBC data. Current Interpretive Data was last revised on 2017. Blood 12/13/2024 3:58 AM CDT 12/13/2024 4:34 AM CDT us Cherry Newby EBAY RESELLER LAB BLOOD ORDERABLES Mague l Result ASA [address] [place] [address] * (ABNORMAL) CBC with auto differential (12/13/2024 3:58 AM CDT) WBC 12.6(H) 3.8 - 9.9 K/cumm Hgb 13.2 13.0 - 17.5 g/dL ASA Hct 38.8(L) 38.9 - 50.3 % [facility] Plt 151 150 - 400 K/cumm [facility] MPV 10.7 9.1 - 12.3 fL [facility] RBC 4.29(L) 4.30 - 5.80 M/cumm [facility] MCV 90.4 81.3 - 96.4 fL [facility] MCH 30.8 27.1 - 33.3 pg [facility] MCHC 34.0 32.3 - 35.7 g/dL [facility] RDW CV 12.9 11.1 - 14.9 % [facility] RDW SD 42.4 35.7 - 48.1 fL [facility] NRBC abs 0.00 0.00 - 0.01 K/cumm [facility] Blood 12/13/2024 3:58 AM CDT 12/13/2024 4:34 AM CDT us Cherry Newby NP LAB BLOOD ORDERABLES Mague dudley Result [facility] [address] [place] [address] * (ABNORMAL) Basic metabolic panel (12/13/2024 3:58 AM CDT) Sodium 137 135 - 145 mmol/L Potassium, pl 3.9 3.3 - 4.9 mmol/L [facility] Chloride 106 97 - 110 mmol/L [facility] CO2 22 22 - 32 mmol/L [facility] Anion gap 9 2 - 15 mmol/L [facility] BUN 17 6 - 25 mg/dL [facility] Creatinine 0.97 0.80 - 1.30 mg/dL [facility] Glucose 108 70 - 199 mg/dL [facility] Comment: Interpretive Data Fasting glucose >/= [...] Calcium 8.4(L) 8.5 - 10.3 mg/dL [facility]SA Blood 12/13/2024 3:58 AM CDT 12/13/2024 4:34 AM CDT us Cherry Newby EBAY RESELLER LAB BLOOD ORDERABLES Mague l Result Performing Organization Address City/[facility]/ZIP Co de Phone Number [facility] [address] [place] [address] * eGFR (12/12/2024 5:18 PM [...] F inal Result Performing Organization Address [facility]/ZIP Co de Phone Number [facility] [address] [employer] [place], [place] [phone] * (ABNORMAL) Basic metabolic panel (12/12/2024 5:18 PM CDT) Sodium 134(L) 135 - 145 mmol/L Potassium, pl 3.7 3.3 - 4.9 mmol/L [facility] Chloride 100 97 - 110 mmol/L [facility] CO2 26 22 - 32 mmol/L [facility] Anion gap 8 2 - 15 mmol/L [facility] BUN 16 6 - 25 mg/dL [facility] Creatinine 1.16 0.80 - 1.30 mg/dL [facility] Glucose 113 70 - 199 mg/dL [facility] Comment: Interpretive Data Fasting glucose >/= [...] 2022. Calcium 8.5 8.5 - 10.3 mg/dL [facility] Blood 12/12/2024 5:18 PM CDT 12/12/2024 5:26 PM CDT us Rosalina HATCH LAB BLOOD ORDERABLES F inal Result [facility] [address] [facility] [place] [address] * Critical Care (12/12/2024 6:55 AM CDT) [...] plan with the patient's team and other medical/sap plant maintenance consultant staff. This time was in addition [...] ng/L ASA Trop T hs interp Insignificant ASA Blood 12/12/2024 3:47 AM CDT 12/12/2024 3:55 AM CDT López Valadez APRN LAB BLOOD ORDERABL ES Final Result [facility] [address] [place] [address] * XR Chest 1 Vw Portable (12/12/2024 [...] BLOOD ORDERABL ES Final Result [facility] [address] Department [place] [address] * Calcium, ionized, whole blood (12/12/2024 1:57 AM CDT) Ca, ionized, bld 4.53 4.50 - 5.10 mg/dL Blood 12/12/2024 1:57 AM CDT 12/12/2024 2:07 AM CDT López Sebastian Valadez APRN LAB BLOOD ORDERABL ES Final Result Performing Organization Address City/[facility] Co de Phone Number [facility] [address] [place] [address] * eGFR (12/12/2024 1:57 AM CDT) Pathologist [facility] eGFR >90 >=60 mL/min/1. 73 m2 [...] ORDERABL ES Final Result Performing Organization Address City/[facility]/ZIP Co de Phone Number ASA [facility] [address] Department [employer] [place], [place] [phone] * (ABNORMAL) Differential, auto (12/12/2024 1:57 AM CDT) Pathologist [facility] Neutrophil abs 14.1(H) 1.5 - 6.5 K/cumm Imm gran abs 0.1 0.0 - 0.1 K/cumm [facility] Lymphocyte abs 0.8 0.8 - 3.3 K/cumm [facility] Monocyte abs 1.9(H) 0.2 - 0.8 K/cumm [facility] Eosinophil abs 0.0 0.0 - 0.5 K/cumm [facility] Basophil abs 0.0 0.0 - 0.1 K/cumm [facility] Neutrophil pct 83.2 % [facility] Comment: Interpretive Data Percent cell count reference ranges are not reported, since discordance with absolute values may lead to misinterpretation of CBC data. Current Interpretive Data was last revised on 2017. Imm gran pct 0.5 % [facility] Comment: Interpretive Data Percent cell count reference ranges are not reported, since discordance with absolute values may lead to misinterpretation of CBC data. Current Interpretive Data was last revised on 2017. Lymphocyte pct 4.7 % [facility] Comment: Interpretive Data Percent cell count reference ranges are not reported, since discordance with absolute values may lead to misinterpretation of CBC data. Current Interpretive Data was last revised on 2017. Monocyte pct 11.3 % [facility] Comment: Interpretive Data Percent cell count reference ranges are not reported, since discordance with absolute values may lead to misinterpretation of CBC data. Current Interpretive Data was last revised on 2017. Eosinophil pct 0.2 % [facility] Comment: Interpretive Data Percent cell count reference ranges are not reported, since discordance with absolute values may lead to misinterpretation of CBC data. Current Interpretive Data was last revised on 2017. Basophil pct 0.1 % [facility] Comment: Interpretive Data Percent cell count reference ranges are not reported, since discordance with absolute values may lead to misinterpretation of CBC data. Current Interpretive Data was last revised on 2017. Blood 12/12/2024 1:57 AM CDT 12/12/2024 2:07 AM CDT us López Valadez APRN LAB BLOOD ORDERABL ES Final Result [facility] [address] [facility] [address] * (ABNORMAL) CBC with auto differential (12/12/2024 1:57 AM CDT) [facility] WBC 17.0(H) 3.8 - 9.9 K/cumm Hgb 14.1 13.0 - 17.5 g/dL [facility] Hct 41.2 38.9 - 50.3 % [facility] Plt 194 150 - 400 K/cumm [facility] MPV 10.4 9.1 - 12.3 fL [facility] RBC 4.60 4.30 - 5.80 M/cumm [facility] MCV 89.6 81.3 - 96.4 fL [facility] MCH 30.7 27.1 - 33.3 pg [facility] MCHC 34.2 32.3 - 35.7 g/dL [facility] RDW CV 12.6 11.1 - 14.9 % [facility] RDW SD 41.0 35.7 - 48.1 fL [facility] NRBC abs 0.00 0.00 - 0.01 K/cumm [facility] Blood 12/12/2024 1:57 AM CDT 12/12/2024 2:07 AM CDT López Valadez APRN LAB BLOOD ORDERABL ES Final Result Performing Organization Address City/[facility] Co de Phone Number ASA ACE [address] [place] [address] * Magnesium (12/12/2024 1:57 AM CDT) [facility] Magnesium 2.0 1.4 - 2.5 mg/dL Blood 12/12/2024 1:57 AM CDT 12/12/2024 2:07 AM CDT López Valadez APRN LAB BLOOD ORDERABL ES Final Result Performing Organization Address City/[facility]/ZIP Co de Phone Number [facility] [address] [place] [address] * (ABNORMAL) Basic metabolic panel (12/12/2024 1:57 [...] LAB BLOOD ORDERABL ES Final Result [facility]SA [address] [place] [address] * ECG 12 lead (12/12/2024 1:51 AM CDT) 12/12/2024 1:51 AM CDT Narrative [facility] - 12/12/2024 7:40 AM CDT Vent Rate: 155 bpm RR Interval: 386 msec MO Interval: 0 msec QRS Duration: 126 msec QT Interval: 220 msec QTC Interval: 307 msec P-R-T [place]: 0 - -13 - -36 degrees IMPRESSION: ATRIAL FLUTTER/TACHYCARDIA WITH RAPID VENTRICULAR RESPONSE MODERATE INTRAVENTRICULAR CONDUCTION DELAY [110+ ms QRS DURATION] NONSPECIFIC ST \T\ T-WAVE ABNORMALITY CRITICAL TEST RESULT Compared to prior EKG, heart rate has increased Anterolateral ST segment depressions are new Patient probably in atrial flutter Electronically Signed By: Mauricio Boswell MD López Valadez APRN ECG ORDERABLES Fi nal Result [facility] * Critical Care (12/11/2024 9:53 PM CDT) Narrative Daniel Arvizu MD - 12/11/2024 9:53 PM CDT Daniel Arvizu MD 12/12/2024 6:23 AM Critical Care Performed by: López Valadez APRN Authorized by: López Valadez APRN CRITICAL CARE: Team: ROMAN Shift: PM Level of Billing: Critical Care [...] plan with the ICU team and other medical/sap plant maintenance consultant staff, making frequent assessments and decisions [...] time documenting in the medical record us López Valadez APRN IN CLINIC/BEDSIDE ORDERABLES Final Result * (ABNORMAL) CBC without differential (12/11/2024 9:40 PM CDT) [facility] WBC 18.2(H) 3.8 - 9.9 K/cumm Hgb 14.0 13.0 - 17.5 g/dL [facility] Hct 40.0 38.9 - 50.3 % [facility] Plt 179 150 - 400 K/cumm [facility] MPV 10.6 9.1 - 12.3 fL [facility] RBC 4.47 4.30 - 5.80 M/cumm [facility] MCV 89.5 81.3 - 96.4 fL [facility] MCH 31.3 27.1 - 33.3 pg [facility] MCHC 35.0 32.3 - 35.7 g/dL [facility] RDW CV 12.3 11.1 - 14.9 % [facility] RDW SD 40.5 35.7 - 48.1 fL [facility] NRBC abs 0.00 0.00 - 0.01 K/cumm [facility] Blood 12/11/2024 9:40 PM CDT 12/11/2024 9:40 PM CDT us Dre Cerna MD LAB BLOOD ORDERABLES Final Resul t ASA [address] Department of Laboratories [place] [phone] * eGFR (12/11/2024 9:39 PM CDT) eGFR [...] MD LAB BLOOD ORDERABLES Final Resul t [facility] [address] [place] [address] * (ABNORMAL) Basic metabolic panel (12/11/2024 9:39 PM CDT) Sodium 138 135 - 145 mmol/L Potassium, pl 4.6 3.3 - 4.9 mmol/L [facility] Chloride 106 97 - 110 mmol/L [facility] CO2 21(L) 22 - 32 mmol/L [facility] Anion gap 11 2 - 15 mmol/L [facility] BUN 15 6 - 25 mg/dL [facility] Creatinine 0.92 0.80 - 1.30 mg/dL [facility] Glucose 157 70 - 199 mg/dL [facility] Comment: Interpretive Data Fasting glucose >/= [...] 2022. Calcium 8.3(L) 8.5 - 10.3 mg/dL [facility] Blood 12/11/2024 9:39 PM CDT 12/11/2024 9:39 PM CDT Dre Cerna MD LAB BLOOD ORDERABLES Final Resul t [facility] [address] [place] [address] * POCT glucose (12/11/2024 6:26 PM CDT) Glucose, POC 189 70 - 199 mg/dL POC Performer [phone] ASA ACE Blood 12/11/2024 6:26 PM CDT 12/11/2024 6:26 PM CDT us Dre Cerna MD LAB POCT ORDERABLES - DEVICE Fin al Result [facility] [address] [place] [address] * XR Chest 1 View - in [...] Units (12/11/2024 2:12 PM CDT) Product code [id number] Unit Number [id number] 7-I [facility] Product Blood Type OPOS [facility] Dispense Status RETURNED [facility] Blood 12/11/2024 2:12 PM CDT Narrative [facility] - 12/12/2024 12:21 AM CDT Are special requirements needed? (All products are leukoreduced and CMV- safe)- >No Date required:-[id number] LRRBC # of [id number] Reasons:-Intra-op transfusion} Dre Cerna MD BLOOD BANK PRODUCT ORDERABLES Fi nal Result [facility] [address] [place] [address] * MO AN ELECTIVE ENDOTRACHEAL AIRWAY (12/11/2024 [...] RBC: 1 Units (12/11/2024 9:45 AM CDT) [facility] Product code [id number] Unit Number [id number] 5-V [facility] Product Blood Type OPOS [facility] Dispense Status RETURNED [facility] Blood 12/11/2024 9:45 AM CDT Narrative [facility] - 12/12/2024 12:21 AM CDT Specify Procedure:->robotic wedge resection Are special requirements needed? (All products are leukoreduced and CMV- safe)- >No Date required:-[id number] LRRBC # of [id number] Reasons:-Hold for procedure (specify procedure)} us Cherry Newby NP BLOOD BANK PRODUCT ORDERA BLES Final Result [facility] [address] [place] [address] * Surgical pathology (12/11/2024 9:26 [...] tumor) 12/11/2024 3:37 PM CDT Narrative PATHOLOGY - 12/16/2024 3:33 PM CDT EPIC results best viewed via link to PDF [facility] Department of Pathology [address] [place] [address] Note to Patients: This report may [...] with Addendum Patient Name: ADALGISA MERIDA Address: [address] [place] [address] Gender: M : 1960 (Age: 63) Service: Cardiothoracic Location: Hospital #: [id number] Patient Type: [facility] Taken: 12/11/2024 Received: 12/14/2024 Accessioned: 12/14/2024 Reported: [...] Addendum Comment The external consult report from [facility] ([id number]) has been finalized and is attached. For the sap plant maintenance consultant s comment, please see scanned image of report or the report can be viewed in the Electronic Medical Record of the patient. If access to the EMR is not available, please call pathology for a hard copy of the report ([phone]). Lung, right middle lobe, lobectomy ([id number]/L1-L4; 12/11/2024): Malignant spindle cell neoplasm consistent with [...] ordered molecular analysis. Materials were forwarded to [facility] where the testing will be performed.. Note: [...] is submitted in twelve containers labeled ADALGISA MERIDA . A. The first container is [...] with the tissue embedded in cassette L1. Consumer Sales Representative sections are submitted: Tumor with pleura L2 [...] determined by the Surgical Pathology Department at [facility] as part of an ongoing quality auditor program and in compliance with federally mandated [...] characteristics determined by the Surgical Pathology Department [facility]. It has not been cleared or approved by the U. S. Food and Drug Administration. Note for decalcified specimens: This assay has not been validated on decalcified tissues. Results should be interpreted with caution given the possibility of false negativity on decalcified specimens us Dre Cerna MD LAB PATHOLOGY ORDERABLES Final R esult Performing Organization Address [facility] de Phone Number PATHOLOGY [address] [place] [address] * - Miscellaneous Lab Test (12/11/2024 12:00 AM CDT) Pathologist [facility] See Comment Comment:see scanned report Miscellaneous 12/11/2024 12/31/2024 9:40 AM CDT Narrative [facility] - 12/31/2024 9:41 AM CDT [id number] us Dre Cerna MD LAB BLOOD ORDERABLES Final Resul t Performing Organization Address [facility] de Phone Number [facility] [address] [place] [address] * CT Body Outside Reference (12/03/2024 6:53 PM CDT) Impressions [facility] - 12/03/2024 6:53 PM CDT These images are for Reference purposes only and have not been reviewed by [facility]. There will be no report generated by a [facility] Radiologist. Narrative [facility] - 12/03/2024 6:53 PM CDT EXAMINATION: Images For Reference Purposes Only us Dre Cerna MD IMG CT PROCEDURES Final Result Performing Organization Address [facility] de Phone Number [email or web address] * ECG 12 lead (11/30/2024 1:25 PM CDT) 11/30/2024 1:25 PM CDT Narrative [facility] - 11/30/2024 1:41 PM CDT Vent Rate: 60 bpm RR Interval: 999 msec MO Interval: 119 msec QRS Duration: 87 msec QT Interval: 396 msec QTC Interval: 396 msec P-R-T [place]: 34 - -14 - -18 degrees IMPRESSION: SINUS RHYTHM WITH SHORT MO INTERVAL BORDERLINE ECG Electronically Signed By: Emilie Vance MD Shayla Goff NP ECG ORDERABLES Final Result [facility] * XR Chest PA Lateral 2 Views [...] signed by: Ho Pretty M.D. Shayla Goff NP IMG XR PROCEDURES Final [...] LAB BLOOD ORDERABLES Final Res ult ASA [address] [place] [address] * Differential, auto (11/30/2024 1:03 PM CDT) Pathologist [facility] Neutrophil abs 4.6 1.5 - 6.5 K/cumm Imm gran abs 0.0 0.0 - 0.1 K/cumm [facility] Lymphocyte abs 1.6 0.8 - 3.3 K/cumm [facility] Monocyte abs 0.7 0.2 - 0.8 K/cumm [facility] Eosinophil abs 0.3 0.0 - 0.5 K/cumm [facility] Basophil abs 0.0 0.0 - 0.1 K/cumm [facility] Neutrophil pct 63.2 % [facility] Comment: Interpretive Data Percent cell count reference ranges are not reported, since discordance with absolute values may lead to misinterpretation of CBC data. Current Interpretive Data was last revised on 2017. Imm gran pct 0.4 % [facility] Comment: Interpretive Data Percent cell count reference ranges are not reported, since discordance with absolute values may lead to misinterpretation of CBC data. Current Interpretive Data was last revised on 2017. Lymphocyte pct 22.2 % [facility] Comment: Interpretive Data Percent cell count reference ranges are not reported, since discordance with absolute values may lead to misinterpretation of CBC data. Current Interpretive Data was last revised on 2017. Monocyte pct 10.1 % [facility] Comment: Interpretive Data Percent cell count [...] revised on 2017. Basophil pct 0.6 % [facility] Comment: Interpretive Data Percent cell count reference ranges are not reported, since discordance with absolute values may lead to misinterpretation of CBC data. Current Interpretive Data was last revised on 2017. Blood 11/30/2024 1:03 PM CDT 11/30/2024 1:17 PM CDT us Shayla Goff EBAY RESELLER LAB BLOOD ORDERABLES Final Res ult [facility] [address] Department [place] [address] * Urinalysis reflex to microscopic and culture Urine, clean voided (11/30/2024 1:03 PM CDT) Color, ur Yellow Yellow Clarity, ur Clear Clear [facility] Specific gravity, ur 1.017 1.003 - 1.030 [facility] pH, urine 6.5 [facility] Comment: Interpretive Data U rine pH is affected by diet, medications, systemic acid-base disturbances, and renal tubular function. pH may affect urinary stone formation. For example, urine pH below 6.0 may help reduce the tendency for calcium phosphate stones and pH greater than 6.0 may reduce the tendency for uric acid stone formation. Source: [facility] Current Interpretive Data was last revised [...] for microscopic UA and culture not met. [facility] Urine, clean voided 11/30/2024 1:03 PM CDT 11/30/2024 2:06 PM CDT us Shayla Goff NP LAB MICROBIOLOGY - GENERAL ORD ERABLES Final Result [facility] [address] Department [place] [address] * CBC with auto differential (11/30/2024 1:03 PM CDT) WBC 7.2 3.8 - 9.9 K/cumm Hgb 14.4 13.0 - 17.5 g/dL [facility] Hct 42.7 38.9 - 50.3 % [facility] Plt 191 150 - 400 K/cumm [facility] MPV 10.1 9.1 - 12.3 fL [facility] RBC 4.72 4.30 - 5.80 M/cumm [facility] MCV 90.5 81.3 - 96.4 fL [facility] MCH 30.5 27.1 - 33.3 pg [facility] MCHC 33.7 32.3 - 35.7 g/dL [facility] RDW CV 12.2 11.1 - 14.9 % [facility] CH RDW SD 40.3 35.7 - 48.1 fL [facility] NRBC abs 0.00 0.00 - 0.01 K/cumm [facility] Blood 11/30/2024 1:03 PM CDT 11/30/2024 1:17 PM CDT Shayla Goff NP LAB BLOOD ORDERABLES Final Res ult Performing Organization Address [facility] Co de Phone Number [facility] [address] [facility] [place] [address] * aPTT (11/30/2024 1:03 PM CDT) aPTT [...] ORDERABLES Final Res ult Performing Organization Address [facility] de Phone Number [facility] BELL[facility] [address] [facility] [address] * Protime-INR (11/30/2024 1:03 PM CDT) PT 10.9 9.7 - 13.0 sec INR 1.01 0.90 - 1.20 [facility] Comment: Interpretive data Oral anticoagulant therapeutic ranges: Venous thromboembolism prophylaxis or treatment: 2.0-3.0 CARDIOLOGY Standard range: 2.0-3.0 High-intensity range: 2.5-3.5 Refer to indication-specific guidelines for appropriate target ranges for prosthetic heart valve replacement. Current interpretive data was last revised on 2019. Blood 11/30/2024 1:03 PM CDT 11/30/2024 1:17 PM CDT Shayla Goff NP LAB BLOOD ORDERABLES Final Res ult Performing Organization Address [facility] Hospital/[facility] Co de Phone Number ASA BELLO [address] [facility] [place] [address] * Type and screen (11/30/2024 1:03 PM CDT) Jacek, indirect Negative ABO Rh O Positive CERNER CH Blood 11/30/2024 1:03 PM CDT 11/30/2024 1:21 PM CDT Narrative GRUPONER CH - 11/30/2024 2:04 PM CDT Is this test being ordered in advance for a procedure?->Yes Expected date of procedure:->12/11/24 Has the patient been transfused in the past 3 months?->Unknown Shyala Goff EBAY RESELL[facility] LAB BLOOD BANK TEST ORDERABLES Final Result [facility] [address] [place] [address] * Basic metabolic panel (11/30/2024 1:03 PM CDT) Sodium 140 135 - 145 mmol/L Potassium, pl 4.3 3.3 - 4.9 mmol/L CERNER Chloride 105 97 - 110 mmol/L CERNER CH CO2 24 22 - 32 mmol/L CERNER CH Anion gap 11 2 - 15 mmol/L CERNER BUN 18 6 - 25 mg/dL CERNER Creatinine 1.00 0.80 - 1.30 mg/dL CERNER Glucose 75 70 - 199 mg/dL [facility] Comment: Interpretive Data Fasting glucose >/= 126 [...] 11/30/2024 1:16 PM CDT us Shayla Goff EBAY RESELL[facility] LAB BLOOD ORDERABLES Final Res ult ASA BELLO [address] [place] [address] * PET Outside Consult (11/02/2024 12:15 PM WIRE COATING MACHINE OPERATOR) Anatomical Region Laterality Modality N/A Nuclear Medicine 11/02/2024 3:25 PM WIRE COATING MACHINE OPERATOR Impressions 11/02/2024 3:58 PM WIRE COATING MACHINE OPERATOR 1. Indeterminant right middle lobe pulmonary nodule. [...] images may or may not represent the [place] source data set and thus may contain changes that may lower the accuracy of this second-opinion interpretation. Dictated by: Larry Corral MD The radiology attending physician has personally reviewed this study, and had reviewed and/or edited this written report and agrees with it. Electronically signed by: Antony Rodas DO Narrative 11/02/2024 3:58 PM WIRE COATING MACHINE OPERATOR EXAMINATION: RADIOLOGY CONSULTATION ON OUTSIDE IMAGING STUDY . STUDY INITIALLY PERFORMED: 10/13/2024, images acquired at [facility]. TYPE OF STUDY: FDG-PET/CT. The images available for review consisted of axial attenuation-corrected and uncorrected PET images and axial CT images. The total scanned area was skull base to the proximal thighs. The mean liver SUV (reported for senior supplier quality engineer purposes) is 3.8. The study was interpreted on the [email or web address] workstation. The protocol was adequate to address [...] STUDY INITIALLY PERFORMED: 10/13/2024, images acquired at [facility]. TYPE OF STUDY: FDG-PET/CT. The images available for review consisted of axial attenuation-corrected and uncorrected PET images and axial CT images. The total scanned area was skull base to the proximal thighs. The mean liver SUV (reported for senior supplier quality engineer purposes) is 3.8. The study was interpreted on the [email or web address] workstation. The protocol was adequate to address [...] images may or may not represent the [place] river source data set and thus may contain [...] * PET Outside Reference (10/19/2024 5:00 PM WIRE COATING MACHINE OPERATOR) Impressions RAD_PACS[facility] - 10/19/2024 5:00 PM WIRE COATING MACHINE OPERATOR These images are for Reference purposes only and have not been reviewed by [facility]. There will be no report generated by a [facility] Radiologist. Narrative RAD_PACS_[facility] - 10/19/2024 5:00 PM WIRE COATING MACHINE OPERATOR EXAMINATION: Images For Reference Purposes Only us Dre Cerna MD IMG PET PROCEDURES Final Result [facility] from Last 3 Months Insurance [facility] Member Subscriber Plan / Payer (Ef fective 2012-Present) Name:Adalgisa Merida Relation to Subscriber:Self Name:Adalgisa Merida Payer ID:[id number] ([facility]) Type:[facility] HMO/PPO Address: [address] Advance Directives For more information, please contact: [phone] * Full Code (Latest Code Status on File) Date Activated Date Inactivated Comments 12/11/2024 6:31 PM 12/15/2024 3:57 PM * Full Code Date Activated Date Inactivated Comments 03/16/2024 4:36 PM 03/21/2024 3:59 PM * Full Code Date Activated Date Inactivated Comments 01/28/2022 9:19 PM 02/05/2022 5:17 PM Care Teams Buffing Wheel Presser Relationship Specialty Start Date End Date Crystal Mir MD [address] [place] [address] PCP - General Medical Oncology 12/30/24 Gabe George DO [address] [facility] [address] [address] Internal Medicine 12/30/24 Gabe George DO [address] [facility] [address] [address] Internal Medicine 12/30/24 Ian Michel MD [address] [place] [address] [place] [address] Dermatology 02/10/23 Parul [place] MD [address] [facility] [address] [place] [address] Referring Physician Dermatology 02/10/23 Felix Sher MD [address] [facility] [address], [place] [id number] Consulting Physician Cardiology 10/21/24 Dre Cerna MD [id number] [place] [address] Surgeon Thoracic Surgery 12/15/24
--- OUTSIDE RECORDS SUMMARY | 2025-01-15 12:26 | XMS_ITS | Encounter Summary ---
Author Organization [facility] Healthcare Address [address] [place] [address] Care Team Providers Care Tariff Inspector Name Role Phone Gabe George DO Primary Care Provider [phone] Gabe George DO Unavailable Gabe George DO Unavailable Ian Michel MD Unavailable [phone] Parul [place] MD Unavailable [phone] Felix Sher MD Unavailable [phone] Dre Cerna MD Unavailable Crystal Mir MD Primary Care Provider [phone] Encounter Details Date Type Department Care Team (Late st Contact Info) Description 12/17/2024 [facility] Post Discharge Follow up phone call [address] [address] Rosalee Gerardo Social History Tobacco [...] on file 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 Gender Identity Not on file Sexual Orientation Not on file documented as of this encounter Plan of Treatment Not on file documented as of this encounter Visit Diagnoses Not on filedocumented in this encounter Care Teams Tariff Inspector Relationship Specialty Start Date End Date Gabe George DO [address] [facility] [address] [place] [address] PCP - General Internal Medicine 08/03/24 12/29/24 Crystal Mir MD [address] [place] [address] PCP - General Medical Oncology 12/30/24 Gabe George DO [address] [facility] [address] [address] Internal Medicine 12/30/24 Gabe George DO [address] [address] Internal Medicine 12/30/24 Ian Michel MD [address] [place] [address] [address] Stephani [place] [id number] Dermatology 02/10/23 Parul [place] MD [address] [facility] [address] [place] [address] Referring Physician Dermatology 02/10/23 Felix Sher MD [address] [facility] [address], [place] [address] Consulting Physician Cardiology 10/21/24 Dre Cerna MD [id number] [place] [address] Surgeon Thoracic Surgery 12/15/24 documented as of this encounter
--- OUTSIDE RECORDS SUMMARY | 2025-01-15 12:26 | XMS_ITS | Referral Summary ---
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 Name Role Phone Ariel, Gabe ADEN Unavailable Gabe George DO Unavailable Ian Michel MD Unavailable [phone] Parul Baldwin MD Unavailable [phone] Felix Sher MD Unavailable [phone] Dre Cerna MD Unavailable Crystal Mir MD Primary Care Provider [phone] Encounters Date Type Department Care Team Description 01/14/2025 Orders Only [facility] [address] [place] [address] Dre Cerna MD Lung nodule 01/13/2025 2:00 PM CDT Clinical Support [address] Advanced Medicine 1st [place] [address] Halina Ocasio, PhD Anxiety in cancer patient 01/07/2025 8:58 AM CDT - 01/07/2025 11:59 PM CDT Hospital Encounter 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 9:30 AM CDT Office Visit [facility] Physicians [facility] Surgery [address] [place] [address] Dre Cerna MD Lung nodule (Primary Dx) 12/30/2024 Telephone [facility] [address] [place] [address] Amara Dhaliwal, RN Internet Request 12/29/2024 Telephone [facility] [email or web address] [place] [address] [place] [address] Fouzia Hamilton LCSW 12/29/2024 Orders Only [facility] Surgery [address] [facility] [address] [place] [address] Dre Cerna MD Lung nodule (Primary Dx) 12/29/2024 Orders Only [facility] Surgery [address] [facility] [facility] Floor 5 [place] [address] Radha Riley NP Stress and adjustment reaction (Primary Dx) 12/29/2024 Telephone [facility] Surgery [address] [facility] Floor 5 [place] [address] Radha Riley NP 12/29/2024 Orders Only [facility] Surgery [facility] [facility] Floor 5 [place] [address] Radha Riley NP Pleomorphic dermal sarcoma (Primary Dx) 2024 Orders Only [facility] Surgery [address] [facility] Floor 5 [place] [phone] Radha Riley NP Nerve pain (Primary Dx) 2024 Telephone [facility] Cardiothoracic Surgery [address] [facility] 8th Floor [address] Room 08[address]085 [place] [address] Daphnie Agrawal 12/27/2024 Telephone [facility] Surgeon 1 [place] [address] Ana Blank MD Pain (Pain at incision site, new abdominal pain ) 12/27/2024 12:13 PM CDT - 12/27/2024 2:31 PM CDT Emergency [facility] Emergency Department 1 [place] [address] Narciso Delgadillo MD Post-operative pain (Primary Dx) Discharge Disposition: Discharge to home or self care 12/24/2024 10:46 AM CDT - 12/24/2024 11:59 PM CDT Hospital Encounter [facility] MOB 1 DIAG IMG [address] [place] [address] Lung nodule Discharge Disposition: Discharge to home or self care 12/24/2024 11:15 AM CDT Office Visit [facility] Surgery [address] [place] [phone] Dre Cerna MD Lung nodule (Primary Dx) 12/17/2024 [facility] Post Discharge Follow up phone call [address] [address] Rosalee Gerardo 12/17/2024 [facility] Post Discharge Follow up phone call [address] [address] Karla Romo RN 12/15/2024 Orders Only [facility] Surgery [address] [place] [phone] Ian Cardenas NP 12/11/2024 9:39 AM CDT - 12/15/2024 11:57 AM CDT Hospital Encounter [address] [address] Dre Cerna MD Nodule of middle lobe of right lung Discharge Disposition: Discharge to home or self care 12/11/2024 12:00 PM CDT - 12/11/2024 4:00 PM CDT Surgery [facility] Operating Room [address] [place] [address] Dre Cerna MD XI ROBOTIC THORACIC RIGHT MIDDLE LOBECTOMY [62235 (CPT )] 12/11/2024 12:17 PM CDT Anesthesia Event [facility] Operating Room [address] [place] [address] Kevan Torrez MD Tadros, Hany B., MD 12/04/2024 Telephone [facility] Surgery [address] [place] [address] 5 [place] [phone] Radha Riley NP 12/03/2024 6:53 PM CDT - 12/03/2024 11:59 PM CDT Hospital Encounter [facility] [address] [place] [address] Discharge Disposition: Discharge to home or self care 11/30/2024 Orders Only [facility] Surgery [address] [place] [address] 5 [place] [phone] Radha Riley NP Gingivitis (Primary Dx) 11/30/2024 1:03 PM CDT - 11/30/2024 11:59 PM CDT Hospital Encounter [facility] Diagnostic Imaging [address] [place] [address] Discharge Disposition: Discharge to home or self care 11/30/2024 12:15 PM CDT Pre-Admission Testing [facility] Pre Anesthesia Testing [address] [place] [address] Preoperative testing (Primary Dx) 11/20/2024 Telephone [facility] Surgery [address] [place] [address] [place] [phone] Patt Riley, RMA 11/19/2024 Telephone [facility] Surgery [address] [place] [address] [place] [phone] Patt Riley, RMA 11/13/2024 Orders Only [facility] Surgery [address] [place] [address] [address] [place] [phone] Dre Cerna MD Lung nodule (Primary Dx) 11/13/2024 Orders Only [facility] Surgery [address] [place] [phone] Cori Carpenter 11/02/2024 12:15 PM GIS INSTRUCTOR - 11/02/2024 11:59 PM GIS INSTRUCTOR Hospital Encounter [facility] Radiology [facility] [address] [place] [address] Diagnosis unknown Discharge Disposition: Discharge to home or self care 10/22/2024 Orders Only [facility] Surgery [address] [facility] [address] [place] [phone] Dre Cerna MD Lung nodule (Primary Dx) 10/22/2024 Telephone [facility] Surgery [address] [facility] [address] [place] [phone] OsvaldoLeonelrileyFITZ lauren 10/20/2024 11:45 AM GIS INSTRUCTOR Office Visit [facility] Surgery [address] [place] [phone] Dre Cerna MD Lung nodule (Primary Dx) 10/19/2024 5:00 PM GIS INSTRUCTOR - 10/19/2024 11:59 PM GIS INSTRUCTOR Hospital Encounter [facility] Radiology [facility] [address] [place] [address] Discharge Disposition: Discharge to home or self [...] showed interval changes of parietal scalp mass 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 and Gerardo thus Hancock flap reconstruction without [...] graft) 03/05/20 Coronary artery disease invo lving platinum coronary artery of platinum heart without angina pectoris 01/28/2022 Overview (01/29/2022): Added automatically from request for surgery [id number] ST elevation myocardial infa rction involving right [...] on file Legal Sex Male 7:35 PM GIS INSTRUCTOR Gender Identity Not on file Sexual Orientation [...] on file Medical Devices Implanted Type Area Turner In Device Identifier Shelf Expiration Date Model / Serial / Lot Haptik Luly Blackmon Microvascular 3mm Ring Pin Protective Cover Jaw Assembly Latex Free [id number] - [id number] Implanted:Qty: 1 on 03/16/2024 by Minh Orozco MD at [facility] Neck [employer] Mint[employer] Luly [id number] 01/08/2028 [id number] / / [id number] Procedures Procedure Name Priority Date/Time Associated Diagnosis [...] PREPARE RBC STAT 12/11/2024 2:12 PM CDT MS AN ELECTIVE ENDOTRACHEAL AIRWAY Routine 12/11/2024 12:29 PM CDT ANESTHESIA ARTERIAL LINE PLACEMENT Routine 12/11/2024 12:28 PM CDT PERIPHERAL LINE Routine 12/11/2024 12:28 PM CDT MS THORACOSCOPY W/DX BX OF LUNG INFILTRATE UNILATRL [...] OUTSIDE CONSULT Routine 11/02/2024 1 2:15 PM GIS INSTRUCTOR Diagnosis unknown PET OUTSIDE REFERENCE Routine 10/19/2024 5:00 PM GIS INSTRUCTOR from Last 3 Months Results * Surgical pathology (01/14/2025 2:23 PM CDT) Tissue (Consult Material) 01/14/2025 2:23 PM CDT 01/14/2025 2:23 PM CDT Narrative [facility] PATHOLOGY LAB - 01/15/2025 12:18 PM CDT EPIC results best viewed via link to PDF [facility] Pathology Consult Service [address], [address], [place] [address] Note to Patients: This report may contain [...] SURGICAL PATHOLOGY REPORT * Consult Report * [facility] is providing an additional review of previously collected tissue. FINAL Patient Name: ADALGISA MERIDA Address: [address] [place], [place] [address] Gender: M : 1960 (Age: 64) Hospital #: [id number] Patient Type: CESAR Location: UNKNOWN Taken: 01/14/2025 Received: 01/14/2025 Accessioned: 01/14/2025 Reported: 01/15/2025 Physician(s): Dre Cerna M.D. [facility] NE Pathology [facility] Department of Pathology [address] [place] [address] P: [phone] F: [phone] Diagnosis: Consult material received from [place], [place] A. Lung, right middle lobe, lobectomy (OSC: [id number]; 12/11/2024): - Malignant spindle cell neoplasm, consistent [...] Received for review are twenty-six slides labeled [id number], accompanied by a corresponding pathology report. The material originates from [place], [place]. Selected slide(s) may be digitally scanned for our files, and all materials are returned to the referring institution, along with a copy of our final report. Any testing required for diagnostic purposes was performed in the Department of Pathology and Immunology at [facility], [address] [place] [address] CLIA # [id number] The performance characteristics of the testing cited in this report (if any) were determined by the [facility] Department of Pathology and Immunology [facility], as part of an ongoing chief quality officer program and in compliance with federally mandated [...] and the performance characteristics determined by the [facility], [facility] Department of Pathology and Immunology. It has not been cleared or approved by the U.S. Food and Drug Administration. Any test designated as LDT was developed and its performance characteristics determined by [facility]. It has not been cleared or approved by the FDA. This test is used for clinical purposes and should not be regarded as investigational or for research. Report images and/or scanned reports, if included, only viewable in PDF version of report. us Dre Cerna MD LAB PATHOLOGY ORDERABLES Final R esult [facility] PATHOLOGY LAB [address] [place] [address] * X-ray chest 2 views (01/07/2025 9:00 [...] Pranay Grace M.D. ANANT: ANANT Report ID: [id number] Reading Location: [id number] Procedure Note Wilian Grace MD - 01/13/2025 [...] Pranay Grace M.D. ANANT: ANANT Report ID: [id number] Reading Location: [id number] Dre Cerna MD IMG XR PROCEDURES Final Result * Sepsis Lactate w/ Reflex (12/27/2024 1:04 PM CDT) Sepsis Lactate 1.3 0.7 - 2.0 mmol/L Blood 12/27/2024 1:04 PM CDT 12/27/2024 1:07 PM CDT Osvaldo Wu MD LAB BLOOD ORDERABLES Final R esult [facility] [place]) 4 [facility] [place] [address] * CT Chest W Contrast [...] Recent guidelines by the Fleischner Society (Radiology 148986,2017) divides patient into low vs. high risk [...] immunosuppression, or patients with known primary cancer. http://pubs.rsna.org/doi/pdf/10.1148/radiol.9246861108 THIS IS AN ELECTRONICALLY VERIFIED FINAL REPORT 12/27/2024 1:03 PM - Electronically signed by Damian Dorsey D.O. PS: PS Report ID: [id number] Reading Location: [id number] Procedure Note Damian Dorsey, DO - 12/27/2024 [...] lobe abutting the mediastinum (axial image 35). MEDIASTINUM/EF: The heart size is stable. There is [...] Recent guidelines by the Fleischner Society (Radiology 554530,2017)divides patient into low vs. high risk (for [...] immunosuppression, or patients with known primary cancer. http://pubs.rsna.org/doi/pdf/10.1148/radiol.2515726926 THIS IS AN ELECTRONICALLY VERIFIED FINAL REPORT 12/27/2024 1:03 PM - Electronically signed by Damian Dorsey D.O. PS: PS Report ID: [id number] Reading Location: [place] [address] PROCEDURES Final Result * [...] Damian Dorsey D.O. PS: PS Report ID: [id number] Reading Location: [id number] Procedure Note Damian Dorsey, DO - 12/27/2024 EXAM DESCRIPTION: XR CHEST [...] Damian Dorsey D.O. PS: PS Report ID: [id number] Reading Location: [id number] Narciso Delgadillo MD IMG XR PROCEDURES Final Resu lt * (ABNORMAL) Sepsis Lactate w/ Reflex (12/27/2024 10:10 AM CDT) Sepsis Lactate 2.3(H) 0.7 - 2.0 mmol/L Blood 12/27/2024 10:1 0 AM CDT 12/27/2024 10:41 AM CDT Narciso Delgadillo MD LAB BLOOD ORDERABLES Final R esult Performing Organization Address City/[facility]/ZIP Co de Phone Number [facility] ([place]) 1 [facility] [place] [address] * eGFR (12/27/2024 10:10 AM CDT) eGFR [...] BLOOD ORDERABLES Final R esult [facility] ([place]) 1 [facility] [place] [address] * (ABNORMAL) Differential, auto (12/27/2024 10:10 AM [...] Final R esult [facility] ([place]) 1 [facility] [place] [address] * (ABNORMAL) CBC with auto differential (12/27/2024 [...] RDW CV 13.0 11.1 - 14.9 % [facility] ([place]) RDW SD 42.8 35.7 - 48.1 fL [facility] ([place]) NRBC abs 0.00 0.00 - 0.01 K/cumm [facility] ([place]) Blood 12/27/2024 10:1 0 AM CDT 12/27/2024 10:41 AM CDT Narciso Delgadillo MD LAB BLOOD ORDERABLES Final R esult [facility] ([place]) 1 [facility] [place] [address] * Comprehensive metabolic panel (12/27/2024 10:10 AM [...] MD LAB BLOOD ORDERABLES Final R esult [facility] ([place]) 1 [facility] Department [place] [address] * X-ray chest 2 views (12/24/2024 10:49 [...] Yeison Davenport M.D. KH: SAI Report ID: [id number] Reading Location: [id number] Procedure Note Yeison Davenport MD - 01/02/2025 [...] Yeison Davenport M.D. KH: SAI Report ID: [id number] Reading Location: [id number] us Dre Cerna MD [facility] XR PROCEDURES Final Result * XR Chest [...] Bhavik Huffman M.D. us Dre Cerna MD [facility] XR PROCEDURES Final Result * eGFR (12/15/2024 [...] 12/15/2024 4:13 AM CDT us Cherry Newby EXTERNAL GRINDER TOOL LAB BLOOD ORDERABLES Mague dudley Result [facility] [address] Department [place] [address] * (ABNORMAL) Differential, auto (12/15/2024 3:50 AM CDT) Neutrophil abs 6.8(H) 1.5 - 6.5 K/cumm Imm gran abs 0.1 0.0 - 0.1 K/cumm [facility] Lymphocyte abs 1.2 0.8 - 3.3 K/cumm [facility] Monocyte abs 1.0(H) 0.2 - 0.8 K/cumm [facility] Eosinophil abs 0.6(H) 0.0 - 0.5 K/cumm [facility] Basophil abs 0.0 0.0 - 0.1 K/cumm [facility] Neutrophil pct 70.4 % [facility] Comment: Interpretive Data Percent cell count reference ranges are not reported, since discordance with absolute values may lead to misinterpretation of CBC data. Current Interpretive Data was last revised on 2017. Imm gran pct 0.7 % [facility] Comment: Interpretive Data Percent cell count reference ranges are not reported, since discordance with absolute values may lead to misinterpretation of CBC data. Current Interpretive Data was last revised on 2017. Lymphocyte pct 12.4 % [facility] Comment: Interpretive Data Percent cell count reference ranges are not reported, since discordance with absolute values may lead to misinterpretation of CBC data. Current Interpretive Data was last revised on 2017. Monocyte pct 10.4 % [facility] [...] revised on 2017. Basophil pct 0.4 % [facility] Comment: Interpretive Data Percent cell count reference ranges are not reported, since discordance with absolute values may lead to misinterpretation of CBC data. Current Interpretive Data was last revised on 2017. Blood 12/15/2024 3:50 AM CDT 12/15/2024 4:12 AM CDT us Cherry Newby NP LAB BLOOD ORDERABLES Mague dudley Result [facility] [address] Department [place] [address] * (ABNORMAL) CBC with auto differential (12/15/2024 3:50 AM CDT) WBC 9.7 3.8 - 9.9 K/cumm Hgb 12.3(L) 13.0 - 17.5 g/dL [facility] Hct 34.7(L) 38.9 - 50.3 % [facility] Plt 164 150 - 400 K/cumm [facility] MPV 10.2 9.1 - 12.3 fL [facility] RBC 3.87(L) 4.30 - 5.80 M/cumm [facility] MCV 89.7 81.3 - 96.4 fL [facility] MCH 31.8 27.1 - 33.3 pg [facility] MCHC 35.4 32.3 - 35.7 g/dL [facility] RDW CV 13.2 11.1 - 14.9 % [facility] RDW SD 43.3 35.7 - 48.1 fL [facility] NRBC abs 0.00 0.00 - 0.01 K/cumm [facility] Blood 12/15/2024 3:50 AM CDT 12/15/2024 4:12 AM CDT us Cherry Newby EXTERNAL GRINDER TOOL LAB BLOOD ORDERABLES Mague l Result [facility] [address] Department [place] [address] * Basic metabolic panel (12/15/2024 3:50 AM CDT) Sodium 139 135 - 145 mmol/L Potassium, pl 4.4 3.3 - 4.9 mmol/L [facility] Chloride 108 97 - 110 mmol/L [facility] CO2 23 22 - 32 mmol/L [facility] Anion gap 8 2 - 15 mmol/L [facility] BUN 18 6 - 25 mg/dL [facility] Creatinine 0.86 0.80 - 1.30 mg/dL [facility] Glucose 100 70 - 199 mg/dL [facility] Comment: Interpretive Data Fasting glucose >/= 126 [...] 2022. Calcium 9.0 8.5 - 10.3 mg/dL [facility] Blood 12/15/2024 3:50 AM CDT 12/15/2024 4:13 AM CDT us Cherry Newby EXTERNAL GRINDER TOOL LAB BLOOD ORDERABLES Mague l Result Performing Organization Address City/[facility]/ZIP Co de Phone Number [facility] [address] Department [place] [address] * eGFR (12/14/2024 4:26 AM CDT) eGFR [...] 12/14/2024 5:16 AM CDT us Cherry Newby EXTERNAL GRINDER TOOL LAB BLOOD ORDERABLES Mague l Result Performing Organization Address City/[facility] Co de Phone Number [facility] [address] Department [place] [address] * (ABNORMAL) Differential, auto (12/14/2024 4:26 AM CDT) Neutrophil abs 6.7(H) 1.5 - 6.5 K/cumm Imm gran abs 0.0 0.0 - 0.1 K/cumm [facility] Lymphocyte abs 1.4 0.8 - 3.3 K/cumm [facility] Monocyte abs 1.0(H) 0.2 - 0.8 K/cumm [facility] Eosinophil abs 0.4 0.0 - 0.5 K/cumm [facility] Basophil abs 0.0 0.0 - 0.1 K/cumm [facility] Neutrophil pct 69.4 % [facility] Comment: Interpretive Data Percent cell count reference ranges are not reported, since discordance with absolute values may lead to misinterpretation of CBC data. Current Interpretive Data was last revised on 2017. Imm gran pct 0.4 % [facility] Comment: Interpretive Data Percent cell count reference ranges are not reported, since discordance with absolute values may lead to misinterpretation of CBC data. Current Interpretive Data was last revised on 2017. Lymphocyte pct 14.9 % [facility] Comment: Interpretive Data Percent cell count reference ranges are not reported, since discordance with absolute values may lead to misinterpretation of CBC data. Current Interpretive Data was last revised on 2017. Monocyte pct 10.4 % [facility] Comment: Interpretive Data Percent cell count reference ranges are not reported, since discordance with absolute values may lead to misinterpretation of CBC data. Current Interpretive Data was last revised on 2017. Eosinophil pct 4.6 % [facility] Comment: Interpretive Data Percent cell count reference ranges are not reported, since discordance with absolute values may lead to misinterpretation of CBC data. Current Interpretive Data was last revised on 2017. Basophil pct 0.3 % [facility] Comment: Interpretive Data Percent cell count reference ranges are not reported, since discordance with absolute values may lead to misinterpretation of CBC data. Current Interpretive Data was last revised on 2017. Blood 12/14/2024 4:26 AM CDT 12/14/2024 5:14 AM CDT us Cherry Newby EXTERNAL GRINDER TOOL LAB BLOOD ORDERABLES Mague octavia Result [facility] [address] Department [place] [address] * (ABNORMAL) CBC with auto differential (12/14/2024 4:26 AM CDT) WBC 9.6 3.8 - 9.9 K/cumm Hgb 12.2(L) 13.0 - 17.5 g/dL [facility] Hct 36.3(L) 38.9 - 50.3 % [facility] Plt 150 150 - 400 K/cumm [facility] MPV 10.7 9.1 - 12.3 fL [facility] RBC 4.06(L) 4.30 - 5.80 M/cumm [facility] MCV 89.4 81.3 - 96.4 fL [facility] MCH 30.0 27.1 - 33.3 pg [facility] MCHC 33.6 32.3 - 35.7 g/dL [facility] RDW CV 13.0 11.1 - 14.9 % [facility] RDW SD 42.7 35.7 - 48.1 fL [facility] NRBC abs 0.00 0.00 - 0.01 K/cumm [facility] Blood 12/14/2024 4:26 AM CDT 12/14/2024 5:14 AM CDT Cherry Newby EXTERNAL GRINDER TOOL LAB BLOOD ORDERABLES Mague l Result Performing Organization Address [facility] Co de Phone Number [facility] [address] [facility] [employer] [place], [place] [id number] * Magnesium (12/14/2024 4:26 AM CDT) Pathologist [facility] Magnesium 2.1 1.4 - 2.5 mg/dL Blood 12/14/2024 4:26 AM CDT 12/14/2024 12:13 PM CDT Cherry Newby EXTERNAL GRINDER TOOL LAB BLOOD ORDERABLES Mague l Result Performing Organization Address [facility] Co de Phone Number [facility] [address] [facility] [place] [address] * Basic metabolic panel (12/14/2024 4:26 AM CDT) Sodium 139 135 - 145 mmol/L Potassium, pl 3.8 3.3 - 4.9 mmol/L [facility] Chloride 107 97 - 110 mmol/L [facility] CH CO2 23 22 - 32 mmol/L [facility] Anion gap 9 2 - 15 mmol/L [facility] BUN 15 6 - 25 mg/dL [facility] Creatinine 0.89 0.80 - 1.30 mg/dL [facility] Glucose 93 70 - 199 mg/dL [facility] Comment: Interpretive Data Fasting glucose >/= [...] 2022. Calcium 8.7 8.5 - 10.3 mg/dL [facility] Blood 12/14/2024 4:26 AM CDT 12/14/2024 5:16 AM CDT us Cherry Newby NP LAB BLOOD ORDERABLES Mague dudley Result [facility] [address] Department [place] [address] * XR Chest 1 View (12/14/2024 4:14 [...] LAB BLOOD ORDERABLES Mague dudley Result ASA [address] Department [place] [address] * (ABNORMAL) Differential, auto (12/13/2024 3:58 AM CDT) Neutrophil abs 9.7(H) 1.5 - 6.5 K/cumm Imm gran abs 0.0 0.0 - 0.1 K/cumm [facility] Lymphocyte abs 1.3 0.8 - 3.3 K/cumm [facility] Monocyte abs 1.2(H) 0.2 - 0.8 K/cumm [facility] Eosinophil abs 0.3 0.0 - 0.5 K/cumm [facility] Basophil abs 0.0 0.0 - 0.1 K/cumm [facility] Neutrophil pct 77.0 % [facility] Comment: Interpretive Data Percent cell count reference ranges are not reported, since discordance with absolute values may lead to misinterpretation of CBC data. Current Interpretive Data was last revised on 2017. Imm gran pct 0.3 % [facility] Comment: Interpretive Data Percent cell count reference ranges are not reported, since discordance with absolute values may lead to misinterpretation of CBC data. Current Interpretive Data was last revised on 2017. Lymphocyte pct 10.6 % [facility] Comment: Interpretive Data Percent cell count reference ranges are not reported, since discordance with absolute values may lead to misinterpretation of CBC data. Current Interpretive Data was last revised on 2017. Monocyte pct 9.3 % [facility] Comment: Interpretive Data Percent cell count reference ranges are not reported, since discordance with absolute values may lead to misinterpretation of CBC data. Current Interpretive Data was last revised on 2017. Eosinophil pct 2.5 % [facility] Comment: Interpretive Data Percent cell count reference ranges are not reported, since discordance with absolute values may lead to misinterpretation of CBC data. Current Interpretive Data was last revised on 2017. Basophil pct 0.3 % [facility] Comment: Interpretive Data Percent cell count reference ranges are not reported, since discordance with absolute values may lead to misinterpretation of CBC data. Current Interpretive Data was last revised on 2017. Blood 12/13/2024 3:58 AM CDT 12/13/2024 4:34 AM CDT us Cherry Newby EXTERNAL GRINDER TOOL LAB BLOOD ORDERABLES Mague l Result Performing Organization Address [facility] Co de Phone Number [facility] [address] Department [place] [address] * (ABNORMAL) CBC with auto differential (12/13/2024 3:58 AM CDT) WBC 12.6(H) 3.8 - 9.9 K/cumm Hgb 13.2 13.0 - 17.5 g/dL [facility] Hct 38.8(L) 38.9 - 50.3 % [facility] Plt 151 150 - 400 K/cumm [facility] MPV 10.7 9.1 - 12.3 fL [facility] RBC 4.29(L) 4.30 - 5.80 M/cumm [facility] MCV 90.4 81.3 - 96.4 fL [facility] MCH 30.8 27.1 - 33.3 pg [facility] MCHC 34.0 32.3 - 35.7 g/dL [facility] RDW CV 12.9 11.1 - 14.9 % [facility] RDW SD 42.4 35.7 - 48.1 fL [facility] NRBC abs 0.00 0.00 - 0.01 K/cumm [facility] Blood 12/13/2024 3:58 AM CDT 12/13/2024 4:34 AM CDT us Cherry Newby EXTERNAL GRINDER TOOL LAB BLOOD ORDERABLES Mague l Result Performing Organization Address [facility] Co de Phone Number ASA BELLO [address] Department [place] [address] * (ABNORMAL) Basic metabolic panel (12/13/2024 3:58 AM CDT) Sodium 137 135 - 145 mmol/L Potassium, pl 3.9 3.3 - 4.9 mmol/L [facility] Chloride 106 97 - 110 mmol/L [facility] CO2 22 22 - 32 mmol/L [facility] Anion gap 9 2 - 15 mmol/L [facility] BUN 17 6 - 25 mg/dL [facility] Creatinine 0.97 0.80 - 1.30 mg/dL [facility] Glucose 108 70 - 199 mg/dL [facility] Comment: Interpretive Data Fasting glucose >/= [...] 2022. Calcium 8.4(L) 8.5 - 10.3 mg/dL [facility] Blood 12/13/2024 3:58 AM CDT 12/13/2024 4:34 AM CDT us Cherry Newby EXTERNAL GRINDER TOOL LAB BLOOD ORDERABLES Mague dudley Result [facility] [address] Department [place] [address] * eGFR (12/12/2024 5:18 PM CDT) eGFR [...] data was last reviewed 2021. Blood 12/12/2024 5:1 8 PM CDT 12/12/2024 5:26 PM CDT Rosalina HATCH LAB BLOOD ORDERABLES F inal Result [facility] [address] Department [place] [address] * (ABNORMAL) Basic metabolic panel (12/12/2024 5:18 PM CDT) Pathologist [facility] Sodium 134(L) 135 - 145 mmol/L Potassium, pl 3.7 3.3 - 4.9 mmol/L [facility] Chloride 100 97 - 110 mmol/L [facility] CO2 26 22 - 32 mmol/L [facility] Anion gap 8 2 - 15 mmol/L [facility] BUN 16 6 - 25 mg/dL [facility] Creatinine 1.16 0.80 - 1.30 mg/dL [facility] Glucose 113 70 - 199 mg/dL [facility] Comment: Interpretive Data Fasting glucose >/= [...] 2022. Calcium 8.5 8.5 - 10.3 mg/dL [facility] Blood 12/12/2024 5:18 PM CDT 12/12/2024 5:26 PM CDT Rosalina HATCH LAB BLOOD ORDERABLES F inal Result [facility] [address] Department [place] [address] * Critical Care (12/12/2024 6:55 AM CDT) [...] plan with the patient's team and other medical/dairy feed sales consultant staff. This time was in [...] Trop T hs delta 2 ng/L ASA BELLO Trop T hs interp Insignificant ASA BELLO Blood 12/12/2024 3:47 AM CDT 12/12/2024 3:55 AM CDT us López Valadez APRN LAB BLOOD ORDERABL ES Final Result ASA [address] Department [place] [address] * XR Chest 1 Vw Portable (12/12/2024 [...] CDT 12/12/2024 2:07 AM CDT López Valadez SHIP DESIGN TEACHER LAB BLOOD ORDERABL ES Final Result ASA BELLO [address] [facility] [place] [address] * Calcium, ionized, whole blood (12/12/2024 1:57 AM CDT) Ca, ionized, bld 4.53 4.50 - 5.10 mg/dL Blood 12/12/2024 1:57 AM CDT 12/12/2024 2:07 AM CDT López Valadez SHIP DESIGN TEACHER LAB BLOOD ORDERABL ES Final Result Performing Organization Address [facility] Co de Phone Number ASA BELLO [address] [facility] [place] [address] * eGFR (12/12/2024 1:57 AM CDT) eGFR [...] 12/12/2024 2:07 AM CDT us López Valadez SHIP DESIGN TEACHER LAB BLOOD ORDERABL ES Final Result [facility] [address] Department [place] [address] * (ABNORMAL) Differential, auto (12/12/2024 1:57 AM CDT) Neutrophil abs 14.1(H) 1.5 - 6.5 K/cumm Imm gran abs 0.1 0.0 - 0.1 K/cumm [facility] Lymphocyte abs 0.8 0.8 - 3.3 K/cumm [facility] Monocyte abs 1.9(H) 0.2 - 0.8 K/cumm [facility] Eosinophil abs 0.0 0.0 - 0.5 K/cumm [facility] Basophil abs 0.0 0.0 - 0.1 K/cumm [facility] Neutrophil pct 83.2 % [facility] Comment: Interpretive Data Percent cell count reference ranges are not reported, since discordance with absolute values may lead to misinterpretation of CBC data. Current Interpretive Data was last revised on 2017. Imm gran pct 0.5 % [facility] Comment: Interpretive Data Percent cell count reference ranges are not reported, since discordance with absolute values may lead to misinterpretation of CBC data. Current Interpretive Data was last revised on 2017. Lymphocyte pct 4.7 % [facility] Comment: Interpretive Data Percent cell count reference ranges are not reported, since discordance with absolute values may lead to misinterpretation of CBC data. Current Interpretive Data was last revised on 2017. Monocyte pct 11.3 % [facility] Comment: Interpretive Data Percent cell count reference ranges are not reported, since discordance with absolute values may lead to misinterpretation of CBC data. Current Interpretive Data was last revised on 2017. Eosinophil pct 0.2 % [facility] Comment: Interpretive Data Percent cell count reference ranges are not reported, since discordance with absolute values may lead to misinterpretation of CBC data. Current Interpretive Data was last revised on 2017. Basophil pct 0.1 % [facility] Comment: Interpretive Data Percent cell count reference ranges are not reported, since discordance with absolute values may lead to misinterpretation of CBC data. Current Interpretive Data was last revised on 2017. Blood 12/12/2024 1:57 AM CDT 12/12/2024 2:07 AM CDT López Cortes Rory BAUMAN LAB BLOOD ORDERABL ES Final Result Performing Organization Address [facility] Co de Phone Number ASA BELLO [address] [place] [address] * (ABNORMAL) CBC with auto differential (12/12/2024 1:57 AM CDT) WBC 17.0(H) 3.8 - 9.9 K/cumm Hgb 14.1 13.0 - 17.5 g/dL [facility] Hct 41.2 38.9 - 50.3 % [facility] Plt 194 150 - 400 K/cumm [facility] MPV 10.4 9.1 - 12.3 fL [facility] RBC 4.60 4.30 - 5.80 M/cumm [facility] MCV 89.6 81.3 - 96.4 fL [facility] MCH 30.7 27.1 - 33.3 pg [facility] MCHC 34.2 32.3 - 35.7 g/dL [facility] RDW CV 12.6 11.1 - 14.9 % [facility] RDW SD 41.0 35.7 - 48.1 fL [facility] NRBC abs 0.00 0.00 - 0.01 K/cumm [facility] Blood 12/12/2024 1:57 AM CDT 12/12/2024 2:07 AM CDT Lópezmonique Valadez APRN LAB BLOOD ORDERABL ES Final Result Performing Organization Address [facility] Co de Phone Number ASA BELLO [address] [facility] [place], [place] [id number] * Magnesium (12/12/2024 1:57 AM CDT) Magnesium 2.0 1.4 - 2.5 mg/dL Blood 12/12/2024 1:57 AM CDT 12/12/2024 2:07 AM CDT López Sebastian Valadez SHIP DESIGN TEACHER LAB BLOOD ORDERABL ES Final Result Performing Organization Address [facility] Co de Phone Number ASA [address] [place] [address] * (ABNORMAL) Basic metabolic panel (12/12/2024 1:57 AM CDT) Sodium 138 135 - 145 mmol/L Potassium, pl 5.2(H) 3.3 - 4.9 mmol/L [facility] Comment:Hemolysis present. R esults may be affected. Chloride 104 97 - 110 mmol/L [facility] CO2 21(L) 22 - 32 mmol/L [facility] Anion gap 13 2 - 15 mmol/L [facility] BUN 14 6 - 25 mg/dL [facility] Creatinine 0.94 0.80 - 1.30 mg/dL [facility] Glucose 144 70 - 199 mg/dL [facility] Comment: Interpretive Data Fasting glucose >/= 126 [...] 2022. Calcium 8.5 8.5 - 10.3 mg/dL [facility] Blood 12/12/2024 1:57 AM CDT 12/12/2024 2:07 AM CDT López Valadez APRN LAB BLOOD ORDERABL ES Final Result Performing Organization Address [facility] de Phone Number ASA [address] [place] [address] * ECG 12 lead (12/12/2024 1:51 AM CDT) 12/12/2024 1:51 AM CDT Narrative [facility] - 12/12/2024 7:40 AM CDT Vent Rate: 155 bpm RR Interval: 386 msec MS Interval: 0 msec QRS Duration: 126 msec QT Interval: 220 msec QTC Interval: 307 msec P-R-T [place]: 0 - -13 - -36 degrees IMPRESSION: ATRIAL FLUTTER/TACHYCARDIA WITH RAPID VENTRICULAR RESPONSE MODERATE INTRAVENTRICULAR CONDUCTION DELAY [110+ ms QRS DURATION] NONSPECIFIC ST \T\ T-WAVE ABNORMALITY CRITICAL TEST RESULT Compared to prior EKG, heart rate has increased Anterolateral ST segment depressions are new Patient probably in atrial flutter Electronically Signed By: Mauricio Boswell MD López Valadez APRN ECG ORDERABLES Fi nal Result [facility] * Critical Care (12/11/2024 9:53 PM CDT) Narrative Daniel Arvizu MD - 12/11/2024 9:53 PM CDT Daniel Arvizu MD 12/12/2024 6:23 AM Critical Care Performed by: López Valadez APRN Authorized by: López Valadez APRN CRITICAL CARE: Team: NE Shift: PM Level of Billing: Critical Care [...] plan with the ICU team and other medical/dairy feed sales consultant staff, making frequent assessments and [...] documenting in the medical record López Valadez [facility] ORDERABLES Final Result * (ABNORMAL) CBC without differential (12/11/2024 9:40 PM CDT) Pathologist [facility] WBC 18.2(H) 3.8 - 9.9 K/cumm Hgb 14.0 13.0 - 17.5 g/dL [facility] Hct 40.0 38.9 - 50.3 % [facility] Plt 179 150 - 400 K/cumm [facility] MPV 10.6 9.1 - 12.3 fL [facility] RBC 4.47 4.30 - 5.80 M/cumm [facility] MCV 89.5 81.3 - 96.4 fL [facility] MCH 31.3 27.1 - 33.3 pg [facility] MCHC 35.0 32.3 - 35.7 g/dL [facility] RDW CV 12.3 11.1 - 14.9 % [facility] RDW SD 40.5 35.7 - 48.1 fL [facility] NRBC abs 0.00 0.00 - 0.01 K/cumm [facility] Blood 12/11/2024 9:40 PM CDT 12/11/2024 9:40 PM CDT Dre Cerna MD LAB BLOOD ORDERABLES Final Resul t [facility] [address] Department [place] [address] * eGFR (12/11/2024 9:39 PM CDT) Pathologist [facility] eGFR >90 >=60 mL/min/1. 73 m2 Comment: [...] MD LAB BLOOD ORDERABLES Final Resul t [facility] [address] Department [place] [address] * (ABNORMAL) Basic metabolic panel (12/11/2024 9:39 PM CDT) Sodium 138 135 - 145 mmol/L Potassium, pl 4.6 3.3 - 4.9 mmol/L [facility] Chloride 106 97 - 110 mmol/L [facility] CO2 21(L) 22 - 32 mmol/L [facility] Anion gap 11 2 - 15 mmol/L [facility] BUN 15 6 - 25 mg/dL [facility] Creatinine 0.92 0.80 - 1.30 mg/dL [facility] Glucose 157 70 - 199 mg/dL [facility] Comment: Interpretive Data Fasting glucose >/= [...] Calcium 8.3(L) 8.5 - 10.3 mg/dL [facility] Blood 12/11/2024 9:39 PM CDT 12/11/2024 9:39 PM CDT Dre Cerna MD LAB BLOOD ORDERABLES Final Resul t Performing Organization Address [facility] de Phone Number ASA BELLO [address] Department of [place] [address] * POCT glucose (12/11/2024 6:26 PM CDT) Glucose, POC 189 70 - 199 mg/dL POC Performer [phone] [facility] Blood 12/11/2024 6:26 PM CDT 12/11/2024 6:26 PM CDT Dre Cerna MD LAB POCT ORDERABLES - DEVICE Fin al Result Performing Organization Address [facility] de Phone Number ASA BELLO [address] Department of [place] [address] * XR Chest 1 View - in [...] Units (12/11/2024 2:12 PM CDT) Product code [id number] Unit Number [id number] 7-I [facility] Product Blood Type OPOS [facility] Dispense Status RETURNED [facility] Blood 12/11/2024 2:12 PM CDT Narrative ASA - 12/12/2024 12:21 AM CDT Are special requirements needed? (All products are leukoreduced and CMV- safe)- >No Date required:-[id number] LRRBC # of [id number] Reasons:-Intra-op transfusion} Dre Cerna MD BLOOD BANK PRODUCT ORDERABLES Fi nal Result Performing Organization Address City/State/[facility] Co de Phone Number [facility] [address] Department [place] [address] * MS AN ELECTIVE ENDOTRACHEAL AIRWAY (12/11/2024 12:29 PM [...] with: silk tape Number of attempts: 1 Inderjit SHEFFIELD ANESTHESIA ORDERABLES Fin al Result [...] procedure well with no complications us Inderjit Delgadillo AA ANESTHESIA ORDERABLES Fin al Result * Prepare RBC: 1 Units (12/11/2024 9:45 AM CDT) Product code [id number] Unit Number [id number] 5-V [facility] Product Blood Type OPOS [facility] Dispense Status RETURNED [facility] Blood 12/11/2024 9:45 AM CDT Narrative [facility] - 12/12/2024 12:21 AM CDT Specify Procedure:->robotic wedge resection Are special requirements needed? (All products are leukoreduced and CMV- safe)- >No Date required:-[id number] LRRBC # of [id number] Reasons:-Hold for procedure (specify procedure)} us Cherry Newby NP BLOOD BANK PRODUCT ORDERA BLES Final Result [facility] [address] Department [place] [address] * Surgical pathology (12/11/2024 9:26 [...] results best viewed via link to PDF [facility] Department of Pathology [address] [place] [address] Note to Patients: This report may [...] with Addendum Patient Name: ADALGISA MERIDA Address: [address] [place] [address] Gender: M : 1960 (Age: 63) Service: Cardiothoracic Location: Hospital #: [id number] Patient Type: [facility] Taken: 12/11/2024 Received: 12/14/2024 Accessioned: 12/14/2024 Reported: [...] Addendum Comment The external consult report from [facility] ([id number]) has been finalized and is attached. For the dairy feed sales consultant s comment, please see scanned image of report or the report can be viewed in the Electronic Medical Record of the patient. If access to the EMR is not available, please call pathology for a hard copy of the report ([phone]). Lung, right middle lobe, lobectomy ([id number]/[id number]; 12/11/2024): Malignant spindle cell neoplasm consistent with [...] ordered molecular analysis. Materials were forwarded to [facility] where the testing will be performed.. Note: [...] to Dr. Cerna, via telephone at 15:50pm Ksaia Andino M.D. Microscopic Description: All separately submitted [...] with the tissue embedded in cassette L1. Software Database Architect sections are submitted: Tumor with pleura L2 [...] determined by the Surgical Pathology Department at [facility] as part of an ongoing chief quality officer program and in compliance with federally mandated [...] determined by the Surgical Pathology Department [facility]. It has not been cleared or approved by the U. S. Food and Drug Administration. Note for decalcified specimens: This assay has not been validated on decalcified tissues. Results should be interpreted with caution given the possibility of false negativity on decalcified specimens Dre Cerna MD LAB PATHOLOGY ORDERABLES Final R esult Performing Organization Address City/[facility] Co de Phone Number PATHOLOGY [address] [place] [address] * - Miscellaneous Lab Test (12/11/2024 12:00 AM CDT) Pathologist [facility] lab See Comment Comment:see scanned report Miscellaneous 12/11/2024 12/31/2024 9:40 AM CDT Narrative [facility] - 12/31/2024 9:41 AM CDT [id number] Dre Cerna MD LAB BLOOD ORDERABLES Final Resul t Performing Organization Address [facility] de Phone Number [facility] [address] Department [place] [address] * CT Body Outside Reference (12/03/2024 6:53 PM CDT) Impressions [id number] - 12/03/2024 6:53 PM CDT These images are for Reference purposes only and have not been reviewed by [facility] Radiology. There will be no report generated by a [facility] Radiologist. Narrative [facility] - 12/03/2024 6:53 PM CDT EXAMINATION: Images For Reference Purposes Only us Dre Cerna MD IMG CT PROCEDURES Final Result Performing Organization Address [facility] Co de Phone Number [email or web address] * ECG 12 lead (11/30/2024 1:25 PM CDT) 11/30/2024 1:25 PM CDT Narrative [facility] - 11/30/2024 1:41 PM CDT Vent Rate: 60 bpm RR Interval: 999 msec MS Interval: 119 msec QRS Duration: 87 msec QT Interval: 396 msec QTC Interval: 396 msec P-R-T [place]: 34 - -14 - -18 degrees IMPRESSION: SINUS RHYTHM WITH SHORT MS INTERVAL BORDERLINE ECG Electronically Signed By: Emilie Vance MD us Shayla Goff EXTERNAL GRINDER TOOL ECG ORDERABLES Final Result Performing Organization Address [facility] Phone Number [facility] flux - neutrinity [facility] * XR Chest PA Lateral 2 [...] signed by: Ho Pretty M.D. Shayla Goff EXTERNAL GRINDER TOOL IMG XR PROCEDURES Final Result * eGFR [...] BLOOD ORDERABLES Final Res ult [facility]SA BELLO [address] Department [place] [address] * Differential, auto (11/30/2024 1:03 PM CDT) Neutrophil abs 4.6 1.5 - 6.5 K/cumm Imm gran abs 0.0 0.0 - 0.1 K/cumm ASA BELLO Lymphocyte abs 1.6 0.8 - 3.3 K/cumm [facility] Monocyte abs 0.7 0.2 - 0.8 K/cumm [facility] Eosinophil abs 0.3 0.0 - 0.5 K/cumm [facility] Basophil abs 0.0 0.0 - 0.1 K/cumm [facility] Neutrophil pct 63.2 % [facility] Comment: Interpretive Data Percent cell count reference ranges are not reported, since discordance with absolute values may lead to misinterpretation of CBC data. Current Interpretive Data was last revised on 2017. Imm gran pct 0.4 % [facility] Comment: Interpretive Data Percent cell count reference ranges are not reported, since discordance with absolute values may lead to misinterpretation of CBC data. Current Interpretive Data was last revised on 2017. Lymphocyte pct 22.2 % [facility] Comment: Interpretive Data Percent cell count reference ranges are not reported, since discordance with absolute values may lead to misinterpretation of CBC data. Current Interpretive Data was last revised on 2017. Monocyte pct 10.1 % [facility] Comment: Interpretive Data Percent cell count reference ranges are not reported, since discordance with absolute values may lead to misinterpretation of CBC data. Current Interpretive Data was last revised on 2017. Eosinophil pct 3.5 % [facility] Comment: Interpretive Data Percent cell count reference ranges are not reported, since discordance with absolute values may lead to misinterpretation of CBC data. Current Interpretive Data was last revised on 2017. Basophil pct 0.6 % [facility] Comment: Interpretive Data Percent cell count reference ranges are not reported, since discordance with absolute values may lead to misinterpretation of CBC data. Current Interpretive Data was last revised on 2017. Blood 11/30/2024 1:03 PM CDT 11/30/2024 1:17 PM CDT us Shayla Goff EXTERNAL GRINDER TOOL LAB BLOOD ORDERABLES Final Res ult ASA [address] Department [place] [address] * Urinalysis reflex to microscopic and culture [...] tendency for uric acid stone formation. Source: [facility] Current Interpretive Data was last revised [...] MICROBIOLOGY - GENERAL ORD ERABLES Final Result [facility] [address] Mihai Lord Department [place] [address] * CBC with auto differential (11/30/2024 1:03 PM CDT) WBC 7.2 3.8 - 9.9 K/cumm Hgb 14.4 13.0 - 17.5 g/dL [facility] Hct 42.7 38.9 - 50.3 % [facility] Plt 191 150 - 400 K/cumm [facility] MPV 10.1 9.1 - 12.3 fL [facility] RBC 4.72 4.30 - 5.80 M/cumm [facility] MCV 90.5 81.3 - 96.4 fL [facility] MCH 30.5 27.1 - 33.3 pg [facility] MCHC 33.7 32.3 - 35.7 g/dL [facility] RDW CV 12.2 11.1 - 14.9 % [facility] RDW SD 40.3 35.7 - 48.1 fL [facility] NRBC abs 0.00 0.00 - 0.01 K/cumm [facility] Blood 11/30/2024 1:03 PM CDT 11/30/2024 1:17 PM CDT Shayla Goff EXTERNAL GRINDER TOOL LAB BLOOD ORDERABLES Final Res ult Performing Organization Address [facility] Co de Phone Number [facility] [phone] [address] [facility] [employer] [place], [place] [id number] * aPTT (11/30/2024 1:03 PM CDT) aPTT 34 28 - 38 sec Comment: Interpretive Data Heparin therapeutic range: 66.0 - 100.0 seconds. Range based on correlation with therapeutic heparin activity range of 0.3 - 0.7 Units/mL. Current interpretive data was last revised on 2023. Blood 11/30/2024 1:03 PM CDT 11/30/2024 1:17 PM CDT Shayla Goff EXTERNAL GRINDER TOOL LAB BLOOD ORDERABLES Final Res ult Performing Organization Address [facility] Co de Phone Number [facility] [phone] Mihai [facility] [place] [address] * Protime-INR (11/30/2024 1:03 PM CDT) PT 10.9 9.7 - 13.0 sec INR 1.01 0.90 - 1.20 [facility] Comment: Interpretive data Oral anticoagulant therapeutic ranges: Venous thromboembolism prophylaxis or treatment: 2.0-3.0 CARDIOLOGY Standard range: 2.0-3.0 High-intensity range: 2.5-3.5 Refer to indication-specific guidelines for appropriate target ranges for prosthetic heart valve replacement. Current interpretive data was last revised on 2019. Blood 11/30/2024 1:03 PM CDT 11/30/2024 1:17 PM CDT Shayla Goff NP LAB BLOOD ORDERABLES Final Res ult Performing Organization Address [facility]/ZIP Co de Phone Number [facility] [phone] [address] [facility] [place] [address] * Type and screen (11/30/2024 1:03 PM CDT) Jacek, indirect Negative ABO Rh O Positive [facility] Blood 11/30/2024 1:03 PM CDT 11/30/2024 1:21 PM CDT Narrative [facility] - 11/30/2024 2:04 PM CDT Is this test being ordered in advance for a procedure?->Yes Expected date of procedure:->12/11/24 Has the patient been transfused in the past 3 months?->Unknown Shayla Goff NP LAB BLOOD BANK TEST ORDERABLES Final Result Performing Organization Address [facility] Co de Phone Number [facility] [phone] [address] [facility] [place] [address] * Basic metabolic panel (11/30/2024 1:03 PM CDT) Sodium 140 135 - 145 mmol/L Potassium, pl 4.3 3.3 - 4.9 mmol/L [facility] Chloride 105 97 - 110 mmol/L [facility] CO2 24 22 - 32 mmol/L [facility] Anion gap 11 2 - 15 mmol/L [facility] BUN 18 6 - 25 mg/dL [facility] Creatinine 1.00 0.80 - 1.30 mg/dL [facility] Glucose 75 70 - 199 mg/dL [facility] Comment: Interpretive Data Fasting glucose >/= [...] 2022. Calcium 9.7 8.5 - 10.3 mg/dL [facility] Blood 11/30/2024 1:03 PM CDT 11/30/2024 1:16 PM CDT us Shayla Goff NP LAB BLOOD ORDERABLES Final Res ult ASA [address] Mihia [place] [address] * PET Outside Consult (11/02/2024 12:15 PM GIS INSTRUCTOR) Anatomical Region Laterality Modality N/A Nuclear Medicine 11/02/2024 3:25 PM GIS INSTRUCTOR Impressions 11/02/2024 3:58 PM GIS INSTRUCTOR 1. Indeterminant right middle lobe pulmonary nodule. [...] images may or may not represent the platinum source data set and thus may contain changes that may lower the accuracy of this second-opinion interpretation. Dictated by: Larry Corral MD The radiology attending physician has personally reviewed this study, and had reviewed and/or edited this written report and agrees with it. Electronically signed by: DO Elisabeth Cadena 11/02/2024 3:58 PM GIS INSTRUCTOR EXAMINATION: RADIOLOGY CONSULTATION ON OUTSIDE IMAGING STUDY . STUDY INITIALLY PERFORMED: 10/13/2024, images acquired at [facility]. TYPE OF STUDY: FDG-PET/CT. The images available for review consisted of axial attenuation-corrected and uncorrected PET images and axial CT images. The total scanned area was skull base to the proximal thighs. The mean liver SUV (reported for quality control checker purposes) is 3.8. The study was interpreted on the [employer] workstation. The protocol was adequate to address [...] STUDY INITIALLY PERFORMED: 10/13/2024, images acquired at [facility]. TYPE OF STUDY: FDG-PET/CT. The images available for review consisted of axial attenuation-corrected and uncorrected PET images and axial CT images. The total scanned area was skull base to the proximal thighs. The mean liver SUV (reported for quality control checker purposes) is 3.8. The study was interpreted on the [employer] workstation. The protocol was adequate to address [...] images may or may not represent the platinum source data set and thus may contain [...] * PET Outside Reference (10/19/2024 5:00 PM GIS INSTRUCTOR) Impressions [facility] - 10/19/2024 5:00 PM GIS INSTRUCTOR These images are for Reference purposes only and have not been reviewed by [facility] Radiology. There will be no report generated by a [facility] Radiologist. Narrative [facility] - 10/19/2024 5:00 PM GIS INSTRUCTOR EXAMINATION: Images For Reference Purposes Only Dre Cerna MD IMG PET PROCEDURES Final Result Performing Organization Address City/State/[facility] Co de Phone Number [facility] from Last 3 Months Insurance [facility] Advance Directives For more information, please contact: [phone] * Full Code (Latest Code Status on File) Date Activated Date Inactivated Comments 12/11/2024 6:31 PM 12/15/2024 3:57 PM * Full Code Date Activated Date Inactivated Comments 03/16/2024 4:36 PM 03/21/2024 3:59 PM * Full Code Date Activated Date Inactivated Comments 01/28/2022 9:19 PM 02/05/2022 5:17 PM Care Teams Remote Mortgage Underwriter Relationship Specialty Start Date End Date Crystal Mir MD [address] [place] [address] PCP - General Medical Oncology 12/30/24 Gabe George DO [address] [address] Internal Medicine 12/30/24 Gabe George DO [address] [address] Internal Medicine 12/30/24 Ian Michel MD [address] [place] [address] [place] [address] Dermatology 02/10/23 Parul Baldwin MD [address] [place] [address] Referring Physician Dermatology 02/10/23 Felix Sher MD [address] [facility] [address], [place] [address] Consulting Physician Cardiology 10/21/24 Dre Cerna MD [address] [place] [address] Surgeon Thoracic Surgery 12/15/24
--- OUTSIDE RECORDS SUMMARY | 2025-01-15 12:26 | XMS_ITS | Encounter Summary ---
Author Organization [facility] Address [address] [facility] [address] [place] [address] Phone Care Team Providers Care Core Feeder Name Role Phone Ariel Gabe ADEN Unavailable Gabe George DO Unavailable Ian Michel MD Unavailable [phone] Parul Baldwin MD Unavailable [phone] Felix Sher MD Unavailable [phone] Dre Cerna MD Unavailable Crystal Mir MD Primary Care Provider [phone] Encounter Details Date Type Department Care Team (Late st Contact Info) Description 01/14/2025 Orders Only [facility] [address] [place] [address] Dre Cerna MD [address] [facility] [address] [place] [address] Lung nodule Social History Tobacco Use Types [...] on file 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 Gender Identity Not on file Sexual Orientation Not on file documented as of this encounter Plan of Treatment Not on file documented as of this encounter Procedures Procedure Name Priority Date/Time Associated Diagnosis Comments SURGICAL PATHOLOGY Routine 01/14/2025 2: 23 PM CDT Lung nodule documented in this encounter Results * Surgical pathology (01/14/2025 2:23 PM CDT) Tissue (Consult Material) 01/14/2025 2:23 PM CDT 01/14/2025 2:23 PM CDT Narrative [facility] - 01/15/2025 12:18 PM CDT EPIC results best viewed via link to PDF [facility] Pathology Consult Service [address], [address], [place] [address] Note to Patients: This report [...] SURGICAL PATHOLOGY REPORT * Consult Report * [facility] is providing an additional review of previously collected tissue. FINAL Patient Name: ADALGISA MERIDA Address: [address] [place] [id number] Gender: M : 1960 (Age: 64) [facility] #: [id number] Patient Type: [facility] Location: UNKNOWN Taken: 01/14/2025 Received: 01/14/2025 Accessioned: 01/14/2025 Reported: 01/15/2025 Physician(s): Dre Cerna M.D. [facility] Department of Pathology [address] [place] [address] P: [phone] F: [phone] Diagnosis: Consult material received from [place], [place] A. Lung, right middle lobe, lobectomy (OSC: [id number]; 12/11/2024): - Malignant spindle cell neoplasm, consistent [...] Received for review are twenty-six slides labeled [id number], accompanied by a corresponding pathology report. The material originates from [place], [place]. Selected slide(s) may be digitally scanned for our files, and all materials are returned to the referring institution, along with a copy of our final report. Any testing required for diagnostic purposes was performed in the Department of Pathology and Immunology at [facility], [address] [place] [address] CLIA # [id number] The performance characteristics of the testing cited in this report (if any) were determined by the [facility] Department of Pathology and Immunology [facility], as part of an ongoing fiberglass quality technician program and in compliance with federally [...] and the performance characteristics determined by the [facility], [facility] Department of Pathology and Immunology. It has not been cleared or approved by the U.S. Food and Drug Administration. Any test designated as LDT was developed and its performance characteristics determined by [facility]. It has not been cleared or approved by the FDA. This test is used for clinical purposes and should not be regarded as investigational or for research. Report images and/or scanned reports, if included, only viewable in PDF version of report. Dre Cerna MD LAB PATHOLOGY ORDERABLES Final R esult [facility] [address] [facility] [address] [place] [address] documented in this encounter Visit Diagnoses Diagnosis Lung nodule Other diseases of lung, not elsewhere classified documented in this encounter Care Teams Core Feeder Relationship Specialty Start Date End Date Crystal Mir MD [address], [address] [place] [address] PCP - General Medical Oncology 12/30/24 Gabe George DO [address] [place] [address] Internal Medicine 12/30/24 Gabe George DO [address] [place] [address] Internal Medicine 12/30/24 Ian Michel MD [address] [place] [address] [place] [address] Dermatology 02/10/23 Parul Baldwin MD [address] [place] [address] Referring Physician Dermatology 02/10/23 Felix Sher MD [address] [facility] [address] [place] [address] Consulting Physician Cardiology 10/21/24 Dre Cerna MD [address] [place] [address] Surgeon Thoracic Surgery 12/15/24 documented as of this encounter
--- OUTSIDE RECORDS SUMMARY | 2025-01-15 12:26 | XMS_ITS | Encounter Summary ---
Author Organization [facility] Healthcare Address [address] [place] [address] Care Team Providers Care Pallet Stone Positioner Name Role Phone Gabe George DO Primary Care Provider Gabe George DO Unavailable Gabe George DO Unavailable Ian Michel MD Unavailable Parul Baldwin MD Unavailable [phone] Felix Sher MD Unavailable [phone] Dre Cerna MD Unavailable Crystal Mir MD Primary Care Provider [phone] Encounter Details Date Type Department Care Team (Late st Contact Info) Description 12/17/2024 [facility] Post Discharge Follow up phone call [address] [address] Karla Romo, RN Social History [...] on file 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 Gender Identity Not on file Sexual Orientation Not on file documented as of this encounter Plan of Treatment Not on file documented as of this encounter Visit Diagnoses Not on filedocumented in this encounter Care Teams Pallet Stone Positioner Relationship Specialty Start Date End Date Gabe George DO [address] [address] PCP - General Internal Medicine 08/03/24 12/29/24 Crystal Mir MD [address], [address] [place] [address] PCP - General Medical Oncology 12/30/24 Gabe George DO [address] [facility] [address] [address] Internal Medicine 12/30/24 Gabe George DO [address] [address] Internal Medicine 12/30/24 Ian Michel MD [address] [place] [address] [address]phani [place] [phone] Dermatology 02/10/23 Parul Baldwin MD [address] [facility] [address] [place] [address] Referring Physician Dermatology 02/10/23 Felix Sher MD [address] [facility] [address], [place] [address] Consulting Physician Cardiology 10/21/24 Dre Cerna MD [address] [place] [address] Surgeon Thoracic Surgery 12/15/24 documented as of this encounter
--- NOTE | 2025-01-15 12:52 | ED.GENADULT ---
HPI - General Adult General Chief complaint: Skin/Abscess/Foreign Body Stated complaint: marleen hands itching Time Seen by Provider: 01/15/25 12:08 History of Present Illness HPI narrative: 64-year-old male presented to the emergency department for evaluation rashes to and and left hand. Patient suspects he got into something outside and triggered his allergies. Patient denies any fevers, body ache or fatigue. Patient did not take Benadryl or steroids prior to arrival. Patient is not diabetic. Related Data Home Medications ?Medication ?Instructions ?Recorded ?Confirmed ?Last Taken ?Type multivitamin (Multiple Vitamins 1 tablet PO QAM 11/25/19 08/26/23 12/16/21 History tablet) aspirin 81 mg tablet,delayed 81 mg PO DAILY 03/05/22 08/26/23 Unknown History release clopidogrel 75 mg tablet 75 mg PO DAILY 03/05/22 08/26/23 Unknown History Allergies Allergy/AdvReac Type Severity Reaction Status Date / Time tuberculin,PPD,multi-puncture AdvReac Intermediate Other Verified 07/13/24 08:18 Review of Systems Review of Systems: All systems reviewed & are unremarkable except as noted in HPI and below PMFSH Past Medical History Medical History (Updated 01/15/25 @ 12:53 by Sam Moreau MD) History of skin cancer 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 General medical examination Gastro-esophageal reflux disease without esophagitis Essential (primary) hypertension Allergic rhinitis, unspecified Acute midline low back pain with left-sided sciatica History of [place] (myocardial infarction) (~12/2021) Hyperlipidemia Arthritis of right hip Overweight (BMI 25.0-29.9) Obstructive sleep apnea GERD (gastroesophageal reflux disease) Surgical History Surgical History 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 (~12/19/21) History of hernia repair Family History Family History (Updated 07/13/24 @ 08:20 by FITZ Rasmussen) Mother Hypertension, Onset Age: 73 Father Malignant neoplasm of prostate Acute myocardial infarction, Onset Age: 72 Sibling Other Family history of allergic disorder Social History Social History (Updated 07/13/24 @ 08:22 by FITZ Rasmussen) Smoking status: Never smoker Second hand tobacco smoke exposure: Yes Alcohol intake: former Alcohol use details: STATES OCCASIONAL GLASS OF WINE - NONE SINCE 2006 Substance use: never Substance use type: does not use Do You Feel Safe in your Home?: Yes Lack of Transportation: No Lack of Food: Never True Current Housing: I Have Housing Concerned About Future Housing: No Difficulty Paying Gas/Electric Bills: No Difficulty Paying for Meds: No Currently Unemployed: No Education: Trade/Vocational Certificate Difficulty w/ Childcare or Family Care: No Living arrangements: with family Occupation/Education: occupation Gender identity (if verbalized by the patient): Male Spiritual care concerns: No Exam Narrative: APPEARANCE: Well appearing, no pain, no distress, well-nourished. HEAD: normocephalic, atraumatic. EYES: PERRLA/EOMI, conjunctivae clear. NOSE: Normal no drainage EARS:TMS clear with good light reflex. THROAT: Pharynx clear, no exudate. NECK: Supple. No adenopathy, no masses. RESPIRATORY: Airway patent, respirations nonlabored. Clear to auscultation bilaterally, no rales, rhonchi, wheezing. CARDIOVASCULAR: Regular rate and rhythm without murmurs rubs or gallops. ABDOMINAL: Soft, nontender, nondistended, normal bowel sounds MUSCULOSKELETAL: Moves all extremities. Strength/ROM intact, No edema, No calf tenderness. NEURO: Alert. Cranial nerves II through XII intact. Good gait. Good coordination SKIN: Erythema and urticaria rash on right hand Course Vital Signs Vital signs: Vital Signs Temperature 97.7 F 01/15/25 11:57 Pulse Rate 58 L 01/15/25 11:57 Respiratory Rate 16 01/15/25 11:57 Blood Pressure 133/83 01/15/25 11:57 Pulse Oximetry 99 01/15/25 11:57 Temperature 97.6 F 01/15/25 13:09 Pulse Rate 57 L 01/15/25 13:09 Respiratory Rate 16 01/15/25 13:09 Blood Pressure 109/80 01/15/25 13:09 Pulse Oximetry 98 01/15/25 13:09 Medical Decision Making [facility] Narrative Medical decision making narrative: 64-year-old male presents emergency department for evaluation for allergic reaction to bilateral hands. Patient was started on Benadryl in the emergency department along with prednisone. Low concern for bacterial infection. Patient was instructed to continue to take Benadryl and provided additional prednisone for home and encouraged close follow-up with his primary care physician. All questions concerns were addressed patient was well-appearing at time of discharge. Differential Diagnosis Differential Diagnosis: Allergic reaction, cellulitis, dermatitis Vital Signs Vital Signs: Vital Signs Temperature 97.7 F 01/15/25 11:57 Pulse Rate 58 L 01/15/25 11:57 Respiratory Rate 16 01/15/25 11:57 Blood Pressure 133/83 01/15/25 11:57 Pulse Oximetry 99 01/15/25 11:57 Temperature 97.6 F 01/15/25 13:09 Pulse Rate 57 L 01/15/25 13:09 Respiratory Rate 16 01/15/25 13:09 Blood Pressure 109/80 01/15/25 13:09 Pulse Oximetry 98 01/15/25 13:09 Discharge Plan Discharge Clinical Impression: Allergic reaction Patient Disposition: Home Condition: Stable Instructions: Antibiotic Form Additional Instructions: Intermittent Benadryl as needed. Prednisone as directed until completed. Have close follow-up with your primary care physician. Patient Language: Albanian Prescriptions: New prednisone 50 mg tablet 50 mg PO DAILY Qty: 5 0RF No Action clopidogrel 75 mg tablet 75 mg PO DAILY aspirin 81 mg tablet,delayed release (DR/EC) 81 mg PO DAILY multivitamin [Multiple Vitamins] Tablet 1 tablet PO QAM methocarbamol 750 mg tablet 750 mg PO TID PRN (Reason: muscle spasm) Qty: 30 0RF lidocaine 5 % adhesive patch,medicated 1 patch topical DAILY Qty: 15 0RF Rx Instructions: leave on most painful area for up to 12 hrs rosuvastatin 10 mg tablet 10 mg PO HS Qty: 90 2RF famotidine 40 mg tablet 40 mg PO DAILY Qty: 90 2RF cetirizine 10 mg tablet 10 mg PO HS Qty: 90 3RF Follow-up/Referrals: Gabe George DO [Primary Care Provider] -
[2025-01-15] MEDS: diphenhydrAMINE HCl CAP 25 MG CAPSULE 50 MG PO (13:04)
[2025-01-15] MEDS: predniSONE 20 MG TABLET 40 MG PO (13:04)
[2025-01-15 13:09] VITALS: BP 109/80; PULSE 57; RESP 16; TEMP 36.4; O2SAT 98
== END 2025-01-15 13:10 | disposition home or self-care (01) ==
PROVIDERS: Emergency Provider Emergency Medicine; PCP Internal Medicine
DX: T78.40XA Allergy, unspecified, initial encounter (principal); G47.33 Obstructive sleep apnea (adult) (pediatric); Z79.82 Long term (current) use of aspirin; I10 Essential (primary) hypertension; E78.5 Hyperlipidemia, unspecified; K21.9 Gastro-esophageal reflux disease without esophagitis
CPT/HCPCS: 99283; A9270; J7512

== ENCOUNTER 2025-03-03 10:50 | Outpatient (CLI) | payer OTHER, SELFPAY ==
--- NOTE | ~2025-03-03 | CT_ITS ---
Clinical Indication: Squamous cell carcinoma CT Scan of the Chest with Contrast: Technique: Contiguous sections were acquired throughout the chest after intravenous administration of 75 cc of Omnipaque 350. Dose reduction technique was used on this scan by utilizing automated exposu re control and iterative reconstruction technique. The dose-length product (DLP) was 161.09 mGy-cm. COMPARISON: 12/01/2024 Findings: There is no evidence of any significant mediastinal, hilar or axillary lymphadenopathy. There is no f illing defect in the pulmonary arterial tree to suggest pulmonary embolus. There is no evidence of ao rtic dissection or aneurysm. There is no evidence of pleural or pericardial effusion. Status post right middle lobectomy. Minimal dependent atelectatic changes are present. Images through the upper abdomen reveal no abnormalities. Impression: Status post right middle lobectomy. No evidence for active malignancy or metastatic disease. Reviewed, dictated and finalized at [facility]. Impression: Status post right middle lobectomy. No evidence for active malignancy or metast atic disease.
--- NOTE | ~2025-03-03 | CT_ITS ---
Non-contrast Head CT History: Squamous cell carcinoma Technique: Axial imaging of the brain was performed prior to and following intravenous administratio n of 100 cc of Omnipaque 350 contrast material. Dose reduction technique was used on this scan by randi abernathy automated exposure control and iterative reconstruction technique. The dose-length product (DL P) was 1210.66 mGy-cm. COMPARISON: 01/20/2024 Findings: There is no evidence of intracranial hemorrhage, mass lesion, or acute infarct. Brain par enchyma appears normal. The ventricles and subarachnoid spaces are normal in size. The calvarium ap pears normal. The visualized paranasal sinuses and mastoid air cells are clear. There is probable mi ld soft tissue thickening or edema at the superior scalp posteriorly. Please note enhancing mass no l onger clearly visualized. Impression: No intracranial abnormality seen. Suggestion of prior resection of the posterior superior scalp mass seen on prior exam. Correlate clin ically. Reviewed, dictated and finalized at location . Impression: No intracranial abnormality seen. Suggestion of prior resection of the posterior superior scalp mass seen on prio r exam. Correlate clinically.
[2025-03-03 11:05] LABS: Estimated Glomerular Filt Rate > 60
--- OUTSIDE RECORDS SUMMARY | 2025-03-03 12:50 | XMS_ITS | Encounter Summary ---
Author Organization [facility] Healthcare Address [address] [place] [address] Care Team Providers Care Software Recruiter Name Role Phone Gabe George DO Primary Care Provider Gabe George DO Unavailable Gabe George DO Unavailable Ian Michel MD Unavailable Parul Baldwin MD Unavailable [phone] Felix Sher MD Unavailable [phone] Dre Cerna MD Unavailable Crystal Mir MD Primary Care Provider [phone] Encounter Details Date Type Department Care Team (Late st Contact Info) Description 12/17/2024 [facility] Post Discharge Follow up phone call [address] [address] Rosalee Gerardo Social History Tobacco [...] on file 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 [address] [place] [address] PCP - General Internal Medicine 08/03/24 12/29/24 Crystal Mir MD [address], [address] [place] [address] PCP - General Medical Oncology 12/30/24 Gabe George DO 68[address] [facility] [address] [address] Internal Medicine 12/30/24 Gabe George DO [address] [address] Internal Medicine 12/30/24 Ian Michel MD [address] [place] [address] [address] Stephani [place] [id number] Dermatology 02/10/23 Parul Baldwin MD [address] [facility] [address] [place] [address] Referring Physician Dermatology 02/10/23 Felix Sher MD [address] [facility] [address], [place] [address] Consulting Physician Cardiology 10/21/24 Dre Cerna MD [address] [place] [id number] Surgeon Thoracic Surgery 12/15/24 documented as of this encounter
--- OUTSIDE RECORDS SUMMARY | 2025-03-03 12:50 | XMS_ITS | Referral Summary ---
Author Organization [facility] Address 1 [place] [address] Care Team Providers Care Grad Intern Name Role Phone Gabe George Unavailable Gabe George DO Unavailable Ian Michel MD Unavailable [phone] Parul Baldwin MD Unavailable [phone] Felix Sher MD Unavailable [phone] Dre Cerna MD Unavailable Crystal Mir MD Primary Care Provider [phone] Encounters Date Type Department Care Team Description 02/22/2025 2:30 PM CDT Clinical Support [facility] [address] [facility] Advanced [facility] 1st [place] [address] Halina Ocasio, PhD 02/19/2025 Orders Only [facility] Department of Otolaryngology Head-Neck Division [address] [facility] Floor 5 [place] [address] Minh Orozco MD Squamous cell carcinoma of scalp (Primary Dx) 02/18/2025 9:40 AM CDT Office Visit [facility] Advanced [facility] ([facility] - [facility] ENT [address] [facility] 2nd Floor, [address] [place] [address] Minh Orozco MD Squamous cell carcinoma of scalp (Primary Dx); Sarcoma (HCC) 02/17/2025 Telephone [facility] Oncology [address] [place] [address] Castellanos Helen 02/08/2025 2:30 PM CDT Clinical Support [address] Advanced [address] [address] Halina Ocasio, PhD 02/04/2025 Orders Only [facility] Department of Otolaryngology Head-Neck Division [address] [place] [phone] Minh Orozco MD Squamous cell carcinoma of scalp (Primary Dx) 01/26/2025 4:00 PM CDT Clinical Support [address] [address] Halina Ocasio, PhD 01/26/2025 1:30 PM CDT Office Visit [facility] Radiation Oncology [address] [place] [address] Justo Wright MD Squamous cell carcinoma of scalp [C44.42] (Primary Dx) 01/25/2025 Orders Only [facility] Surgery [address] [place] [phone] Radha Riley, LUIGI Nerve pain 01/20/2025 1:00 PM CDT Clinical Support [address] [address] Halina Ocaiso, PhD 01/14/2025 Orders Only [facility] [address] [place] [address] Dre Cerna MD Lung nodule 01/13/2025 2:00 PM CDT Clinical Support [address] Advanced [address] [address] Halina Ocasio, PhD Anxiety in cancer patient 01/07/2025 8:58 AM CDT - 01/07/2025 11:59 PM CDT Hospital Encounter [facility] MOB 1 DIAG IMG [address] [place] [address] Lung nodule Discharge Disposition: Discharge to home or self care 01/07/2025 1:00 PM CDT Office Visit [facility] Oncology [address] [facility] Floor 6 [place] [phone] 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 [address] [place] [phone] Dre Cerna MD Lung nodule (Primary Dx) 12/30/[address] [facility] [address] [place] [address] Amara Dhaliwal, RN Internet Request 12/29/2024 Telephone [facility] ST[facility]FACE [place] [address] [place] [address] Fouzia Hamilton LCSW 12/29/2024 Orders Only [facility] Surgery [address] [facility] [address] [place] [phone] Dre Cerna MD Lung nodule (Primary Dx) 12/29/2024 Orders Only [facility] Surgery [address] [facility] Floor 5 [place] [address] Radha Riley NP Stress and adjustment reaction (Primary Dx) 12/29/2024 Telephone [facility] Surgery [address] [facility] Floor 5 [place] [phone] Radha Riley NP 12/29/2024 Orders Only [facility] Surgery [address] [facility] Floor 5 [place] [phone] Radha Riley NP Pleomorphic dermal sarcoma (Primary Dx) 2024 Orders Only [facility] Surgery [address] [facility] Floor 5 [place] [phone] Radha Riley NP Nerve pain (Primary Dx) 2024 Telephone [facility] Cardiothoracic Surgery [address] [facility] 8th Floor [address] Room [address] [place] [address] Carlos Agrawalylee 12/27/2024 Telephone [facility] Surgeon 1 [place] [address] Ana Blank MD Pain (Pain at incision site, new abdominal pain ) 12/27/2024 12:13 PM CDT - 12/27/2024 2:31 PM CDT Emergency [facility] Emergency Department 1 [place] [address] Narciso Delgadillo MD Post-operative pain (Primary Dx) Discharge Disposition: Discharge to home or self care 12/24/2024 10:46 AM CDT - 12/24/2024 11:59 PM CDT Hospital Encounter [facility] MOB 1 DIAG IMG [address] [place] [address] Lung nodule Discharge Disposition: Discharge to home or self care 12/24/2024 11:15 AM CDT Office Visit [facility] Surgery [address] [facility] [address] [place] [phone] Dre Cerna MD Lung nodule (Primary Dx) 12/17/2024 [facility] Post Discharge Follow up phone call [address] [address] Rosalee Gerardo 12/17/2024 [facility] Post Discharge Follow up phone call [address] [address] Karal Romo RN 12/15/2024 Orders Only [facility] Surgery [address] [place] [address] [address] [place] [phone] Ian Cardenas NP 12/11/2024 9:39 AM CDT - 12/15/2024 11:57 AM CDT Hospital Encounter [address] [address] Dre Cerna MD Nodule of middle lobe of right lung Discharge Disposition: Discharge to home or self care 12/11/2024 12:00 PM CDT - 12/11/2024 4:00 PM CDT Surgery [facility] Operating Room [address] [place] [phone] Dre Cerna MD XI ROBOTIC THORACIC RIGHT MIDDLE LOBECTOMY [02103 (CPT )] 12/11/2024 12:17 PM CDT Anesthesia Event [facility] Operating Room [address] [place] [address] Kevan Torrez MD Tadros, Hany B., MD 12/04/2024 Telephone [facility] Surgery [address] [facility] Floor 5 [place] [address] Radha Riley NP 12/03/2024 6:53 PM CDT - 12/03/2024 11:59 PM CDT Hospital Encounter [facility] [address] [place] [phone] Discharge Disposition: Discharge to home or self care from Last 3 Months Allergies Active Allergy Reactions Criticality Noted Date Comments Tuberculin Ppd Other (See comments) Low 01/28/2022 Pt endorses TB skin test gives him bronchitis and walking pneumonia Medications cetirizine (ZyrTEC) 10 mg tabletIndicatio ns:Allergic Rhinitis Take 1 tablet (10 mg total) by mouth nightly 11/10/2021 Active rosuvastatin (CRESTOR) 10 mg tabletIndicatio ns:hyperlipidem ia Take 1 tablet (10 mg total) by mouth nightly 01/06/2022 Active famotidine (PEPCID) 40 mg tabletIndicatio ns:gastroesopha geal reflux disease Take 1 tablet (40 mg total) by mouth every morning 01/23/2023 Active MULTIVITAMIN ORALIndications :supplement Take 1 tablet by mouth every morning Active lactose-reduced food (ENSURE COMPLETE ORAL)Indication s:supplement Take 1 Dose by mouth every morning Active clopidogreL (PLAVIX) 75 mg tablet TAKE 1 TABLET BY MOUTH DAILY 30 tablet 11 08/12/2024 Active aspirin 81 mg enteric coated tablet Take 1 tablet (81 mg total) by mouth daily Active acetaminophen 500 mg capsuleIndicati ons:Fever,Pain Take 2 capsules (1,000 mg total) by mouth every 6 (six) hours as needed for pain 12/15/2024 Active amiodarone (PACERONE) 200 mg tabletIndicatio ns:Prevention of A. Fib Post Cardio-Thoracic Surgery Take 2 tablets (400 mg total) by mouth 3 (three) times a day for 6 days, THEN 2 tablets (400 mg total) 2 (two) times a day for 7 days, THEN 2 tablets (400 mg total) daily for 7 days. 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 and Gerardo thus Hancock flap reconstruction without [...] graft) 03/05/20 Coronary artery disease invo lving [place] coronary artery of [place] heart without angina pectoris 01/28/2022 Overview (01/29/2022): Added automatically from request for surgery [id number] ST elevation myocardial infa rction involving right [...] on file 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 Gender Identity Not on file Sexual Orientation Not on file Last Filed Vital Signs Vital Sign Reading Time Taken Comments Blood Pressure 111/76 01/26/2025 1:35 PM CDT Pulse 63 01/26/2025 1:35 PM CDT Temperature 36.7 C (98.1 F) 01/26/2025 1:35 PM CDT Respiratory Rate 18 01/26/2025 1:35 PM CDT Oxygen Saturation 98% 01/26/2025 1:35 PM CDT Inhaled Oxygen Concentration - - Weight 81 kg (178 lb 9.6 oz) 02/18/2025 9:32 AM CDT Height 175.3 cm (5' 9) 01/07/2025 9:26 AM CDT Body Mass Index 26.37 01/07/2025 9:26 AM CDT Plan of Treatment Not on file Medical Devices Implanted Type Area Casino Floor Person Device Identifier Shelf Expiration Date Model / Serial / Lot [employer] Luly Blackmon Microvascular 3mm Ring Pin Protective Cover Jaw Assembly Latex Free [id number] - [id number] Implanted:Qty: 1 on 03/16/2024 by Minh Orozco MD at [facility] Neck grabHalos Mieple Luly [id number] 01/08/2028 [id number] / / [id number] Procedures Procedure Name Priority Date/Time Associated Diagnosis Comments SURGICAL PATHOLOGY Routine 01/14/2025 2: 23 PM CDT Lung nodule [facility] DNA AND RNA SOLID TUMOR Routine 01/07/2025 2:44 PM CDT Pleomorphic dermal sarcoma XR CHEST PA LATERAL 2 VIEWS Schedule [...] PREPARE RBC STAT 12/11/2024 2:12 PM CDT NC AN ELECTIVE ENDOTRACHEAL AIRWAY Routine 12/11/2024 12:29 PM CDT ANESTHESIA ARTERIAL LINE PLACEMENT Routine 12/11/2024 12:28 PM CDT PERIPHERAL LINE Routine 12/11/2024 12:28 PM CDT NC THORACOSCOPY W/DX BX OF LUNG INFILTRATE UNILATRL 12/11/2024 12:17 PM CDT Nodule of middle lobe of right lung PREPARE RBC STAT 12/11/2024 9:45 AM CDT SURGICAL PATHOLOGY Routine 12/11/2024 9: 26 AM CDT Nodule of middle lobe of right lung MISCELLANEOUS LAB TEST Routine 12/11/2024 12:[address] BODY OUTSIDE REFERENCE Routine 12/03/2024 6:53 PM CDT from Last 3 Months Results * Surgical pathology (01/14/2025 2:23 PM CDT) Tissue (Consult Material) 01/14/2025 2:23 PM CDT 01/14/2025 2:23 PM CDT Narrative [facility] - 01/15/2025 12:18 PM CDT EPIC results best viewed via link to PDF [facility] Pathology Consult Service [address], [place] [address] Note to Patients: This report may [...] REPORT * Consult Report * [facility] is providing an additional review of previously collected tissue. FINAL Patient Name: ADALGISA MERIDA Address: [address] [place], [place] [phone] Gender: M : 1960 (Age: 64) Hospital #: [id number] Patient Type: CESAR Location: UNKNOWN Taken: 01/14/2025 Received: 01/14/2025 Accessioned: 01/14/2025 Reported: 01/15/2025 Physician(s): Dre Cerna M.D. [facility] NE Pathology [facility] Department of Pathology [address] [place] [address] P: [phone] F: [phone] Diagnosis: Consult material received from [place], [place] A. 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 The material originates from [place], [place]. Selected slide(s) may be digitally scanned for our files, and all materials are returned to the referring institution, along with a copy of our final report. Any testing required for diagnostic purposes was performed in the Department of Pathology and Immunology at [facility], [address] [place] [address] CLIA # [id number] The performance characteristics of the testing cited in this report (if any) were determined by the [facility] Department of Pathology and Immunology [facility], as part of an ongoing senior software quality analyst program and in compliance with federally mandated [...] and the performance characteristics determined by the [facility], [facility] Department of Pathology and Immunology. It has not been cleared or approved by the U.S. Food and Drug Administration. Any test designated as LDT was developed and its performance characteristics determined by [facility]. It has not been cleared or approved by the FDA. This test is used for clinical purposes and should not be regarded as investigational or for research. Report images and/or scanned reports, if included, only viewable in PDF version of report. Dre Cerna MD LAB PATHOLOGY ORDERABLES Final R esult [facility] [address] [facility] 1 [place] [address] * [facility] xT DNA and RNA - Tumor Only (01/07/2025 2:44 PM CDT) Reason for Study To identify somatic and germline mutations relevant to patient's cancer. 01/22/2025 2:41 PM CDT [facility] Genetic Diseases Assessed Cancer 01/22/2025 2:41 PM CDT [facility] Description of Ranges of DNA Sequences Examined 648 gene panel 01/22/2025 2:41 PM CDT [facility] Overall Interpretation positive 01/22/2025 2:41 PM CDT [facility] MSI Stable 01/22/2025 2:41 PM CDT [facility] TMB 18.9 m/MB 01/22/2025 2:41 PM CDT [facility] Portal [email or web address]://clinical-por ta l.Traffline/pat ient/[email or web address]/re [email or web address] 01/22/2025 2:41 PM CDT [facility] Comment:[facility] link MMR Overall Result normal 01/22/2025 2:41 PM CDT [facility] MLH1 Presence or Absence present 01/22/2025 2:41 PM CDT [facility] PMS2 Presence or Absence present 01/22/2025 2:41 PM CDT [facility] MSH2 Presence or Absence present 01/22/2025 2:41 PM CDT [facility] MSH6 Presence or Absence present 01/22/2025 2:41 PM CDT [facility] PD-L1 (22C3) Combined Positive Score 95 01/22/2025 2:41 PM CDT [facility] PD-L1 (22C3) Tumor Proportion Score 90 % 01/22/2025 2:41 PM CDT [facility] Low Coverage Regions EPHB2, RXRA 01/22/2025 2:41 PM CDT [facility] Therapy Count 3 01/22/2025 2:41 PM CDT [facility] Tempus: Potential Therapy 1 Gene: N/A Variant: N/A Match Type: tmb Agent: Pembrolizumab Drug Class: Anti-PD-1 MAb Tissue: Solid Tumors Association: Response Evidence Status: Consensus Evidence ID: FDA KDB Variant: TMB-High MSK Associated Evidence: MSK OncoKB, Level 1 Label: FDA On Label FDA Approved?: Yes On label?: Yes 01/22/2025 2:41 PM CDT [facility] Tempus: Potential Therapy 2 Gene: 795^BOY^HGNC Variant: p.W2104* Match Type: snvIndel Match Type Description: BOY p.W2104* Agent: Olaparib Drug Class: PARP Inhibitor Tissue: Prostate Cancer Association: Response Evidence Status: Consensus Evidence ID: NCCN KDB Variant: Nlxr-zr-hzypmxbh Label: FDA Off Label FDA Approved?: Yes On label?: No 01/22/2025 2:41 PM CDT [facility] Tempus: Potential Therapy 3 Gene: 8975^PIK3CA^HGNC Variant: p.G118D Match Type: snvIndel Match Type Description: PIK3CA p.G118D Agent: Alpelisib Drug Class: PI3K Inhibitor Tissue: Solid Tumors Association: Response Evidence Status: Clinical research Evidence ID: [id number] Evidence URL: https://www.ncbi.nlm.n ih.gov/pubmed/92934847 Evidence Title: Phosphatidylinositol 3-Kinase -Selective Inhibition With Alpelisib (MXN001) in ACM7KB-Pzigdzl Solid Tumors: Results From the Oalyv-tr-Hstsr Study - PubMed KDB Variant: Daws-hz-dvadmhpb Label: FDA Off Label FDA Approved?: Yes On label?: No 01/22/2025 2:41 PM CDT [facility] Trial Count 3 01/22/2025 2:41 PM CDT [facility] Tempus: Clinical Trial Match 1 Clinical Trial NCT ID: [id number] Clinical Trial Title: Siajb-bk-Aifrx Study of Mutant-selective PI3K Inhibitor, RLY-2608, As a Single Agent in Advanced Solid Tumor Patients and in Combination with Fulvestrant in Patients with Advanced Breast Cancer Clinical Trial URL: https://clinicaltrials .gov/ct2/show/YFA07373 432 Clinical Phase: Phase 1 Clinical Trial Matches: PIK3CA p.G118D mutation Clinical Trial Distance and Location: [address] [place], [place] 01/22/2025 2:41 PM CDT [facility] Tempus: Clinical Trial Match 2 Clinical Trial NCT ID: [id number] Clinical Trial Title: Tumor-agnostic Precision Immuno-oncology and Somatic Targeting Rational for You (TAPISTRY) Platform Study Clinical Trial URL: https://clinicaltrials .gov/ct2/show/NTR15210 845 Clinical Phase: Phase 2 Clinical Trial Matches: BOY p.W2104* mutation Clinical Trial Distance and Location: [address] [place], [place] 01/22/2025 2:41 PM CDT [facility] Tempus: Clinical Trial Match 3 Clinical Trial NCT ID: [id number] Clinical Trial Title: Study of INBRX-106 and INBRX-106 in Combination With Pembrolizumab (Keytruda ) in Subjects With Locally Advanced or Metastatic Solid Tumors (Hexavalent OX40 Agonist) Clinical Trial URL: https://clinicaltrials .gov/ct2/show/DPV47346 766 Clinical Phase: Phase 1/Phase 2 Clinical Trial Matches: TMB-High Clinical Trial Distance and Location: [address], [place], [place] 01/22/2025 2:41 PM CDT [facility] xR Result 1 NEGATIVE Negative - This report is being issued to report the results of gene rearrangement and altered splicing analysis from RNA sequencing. No gene rearrangements nor reportable altered splicing events were identified from RNA sequencing. 01/22/2025 2:41 PM CDT [facility] Germline Variant Note No normal sample was received, therefore tumor/normal matched analysis was not performed. 01/22/2025 2:41 PM CDT [facility] HLA-A Typing A*02:01,A*02:01 025 2:41 PM CDT [facility] HLA-B Typing B*44:02,B*56:01 025 2:41 PM CDT [facility] HLA-C Typing C*01:02,C*05:01 025 2:41 PM CDT [facility] HLA-A Ambiguous Alleles Yes 01/22/2025 2:41 PM CDT [facility] HLA-B Ambiguous Alleles Yes 01/22/2025 2:41 PM CDT [facility] HLA-C Ambiguous Alleles Yes 01/22/2025 2:41 PM CDT [facility] HLA-A Sample Type Tumor Only 01/22/2025 2:41 PM CDT [facility] HLA-B Sample Type Tumor Only 01/22/2025 2:41 PM CDT [facility] HLA-C Sample Type Tumor Only 01/22/2025 2:41 PM CDT [facility] Tissue specimen (specimen) 01/07/2025 2:44 PM CDT 01/14/2025 5:35 PM CDT Narrative This result has genomic variants that were not included in this document. Crystal Mir MD LAB GENETIC TESTING Final Res ult [facility] [address] [facility], [address] [place], [place] [address] [place] [address] [facility] [address] [facility], [address] [place] [address] * X-ray chest 2 views (01/07/2025 9:00 [...] Pranay Grace M.D. ANANT: ANANT Report ID: [id number] Reading Location: [id number] Procedure Note Wilian Grace MD - 01/13/2025 [...] Pranay Grace M.D. ANANT: ANANT Report ID: [id number] Reading Location: [id number] Dre Cerna MD IMG XR PROCEDURES Final Result * Sepsis Lactate w/ Reflex (12/27/2024 1:04 PM CDT) Sepsis Lactate 1.3 0.7 - 2.0 mmol/L Blood 12/27/2024 1:04 PM CDT 12/27/2024 1:07 PM CDT Osvaldo Wu MD LAB BLOOD ORDERABLES Final R esult [facility] [place] 1 [facility] Department of Laboratories [place], [place] [id number] * CT Chest W Contrast (12/27/2024 12:50 [...] Recent guidelines by the Fleischner Society (Radiology 275841,2017) divides patient into low vs. high risk [...] immunosuppression, or patients with known primary cancer. http://pubs.rsna.org/doi/pdf/10.1148/radiol.5770394189 THIS IS AN ELECTRONICALLY VERIFIED FINAL REPORT 12/27/2024 1:03 PM - Electronically signed by Damian Dorsey D.O. PS: PS Report ID: [id number] Reading Location: [id number] Procedure Note Damian Dorsey, DO - 12/27/2024 [...] Recent guidelines by the Fleischner Society (Radiology 082911,2017)divides patient into low vs. high risk (for [...] immunosuppression, or patients with known primary cancer. http://pubs.rsna.org/doi/pdf/10.1148/radiol.9475177176 THIS IS AN ELECTRONICALLY VERIFIED FINAL REPORT 12/27/2024 1:03 PM - Electronically signed by Damian Dorsey D.O. PS: PS Report ID: [id number] Reading Location: [place] [address] PROCEDURES Final Result * [...] Damian Dorsey D.O. PS: PS Report ID: [id number] Reading Location: [id number] Procedure Note Damian Dorsey, DO - 12/27/2024 [...] Damian Dorsey D.O. PS: PS Report ID: [id number] Reading Location: [id number] Narciso Delgadillo MD IMG XR PROCEDURES Final Resu lt * (ABNORMAL) Sepsis Lactate w/ Reflex (12/27/2024 10:10 AM CDT) Sepsis Lactate 2.3(H) 0.7 - 2.0 mmol/L Blood 12/27/2024 10:1 0 AM CDT 12/27/2024 10:41 AM CDT Narciso Delgadillo MD LAB BLOOD ORDERABLES Final R esult Performing Organization Address City/[facility] Co de Phone Number [facility] ([place]) 1 [place] [address] * eGFR (12/27/2024 10:10 AM CDT) eGFR [...] MD LAB BLOOD ORDERABLES Final R esult [facility] ([place] 1 [place] [address] * (ABNORMAL) Differential, auto (12/27/2024 10:10 AM [...] Final R esult [facility] ([place]) 1 [place] [address] * (ABNORMAL) CBC with auto differential (12/27/2024 [...] RDW SD 42.8 35.7 - 48.1 fL [facility] NRBC abs 0.00 0.00 - 0.01 K/cumm [facility] ([place]) Blood 12/27/2024 10:1 0 AM CDT 12/27/2024 10:41 AM CDT Narciso Delgadillo MD LAB BLOOD ORDERABLES Final R esult [facility] ([place]) 1 [facility] [place] [address] * Comprehensive metabolic panel (12/27/2024 10:10 AM [...] MD LAB BLOOD ORDERABLES Final R esult [facility] [place] [address] [facility] [place] [address] * X-ray chest 2 views (12/24/2024 10:49 [...] Yeison Davenport M.D. KH: SAI Report ID: [id number] Reading Location: [id number] Procedure Note Yeison Davenport MD - 01/02/2025 [...] Yeison Davenport M.D. KH: SAI Report ID: [id number] Reading Location: [place] [address] us Dre Cerna MD IM XR PROCEDURES Final Result * XR Chest [...] Bhavik Huffman M.D. us Dre Cerna MD [facility] XR PROCEDURES Final Result * eGFR (12/15/2024 [...] 12/15/2024 4:13 AM CDT us [employer] TRAIN[employer] LAB BLOOD ORDERABLES Mague dudley Result [facility] [address] [address] Department [place] [address] * (ABNORMAL) Differential, auto (12/15/2024 3:50 AM CDT) Pathologist [facility] Neutrophil abs 6.8(H) 1.5 - 6.5 K/cumm Imm gran abs 0.1 0.0 - 0.1 K/cumm [facility] Lymphocyte abs 1.2 0.8 - 3.3 K/cumm [facility] Monocyte abs 1.0(H) 0.2 - 0.8 K/cumm [facility] Eosinophil abs 0.6(H) 0.0 - 0.5 K/cumm [facility] Basophil abs 0.0 0.0 - 0.1 K/cumm [facility] Neutrophil pct 70.4 % [facility] Comment: Interpretive Data Percent cell count [...] revised on 2017. Lymphocyte pct 12.4 % [facility] Comment: Interpretive Data Percent cell [...] 12/15/2024 4:12 AM CDT us [employer] TRA[employer] LAB BLOOD ORDERABLES [place] Result [facility] [address] [address] Department [place] [address] * (ABNORMAL) CBC with auto differential (12/15/2024 3:50 AM CDT) WBC 9.7 3.8 - 9.9 K/cumm Hgb 12.3(L) 13.0 - 17.5 g/dL [facility] Hct 34.7(L) 38.9 - 50.3 % [facility] Plt 164 150 - 400 K/cumm [facility] MPV 10.2 9.1 - 12.3 fL [facility] RBC 3.87(L) 4.30 - 5.80 M/cumm [facility] MCV 89.7 81.3 - 96.4 fL [facility] MCH 31.8 27.1 - 33.3 pg [facility] MCHC 35.4 32.3 - 35.7 g/dL [facility] CH RDW CV 13.2 11.1 - 14.9 % [facility] CH RDW SD 43.3 35.7 - 48.1 fL [facility] NRBC abs 0.00 0.00 - 0.01 K/cumm [facility] Blood 12/15/2024 3:50 AM CDT 12/15/2024 4:12 AM CDT us Cherry Newby NP LAB BLOOD ORDERABLES Mague dudley Result [facility] [address] Department of Laboratories [place] [id number] * Basic metabolic panel (12/15/2024 3:50 AM CDT) Sodium 139 135 - 145 mmol/L Potassium, pl 4.4 3.3 - 4.9 mmol/L [facility] Chloride 108 97 - 110 mmol/L [facility] CO2 23 22 - 32 mmol/L [facility] Anion gap 8 2 - 15 mmol/L [facility] BUN 18 6 - 25 mg/dL [facility] Creatinine 0.86 0.80 - 1.30 mg/dL [facility] Glucose 100 70 - 199 mg/dL [facility] Comment: Interpretive Data Fasting glucose >/= [...] 2022. Calcium 9.0 8.5 - 10.3 mg/dL [facility] Blood 12/15/2024 3:50 AM CDT 12/15/2024 4:13 AM CDT Cherry Newby SYSTEMS TRAINER LAB BLOOD ORDERABLES Mague l Result Performing Organization Address [facility] Co de Phone Number [facility] BELLO [address] [place] [address] * eGFR (12/14/2024 4:26 AM CDT) eGFR [...] 4:26 AM CDT 12/14/2024 5:16 AM CDT Cherry Newby SYSTEMS TRAINER LAB BLOOD ORDERABLES Mague l Result [facility] [address] Department [place] [address] * (ABNORMAL) Differential, auto (12/14/2024 4:26 AM CDT) Neutrophil abs 6.7(H) 1.5 - 6.5 K/cumm Imm gran abs 0.0 0.0 - 0.1 K/cumm [facility] Lymphocyte abs 1.4 0.8 - 3.3 K/cumm [facility] Monocyte abs 1.0(H) 0.2 - 0.8 K/cumm [facility] Eosinophil abs 0.4 0.0 - 0.5 K/cumm [facility] Basophil abs 0.0 0.0 - 0.1 K/cumm [facility] Neutrophil pct 69.4 % [facility] Comment: Interpretive Data Percent cell count reference ranges are not reported, since discordance with absolute values may lead to misinterpretation of CBC data. Current Interpretive Data was last revised on 2017. Imm gran pct 0.4 % [facility] Comment: Interpretive Data Percent cell count reference ranges are not reported, since discordance with absolute values may lead to misinterpretation of CBC data. Current Interpretive Data was last revised on 2017. Lymphocyte pct 14.9 % [facility] Comment: Interpretive Data Percent cell count reference ranges are not reported, since discordance with absolute values may lead to misinterpretation of CBC data. Current Interpretive Data was last revised on 2017. Monocyte pct 10.4 % [facility] Comment: Interpretive Data Percent cell count reference ranges are not reported, since discordance with absolute values may lead to misinterpretation of CBC data. Current Interpretive Data was last revised on 2017. Eosinophil pct 4.6 % [facility] Comment: Interpretive Data Percent cell count reference ranges are not reported, since discordance with absolute values may lead to misinterpretation of CBC data. Current Interpretive Data was last revised on 2017. Basophil pct 0.3 % [facility] Comment: Interpretive Data Percent cell count reference ranges are not reported, since discordance with absolute values may lead to misinterpretation of CBC data. Current Interpretive Data was last revised on 2017. Blood 12/14/2024 4:26 AM CDT 12/14/2024 5:14 AM CDT us Cherry Newby NP LAB BLOOD ORDERABLES Mague dudley Result [facility] [address] Department [place] [address] * (ABNORMAL) CBC with auto differential (12/14/2024 4:26 AM CDT) Pathologist [facility] WBC 9.6 3.8 - 9.9 K/cumm Hgb 12.2(L) 13.0 - 17.5 g/dL [facility] Hct 36.3(L) 38.9 - 50.3 % [facility] Plt 150 150 - 400 K/cumm [facility] MPV 10.7 9.1 - 12.3 fL [facility] RBC 4.06(L) 4.30 - 5.80 M/cumm [facility] CH MCV 89.4 81.3 - 96.4 fL [facility] MCH 30.0 27.1 - 33.3 pg [facility] MCHC 33.6 32.3 - 35.7 g/dL [facility] CH RDW CV 13.0 11.1 - 14.9 % [facility] CH RDW SD 42.7 35.7 - 48.1 fL [facility] NRBC abs 0.00 0.00 - 0.01 K/cumm [facility] Blood 12/14/2024 4:26 AM CDT 12/14/2024 5:14 AM CDT Cherry Newby SYSTEMS TRAINER LAB BLOOD ORDERABLES Mague l Result Performing Organization Address [facility] Co de Phone Number [facility] [address] [facility] [place] [address] * Magnesium (12/14/2024 4:26 AM CDT) [facility] Magnesium 2.1 1.4 - 2.5 mg/dL Blood 12/14/2024 4:26 AM CDT 12/14/2024 12:13 PM CDT Cherry Newby SYSTEMS TRAINER LAB BLOOD ORDERABLES Mague l Result Performing Organization Address City/[facility] Co de Phone Number [facility] [address] [place] [address] * Basic metabolic panel (12/14/2024 4:26 AM CDT) Sodium 139 135 - 145 mmol/L Potassium, pl 3.8 3.3 - 4.9 mmol/L [facility] Chloride 107 97 - 110 mmol/L [facility] CO2 23 22 - 32 mmol/L [facility] Anion gap 9 2 - 15 mmol/L [facility] BUN 15 6 - 25 mg/dL [facility] Creatinine 0.89 0.80 - 1.30 mg/dL [facility] Glucose 93 70 - 199 mg/dL [facility] Comment: Interpretive Data Fasting glucose >/= [...] Calcium 8.7 8.5 - 10.3 mg/dL [facility] Blood 12/14/2024 4:26 AM CDT 12/14/2024 5:16 AM CDT us Cherry Newby SYSTEMS TRAINER LAB BLOOD ORDERABLES Mague dudley Result [facility] [address] Department [place] [address] * XR Chest 1 View (12/14/2024 4:14 [...] LAB BLOOD ORDERABLES Mague dudley Result [facility] [address] Department [place] [address] * (ABNORMAL) Differential, auto (12/13/2024 3:58 AM CDT) Neutrophil abs 9.7(H) 1.5 - 6.5 K/cumm Imm gran abs 0.0 0.0 - 0.1 K/cumm [facility] Lymphocyte abs 1.3 0.8 - 3.3 K/cumm [facility] Monocyte abs 1.2(H) 0.2 - 0.8 K/cumm [facility] Eosinophil abs 0.3 0.0 - 0.5 K/cumm [facility] Basophil abs 0.0 0.0 - 0.1 K/cumm [facility] Neutrophil pct 77.0 % [facility] Comment: Interpretive Data Percent cell count reference ranges are not reported, since discordance with absolute values may lead to misinterpretation of CBC data. Current Interpretive Data was last revised on 2017. Imm gran pct 0.3 % [facility] Comment: Interpretive Data Percent cell count reference ranges are not reported, since discordance with absolute values may lead to misinterpretation of CBC data. Current Interpretive Data was last revised on 2017. Lymphocyte pct 10.6 % [facility] Comment: Interpretive Data Percent cell count reference ranges are not reported, since discordance with absolute values may lead to misinterpretation of CBC data. Current Interpretive Data was last revised on 2017. Monocyte pct 9.3 % [facility] Comment: Interpretive Data Percent cell count reference ranges are not reported, since discordance with absolute values may lead to misinterpretation of CBC data. Current Interpretive Data was last revised on 2017. Eosinophil pct 2.5 % [facility] Comment: Interpretive Data Percent cell count reference ranges are not reported, since discordance with absolute values may lead to misinterpretation of CBC data. Current Interpretive Data was last revised on 2017. Basophil pct 0.3 % [facility] Comment: Interpretive Data Percent cell count reference ranges are not reported, since discordance with absolute values may lead to misinterpretation of CBC data. Current Interpretive Data was last revised on 2017. Blood 12/13/2024 3:58 AM CDT 12/13/2024 4:34 AM CDT Cherry Newby SYSTEMS TRAINER LAB BLOOD ORDERABLES Mague l Result Performing Organization Address City/[facility]/ZIP Co de Phone Number [facility] [address] Department of [place], [place] [phone] * (ABNORMAL) CBC with auto differential (12/13/2024 [...] CDT 12/13/2024 4:34 AM CDT Cherry Newby SYSTEMS TRAINER LAB BLOOD ORDERABLES Mague l Result Performing Organization Address City/[facility]/ZIP Co de Phone Number [facility] BE[facility] [address] [place] [address] * (ABNORMAL) Basic metabolic panel (12/13/2024 3:58 AM CDT) Sodium 137 135 - 145 mmol/L Potassium, pl 3.9 3.3 - 4.9 mmol/L [facility] Chloride 106 97 - 110 mmol/L [facility] CO2 22 22 - 32 mmol/L [facility] Anion gap 9 2 - 15 mmol/L [facility] BUN 17 6 - 25 mg/dL [facility] Creatinine 0.97 0.80 - 1.30 mg/dL [facility] Glucose 108 70 - 199 mg/dL [facility] Comment: Interpretive Data Fasting glucose >/= [...] Calcium 8.4(L) 8.5 - 10.3 mg/dL [facility] Blood 12/13/2024 3:58 AM CDT 12/13/2024 4:34 AM CDT us Cherry Newby NP LAB BLOOD ORDERABLES Mague dudley Result [facility] [address] Department [place] [address] * eGFR (12/12/2024 5:18 PM [...] HATCH LAB BLOOD ORDERABLES F inal Result [facility] [address] Department [place] [address] * (ABNORMAL) Basic metabolic panel (12/12/2024 5:18 PM CDT) Sodium 134(L) 135 - 145 mmol/L Potassium, pl 3.7 3.3 - 4.9 mmol/L [facility] Chloride 100 97 - 110 mmol/L [facility] CO2 26 22 - 32 mmol/L [facility] Anion gap 8 2 - 15 mmol/L [facility] BUN 16 6 - 25 mg/dL [facility] Creatinine 1.16 0.80 - 1.30 mg/dL [facility] Glucose 113 70 - 199 mg/dL [facility] Comment: Interpretive Data Fasting glucose >/= [...] Calcium 8.5 8.5 - 10.3 mg/dL [facility] Blood 12/12/2024 5:18 PM CDT 12/12/2024 5:26 PM CDT Rosalina HATCH LAB BLOOD ORDERABLES F inal Result [facility] [address] Department [place] [address] * Critical Care (12/12/2024 6:55 AM CDT) [...] plan with the patient's team and other medical/rewards consultant staff. This time was in addition [...] BLOOD ORDERABL ES Final Result [facility] [address] Department [place] [address] * XR Chest 1 Vw Portable (12/12/2024 [...] ORDERABL ES Final Result Performing Organization Address [facility]/ZIP Co de Phone Number ASA BELLO [address] [place] [address] * Calcium, ionized, whole blood (12/12/2024 1:57 AM CDT) Ca, ionized, bld 4.53 4.50 - 5.10 mg/dL Blood 12/12/2024 1:57 AM CDT 12/12/2024 2:07 AM CDT López Valadez APRN LAB BLOOD ORDERABL ES Final Result Performing Organization Address [facility] Co de Phone Number [facility] BE[facility] [address] [place] [address] * eGFR (12/12/2024 1:57 AM CDT) eGFR [...] CDT 12/12/2024 2:07 AM CDT López Valadez HAND PAINT MIXER LAB BLOOD ORDERABL ES Final Result [facility] [address] Department [place] [address] * (ABNORMAL) Differential, auto (12/12/2024 1:57 AM CDT) Neutrophil abs 14.1(H) 1.5 - 6.5 K/cumm Imm gran abs 0.1 0.0 - 0.1 K/cumm [facility] Lymphocyte abs 0.8 0.8 - 3.3 K/cumm [facility] Monocyte abs 1.9(H) 0.2 - 0.8 K/cumm [facility] Eosinophil abs 0.0 0.0 - 0.5 K/cumm [facility] Basophil abs 0.0 0.0 - 0.1 K/cumm [facility] Neutrophil pct 83.2 % [facility] Comment: Interpretive Data Percent cell count reference ranges are not reported, since discordance with absolute values may lead to misinterpretation of CBC data. Current Interpretive Data was last revised on 2017. Imm gran pct 0.5 % [facility] Comment: Interpretive Data Percent cell count reference ranges are not reported, since discordance with absolute values may lead to misinterpretation of CBC data. Current Interpretive Data was last revised on 2017. Lymphocyte pct 4.7 % [facility] Comment: Interpretive Data Percent cell count reference ranges are not reported, since discordance with absolute values may lead to misinterpretation of CBC data. Current Interpretive Data was last revised on 2017. Monocyte pct 11.3 % [facility] Comment: Interpretive Data Percent cell count reference ranges are not reported, since discordance with absolute values may lead to misinterpretation of CBC data. Current Interpretive Data was last revised on 2017. Eosinophil pct 0.2 % [facility] Comment: Interpretive Data Percent cell count [...] ORDERABL ES Final Result Performing Organization Address City/[facility]/ZIP Co de Phone Number ASA [address] [place] [address] * (ABNORMAL) CBC with auto differential (12/12/2024 1:57 AM CDT) WBC 17.0(H) 3.8 - 9.9 K/cumm Hgb 14.1 13.0 - 17.5 g/dL [facility] Hct 41.2 38.9 - 50.3 % [facility] Plt 194 150 - 400 K/cumm [facility] MPV 10.4 9.1 - 12.3 fL [facility] RBC 4.60 4.30 - 5.80 M/cumm [facility] MCV 89.6 81.3 - 96.4 fL [facility] MCH 30.7 27.1 - 33.3 pg [facility] MCHC 34.2 32.3 - 35.7 g/dL [facility] RDW CV 12.6 11.1 - 14.9 % [facility] RDW SD 41.0 35.7 - 48.1 fL [facility] NRBC abs 0.00 0.00 - 0.01 K/cumm [facility] Blood 12/12/2024 1:57 AM CDT 12/12/2024 2:07 AM CDT López Valadez APRN LAB BLOOD ORDERABL ES Final Result Performing Organization Address City/[facility]/ZIP Co de Phone Number ASA [address] Department [place] [address] * Magnesium (12/12/2024 1:57 AM CDT) Magnesium 2.0 1.4 - 2.5 mg/dL Blood 12/12/2024 1:57 AM CDT 12/12/2024 2:07 AM CDT López Valadez APRN LAB BLOOD ORDERABL ES Final Result [facility] [address] Department [place] [address] * (ABNORMAL) Basic metabolic panel (12/12/2024 1:57 AM CDT) Pathologist [facility] Sodium 138 135 - 145 mmol/L Potassium, pl 5.2(H) 3.3 - 4.9 mmol/L [facility] Comment:Hemolysis present. R esults may be affected. Chloride 104 97 - 110 mmol/L [facility] CO2 21(L) 22 - 32 mmol/L [facility] Anion gap 13 2 - 15 mmol/L [facility] BUN 14 6 - 25 mg/dL [facility] Creatinine 0.94 0.80 - 1.30 mg/dL [facility] Glucose 144 70 - 199 mg/dL [facility] Comment: Interpretive Data Fasting glucose >/= [...] ORDERABL ES Final Result Performing Organization Address City/[facility] Co de Phone Number [facility] BELLO [address] Department [place] [address] * ECG 12 lead (12/12/2024 1:51 AM CDT) 12/12/2024 1:51 AM CDT Narrative [facility] - 12/12/2024 7:40 AM CDT Vent Rate: 155 bpm RR Interval: 386 msec NC Interval: 0 msec QRS Duration: 126 msec QT Interval: 220 msec QTC Interval: 307 msec P-R-T Finley: 0 - -13 - -36 degrees IMPRESSION: ATRIAL FLUTTER/TACHYCARDIA WITH RAPID VENTRICULAR RESPONSE MODERATE INTRAVENTRICULAR CONDUCTION DELAY [110+ ms QRS DURATION] NONSPECIFIC ST \T\ T-WAVE ABNORMALITY CRITICAL TEST RESULT Compared to prior EKG, heart rate has increased Anterolateral ST segment depressions are new Patient probably in atrial flutter Electronically Signed By: Mauricio Boswell MD López Valadez APRN ECG ORDERABLES Fi nal Result Performing Organization Address [facility] Co de Phone Number [facility] [email or web address] [facility] * Critical Care (12/11/2024 9:53 PM CDT) Narrative Daniel Arivzu MD - 12/11/2024 9:53 PM CDT Daniel [...] plan with the ICU team and other medical/rewards consultant staff, making frequent assessments and decisions [...] CH MPV 10.6 9.1 - 12.3 fL [facility] RBC 4.47 4.30 - 5.80 M/cumm [facility] CH MCV 89.5 81.3 - 96.4 fL [facility] MCH 31.3 27.1 - 33.3 pg [facility] MCHC 35.0 32.3 - 35.7 g/dL [facility] CH RDW CV 12.3 11.1 - 14.9 % [facility] CH RDW SD 40.5 35.7 - 48.1 fL [facility] NRBC abs 0.00 0.00 - 0.01 K/cumm [facility] Blood 12/11/2024 9:40 PM CDT 12/11/2024 9:40 PM CDT us Dre Cerna MD LAB BLOOD ORDERABLES Final Resul t [facility] [address] Department [place] [address] * eGFR (12/11/2024 9:39 PM [...] LAB BLOOD ORDERABLES Final Resul t [facility] [address] Department [place] [address] * (ABNORMAL) Basic metabolic panel (12/11/2024 9:39 PM CDT) Sodium 138 135 - 145 mmol/L Potassium, pl 4.6 3.3 - 4.9 mmol/L [facility] Chloride 106 97 - 110 mmol/L [facility] CO2 21(L) 22 - 32 mmol/L [facility] Anion gap 11 2 - 15 mmol/L [facility] BUN 15 6 - 25 mg/dL [facility] Creatinine 0.92 0.80 - 1.30 mg/dL [facility] Glucose 157 70 - 199 mg/dL [facility] Comment: Interpretive Data Fasting glucose >/= [...] 2022. Calcium 8.3(L) 8.5 - 10.3 mg/dL [facility] Blood 12/11/2024 9:39 PM CDT 12/11/2024 9:39 PM CDT Dre Cerna MD LAB BLOOD ORDERABLES Final Resul t Performing Organization Address City/[facility]/ZIP Co de Phone Number [facility] [address] Department [place] [address] * POCT glucose (12/11/2024 6:26 PM CDT) Glucose, POC 189 70 - 199 mg/dL POC Performer [id number] [facility] Blood 12/11/2024 6:26 PM CDT 12/11/2024 6:26 PM CDT Dre Cerna MD LAB POCT ORDERABLES - DEVICE Fin al Result Performing Organization Address [facility] Co de Phone Number [facility] BELLO [address] [place] [address] * XR Chest 1 View - in [...] Units (12/11/2024 2:12 PM CDT) Product code [id number] Unit Number [id number] 7-I [facility] Product Blood Type OPOS [facility] Dispense Status RETURNED [facility] Blood 12/11/2024 2:12 PM CDT Narrative [facility] - 12/12/2024 12:21 AM CDT Are special requirements needed? (All products are leukoreduced and CMV- safe)- >No Date required:-[id number] LRRBC # of [id number] Reasons:-Intra-op transfusion} Dre Cerna MD BLOOD BANK PRODUCT ORDERABLES Fi nal Result [facility] [address] Department [place] [address] * NC AN ELECTIVE ENDOTRACHEAL AIRWAY (12/11/2024 12:29 PM CDT) Narrative Inderjit Delgadillo AA - 12/11/2024 12:29 PM CDT Inderjit Delgadillo AA 12/11/2024 12:29 PM Airway Patient location: OR Urgency: elective Date/time: 12/11/2024 12:26 PM Indications for airway management: anesthesia Difficult airway: no Staff: Supervising provider: Candido Chapman DO Placed by: YOHANNES: Inderjit Delgadillo AA Emergent airway documentation: Risks [...] oral Blade type: Sharri Video blade type: Friendemic Blade size: 4 Cormack-Lehane (video): grade I [...] Units (12/11/2024 9:45 AM CDT) Product code [id number] Unit Number [id number] 5-V [facility] Product Blood Type OPOS [facility] Dispense Status RETURNED [facility] Blood 12/11/2024 9:45 AM CDT Narrative [facility] - 12/12/2024 12:21 AM CDT Specify Procedure:->robotic wedge resection Are special requirements needed? (All products are leukoreduced and CMV- safe)- >No Date required:-[id number] LRRBC # of [id number] Reasons:-Hold for procedure (specify procedure)} us Cherry Newby NP BLOOD BANK PRODUCT ORDERA BLES Final Result [facility] [address] Department of Laboratories [place] [id number] * Surgical pathology (12/11/2024 9:26 AM CDT) [...] results best viewed via link to PDF [facility] Department of Pathology [address] [place], [place] [id number] Note to Patients: This report may contain [...] with Addendum Patient Name: ADALGISA MERIDA Address: [address] [place] [address] Gender: M : 1960 (Age: 63) Service: Cardiothoracic Location: Hospital #: [id number] Patient [facility]: [facility] [...] The external consult report from [facility] ([id number]) has been finalized and is attached. For the rewards consultant s comment, please see scanned image of report or the report can be viewed in the Electronic Medical Record of the patient. If access to the EMR is not available, please call pathology for a hard copy of the report ([phone]). Lung, right middle lobe, lobectomy ([id number]; 12/11/2024): Malignant spindle cell neoplasm consistent with [...] ordered molecular analysis. Materials were forwarded to [facility] where the testing will be performed.. [...] is submitted in twelve containers labeled ADALGISA MAGNOLIA. A. The first container is labeled lymph node station 9 #1. Is a meade-acevedo lymph node measuring 9 mm. Entirely in A. B. The second container is labeled lymph node station 8 #1. It is a meade-acevedo lymph node measuring [...] container is labeled lymph node station 11 #4. It is to meade-acevedo lymph node fragments measuring 1.0 and 1.5 cm. Entirely in K. L. The twelfth container is labeled right middle lobe. Received fresh for frozen is a wedge-shaped [...] with the tissue embedded in cassette L1. Supervisor Hardboard sections are submitted: Tumor with pleura L2 [...] determined by the Surgical Pathology Department at [facility] as part of an ongoing senior software quality analyst program and in compliance with federally mandated [...] characteristics determined by the Surgical Pathology Department [facility]. It has not been cleared or approved by the U. S. Food and Drug Administration. Note for decalcified specimens: This assay has not been validated on decalcified tissues. Results should be interpreted with caution given the possibility of false negativity on decalcified specimens Dre Cerna MD LAB PATHOLOGY ORDERABLES Final R esult Performing Organization Address [facility] Co de Phone Number [facility] [address] [place] [address] * - Miscellaneous Lab Test (12/11/2024 12:00 AM CDT) Pathologist [facility] lab See Comment Comment:see scanned report Miscellaneous 12/11/2024 12/31/2024 9:40 AM CDT Narrative [facility] - 12/31/2024 9:41 AM CDT [id number] Dre Cerna MD LAB BLOOD ORDERABLES Final Resul t Performing Organization Address [facility] Co de Phone Number [facility] [address] [place] [address] * CT Body Outside Reference (12/03/2024 6:53 PM CDT) Impressions [facility] - 12/03/2024 6:53 PM CDT These images are for Reference purposes only and have not been reviewed by [facility] Radiology. There will be no report generated by a [facility] Radiologist. Narrative [facility] - 12/03/2024 6:53 PM CDT EXAMINATION: Images For Reference Purposes Only us Dre Cerna MD IMG CT PROCEDURES Final Result [facility] from Last 3 Months Insurance [facility] Member Subscriber Plan / Payer (Ef fective 2012-Present) Name:Adalgisa Merida Giuseppe Relation to Subscriber:Self Name:Adalgisa Merida Payer ID:[id number] (NAIC) Type:[facility] HMO/PPO Address: [address] Advance Directives For more information, please contact: [phone] * Full Code (Latest Code Status on File) Date Activated Date Inactivated Comments 12/11/2024 6:31 PM 12/15/2024 3:57 PM * Full Code Date Activated Date Inactivated Comments 03/16/2024 4:36 PM 03/21/2024 3:59 PM * Full Code Date Activated Date Inactivated Comments 01/28/2022 9:19 PM 02/05/2022 5:17 PM Care Teams Grad Intern Relationship Specialty Start Date End Date Crystal Mir MD [address] [place] [address] PCP - General Medical Oncology 12/30/24 Gabe George DO [address] [facility] [address] [address] Internal Medicine 12/30/24 Gabe George DO [address] [address] Internal Medicine 12/30/24 Ian Michel MD [address] [place] [address] [place] [address] Dermatology 02/10/23 Parul Baldwin MD [address] [place] [address] Referring Physician Dermatology 02/10/23 Felix Sher MD [address] [facility] [address] [place] [id number] Consulting Physician Cardiology 10/21/24 Dre Cerna MD [address] [facility] [address] [id number] Surgeon Thoracic Surgery 12/15/24
--- OUTSIDE RECORDS SUMMARY | 2025-03-03 12:50 | XMS_ITS ---
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
--- OUTSIDE RECORDS SUMMARY | 2025-03-03 12:50 | XMS_ITS | Encounter Summary ---
Author Organization [facility] Healthcare Address [address] [place] [address] Care Team Providers Care Spinning And Winding Supervisor Name Role Phone Gabe George DO Primary Care Provider [phone] Gabe George DO Unavailable Gabe George DO Unavailable Ian Michel MD Unavailable [phone] Parul Baldwin MD Unavailable [phone] Felix Sher MD Unavailable [phone] Dre Cerna MD Unavailable Crystal Mir MD Primary Care Provider [phone] Encounter Details Date Type Department Care Team (Late st Contact Info) Description 12/17/2024 [facility] Post Discharge Follow up phone call [address] [address] Karla Romo, RN Social History [...] on file 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 Gender Identity Not on file Sexual Orientation Not on file documented as of this encounter Plan of Treatment Not on file documented as of this encounter Visit Diagnoses Not on filedocumented in this encounter Care Teams Spinning And Winding Supervisor Relationship Specialty Start Date End Date Gabe George DO [address] [address] PCP - General Internal Medicine 08/03/24 12/29/24 Crystal Mir MD [address], [address] [place] [address] PCP - General Medical Oncology 12/30/24 Gabe George DO [address] [facility] [address] [address] Internal Medicine 12/30/24 Gabe George DO [address] [address] Internal Medicine 12/30/24 Ian Michel MD [address] [place] [address] [address] Stephani [place] [id number] Dermatology 02/10/23 Parul Baldwin MD [address] [facility] [address] [place] [address] Referring Physician Dermatology 02/10/23 Felix Sher MD [address] [facility] [address], [place] [address] Consulting Physician Cardiology 10/21/24 Dre Cerna MD [facility] [place] [address] [id number] Surgeon Thoracic Surgery 12/15/24 documented as of this encounter
--- OUTSIDE RECORDS SUMMARY | 2025-03-03 12:50 | XMS_ITS | Clinical Summary ---
Author Organization [facility] Address [address] [place] [address] Care Team Providers Care Salesperson Hosiery Name Role Phone Ariel Gabe Unavailable Gabe George DO Unavailable Ian Michel MD Unavailable [phone] Parul Baldwin MD Unavailable [phone] Felix Sher MD Unavailable [phone] Dre Cerna MD Unavailable Crystal Mir MD Primary Care Provider [phone] Allergies Active Allergy Reactions Criticality Noted Date [...] showed interval changes of parietal scalp mass program review director and Gerardo thus Hancock flap reconstruction without [...] graft) 03/05/20 Coronary artery disease invo lving [place] coronary artery of [place] heart without angina pectoris 01/28/2022 Overview (01/29/2022): Added automatically from request for surgery [id number] 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 Floor 5 [place] [address] Minh Orozco MD Squamous cell carcinoma of scalp (Primary Dx) 02/18/2025 9:40 AM CDT Office Visit [facility] ENT [address] [facility] 2nd Floor, [address] [place] [address] Minh Orozco MD Squamous cell carcinoma of scalp (Primary Dx); Sarcoma (HCC) 02/17/2025 Telephone [facility] Oncology [address] [place] [address] Helen Castellanos 02/08/2025 2:30 PM CDT Clinical Support [address] Advanced [address] [address] Halina Ocasio, PhD 02/04/2025 Orders Only [facility] Department of Otolaryngology Head-Neck Division [address] [place] [phone] Minh Orozco MD Squamous cell carcinoma of scalp (Primary Dx) 01/26/2025 4:00 PM CDT Clinical Support [address] [address] Halina Ocasio, PhD 01/26/2025 1:30 PM CDT Office Visit [facility] Radiation Oncology [address] [place] [address] Justo Wright MD Squamous cell carcinoma of scalp [C44.42] (Primary Dx) 01/25/2025 Orders Only [facility] Surgery [address] [place] [phone] Radha Riley NP Nerve pain 01/20/2025 1:00 PM CDT Clinical Support [address] [address] Halina Ocasio, PhD 01/14/2025 Orders Only [facility] [address] [place] [address] Dre Cerna MD Lung nodule 01/13/2025 2:00 PM CDT Clinical Support [address] [address] Halina Ocasio, PhD Anxiety in cancer patient 01/07/2025 1:00 PM CDT Office Visit [facility] Oncology [address] [place] [phone] 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 9:30 AM CDT Office Visit [facility] Surgery [address] [facility] [address] [place] [phone] Dre Cerna MD Lung nodule (Primary Dx) 01/07/2025 8:58 AM CDT - 01/07/2025 11:59 PM CDT Hospital Encounter [facility] MOB 1 DIAG IMG [address] [place] [address] Lung nodule Discharge Disposition: Discharge to home or self care 12/30/2024 Telephone [facility] [address] [place] [address] Amara Dhaliwal, RN Internet Request 12/29/2024 Telephone [facility] [employer] [address] [place] [address] Fouzia Hamilton LCSW 12/29/2024 Orders Only [facility] Surgery [address] [facility] [address] [place] [phone] Dre Cerna MD Lung nodule (Primary Dx) 12/29/2024 Orders Only [facility] Surgery [address] [facility] Floor 5 [place] [address] Radha Riley NP Stress and adjustment reaction (Primary Dx) 12/29/2024 Telephone [facility] Surgery [address] [facility] Floor 5 [place] [address] Radha Riley NP 12/29/2024 Orders Only [facility] Surgery [address] [facility] Floor 5 [place] [address] Radha Riley NP Pleomorphic dermal sarcoma (Primary Dx) 2024 Orders Only [facility] Surgery [facility] Floor 5 [place] [address] Radha Riley NP Nerve pain (Primary Dx) 2024 Telephone [facility] Cardiothoracic Surgery [address] [facility] 8th Floor [address] Room [phone] [place] [address] Daphnie Agrawal 12/27/2024 12:13 PM CDT - 12/27/2024 2:31 PM CDT Emergency [facility] Emergency Department 1 [place] [address] Narciso Delgadillo MD Post-operative pain (Primary Dx) Discharge Disposition: Discharge to home or self care 12/27/2024 Telephone [facility] Surgeon 1 [place] [address] Ana Blank MD Pain (Pain at incision site, new abdominal pain ) 12/24/2024 11:15 AM CDT Office Visit [facility] Surgery [address] [facility] [address] [place] [phone] Dre Cerna MD Lung nodule (Primary Dx) 12/24/2024 10:46 AM CDT - 12/24/2024 11:59 PM CDT Hospital Encounter [facility] MOB 1 DIAG IMG [address]14 [place] [address] Lung nodule Discharge Disposition: Discharge to home or self care 12/17/2024 [facility] Post Discharge Follow up phone call [address] [address] Rosalee Gerardo 12/17/2024 [facility] Post Discharge Follow up phone call [address] [address] Karla Romo RN 12/15/2024 Orders Only [facility] Surgery [address] [facility] [address] [place] [phone] Ian Cardenas NP 12/11/2024 12:17 PM CDT Anesthesia Event [facility] Operating Room [address] [place] [address] Kevan Torrez MD Tadros, Hany B., MD 12/11/2024 12:00 PM CDT - 12/11/2024 4:00 PM CDT Surgery [facility] Operating Room [address] [place] [address] Dre Cerna MD XI ROBOTIC THORACIC RIGHT MIDDLE LOBECTOMY [13011 (CPT )] 12/11/2024 9:39 AM CDT - 12/15/2024 11:57 AM CDT Hospital Encounter [facility] [address] [place] [address] Dre Cerna MD Nodule of middle lobe of right lung Discharge Disposition: Discharge to home or self care 12/04/2024 Telephone [facility] Surgery [address] 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 HIP ARTHROPLASTY 09/23/2021 - 09/22/2022 Right COLONOSCOPY TONSILLECTOMY AND ADENOIDECTOMY CATARACT EXTRACTION Bilateral JOINT REPLACEMENT [id number] Medical History Medical History Date Comments Arthritis [...] Arthritis Mother Leanna merida Depression Mother Leanna meirda Anesthesia problems Neg Hx Relation Name Status [...] on file Legal Sex Male 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 Gender Identity Not on file Sexual Orientation [...] Tdap) 04/12/2031 Medical Devices Implanted Type Area Pipeline Gang Supervisor Device Identifier Shelf Expiration Date Model / Serial / Lot [employer] [place] Microvascular 3mm Ring Pin Protective Cover Jaw Assembly Latex Free [id number] - [id number] Implanted:Qty: 1 on 03/16/2024 by Minh Orozco MD at [facility] Neck [employer]uly [id number] 01/08/2028 [id number] / / [id number] Procedures Procedure Name Priority Date/Time Associated Diagnosis [...] PREPARE RBC STAT 12/11/2024 2:12 PM CDT CA AN ELECTIVE ENDOTRACHEAL AIRWAY Routine 12/11/2024 12:29 PM CDT ANESTHESIA ARTERIAL LINE PLACEMENT Routine 12/11/2024 12:28 PM CDT PERIPHERAL LINE Routine 12/11/2024 12:28 PM CDT CA THORACOSCOPY W/DX BX OF LUNG INFILTRATE UNILATRL [...] PM CDT 01/14/2025 2:23 PM CDT Narrative [facility] - 01/15/2025 12:18 PM CDT EPIC results best viewed via link to PDF [facility] Pathology Consult Service [address], [place] [address] Note to Patients: This report [...] SURGICAL PATHOLOGY REPORT * Consult Report * [facility] is providing an additional review of previously collected tissue. FINAL Patient Name: ADALGISA MERIDA Address: [address] [place] [phone] Gender: M : 1960 (Age: 64) Hospital #: [id number] Patient Type: CESAR Location: UNKNOWN Taken: 01/14/2025 Received: 01/14/2025 Accessioned: 01/14/2025 Reported: 01/15/2025 Physician(s): Dre Cerna M.D. [facility] NE Pathology [facility] Department of Pathology [address] [place] [address] P: [phone] F: [phone] Diagnosis: Consult material received from [place], [place] A. Lung, right middle lobe, lobectomy (OSC: [id number]; 12/11/2024): - Malignant spindle cell neoplasm, consistent [...] Received for review are twenty-six slides labeled [id number], accompanied by a corresponding pathology report. The material originates from [place], [place]. Selected slide(s) may be digitally scanned for our files, and all materials are returned to the referring institution, along with a copy of our final report. Any testing required for diagnostic purposes was performed in the Department of Pathology and Immunology at [facility], [address] [place] [address] CLIA # [id number] The performance characteristics of the testing cited in this report (if any) were determined by the [facility] Department of Pathology and Immunology [facility], as part of an ongoing senior manager quality assurance program and in compliance with federally mandated [...] and the performance characteristics determined by the [facility], [facility] Department of Pathology and Immunology. It has not been cleared or approved by the U.S. Food and Drug Administration. Any test designated as LDT was developed and its performance characteristics determined by [facility]. It has not been cleared or approved by the FDA. This test is used for clinical purposes and should not be regarded as investigational or for research. Report images and/or scanned reports, if included, only viewable in PDF version of report. us Dre Cerna MD LAB PATHOLOGY ORDERABLES Final R esult [facility] [address] [address] * Tempus xT DNA and RNA - [...] CDT [facility] Portal https://clinical-por ta l.N4G.com.Numerify/pat ient/[email or web address] [email or web address]/re [email or web address] 01/22/2025 2:41 PM CDT [facility] Comment:Tempus [...] Status: Consensus Evidence ID: NCCN KDB Variant: [id number]-rt-mulnkjbh Label: FDA Off Label FDA Approved?: Yes On label?: No 01/22/2025 2:41 PM CDT [facility]us: Potential Therapy 3 Gene: [id number]^PIK3CA^HGNC Variant: p.G118D Match Type: snvIndel Match Type Description: PIK3CA p.G118D Agent: Alpelisib Drug Class: PI3K Inhibitor Tissue: Solid Tumors Association: Response Evidence Status: Clinical research Evidence ID: [id number] Evidence URL: https://www.ncbi.nlm.n ih.gov/pubmed/38159542 Evidence Title: Phosphatidylinositol 3-Kinase -Selective Inhibition With Alpelisib (QEW952) in ZLU6ER-Gqadanq Solid Tumors: Results From the Frwtb-df-Ibkss Study - PubMed KDB Variant: Tihj-ra-kiojnpwl Label: FDA Off Label FDA Approved?: Yes On label?: No 01/22/2025 2:41 PM CDT [facility] Trial Count 3 01/22/2025 2:41 PM CDT [facility]us: Clinical Trial Match 1 Clinical Trial NCT ID: [id number] Clinical Trial Title: Qtayg-tl-Nentc Study of Mutant-selective PI3K Inhibitor, RLY-2608, As a Single Agent in Advanced Solid Tumor Patients and in Combination with Fulvestrant in Patients with Advanced Breast Cancer Clinical Trial URL: https://clinicaltrials .gov/ct2/show/TEZ28256 432 Clinical Phase: Phase 1 Clinical Trial Matches: PIK3CA p.G118D mutation Clinical Trial Distance and Location: 1 [place], [place] 01/22/2025 2:41 PM CDT [facility] Tempus: Clinical Trial Match 2 Clinical Trial NCT ID: [id number] Clinical Trial Title: Tumor-agnostic Precision Immuno-oncology and Somatic Targeting Rational for You (TAPISTRY) Platform Study Clinical Trial URL: https://clinicaltrials .gov/ct2/show/AUS71823 845 Clinical Phase: Phase 2 Clinical Trial Matches: BOY p.W2104* mutation Clinical Trial Distance and Location: [address] [place], [place] 01/22/2025 2:41 PM CDT [facility]: Clinical Trial Match 3 Clinical Trial NCT ID: [id number] Clinical Trial Title: Study of INBRX-106 and INBRX-106 in Combination With Pembrolizumab (Keytruda ) in Subjects With Locally Advanced or Metastatic Solid Tumors (Hexavalent OX40 Agonist) Clinical Trial URL: https://clinicaltrials .gov/ct2/show/YGY24203 766 Clinical Phase: Phase 1/Phase 2 Clinical Trial Matches: TMB-High Clinical Trial Distance and Location: [address], [place], [place] 01/22/2025 2:41 PM CDT [facility] xR [...] TESTING Final Res ult [facility] [address] [facility], [address] [place], [place] [address] [phone], [address] [place] [address] * X-ray chest 2 views (01/07/2025 9:00 [...] Pranay Grace M.D. ANANT: ANANT Report ID: [id number] Reading Location: [id number] Procedure Note Wilian Grace MD - 01/13/2025 [...] Pranay Grace M.D. ANANT: ANANT Report ID: [id number] Reading Location: [id number] Dre Cerna MD IMG XR PROCEDURES Final Result * Sepsis Lactate w/ Reflex (12/27/2024 1:04 PM CDT) Sepsis Lactate 1.3 0.7 - 2.0 mmol/L Blood 12/27/2024 1:04 PM CDT 12/27/2024 1:07 PM CDT Osvaldo Wu MD LAB BLOOD ORDERABLES Final R esult [facility] ([place]) 1 [facility] Department [place] [address] * CT Chest W Contrast [...] Recent guidelines by the Fleischner Society (Radiology 391168,2017) divides patient into low vs. high risk [...] immunosuppression, or patients with known primary cancer. http://pubs.rsna.org/doi/pdf/10.1148/radiol.8368475352 THIS IS AN ELECTRONICALLY VERIFIED FINAL REPORT 12/27/2024 1:03 PM - Electronically signed by Damian Dorsey D.O. PS: PS Report ID: [id number] Reading Location: [id number] Procedure Note Damian Dorsey DO - 12/27/2024 [...] Recent guidelines by the Fleischner Society (Radiology 824939,2017)divides patient into low vs. high risk (for [...] immunosuppression, or patients with known primary cancer. http://pubs.rsna.org/doi/pdf/10.1148/radiol.9849431566 THIS IS AN ELECTRONICALLY VERIFIED FINAL REPORT 12/27/2024 1:03 PM - Electronically signed by Damian Dorsey D.O. PS: PS Report ID: [id number] Reading Location: [id number] Maryam HATCH IMG CT PROCEDURES Final Result [...] Damian Dorsey D.O. PS: PS Report ID: [id number] Reading Location: [id number] Procedure Note Damian Dorsey, DO - 12/27/2024 [...] Damian Dorsey D.O. PS: PS Report ID: [id number] Reading Location: [id number] Narciso Delgadillo MD IMG XR PROCEDURES Final Resu lt * (ABNORMAL) Sepsis Lactate w/ Reflex (12/27/2024 10:10 AM CDT) Sepsis Lactate 2.3(H) 0.7 - 2.0 mmol/L Blood 12/27/2024 10:1 0 AM CDT 12/27/2024 10:41 AM CDT Narciso Delgadillo MD LAB BLOOD ORDERABLES Final R esult Performing Organization Address City/[facility]/ZIP Co de Phone Number [facility] ([place]) 1 [facility] Department [place] [address] * eGFR (12/27/2024 10:10 AM CDT) eGFR [...] BLOOD ORDERABLES Final R esult [facility] ([place]) 1 [facility] [place] [address] * (ABNORMAL) Differential, auto (12/27/2024 10:10 AM [...] BLOOD ORDERABLES Final R esult [facility] ([place]) 1 [facility] Department [place] [address] * (ABNORMAL) CBC with auto differential (12/27/2024 [...] Final R esult [facility] ([place]) 1 [facility] Department [place] [address] * Comprehensive metabolic panel (12/27/2024 10:10 AM CDT) Pathologist [facility] Sodium 135 135 - 145 mmol/L Potassium, [...] MD LAB BLOOD ORDERABLES Final R esult [facility] ([place]) 1 [facility] Department [place] [address] * X-ray chest 2 views (12/24/2024 10:49 [...] signed by Yeison GIBBS: SAI Report ID: [id number] Reading Location: [id number] Procedure Note Yeison Davenport MD - 01/02/2025 [...] signed by Yeison GIBBS: SAI Report ID: [id number] Reading Location: [id number] Dre Cerna MD [facility] XR PROCEDURES Final Result * XR Chest [...] by: Bhavik Huffman M.D. Dre Cerna MD [facility] XR PROCEDURES Final Result * eGFR (12/15/2024 [...] LAB BLOOD ORDERABLES Mague dudley Result [facility] [address] Department [place] [address] * (ABNORMAL) Differential, auto (12/15/2024 3:50 AM CDT) Neutrophil abs 6.8(H) 1.5 - 6.5 K/cumm Imm gran abs 0.1 0.0 - 0.1 K/cumm [facility] Lymphocyte abs 1.2 0.8 - 3.3 K/cumm [facility] Monocyte abs 1.0(H) 0.2 - 0.8 K/cumm [facility] Eosinophil abs 0.6(H) 0.0 - 0.5 K/cumm [facility] Basophil abs 0.0 0.0 - 0.1 K/cumm [facility] Neutrophil pct 70.4 % [facility] Comment: Interpretive [...] revised on 2017. Lymphocyte pct 12.4 % [facility] Comment: Interpretive Data Percent cell count reference ranges are not reported, since discordance with absolute values may lead to misinterpretation of CBC data. Current Interpretive Data was last revised on 2017. Monocyte pct 10.4 % [facility] Comment: Interpretive Data Percent cell count reference ranges are not reported, since discordance with absolute values may lead to misinterpretation of CBC data. Current Interpretive Data was last revised on 2017. Eosinophil pct 5.7 % [facility] Comment: Interpretive Data Percent cell count reference ranges are not reported, since discordance with absolute values may lead to misinterpretation of CBC data. Current Interpretive Data was last revised on 2017. Basophil pct 0.4 % [facility] Comment: Interpretive Data Percent cell count reference ranges are not reported, since discordance with absolute values may lead to misinterpretation of CBC data. Current Interpretive Data was last revised on 2017. Blood 12/15/2024 3:50 AM CDT 12/15/2024 4:12 AM CDT us Cherry Newby AUTOMOTIVE GLASS TECHNICIAN LAB BLOOD ORDERABLES Mague dudley Result [facility] [address] Department [place] [address] * (ABNORMAL) CBC with auto differential (12/15/2024 3:50 AM CDT) WBC 9.7 3.8 - 9.9 K/cumm Hgb 12.3(L) 13.0 - 17.5 g/dL [facility] Hct 34.7(L) 38.9 - 50.3 % [facility] Plt 164 150 - 400 K/cumm [facility] MPV 10.2 9.1 - 12.3 fL [facility] RBC 3.87(L) 4.30 - 5.80 M/cumm [facility] MCV 89.7 81.3 - 96.4 fL [facility] MCH 31.8 27.1 - 33.3 pg [facility] MCHC 35.4 32.3 - 35.7 g/dL [facility] RDW CV 13.2 11.1 - 14.9 % [facility] RDW SD 43.3 35.7 - 48.1 fL [facility] NRBC abs 0.00 0.00 - 0.01 K/cumm [facility] Blood 12/15/2024 3:50 AM CDT 12/15/2024 4:12 AM CDT us Cherry Newby AUTOMOTIVE GLASS TECHNICIAN LAB BLOOD ORDERABLES Mague l Result Performing Organization Address City/[facility]/ZIP Co de Phone Number [facility] [address] [place] [address] * Basic metabolic panel (12/15/2024 3:50 AM CDT) Sodium 139 135 - 145 mmol/L Potassium, pl 4.4 3.3 - 4.9 mmol/L [facility] Chloride 108 97 - 110 mmol/L [facility] CO2 23 22 - 32 mmol/L [facility] Anion gap 8 2 - 15 mmol/L [facility] BUN 18 6 - 25 mg/dL [facility] Creatinine 0.86 0.80 - 1.30 mg/dL [facility] Glucose 100 70 - 199 mg/dL [facility] Comment: Interpretive Data Fasting glucose [...] 2022. Calcium 9.0 8.5 - 10.3 mg/dL [facility] Blood 12/15/2024 3:50 AM CDT 12/15/2024 4:13 AM CDT us Cherry Newby AUTOMOTIVE GLASS TECHNICIAN LAB BLOOD ORDERABLES Mague l Result [facility] [address] [place] [address] * eGFR (12/14/2024 4:26 AM CDT) Pathologist [facility] eGFR >90 [...] LAB BLOOD ORDERABLES Mague dudley Result [facility] [address] Department [place] [address] * (ABNORMAL) Differential, auto (12/14/2024 4:26 AM CDT) Pathologist [facility] Neutrophil abs 6.7(H) 1.5 - 6.5 K/cumm Imm gran abs 0.0 0.0 - 0.1 K/cumm [facility] Lymphocyte abs 1.4 0.8 - 3.3 K/cumm [facility] Monocyte abs 1.0(H) 0.2 - 0.8 K/cumm [facility] Eosinophil abs 0.4 0.0 - 0.5 K/cumm [facility] Basophil abs 0.0 0.0 - 0.1 K/cumm [facility] Neutrophil pct 69.4 % [facility] Comment: Interpretive Data Percent cell [...] revised on 2017. Lymphocyte pct 14.9 % [facility] Comment: Interpretive Data Percent cell [...] revised on 2017. Basophil pct 0.3 % [facility] Comment: Interpretive Data Percent cell count reference ranges are not reported, since discordance with absolute values may lead to misinterpretation of CBC data. Current Interpretive Data was last revised on 2017. Blood 12/14/2024 4:26 AM CDT 12/14/2024 5:14 AM CDT us Cherry Newby AUTOMOTIVE GLASS TECHNICIAN LAB BLOOD ORDERABLES Mague dudley Result [facility] [address] Department [place] [address] * (ABNORMAL) CBC with auto differential (12/14/2024 4:26 AM CDT) WBC 9.6 3.8 - 9.9 K/cumm Hgb 12.2(L) 13.0 - 17.5 g/dL [facility] Hct 36.3(L) 38.9 - 50.3 % [facility] Plt 150 150 - 400 K/cumm [facility] MPV 10.7 9.1 - 12.3 fL [facility] RBC 4.06(L) 4.30 - 5.80 M/cumm [facility] MCV 89.4 81.3 - 96.4 fL [facility] MCH 30.0 27.1 - 33.3 pg [facility] MCHC 33.6 32.3 - 35.7 g/dL [facility] RDW CV 13.0 11.1 - 14.9 % [facility] CH RDW SD 42.7 35.7 - 48.1 fL [facility] NRBC abs 0.00 0.00 - 0.01 K/cumm [facility] Blood 12/14/2024 4:26 AM CDT 12/14/2024 5:14 AM CDT Cherry Newby AUTOMOTIVE GLASS TECHNICIAN LAB BLOOD ORDERABLES Mague l Result Performing Organization Address City/[facility]/ZIP Co de Phone Number [facility] [address] [facility] [place] [address] * Magnesium (12/14/2024 4:26 AM CDT) [facility] Magnesium 2.1 1.4 - 2.5 mg/dL Blood 12/14/2024 4:26 AM CDT 12/14/2024 12:13 PM CDT Cherry Newby AUTOMOTIVE GLASS TECHNICIAN LAB BLOOD ORDERABLES Mague l Result Performing Organization Address [facility] Co de Phone Number [facility] [address] [place] [address] * Basic metabolic panel (12/14/2024 4:26 AM CDT) Pathologist [facility] Sodium 139 135 - 145 mmol/L Potassium, pl 3.8 3.3 - 4.9 mmol/L [facility] Chloride 107 97 - 110 mmol/L [facility] CO2 23 22 - 32 mmol/L [facility] Anion gap 9 2 - 15 mmol/L [facility] BUN 15 6 - 25 mg/dL [facility] Creatinine 0.89 0.80 - 1.30 mg/dL [facility] Glucose 93 70 - 199 mg/dL [facility] Comment: Interpretive Data Fasting glucose [...] LAB BLOOD ORDERABLES Mague dudley Result ASA [address] Department [place] [address] * XR Chest 1 View (12/14/2024 4:14 [...] CDT 12/13/2024 4:34 AM CDT Cherry Newby AUTOMOTIVE GLASS TECHNICIAN LAB BLOOD ORDERABLES Mague l Result [facility] [address] Department [place] [address] * (ABNORMAL) Differential, auto (12/13/2024 3:58 AM CDT) Neutrophil abs 9.7(H) 1.5 - 6.5 K/cumm Imm gran abs 0.0 0.0 - 0.1 K/cumm [facility] Lymphocyte abs 1.3 0.8 - 3.3 K/cumm [facility] Monocyte abs 1.2(H) 0.2 - 0.8 K/cumm [facility] Eosinophil abs 0.3 0.0 - 0.5 K/cumm [facility] Basophil abs 0.0 0.0 - 0.1 K/cumm [facility] Neutrophil pct 77.0 % [facility] Comment: Interpretive Data Percent cell count reference ranges are not reported, since discordance with absolute values may lead to misinterpretation of CBC data. Current Interpretive Data was last revised on 2017. Imm gran pct 0.3 % [facility] Comment: Interpretive Data Percent cell count reference ranges are not reported, since discordance with absolute values may lead to misinterpretation of CBC data. Current Interpretive Data was last revised on 2017. Lymphocyte pct 10.6 % [facility] Comment: Interpretive Data Percent cell count reference ranges are not reported, since discordance with absolute values may lead to misinterpretation of CBC data. Current Interpretive Data was last revised on 2017. Monocyte pct 9.3 % [facility] Comment: Interpretive Data Percent cell count reference ranges are not reported, since discordance with absolute values may lead to misinterpretation of CBC data. Current Interpretive Data was last revised on 2017. Eosinophil pct 2.5 % [facility] Comment: Interpretive Data Percent cell count reference ranges are not reported, since discordance with absolute values may lead to misinterpretation of CBC data. Current Interpretive Data was last revised on 2017. Basophil pct 0.3 % [facility] Comment: Interpretive Data Percent cell count reference ranges are not reported, since discordance with absolute values may lead to misinterpretation of CBC data. Current Interpretive Data was last revised on 2017. Blood 12/13/2024 3:58 AM CDT 12/13/2024 4:34 AM CDT us Cherry Newyb NP LAB BLOOD ORDERABLES Mague dudley Result [facility] [address] Department [place] [address] * (ABNORMAL) CBC with auto differential (12/13/2024 3:58 AM CDT) Pathologist [facility] WBC 12.6(H) 3.8 - 9.9 K/cumm Hgb 13.2 13.0 - 17.5 g/dL [facility] Hct 38.8(L) 38.9 - 50.3 % [facility] Plt 151 150 - 400 K/cumm [facility] MPV 10.7 9.1 - 12.3 fL [facility] RBC 4.29(L) 4.30 - 5.80 M/cumm [facility] MCV 90.4 81.3 - 96.4 fL [facility] MCH 30.8 27.1 - 33.3 pg [facility] MCHC 34.0 32.3 - 35.7 g/dL [facility] RDW CV 12.9 11.1 - 14.9 % [facility] RDW SD 42.4 35.7 - 48.1 fL [facility] NRBC abs 0.00 0.00 - 0.01 K/cumm [facility] Blood 12/13/2024 3:58 AM CDT 12/13/2024 4:34 AM CDT us Cherry Newby AUTOMOTIVE GLASS TECHNICIAN LAB BLOOD ORDERABLES Mague dudley Result [facility] [address] Department [place] [address] * (ABNORMAL) Basic metabolic panel (12/13/2024 3:58 AM CDT) [facility] Sodium 137 135 - 145 mmol/L Potassium, pl 3.9 3.3 - 4.9 mmol/L [facility] Chloride 106 97 - 110 mmol/L [facility] CO2 22 22 - 32 mmol/L [facility] Anion gap 9 2 - 15 mmol/L [facility] BUN 17 6 - 25 mg/dL [facility] Creatinine 0.97 0.80 - 1.30 mg/dL [facility] Glucose 108 70 - 199 mg/dL [facility] Comment: Interpretive Data Fasting glucose [...] 12/13/2024 4:34 AM CDT us Cherry Newby AUTOMOTIVE GLASS TECHNICIAN LAB BLOOD ORDERABLES Mague l Result ASA [address] [place] [address] * eGFR (12/12/2024 5:18 PM CDT) eGFR [...] PA LAB BLOOD ORDERABLES F inal Result [facility] [address] Department [place] [address] * (ABNORMAL) Basic metabolic panel (12/12/2024 5:18 PM CDT) Sodium 134(L) 135 - 145 mmol/L Potassium, pl 3.7 3.3 - 4.9 mmol/L [facility] Chloride 100 97 - 110 mmol/L [facility] CO2 26 22 - 32 mmol/L [facility] Anion gap 8 2 - 15 mmol/L [facility] BUN 16 6 - 25 mg/dL [facility] Creatinine 1.16 0.80 - 1.30 mg/dL [facility] Glucose 113 70 - 199 mg/dL [facility] Comment: Interpretive Data Fasting glucose [...] 2022. Calcium 8.5 8.5 - 10.3 mg/dL [facility] Blood 12/12/2024 5:18 PM CDT 12/12/2024 5:26 PM CDT us Rosalina HATCH LAB BLOOD ORDERABLES F inal Result Performing Organization Address [facility]/ZIP Co de Phone Number [facility] [address] Department [place] [address] * Critical Care (12/12/2024 6:55 AM CDT) [...] plan with the patient's team and other medical/sec reporting consultant staff. This time was in addition [...] the medical record Rosalina HATCH IN CLINIC/BEDSIDE [employer] Final [...] LAB BLOOD ORDERABL ES Final Result [facility]SA [address] [place] [address] * XR Chest 1 Vw Portable (12/12/2024 1:58 AM CDT) Anatomical Region Laterality Modality Body, Chest N/A Computed Radiogr aphy 12/12/2024 12:0 2 PM CDT Impressions 12/12/2024 12:02 PM CDT No change since the last study. Electronically signed by: Niru Raymundo 12/12/2024 12:02 PM CDT EXAMINATION: XR CHEST [...] study. Electronically signed by: Bhavik Huffman M.D. us López Valadez APRN IMG XR PROCEDURES Final [...] LAB BLOOD ORDERABL ES Final Result [facility]SA [address] [place] [address] * Calcium, ionized, whole blood (12/12/2024 1:57 AM CDT) Ca, ionized, bld 4.53 4.50 - 5.10 mg/dL Blood 12/12/2024 1:57 AM CDT 12/12/2024 2:07 AM CDT López Valadez APRN LAB BLOOD ORDERABL ES Final Result Performing Organization Address [facility]/ZIP Co de Phone Number [facility] [address] [place] [address] * eGFR (12/12/2024 1:57 AM [...] LAB [place] [address] [address] [place] [address] * (ABNORMAL) Differential, auto (12/12/2024 1:57 AM CDT) Neutrophil abs 14.1(H) 1.5 - 6.5 K/cumm Imm gran abs 0.1 0.0 - 0.1 K/cumm [facility] Lymphocyte abs 0.8 0.8 - 3.3 K/cumm [facility] Monocyte abs 1.9(H) 0.2 - 0.8 K/cumm [facility] Eosinophil abs 0.0 0.0 - 0.5 K/cumm [facility] Basophil abs 0.0 0.0 - 0.1 K/cumm [facility] Neutrophil pct 83.2 % [facility] Comment: Interpretive [...] ORDERABL ES Final Result Performing Organization Address [facility] de Phone Number [facility] [address] [facility] [employer] [place], [place] [id number] * (ABNORMAL) CBC with auto differential (12/12/2024 1:57 AM CDT) WBC 17.0(H) 3.8 - 9.9 K/cumm Hgb 14.1 13.0 - 17.5 g/dL [facility] Hct 41.2 38.9 - 50.3 % [facility] Plt 194 150 - 400 K/cumm [facility] MPV 10.4 9.1 - 12.3 fL [facility] RBC 4.60 4.30 - 5.80 M/cumm [facility] MCV 89.6 81.3 - 96.4 fL [facility] MCH 30.7 27.1 - 33.3 pg [facility] MCHC 34.2 32.3 - 35.7 g/dL [facility] RDW CV 12.6 11.1 - 14.9 % [facility] RDW SD 41.0 35.7 - 48.1 fL [facility] NRBC abs 0.00 0.00 - 0.01 K/cumm [facility] Blood 12/12/2024 1:57 AM CDT 12/12/2024 2:07 AM CDT López Valadez APRN LAB BLOOD ORDERABL ES Final Result Performing Organization Address [facility] Co de Phone Number [facility] BELL[facility] [address] Department of [employer] [place], [place] [id number] * Magnesium (12/12/2024 1:57 AM CDT) Magnesium 2.0 1.4 - 2.5 mg/dL Blood 12/12/2024 1:57 AM CDT 12/12/2024 2:07 AM CDT López Valadez APRN LAB BLOOD ORDERABL ES Final Result [facility] [address] Department of Laboratories [place], [place] [id number] * (ABNORMAL) Basic metabolic panel (12/12/2024 1:57 AM CDT) Sodium 138 135 - 145 mmol/L Potassium, pl 5.2(H) 3.3 - 4.9 mmol/L [facility] Comment:Hemolysis present. R esults may be affected. Chloride 104 97 - 110 mmol/L [facility] CO2 21(L) 22 - 32 mmol/L [facility] Anion gap 13 2 - 15 mmol/L [facility] BUN 14 6 - 25 mg/dL [facility] Creatinine 0.94 0.80 - 1.30 mg/dL [facility] Glucose 144 70 - 199 mg/dL [facility] Comment: Interpretive Data Fasting glucose >/= [...] 2022. Calcium 8.5 8.5 - 10.3 mg/dL [facility] Blood 12/12/2024 1:57 AM CDT 12/12/2024 2:07 AM CDT us López Valadez APRN LAB BLOOD ORDERABL ES Final Result Performing Organization Address City/[facility]/ZIP Co de Phone Number [facility] [address] Department [place] [address] * ECG 12 lead (12/12/2024 1:51 AM CDT) 12/12/2024 1:51 AM CDT Narrative [facility] - 12/12/2024 7:40 AM CDT Vent Rate: 155 bpm RR Interval: 386 msec CA Interval: 0 msec QRS Duration: 126 msec QT Interval: 220 msec QTC Interval: 307 msec P-R-T Lyon: 0 - -13 - -36 degrees IMPRESSION: ATRIAL FLUTTER/TACHYCARDIA WITH RAPID VENTRICULAR RESPONSE MODERATE INTRAVENTRICULAR CONDUCTION DELAY [110+ ms QRS DURATION] NONSPECIFIC ST \T\ T-WAVE ABNORMALITY CRITICAL TEST RESULT Compared to prior EKG, heart rate has increased Anterolateral ST segment depressions are new Patient probably in atrial flutter Electronically Signed By: Mauricio Boswell MD us López Valadez APRN ECG ORDERABLES Fi nal Result [facility] * Critical Care (12/11/2024 9:53 PM CDT) [...] plan with the ICU team and other medical/sec reporting consultant staff, making frequent assessments and decisions [...] without differential (12/11/2024 9:40 PM CDT) Pathologist [facility] WBC 18.2(H) 3.8 - 9.9 K/cumm Hgb 14.0 13.0 - 17.5 g/dL [facility] Hct 40.0 38.9 - 50.3 % [facility] Plt 179 150 - 400 K/cumm [facility] MPV 10.6 9.1 - 12.3 fL [facility] RBC 4.47 4.30 - 5.80 M/cumm [facility] MCV 89.5 81.3 - 96.4 fL [facility] MCH 31.3 27.1 - 33.3 pg [facility] MCHC 35.0 32.3 - 35.7 g/dL [facility] RDW CV 12.3 11.1 - 14.9 % [facility] RDW SD 40.5 35.7 - 48.1 fL [facility] NRBC abs 0.00 0.00 - 0.01 K/cumm [facility] Blood 12/11/2024 9:40 PM CDT 12/11/2024 9:40 PM CDT us Dre Cerna MD LAB BLOOD ORDERABLES Final Resul t [facility] [address] Department [place] [address] * eGFR (12/11/2024 9:39 PM CDT) Pathologist [facility] eGFR >90 >=60 [...] MD LAB BLOOD ORDERABLES Final Resul t [facility] [address] Department [place] [address] * (ABNORMAL) Basic metabolic panel (12/11/2024 9:39 PM CDT) Sodium 138 135 - 145 mmol/L Potassium, pl 4.6 3.3 - 4.9 mmol/L [facility] Chloride 106 97 - 110 mmol/L [facility] CO2 21(L) 22 - 32 mmol/L [facility] Anion gap 11 2 - 15 mmol/L [facility] BUN 15 6 - 25 mg/dL [facility] Creatinine 0.92 0.80 - 1.30 mg/dL [facility] Glucose 157 70 - 199 mg/dL [facility] Comment: Interpretive [...] ORDERABLES Final Resul t Performing Organization Address City/[facility] Co de Phone Number ASA BELL[facility] [address] Department [place] [address] * POCT glucose (12/11/2024 6:26 PM CDT) Glucose, POC 189 70 - 199 mg/dL POC Performer [id number] [facility] Blood 12/11/2024 6:26 PM CDT 12/11/2024 6:26 PM CDT us Der Cerna MD LAB POCT ORDERABLES - DEVICE Fin al Result Performing Organization Address [facility] Co de Phone Number [facility] [address] [place] [address] * XR Chest 1 View - in [...] Units (12/11/2024 2:12 PM CDT) Product code [id number] Unit Number [id number] 7-I [facility] Product Blood Type OPOS [facility] Dispense Status RETURNED [facility] Blood 12/11/2024 2:12 PM CDT Narrative [facility] - 12/12/2024 12:21 AM CDT Are special requirements needed? (All products are leukoreduced and CMV- safe)- >No Date required:-[id number] LRRBC # of Nyayq-[id number] Reasons:-Intra-op transfusion} Dre Cerna MD BLOOD BANK PRODUCT ORDERABLES Fi nal Result [facility] [address] Department [place] [address] * CA AN ELECTIVE ENDOTRACHEAL AIRWAY (12/11/2024 12:29 PM [...] patient tolerated procedure well with no complications Result [facility] Inderjit [place] ANESTHESIA ORDERABLES Fin al Result [...] Units (12/11/2024 9:45 AM CDT) Product code [id number] Unit Number [id number] 5-V [facility] Product Blood Type OPOS [facility] Dispense Status RETURNED [facility] Blood 12/11/2024 9:45 AM CDT Narrative [facility] - 12/12/2024 12:21 AM CDT Specify Procedure:->robotic wedge resection Are special requirements needed? (All products are leukoreduced and CMV- safe)- >No Date required:-[id number] LRRBC # of Wplzy-[id number] Reasons:-Hold for procedure (specify procedure)} us Cherry Newby AUTOMOTIVE GLASS TECHNICIAN BLOOD BANK PRODUCT ORDERA BLES Final Result [facility] [address] Department [place] [address] * Surgical pathology (12/11/2024 9:26 [...] results best viewed via link to PDF [facility] Department of Pathology [address] [place] [address] Note to Patients: This report may [...] with Addendum Patient Name: ADALGISA MERIDA Address: [address] [place] [address] Gender: M : 1960 (Age: 63) Service: Cardiothoracic Location: Hospital #: [id number] Patient Type: [facility] Taken: 12/11/2024 Received: 12/14/2024 Accessioned: 12/14/2024 Reported: [...] Addendum Comment The external consult report from [facility] ([id number]) has been finalized and is attached. For the sec reporting consultant s comment, please see scanned image of report or the report can be viewed in the Electronic Medical Record of the patient. If access to the EMR is not available, please call pathology for a hard copy of the report ([phone]). Lung, right middle lobe, lobectomy ([id number]/[id number]; 12/11/2024): Malignant spindle cell neoplasm consistent with [...] ordered molecular analysis. Materials were forwarded to [facility] where the testing will be [...] is submitted in twelve containers labeled ADALGISA MERIDA. Marjorie. The first container is labeled lymph node [...] station 11 #2 . It is 1 meade-caevedo lymph node measuring 6 mm. Entirely in [...] with the tissue embedded in cassette L1. Roulette [employer]er sections are submitted: Tumor with pleura L2 [...] determined by the Surgical Pathology Department at [facility] as part of an ongoing senior manager quality assurance program and in compliance with federally mandated [...] determined by the Surgical Pathology Department [facility]. It has not been cleared or approved by the U. S. Food and Drug Administration. Note for decalcified specimens: This assay has not been validated on decalcified tissues. Results should be interpreted with caution given the possibility of false negativity on decalcified specimens Dre Cerna MD LAB PATHOLOGY ORDERABLES Final R esult Performing Organization Address [facility] Co de Phone Number [facility] [address] [place] [address] * - Miscellaneous Lab Test (12/11/2024 12:00 AM CDT) Pathologist [facility] lab See Comment Comment:see scanned report Miscellaneous 12/11/2024 12/31/2024 9:40 AM CDT Narrative [facility] - 12/31/2024 9:41 AM CDT [id number] Dre Cerna MD LAB BLOOD ORDERABLES Final Resul t Performing Organization Address [facility] Co de Phone Number [facility] [address] [place] [address] * CT Body Outside Reference (12/03/2024 6:53 PM CDT) Impressions [facility] - 12/03/2024 6:53 PM CDT These images are for Reference purposes only and have not been reviewed by [facility] Radiology. There will be no report generated by a [facility] Radiologist. Narrative [facility] - 12/03/2024 6:53 PM CDT EXAMINATION: Images For Reference Purposes Only us Dre Cerna MD IMG CT PROCEDURES Final Result Performing Organization Address City/State/[facility] Co de Phone Number [facility] from Last 3 Months Insurance [facility] Member Subscriber Plan / Payer (Ef fective 2012-Present) Name:Adalgisa Merida Giuseppe Relation to Subscriber:Self Name:Adalgisa Merida Giuseppe Payer ID:[id number] (NAIC) Type:[facility] HMO/PPO Address: [address] [facility] [id number] Member Subscriber Plan / Payer (Ef fective 2012-Present) Name:Adalgisa Merida Giuseppe Relation to Subscriber:Self Name:Adalgisa Merida Giuseppe Payer ID:[id number] (NA) Type:[facility] HMO/PPO Address: [address] Advance Directives For more information, please contact: [phone] * Full Code (Latest Code Status on File) Date Activated Date Inactivated Comments 12/11/2024 6:31 PM 12/15/2024 3:57 PM * Full Code Date Activated Date Inactivated Comments 03/16/2024 4:36 PM 03/21/2024 3:59 PM * Full Code Date Activated Date Inactivated Comments 01/28/2022 9:19 PM 02/05/2022 5:17 PM Care Teams Salesperson Hosiery Relationship Specialty Start Date End Date Crystal Mir MD [address] [place] [address] PCP - General Medical Oncology 12/30/24 Gabe George DO [address] [facility] [address] [facility] [address] [place] [address] Internal Medicine 12/30/24 Gabe George DO [address] [facility] [address] [facility] [address] [place] [address] Internal Medicine 12/30/24 Ian Michel MD [address] [place] [address] [address] Stephani [place] [id number] Dermatology 02/10/23 Parul Baldwin MD [address] [place] [address] Referring Physician Dermatology 02/10/23 Felix Sher MD [address] [facility] [address] [address] Consulting Physician Cardiology 10/21/24 Dre Cerna MD [address] [place] [id number] Surgeon Thoracic Surgery 12/15/24
--- OUTSIDE RECORDS SUMMARY | 2025-03-03 12:50 | XMS_ITS | Encounter Summary ---
Author Organization [facility] Healthcare Address [address] [place] [address] Care Team Providers Care Modeling Agent Name Role Phone Gabe George DO Unavailable Gabe George DO Unavailable Ian Michel MD Unavailable [phone] Parul Baldwin MD Unavailable [phone] Felix Sher MD Unavailable [phone] Dre Cerna MD Unavailable Crystal Mir MD Primary Care Provider Reason for Visit * Reason Comments Psychotherapy Encounter Details Date Type Department Care Team (Late st Contact Info) Description 02/22/2025 2:30 PM CDT Clinical Support [address] [place] [id number] Halina Ocasio, PhD [address] [facility] [phone] [place] [address] Social History Tobacco Use Types Packs/Day Years [...] on file Legal Sex Male 7:35 PM [employer] Gender Identity Not on file Sexual Orientation Not on file documented as of this encounter Progress Notes * Halina Ocasio, PhD - 02/22/2025 2:30 PM CDT [facility] INTE[facility]ATED PSYCHOLOGICAL CARE FOLLOW UP Patient Name: Adalgisa Thacker : 1960 Date: 02/22/25 Visit Duration: 45 min Brief follow up with patient was completed via telehealth. Written informed consent for telehealth was obtained from patient prior to outset of evaluation. Potential risk and benefits of telehealth sessions were discussed with patient. Requirements for telehealth sessions were also covered, including need for private space, limited distractions, no one else present without both parties consent. Back-up plan was made at beginning of session in case of unexpected technology disruptions. Nearest emergency contact identified. Provider with active license in [place] and Authority to Practice Interjurisdictional Telepsychology (APIT) from [employer]. [facility]. [facility] Modality: Telephone Patient Location: [address] [place] [id number] Primary Emergency Contact (person nearby): Ramona Thacker [facility] Non-Emergency Contact: [facility] [employer] Nearest Emergency Department: [facility] Emergency Department Reason for Initial Consultation: Referral Problem: Cancer adjustment concerns Referral Source: Medical Oncologist Session Content Patient completed telephone session alone at his home in [place] while provider was in [place]. There were nointerruptions or disruptions in telecommunication. Adalgisa discussed cancer experience. CTscan March 03, edgard prayer and helps relax, discussed fam support. Emphasis placed on appreciation for providers who use simple language. Provided supportive therapy. Mental Status Level of consciousness & Orientation: Alert and oriented to person, place, time Appearance: Not able to assess Behavior/Motor: Not able to assess Speech: Within normal limits Mood: Confused Affect Range: Broad Congruency:Mood congruent Concentration: Appropriately attentive and following conversation Memory: Reported subjective impairment Thought Process: Reported learning disability Insight: Moderate Judgment: Intact Risk Assessment The patient flatly denied risk of harm to self or others and there was no evidence of such during our meeting. The patient was deemed to be sustainable as an outpatient. Level of Risk: No Identified Safety Risks (no danger to self or others and not gravely disabled) Suicide Safety Plan: N/A Assessment: The patient is a 64 y.o. 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 Underwent re-resection on 03/06/[address] Orozco, which showed noresidual sarcoma and SCC in situ resected with negative margins. Completed adjuvant radiation therapy in June 2024. 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 He has a history of learning disability which is also cause for confusion and frustration around his cancer diagnosis. Provided supportive therapy. Diagnosis Deferred History of Learning Disability - per patient Follow-Up Plan & Recommendations 1. Continue care within integrated psychological services. RTC in 1 week. 2. Patient will likely benefit from Supportive interventions targeting stress management, 3. Outcome and recommendations will be discussed with the referring provider and other relevant oncology team members as needed. Halina Ocasio, PhD documented in this encounter Plan of Treatment Not on file documented as of this encounter Visit Diagnoses Not on filedocumented in this encounter Care Teams Modeling Agent Relationship Specialty Start Date End Date Crystal Mir MD [address] [place] [address] PCP - General Medical Oncology 12/30/24 Gabe George DO [address] [facility] [address] [place] [address] Internal Medicine 12/30/24 Rancho GeorgedieDO [address] [facility] [address] [place], [place] [id number] Internal Medicine 12/30/24 Ian Michel MD [address] [facility] [address] [place] [address] Dermatology 02/10/23 Parul Baldwin MD [address] [place] [address] Referring Physician Dermatology 02/10/23 Felix Sher MD [address] [facility] [address] [id number] Consulting Physician Cardiology 10/21/24 Dre Cerna MD [address] [facility] [address] [place] [id number] Surgeon Thoracic Surgery 12/15/24 documented as of this encounter
== END 2025-03-03 10:51 | disposition home or self-care (01) ==
PROVIDERS: PCP Internal Medicine; Visit Provider Otolaryngology
DX: C44.42 Squamous cell carcinoma of skin of scalp and neck (principal); Z90.2 Acquired absence of lung [part of]
CPT/HCPCS: 70470; 71260; Q9967

== ENCOUNTER 2025-03-31 09:04 | Outpatient (CLI) | payer OTHER, SELFPAY ==
--- OUTSIDE RECORDS SUMMARY | 2025-03-31 09:11 | XMS_ITS | Referral Summary ---
Author Organization [facility] Address [address] [place] [address] Care Team Providers Care Patient Centered Care Specialist Name Role Phone Gabe George DO Unavailable Gabe George DO Unavailable Ian Michel MD Unavailable [phone] Parul Baldwin MD Unavailable [phone] Felix Sher MD Unavailable [phone] Dre Cerna MD Unavailable Crystal Mir MD Primary Care Provider [phone] Encounters Date Type Department Care Team Description 03/16/2025 6:30 PM CDT - 03/16/2025 11:59 PM CDT Hospital Encounter [facility] [address] [place] [address] Discharge Disposition: Discharge to home or self care 03/16/2025 6:28 PM CDT - 03/16/2025 11:59 PM CDT Hospital Encounter [facility]) [address] [place] [address] Diagnosis unknown Discharge Disposition: Discharge to home or self care 03/16/2025 6:27 PM CDT - 03/16/2025 11:59 PM CDT Hospital Encounter [facility] [address] [place] [address] Diagnosis unknown Discharge Disposition: Discharge to home or self care 02/22/2025 2:30 PM CDT Clinical Support [address] Advanced Medicine [address] [place] [address] Halina Ocasio, PhD 02/19/2025 Orders Only [facility] Department of Otolaryngology Head-Neck Division [facility] [address] [place] [address] Minh Orozco MD Squamous cell carcinoma of scalp (Primary Dx) 02/18/2025 9:40 AM CDT Office Visit [facility] - [facility] ENT [address] [facility] 2nd Floor, [address] [place] [address] Minh Orozco MD Squamous cell carcinoma of scalp (Primary Dx); Sarcoma (HCC) 02/17/2025 Telephone [facility] Oncology [address] [place] [address] Helen Castellanos 02/08/2025 2:30 PM CDT Clinical Support [address] [address] Halina Ocasio, PhD 02/04/2025 Orders Only [facility] Department of Otolaryngology Head-Neck Division [address] [place] [address] Minh Orozco, Squamous cell carcinoma of scalp (Primary Dx) 01/26/2025 4:00 PM CDT Clinical Support [address] [address] Halina Ocasio, PhD 01/26/2025 1:30 PM CDT Office Visit [facility] Radiation Oncology [address] [place] [address] Justo Wright MD Squamous cell carcinoma of scalp [C44.42] (Primary Dx) 01/25/2025 Orders Only [facility] Surgery [address] [place] [address] Floor [address] [place] [address] Radha Riley, LUIGI Nerve pain 01/20/2025 1:00 PM CDT Clinical Support [address] [facility] [address] [place] [address] Halina Ocasio, PhD 01/14/2025 Orders Only [facility] [address] [place] [address] Dre Cerna MD Lung nodule 01/13/2025 2:00 PM CDT Clinical Support [address] [place] [phone] Halina Ocasio, PhD Anxiety in cancer patient 01/07/2025 8:58 AM CDT - 01/07/2025 11:59 PM CDT Hospital Encounter [facility] 1 DIAG IMG [address] [place] [address] Lung nodule Discharge Disposition: Discharge to home or self care 01/07/2025 1:00 PM CDT Office Visit [facility] Oncology [address] [facility] Floor 6 [place] [address] 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 9:30 AM CDT Office Visit [facility] Physicians [facility] Surgery [address] [facility] [address] [place] [address] Dre Cerna MD Lung nodule (Primary Dx) 12/30/2024 Telephone [facility] [address] [place] [address] Amara Dhaliwal, RN Internet Request from Last 3 Months Allergies Active Allergy [...] showed interval changes of parietal 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/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 and Gerardo thus Hancock flap reconstruction without [...] graft) 03/05/20 Coronary artery disease invo lving [place] coronary artery of [place] heart without angina pectoris 01/28/2022 Overview (01/29/2022): Added automatically from request for surgery [id number] ST elevation myocardial infa rction involving right [...] on file 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 Gender Identity Not on file [...] on file Medical Devices Implanted Type Area Cattle Sprayer Device Identifier Shelf Expiration Date Model / Serial / Lot Synov[employer] Etherpad Allian Schleicher Microvascular 3mm Ring Pin Protective Cover Jaw Assembly Latex Free [id number] - [id number] Implanted:Qty: 1 on 03/16/2024 by Minh Orozco MD at [facility] Neck Synovis Etherpad Ikeian [id number] 01/08/2028 [id number] / / [id number] Procedures Procedure Name Priority Date/Time Associated Diagnosis Comments CT BODY OUTSIDE REFERENCE Routine 03/16/2025 6:[address] OUTSIDE CONSULT Routine 03/16/2025 6:28 [address]T Diagnosis unknown CT BODY OUTSIDE CONSULT Routine 03/16/2025 6:27 PM CDT Diagnosis unknown SURGICAL PATHOLOGY Routine 01/14/2025 2:23 PM CDT Lung nodule [facility] DNA AND RNA SOLID TUMOR Routine 01/07/2025 2:44 PM CDT Pleomorphic dermal sarcoma XR CHEST PA LATERAL 2 VIEWS Schedule Routine, Read Routine (OP Routine) 01/07/2025 9:00 AM CDT Lung nodule from Last 3 Months Results * CT Body Outside Reference (03/16/2025 6:30 PM CDT) Impressions [facility] - 03/16/2025 6:30 PM CDT These images are for Reference purposes only and have not been reviewed by [facility]. There will be no report generated by a [facility] Radiologist. Narrative [facility] - 03/16/2025 6:30 PM CDT EXAMINATION: Images For Reference Purposes Only us Minh Orozco MD IMG CT PROCEDURES Final Res ult [facility] * Neuro CT Outside Consult (03/16/2025 6:28 PM CDT) Anatomical Region Laterality Modality N/A Computed Tomogra phy 03/17/2025 10:2 9 AM CDT Impressions 03/17/2025 10:29 AM CDT This study was initially nominated as a consult on outside images via Outside Image Sharing Service. However, a consult was not performed because this is for scalp cancer monitoring, and no prior imaging is available for interpretation. Prior PET/CT from 10/13/2024 does not include the scalp. Please reconsult when prior imaging is uploaded for comparison. Accordingly, there will be no separate report of this study generated by a [facility] Radiologist. Electronically signed by: Dee Malave M.D. Narrative 03/17/2025 10:29 AM CDT EXAMINATION: CHANGE CONSULT ON OUTSIDE IMAGES TO REFERENCE IMAGES Procedure Note Dee Echavarria MD - 03/17/2025 EXAMINATION: CHANGE CONSULT ON OUTSIDE IMAGES TO REFERENCE IMAGES IMPRESSION: This study was initially nominated as a consult on outside images via Outside Image Sharing Service. However, a consult was not performed because this is for scalp cancer monitoring, and no prior imaging is available for interpretation. Prior PET/CT from 10/13/2024 does not include the scalp. Please reconsult when prior imaging is uploaded for comparison. Accordingly, there will be no separate report of this study generated by a [facility] Radiologist. Electronically signed by: Dee Malave M.D. Minh Orozco MD IMG CT PROCEDURES Final Res ult * CT Body Outside Consult (03/16/2025 6:27 PM CDT) Anatomical Region Laterality Modality Body N/A Computed Tomogra phy 03/17/2025 9:04 AM CDT Impressions 03/17/2025 5:05 PM CDT Stable right ellen-fissural and left upper lobe nodules. No evidence of disease progression in the chest. The findings, conclusions and recommendations within this report do not replace the initial findings, conclusions and recommendations made at the facility where the study was performed based upon the imaging and clinical condition at that time. Comparison with the prior report and clinical history is necessary. The provided images may or may not represent the [place] source data set and thus may contain changes that may lower the accuracy of this second-opinion interpretation. Dictated by: Hudson Simon MD The radiology attending physician has personally reviewed this study, and had reviewed and/or edited this written report and agrees with it. Electronically signed by: Shikha Narvaez M.D. Narrative 03/17/2025 5:05 PM CDT EXAMINATION: RADIOLOGY CONSULTATION ON OUTSIDE IMAGING STUDY STUDY INITIALLY PERFORMED: 03/03/2025 at [facility]. TYPE OF STUDY: Multiple CT images of the chest with contrast are provided at the time of this interpretation. CONTRAST ROUTE: Intravenous The protocol was adequate to address the clinical question. The outside final report was not available at the time of this second opinion interpretation. 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 COMPARISON: 12/27/2024 FINDINGS: Thyroid is normal. There is no supraclavicular, axillary, or mediastinal lymphadenopathy. The heart is enlarged, there is no pericardial effusion. The thoracic aorta and pulmonary artery are normal in caliber. The esophagus is nondilated with a small hiatal hernia. Imaged portions of the upper abdomen demonstrate unchanged hypoattenuating segment 8 and 4 lesions, likely cysts. Partially imaged left renal cysts. There are redemonstrated postoperative findings of right middle lobectomy. A 7 mm right ellen-fissural nodule is similar in size compared to prior study (series 4 image 54). There is a 8 mm nodular focus in the lingula (series 4 image 49). Trace right pleural effusion, decreased from prior study. No pneumothorax. No consolidation. Mild bibasilar atelectasis. There are postoperative findings of median sternotomy. No suspicious osseous lesion. Procedure Note Shikha Narvaez MD - 03/17/2025 EXAMINATION: RADIOLOGY CONSULTATION ON OUTSIDE IMAGING STUDY STUDY INITIALLY PERFORMED: 03/03/2025 at [facility]. TYPE OF STUDY: Multiple CT images of the chest with contrast are provided at the time of this interpretation. CONTRAST ROUTE: Intravenous The protocol was adequate to address the clinical question. The outside final report was not available at the time of this second opinion interpretation. 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 COMPARISON: 12/27/2024 FINDINGS: Thyroid is normal. There is no supraclavicular, axillary, or mediastinal lymphadenopathy. The heart is enlarged, there is no pericardial effusion. The thoracic aorta and pulmonary artery are normal in caliber. The esophagus is nondilated with a small hiatal hernia. Imaged portions of the upper abdomen demonstrate unchanged hypoattenuating segment 8 and 4 lesions, likely cysts. Partially imaged left renal cysts. There are redemonstrated postoperative findings of right middle lobectomy. A 7 mm right ellen-fissural nodule is similar in size compared to prior study (series 4 image 54). There is a 8 mm nodular focus in the lingula (series 4 image 49). Trace right pleural effusion, decreased from prior study. No pneumothorax. No consolidation. Mild bibasilar atelectasis. There are postoperative findings of median sternotomy. No suspicious osseous lesion. IMPRESSION: Stable right ellen-fissural and left upper lobe nodules. No evidence of disease progression in the chest. The findings, conclusions and recommendations within this report do not replace the initial findings, conclusions and recommendations made at the facility where the study was performed based upon the imaging and clinical condition at that time. Comparison with the prior report and clinical history is necessary. The provided images may or may not represent the [place] source data set and thus may contain changes that may lower the accuracy of this second-opinion interpretation. Dictated by: Hudson Simon MD The radiology attending physician has personally reviewed this study, and had reviewed and/or edited this written report and agrees with it. Electronically signed by: Shikha Narvaez M.D. us Minh Orozco MD IMG CT PROCEDURES Final Res ult * Surgical pathology (01/14/2025 2:23 PM CDT) Tissue (Consult Material) 01/14/2025 2:23 PM CDT 01/14/2025 2:23 PM CDT Narrative [facility] - 01/15/2025 12:18 PM CDT EPIC results best viewed via link to PDF [facility] Pathology Consult Service [address], [place] [address] Note to Patients: This report [...] SURGICAL PATHOLOGY REPORT * Consult Report * [facility] is providing an additional review of previously collected tissue. FINAL Patient Name: ADALGISA MERIDA Address: [address] [place] [address] Gender: M : 1960 (Age: 64) [facility] #: [id number] Patient Type: CESAR Location: UNKNOWN Taken: 01/14/2025 Received: 01/14/2025 Accessioned: 01/14/2025 Reported: 01/15/2025 Physician(s): Dre Cerna M.D. [facility] Pathology [facility] Department of Pathology [address] [place] [address] P: [phone] F: [phone] Diagnosis: Consult material received from [place], [place] A. Lung, right middle lobe, lobectomy (OSC: [id number]; 12/11/2024): - Malignant spindle cell neoplasm, consistent [...] Received for review are twenty-six slides labeled [id number], accompanied by a corresponding pathology report. The material originates from [place], [place]. Selected slide(s) may be digitally scanned for our files, and all materials are returned to the referring institution, along with a copy of our final report. Any testing required for diagnostic purposes was performed in the Department of Pathology and Immunology at [facility], [address] [place] [address] CLIA # [id number] The performance characteristics of the testing cited in this report (if any) were determined by the [facility] Department of Pathology and Immunology [facility], as part of an ongoing principal quality engineer program and in compliance with federally mandated [...] and the performance characteristics determined by the [facility], [facility] Department of Pathology and Immunology. It has not been cleared or approved by the U.S. Food and Drug Administration. Any test designated as LDT was developed and its performance characteristics determined by [facility]. It has not been cleared or approved by the FDA. This test is used for clinical purposes and should not be regarded as investigational or for research. Report images and/or scanned reports, if included, only viewable in PDF version of report. Dre Cerna MD LAB PATHOLOGY ORDERABLES Final R esult [facility] [address] [facility] 1 [place] [address] * [facility] xT DNA and RNA - [...] CDT [facility] [email or web address] 01/22/2025 2:41 PM CDT [facility] Comment:[facility] [...] Status: Consensus Evidence ID: NCCN KDB Variant: [id number]-uwgvkvtm Label: FDA Off Label FDA Approved?: Yes On label?: No 01/22/2025 2:41 PM CDT [facility]: Potential Therapy 3 Gene: [id number]^PIK3CA^HGNC Variant: p.G118D Match Type: snvIndel Match Type Description: PIK3CA p.G118D Agent: Alpelisib Drug Class: PI3K Inhibitor Tissue: Solid Tumors Association: Response Evidence Status: Clinical research Evidence ID: [id number] Evidence URL: https://www.ncbi.nlm.n ih.gov/pubmed/38668182 Evidence Title: Phosphatidylinositol 3-Kinase -Selective Inhibition With Alpelisib (ZTM009) in VRA6EV-Ahdtbqv Solid Tumors: Results From the Trpar-wf-Unxdh Study - PubMed KDB Variant: Rbvo-ht-vsmzuzrt Label: FDA Off Label FDA Approved?: Yes On label?: No 01/22/2025 2:41 PM CDT [facility] Trial Count 3 01/22/2025 2:41 PM CDT [facility]: Clinical Trial Match 1 Clinical Trial NCT ID: [id number] Clinical Trial Title: Jausk-ce-Lykbp Study of Mutant-selective PI3K Inhibitor, RLY-2608, As a Single Agent in Advanced Solid Tumor Patients and in Combination with Fulvestrant in Patients with Advanced Breast Cancer Clinical Trial URL: https://clinicaltrials .gov/ct2/show/PUK03433 432 Clinical Phase: Phase 1 Clinical Trial Matches: PIK3CA p.G118D mutation Clinical Trial Distance and Location: 1 [place], [place] 01/22/2025 2:41 PM CDT [facility]: Clinical Trial Match 2 Clinical Trial NCT ID: [id number] Clinical Trial Title: Tumor-agnostic Precision Immuno-oncology and Somatic Targeting Rational for You (TAPISTRY) Platform Study Clinical Trial URL: https://clinicaltrials .gov/ct2/show/VGI19269 845 Clinical Phase: Phase 2 Clinical Trial Matches: BOY p.W2104* mutation Clinical Trial Distance and Location: [address] [place], [place] 01/22/2025 2:41 PM CDT [facility]: Clinical Trial Match 3 Clinical Trial NCT ID: [id number] Clinical Trial Title: Study of INBRX-106 and INBRX-106 in Combination With Pembrolizumab (Keytruda ) in Subjects With Locally Advanced or Metastatic Solid Tumors (Hexavalent OX40 Agonist) Clinical Trial URL: https://clinicaltrials .gov/ct2/show/OKD85732 766 Clinical Phase: Phase 1/Phase 2 Clinical Trial Matches: TMB-High Clinical Trial Distance and Location: [address], [place], [place] 01/22/2025 2:41 PM CDT [facility] xR [...] TESTING Final Res ult [facility] [address] [facility], [address] [place] [address], [facility] [phone] [facility] [address] [place] [address] * X-ray chest 2 views (01/07/2025 9:00 [...] Pranay Grace M.D. ANANT: ANANT Report ID: [id number] Reading Location: [id number] Procedure Note Wilian Grace MD - 01/13/2025 [...] Pranay Grace M.D. ANANT: ANANT Report ID: [id number] Reading Location: [id number] Dre Cerna MD IMG XR PROCEDURES Final Result from Last 3 Months Insurance [facility]/PPO Address: [place] [address] [facility] Address: [address] [place] [address] [facility] Address: [place] [address] [facility]O Address: [place] [address] Advance Directives For more information, please contact: [phone] * Full Code (Latest Code Status on File) Date Activated Date Inactivated Comments 12/11/2024 6:31 PM 12/15/2024 3:57 PM * Full Code Date Activated Date Inactivated Comments 03/16/2024 4:36 PM 03/21/2024 3:59 PM * Full Code Date Activated Date Inactivated Comments 01/28/2022 9:19 PM 02/05/2022 5:17 PM Care Teams Patient Centered Care Specialist Relationship Specialty [place] [address] [place] [address], [address] [place] [address] PCP - General Medical Oncology 12/30/24 Gabe George DO [address] [facility] [address] [place] [address] Internal Medicine 12/30/24 Gabe George DO [address] [facility] [address] [place] [address] Internal Medicine 12/30/24 Ian Michel MD [address] [place] [address] [place] [address] Dermatology 02/10/23 Parul Baldwin MD [address] [facility] [address] [place] [address] Referring Physician Dermatology 02/10/23 Felix Sher MD [address] [address] Consulting Physician Cardiology 10/21/24 Dre Cerna MD [address] [address] Surgeon Thoracic Surgery 12/15/24
--- OUTSIDE RECORDS SUMMARY | 2025-03-31 09:11 | XMS_ITS | Clinical Summary ---
Author Organization [facility] Address [address] [place] [address] Care Team Providers Care Floor Coverings Salesperson Name Role Phone Ariel Gabe DO Unavailable Gabe George DO Unavailable Ian Michel MD Unavailable [phone] Parul Baldwin MD Unavailable [phone] Felix Sher MD Unavailable [phone] Dre Cerna MD Unavailable Crystal Mir MD Primary Care Provider [phone] Allergies Active Allergy Reactions Criticality Noted Date [...] showed interval changes of parietal scalp mass temporary 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 and Gerardo thus Hancock flap reconstruction [...] (01/29/2022): Added automatically from request for surgery [id number] ST elevation myocardial infa rction involving right coronary artery Encounters Date Type Department Care Team Description 03/16/2025 6:30 PM CDT - 03/16/2025 11:59 PM CDT Hospital Encounter [facility] [address] [place] [address] Discharge Disposition: Discharge to home or self care 03/16/2025 6:28 PM CDT - 03/16/2025 11:59 PM CDT Hospital Encounter [facility]) [address] [place] [address] Diagnosis unknown Discharge Disposition: Discharge to home or self care 03/16/2025 6:27 PM CDT - 03/16/2025 11:59 PM CDT Hospital Encounter [facility] [address] [place] [address] Diagnosis unknown Discharge Disposition: Discharge to home or self care 02/22/2025 2:30 PM CDT Clinical Support [address] Advanced Medicine [address] [place] [address] Halina Ocasio, PhD 02/19/2025 Orders Only [facility] Department of Otolaryngology Head-Neck Division [facility] 5 [place] [address] Minh Orozco MD Squamous cell carcinoma of scalp (Primary Dx) 02/18/2025 9:40 AM CDT Office Visit [facility] Advanced [facility] - [facility] ENT [address] [facility] 2nd Floor, [address] [place] [address] Minh Orozco MD Squamous cell carcinoma of scalp (Primary Dx); Sarcoma (HCC) 02/17/2025 Telephone [facility] Oncology [address] [place] [address] Helen Castellanos 02/08/2025 2:30 PM CDT Clinical Support [address] [address] Halina Ocasio, PhD 02/04/2025 Orders Only [facility] Department of Otolaryngology Head-Neck Division [address] [place] [address] Minh Orozco MD Squamous cell carcinoma of scalp (Primary Dx) 01/26/2025 4:00 PM CDT Clinical Support [facility] [address] [place] [address] Halina Ocasio, PhD 01/26/2025 1:30 PM CDT Office Visit [facility] Radiation Oncology [address] [place] [address] Justo Wright MD Squamous cell carcinoma of scalp [C44.42] (Primary Dx) 01/25/2025 Orders Only [facility] Surgery [address] [place] [address] Floor 5 [place] [address] Radha Riley, LUIGI Nerve pain 01/20/2025 1:00 PM CDT Clinical Support [place] [address] [facility] Advanced Medicine 1st [place] [address] Halina Ocasio, PhD 01/14/2025 Orders Only [facility] [address] [place] [address] Dre Cerna MD Lung nodule 01/13/2025 2:00 PM CDT Clinical Support [address] 1st [place] [address] Halina Ocasio, PhD Anxiety in cancer patient 01/07/2025 1:00 PM CDT Office Visit [facility] Oncology [address] [facility] Floor 6 [place] [address] 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 Neck [employer] Luly [id number] 01/08/2028 [id number] / / [id number] Procedures Procedure Name Priority Date/Time Associated Diagnosis [...] Outside Reference (03/16/2025 6:30 PM CDT) Impressions RAD[facility]PACS[facility]LOCATED [facility] - 03/16/2025 6:30 PM CDT These images are for Reference purposes only and have not been reviewed by [facility] Radiology. There will be no report generated by a [facility] Radiologist. Narrative RAD_PACS_[facility] - 03/16/2025 6:30 PM CDT EXAMINATION: Images For Reference Purposes Only Minh Orozco MD IMG CT PROCEDURES Final [...] report of this study generated by a [facility] Radiologist. Electronically signed by: Dee Malave M.D. [...] report of this study generated by a [facility] Radiologist. Electronically signed by: Dee Malave M.D. [...] IMAGING STUDY STUDY INITIALLY PERFORMED: 03/03/2025 at [facility]. TYPE OF STUDY: Multiple CT images of [...] IMAGING STUDY STUDY INITIALLY PERFORMED: 03/03/2025 at [facility]. TYPE OF STUDY: Multiple CT images of [...] it. Electronically signed by: Shikha Narvaez M.D. Minh Orozco MD IMG CT PROCEDURES Final Res ult * Surgical pathology (01/14/2025 2:23 PM CDT) Tissue (Consult Material) 01/14/2025 2:23 PM CDT 01/14/2025 2:23 PM CDT Narrative [facility] - 01/15/2025 12:18 PM CDT EPIC results best viewed via link to PDF [facility] Pathology Consult Service [facility] [address], [place] [address] Note to Patients: This report [...] SURGICAL PATHOLOGY REPORT * Consult Report * [facility] is providing an additional review of previously collected tissue. FINAL Patient Name: ADALGISA MERIDA Address: [address] [place], [place] [address] Gender: M : 1960 (Age: 64) Hospital #: [id number] Patient Type: [facility] Location: UNKNOWN Taken: 01/14/2025 Received: 01/14/2025 Accessioned: 01/14/2025 Reported: 01/15/2025 Physician(s): Dre Cerna M.D. [facility] NE Pathology [facility] Department of Pathology [address] [place] [address] P: [phone] F: [phone] Diagnosis: Consult material received from [place], [place] A. Lung, right middle lobe, lobectomy (OSC: [id number]; 12/11/2024): - Malignant spindle cell neoplasm, consistent [...] Received for review are twenty-six slides labeled [id number], accompanied by a corresponding pathology report. The material originates from [place], [place]. Selected slide(s) may be digitally scanned for our files, and all materials are returned to the referring institution, along with a copy of our final report. Any testing required for diagnostic purposes was performed in the Department of Pathology and Immunology at [facility], [address] [place] [address] CLIA # [id number] The performance characteristics of the testing cited in this report (if any) were determined by the [facility] Department of Pathology and Immunology [facility], as part of an ongoing air quality instrument specialist program and in compliance with federally mandated [...] and the performance characteristics determined by the [facility], [facility] Department of Pathology and Immunology. It has not been cleared or approved by the U.S. Food and Drug Administration. Any test designated as LDT was developed and its performance characteristics determined by [facility]. It has not been cleared or approved by the FDA. This test is used for clinical purposes and should not be regarded as investigational or for research. Report images and/or scanned reports, if included, only viewable in PDF version of report. us Dre Cerna MD LAB PATHOLOGY ORDERABLES Final R esult [facility] [address] [address] * Tempus xT DNA and RNA - [...] CDT [facility] Portal https://clinical-por ta l.MSB [employer].CoreValue Software/pat ient/[email or web address]/re [email or web address] 15-abbr-[email or web address] 01/22/2025 2:41 PM CDT [facility] Comment:Tempus [...] Association: Response Evidence Status: Consensus Evidence ID: [facility] KDB Variant: TMB-High MSK Associated Evidence: MSK OncoKB, Level 1 Label: FDA On Label FDA Approved?: Yes On label?: Yes 01/22/2025 2:41 PM CDT [facility]us: Potential Therapy 2 Gene: 795^BOY^HGNC Variant: p.W2104* Match Type: snvIndel Match Type Description: BOY p.W2104* Agent: Olaparib Drug Class: PARP Inhibitor Tissue: Prostate Cancer Association: Response Evidence Status: Consensus Evidence ID: [facility] KDB Variant: Cdes-wu-skciwpnq Label: FDA Off Label FDA Approved?: Yes On label?: No 01/22/2025 2:41 PM CDT [facility] Tempus: Potential Therapy 3 Gene: 8975^PIK3CA^HGNC Variant: p.G118D Match Type: snvIndel Match Type Description: PIK3CA p.G118D Agent: Alpelisib Drug Class: PI3K Inhibitor Tissue: Solid Tumors Association: Response Evidence Status: Clinical research Evidence ID: [id number] Evidence URL: https://www.ncbi.nlm.n ih.gov/pubmed/47381520 Evidence Title: Phosphatidylinositol 3-Kinase -Selective Inhibition With Alpelisib (VGO939) in AZD1NU-Erknhvh Solid Tumors: Results From the Otjvh-hf-Thekn Study - PubMed KDB Variant: Rgwo-qi-xgzwuwwb Label: FDA Off Label FDA Approved?: Yes On label?: No 01/22/2025 2:41 PM CDT [facility] Trial Count 3 01/22/2025 2:41 PM CDT [facility] Tempus: Clinical Trial Match 1 Clinical Trial NCT ID: [id number] Clinical Trial Title: Likdk-jc-Bwvlp Study of Mutant-selective PI3K Inhibitor, RLY-2608, As a Single Agent in Advanced Solid Tumor Patients and in Combination with Fulvestrant in Patients with Advanced Breast Cancer Clinical Trial URL: https://clinicaltrials .gov/ct2/show/RMU72734 432 Clinical Phase: Phase 1 Clinical Trial Matches: PIK3CA p.G118D mutation Clinical Trial Distance and Location: 1 [place], [place] 01/22/2025 2:41 PM CDT [facility] Tempus: Clinical Trial Match 2 Clinical Trial NCT ID: [id number] Clinical Trial Title: Tumor-agnostic Precision Immuno-oncology and Somatic Targeting Rational for You (TAPISTRY) Platform Study Clinical Trial URL: https://clinicaltrials .gov/ct2/show/VWK57398 845 Clinical Phase: Phase 2 Clinical Trial Matches: BOY p.W2104* mutation Clinical Trial Distance and Location: 98 [place], [place] 01/22/2025 2:41 PM CDT [facility] Tempus: Clinical Trial Match 3 Clinical Trial NCT ID: [id number] Clinical Trial Title: Study of INBRX-106 and INBRX-106 in Combination With Pembrolizumab (Keytruda ) in Subjects With Locally Advanced or Metastatic Solid Tumors (Hexavalent OX40 Agonist) Clinical Trial URL: https://clinicaltrials .gov/ct2/show/CKB95450 766 Clinical Phase: Phase 1/Phase 2 Clinical Trial Matches: TMB-High Clinical Trial Distance and Location: 219 mo, [place], [place] 01/22/2025 2:41 PM CDT [facility] [...] TESTING Final Res ult [facility] [address] [facility], [address] [place], [place] [address] [place] [address] [facility] [address] [facility], [address] [place] [address] * X-ray chest 2 views (01/07/2025 9:00 [...] Pranay Grace M.D. ANANT: ANANT Report ID: [id number] Reading Location: [place] [address] Procedure Note Wilian Grace MD - 01/13/2025 [...] Pranay Grace M.D. ANANT: ANANT Report ID: [id number] Reading Location: [place] [address] Dre Cerna MD IMG XR PROCEDURES Final Result from Last [address] [facility] Advance Directives For more information, please contact: [phone] * Full Code (Latest Code Status on File) Date Activated Date Inactivated Comments 12/11/2024 6:31 PM 12/15/2024 3:57 PM * Full Code Date Activated Date Inactivated Comments 03/16/2024 4:36 PM 03/21/2024 3:59 PM * Full Code Date Activated Date Inactivated Comments 01/28/2022 9:19 PM 02/05/2022 5:17 PM Care Teams Floor Coverings Salesperson Relationship Specialty Start Date End Date Crystal Mir MD [address] [place] [address] PCP - General Medical Oncology 12/30/24 Gabe George DO [address] [address] Internal Medicine 12/30/24 Gabe George DO [address] [place] [address] Internal Medicine 12/30/24 Ian Michel MD [address] [place] [address] [place] [address] Dermatology 02/10/23 Parul Baldwin MD [address] [place] [address] Referring Physician Dermatology 02/10/23 Felix Sher MD [address] [address] Consulting Physician Cardiology 10/21/24 Dre Cerna MD [address] [address] Surgeon Thoracic Surgery 12/15/24
--- OUTSIDE RECORDS SUMMARY | 2025-03-31 09:11 | XMS_ITS | Encounter Summary ---
Author Organization [facility] Healthcare Address [address] [place] [address] Care Team Providers Care Bill Adjuster Name Role Phone Gabe George DO Primary Care Provider [phone] Gabe George DO Unavailable Gabe George DO Unavailable Ian Michel MD Unavailable [phone] Parul Baldwin MD Unavailable Felix Sher MD Unavailable [phone] Dre Cerna MD Unavailable Crystal Mir MD Primary Care Provider [phone] Encounter Details Date Type Department Care Team (Late st Contact Info) Description 12/17/2024 [facility] Post Discharge Follow up phone call [address] [address] Karla Romo, RN Social History [...] on file 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 Gender Identity Not on file Sexual Orientation Not on file documented as of this encounter Plan of Treatment Not on file documented as of this encounter Visit Diagnoses Not on filedocumented in this encounter Care Teams Bill Adjuster Relationship Specialty Start Date End Date Gabe George DO [address] [address] PCP - General Internal Medicine 08/03/24 12/29/24 Crystal Mir MD [address] [place] [address] PCP - General Medical Oncology 12/30/24 Gabe George DO [address] [facility] [address] [address] Internal Medicine 12/30/24 Gabe George DO [address] [address] Internal Medicine 12/30/24 Ian Michel MD [address] [place] [address] DR Stephani [place] [id number] Dermatology 02/10/23 Parul Baldwin MD [address] [facility] [address] [place] [address] Referring Physician Dermatology 02/10/23 Felix Sher MD [address] [facility] [address], [place] [address] Consulting Physician Cardiology 10/21/24 Dre Cerna MD [facility] [place] [place] [address] [id number] Surgeon Thoracic Surgery 12/15/24 documented as of this encounter
--- OUTSIDE RECORDS SUMMARY | 2025-03-31 09:11 | XMS_ITS | Encounter Summary ---
Author Organization [facility] Healthcare Address [address] [place] [address] Care Team Providers Care Pillar Man Name Role Phone Gabe George DO Primary Care Provider [phone] Gabe George DO Unavailable Gabe George DO Unavailable Ian Michel MD Unavailable [phone] Parul Baldwin MD Unavailable [phone] Felix Sher MD Unavailable [phone] Dre Cerna MD Unavailable Crystal Mir MD Primary Care Provider Encounter Details Date Type Department Care Team (Late st Contact Info) Description 12/17/2024 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 Gender Identity Not on file Sexual Orientation Not on file documented as of this encounter Plan of Treatment Not on file documented as of this encounter Visit Diagnoses Not on filedocumented in this encounter Care Teams Pillar Man Relationship Specialty Start Date End Date Gabe George DO [address] [facility] [address] [place] [address] PCP - General Internal Medicine 08/03/24 12/29/24 Crystal Mir MD [address] [place] [address] PCP - General Medical Oncology 12/30/24 Gabe George DO [address] [facility] [address] [address] Internal Medicine 12/30/24 Gabe George DO [address] [address] Internal Medicine 12/30/24 Ian Michel MD [address] [place] [address] DR Stephani [place] [id number] Dermatology 02/10/23 Parul Baldwin MD [address] [facility] [address] [place] [address] Referring Physician Dermatology 02/10/23 Felix Sher MD [address] [facility] [address] [address] Consulting Physician Cardiology 10/21/24 Dre Cerna MD [address] [place] [id number] Surgeon Thoracic Surgery 12/15/24 documented as of this encounter
--- OUTSIDE RECORDS SUMMARY | 2025-03-31 09:11 | XMS_ITS ---
Author Organization [facility] Address [address] [place] [address] Care Team Providers Care Facility Supervisor Name Role Phone Ariel Gabe ADEN Unavailable Gabe George DO Unavailable Ian Michel MD Unavailable [phone] Parul Baldwin MD Unavailable [phone] Felix Sher MD Unavailable [phone] Dre Cerna MD Unavailable Crystal Mir MD Primary Care Provider [phone] Active Problems Patient Care Coordination No te [...] showed interval changes of parietal scalp mass call center 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 and Gerardo thus Hancock flap reconstruction [...] 03/05/20 22 Coronary artery disease invo lving telida coronary artery of telida heart without angina pectoris 01/28/2022 Overview (01/29/2022): Added automatically from request for surgery [id number] ST elevation myocardial infa rction involving right [...]
[2025-03-31 09:54] LABS: Alanine Aminotransferase 26 U/L (6-50); Albumin Level 4.3 g/dL (3.5-5.1); Alkaline Phosphatase 71 U/L (38-126); Anion Gap 8 mmol/L (4-12); Aspartate Amino Transferase 32 U/L (17-59); Bilirubin,Total 0.7 mg/dL (0.2-1.3); Blood Urea Nitrogen 14 mg/dL (9-20); Calcium 9.8 mg/dL (8.4-10.2); Carbon Dioxide 26 mmol/L (22-30); Chloride 105 mmol/L (98-107); Cholesterol 176 mg/dL (0-200); Estimated Glomerular Filt Rate > 60; Glucose 93 mg/dL (65-110); HDL Direct 46 mg/dL; Potassium 4.3 mmol/L (3.4-5.0); Sodium 139 mmol/L (137-145); Total Protein 7.7 g/dL (6.3-8.2); Triglycerides 160 mg/dL (<150)
== END 2025-03-31 09:05 | disposition home or self-care (01) ==
PROVIDERS: PCP Internal Medicine; Visit Provider Nurse Practitioner
DX: E78.5 Hyperlipidemia, unspecified (principal)
CPT/HCPCS: 36415; 80053; 80061

== ENCOUNTER 2025-08-25 15:55 | Outpatient (CLI) | payer OTHER, SELFPAY ==
[2025-08-25 16:46] LABS: Hematocrit 40.6 % (42.0-52.0); Hemoglobin 14.0 g/dL (14.0-18.0); Immature Granulocyte Percent A 0.4 % (0-0.5); Lymphocytes Absolute Auto 1.82 K/mm3 (0.9-3.2); Mean Corpuscular HGB Conc 34.5 g/dl (32-36); Mean Corpuscular Hemoglobin 30.5 pg (26-34); Mean Corpuscular Volume 88.5 fl (80-100); Nucleated Red Blood Cells Absolute Auto 0.000 K/mm3 (0.0-0.012); Nucleated Red Blood Cells Perc 0.0 % (0.0-0.2); Platelet Count Result 195 k/mm3 (150-375); Red Blood Count 4.59 M/mm3 (4.6-6.20); White Blood Count 7.2 K/mm3 (4.5-10.0)
[2025-08-25 17:02] LABS: Alanine Aminotransferase 28 U/L (6-50); Albumin Level 4.3 g/dL (3.5-5.1); Alkaline Phosphatase 79 U/L (38-126); Anion Gap 7 mmol/L (4-12); Aspartate Amino Transferase 33 U/L (17-59); Bilirubin,Total 0.7 mg/dL (0.2-1.3); Blood Urea Nitrogen 19 mg/dL (9-20); Calcium 9.6 mg/dL (8.4-10.2); Carbon Dioxide 25 mmol/L (22-30); Chloride 105 mmol/L (98-107); Estimated Glomerular Filt Rate > 60; Glucose 91 mg/dL (65-110); Potassium 4.2 mmol/L (3.4-5.0); Sodium 137 mmol/L (137-145); Total Protein 7.5 g/dL (6.3-8.2)
--- OUTSIDE RECORDS SUMMARY | 2025-08-25 17:03 | XMS_ITS | Encounter Summary ---
Author Organization [facility] Healthcare Address [address] [place] [address] Care Team Providers Care Chorus Dancer Name Role Phone Gabe George DO Primary Care Provider [phone] Gabe George DO Unavailable Gabe George DO Unavailable Ian Michel MD Unavailable [phone] Parul Baldwin MD Unavailable [phone] Felix Sher MD Unavailable [phone] Dre Cerna MD Unavailable Juan Daniel MD Unavailable [phone] Gabe George DO Primary Care Provider [phone] Encounter Details Date Type Department Care Team (Late st Contact Info) Description 12/17/2024 [facility] Post Discharge Follow up phone call [facility] [address] [place] [address] Karla Romo, RN Social History Tobacco [...] on file 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 Gender Identity Not on file Sexual Orientation Not on file documented as of this encounter Plan of Treatment Not on file documented as of this encounter Visit Diagnoses Not on filedocumented in this encounter Care Teams Chorus Dancer Relationship Specialty Start Date End Date Gabe George DO PCP - General Internal Medicine 08/03/24 12/29/24 Gabe George DO PCP - General Internal Medicine 05/17/25 Gabe George DO Internal Medicine 12/30/24 Gabe George DO Internal Medicine 12/30/24 Ian Michel MD Dermatology 02/10/23 Parul Baldwin MD [address] [place] [address] Referring Physician Dermatology 02/10/23 Felix Sher MD [address] [facility] [place] [address] Consulting Physician Cardiology 10/21/24 Dre Cerna MD [address] [facility] [place] [address] Surgeon Thoracic Surgery 12/15/24 Juan Daniel MD [address] [facility] [address] [place] [address] Consulting Physician Pulmonary Disease 04/22/25 documented as of this encounter
--- OUTSIDE RECORDS SUMMARY | 2025-08-25 17:03 | XMS_ITS | Clinical Summary ---
Author Organization [facility] Address [address] [place] [address] Care Team Providers Care Strategic Communications Manager Name Role Phone Gabe George DO Unavailable Gabe George DO Unavailable Ian Michel MD Unavailable [phone] Parul Baldwin MD Unavailable [phone] Felix Sher MD Unavailable [phone] Dre Cerna MD Unavailable Juan Daniel MD Unavailable [phone] Gabe George DO Primary Care Provider [phone] Allergies Active Allergy Reactions Criticality Noted Date [...] 1 Dose by mouth every morning Active aspirin 81 mg enteric coated tablet Take 1 tablet (81 mg total) by mouth daily Active amiodarone (PACERONE) 200 mg tabletIndicatio ns:Prevention [...] times a day 60 tablet 1 5 Active Additional Information Patient not taking.Reported on 05/05/2025 gabapentin (NEURONTIN) 100 mg capsuleIndicati ons:Postoperati ve Acute Pain Take 2 capsules (200 mg total) by mouth 3 (three) times a day 180 capsule 3 5 Active prochlorperazin e (COMPAZINE) 10 mg tabletIndicatio ns:Squamous cell carcinoma of scalp Take 1 tablet (10 mg total) by mouth every 6 (six) hours as needed for nausea 30 tablet 3 5 Active triamcinolone (KENALOG) 0.1 % creamIndication s:Squamous cell carcinoma of scalp Apply topically 2 (two) times a day 30 g 1 5 Active clopidogreL (PLAVIX) 75 mg tablet TAKE 1 TABLET BY MOUTH DAILY 30 tablet 5 Active Active Problems Patient Care Coordination No [...] showed 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 and Gerardo thus Hancock flap reconstruction [...] 03/05/20 22 Coronary artery disease invo lving [place] coronary artery of [place] heart without angina pectoris 01/28/2022 Overview (01/29/2022): Added automatically from request for surgery [id number] ST elevation myocardial infa rction involving right coronary artery Encounters Date Type Department Care Team Description 08/24/2025 Telephone [facility] Medicine Oncology [facility] [address] [place] [address] Mary Bach RN 08/24/2025 Orders Only [facility] Medicine Oncology [facility] [address] [place] [address] Mary Bach RN Pleomorphic dermal sarcoma (Primary Dx) 08/17/2025 11:30 AM WELL PULLER Infusion [address] [address] Squamous cell carcinoma of scalp (Primary Dx) 08/17/2025 10:30 AM WELL PULLER Office Visit [facility] Medicine Oncology [address] [place] [phone] Ian Smith PA Pleomorphic dermal sarcoma (Primary Dx); Squamous cell carcinoma of scalp 08/17/2025 10:00 AM WELL PULLER Lab [address] [address] Squamous cell carcinoma of scalp 08/17/2025 Social Work [facility] [address] [place] [phone] Mellissa Crook LCSW 08/09/2025 2:30 PM WELL PULLER Clinical Support [address] [phone] Halina Ocasio, PhD 07/27/2025 10:00 AM WELL PULLER Office Visit [facility] Radiation Oncology [address] [place] [phone] Justo Wright MD Squamous cell carcinoma of scalp [C44.42] (Primary Dx) 07/22/2025 4:30 PM CDT Clinical Support [address] [address] Halina Ocasio, PhD 07/21/2025 8:30 AM CDT Infusion [address] [address] Squamous cell carcinoma of scalp (Primary Dx) 07/21/2025 Orders Only [facility] Medicine Oncology [address] [phone] Crystal Mir MD 07/20/2025 10:30 AM CDT Office Visit [facility] Medicine Oncology [address] [place] [phone] Ian Smith PA Pleomorphic dermal sarcoma (Primary Dx); Squamous cell carcinoma of scalp 07/20/2025 10:00 AM CDT Lab [address] [address] Squamous cell carcinoma of scalp 07/20/2025 Social Work [facility] Medicine Oncology [address] [place] [phone] Mellissa Crook LCSW 07/12/2025 2:00 PM CDT Clinical Support [address] Advanced Medicine [address] [place] [phone] Halina Ocasio, PhD 07/08/2025 4:45 PM CDT Clinical Support [address] Advanced [address] [address] Halina Ocasio, PhD 07/07/2025 1:12 PM CDT - 07/07/2025 11:59 PM CDT Hospital Encounter [facility] [address] [place] [address] Discharge Disposition: Discharge to home or self care 07/07/2025 1:12 PM CDT - 07/07/2025 11:59 PM CDT Hospital Encounter [facility] [address] [place] [address] Pleomorphic dermal sarcoma Discharge Disposition: Discharge to home or self care 06/30/2025 3:45 PM CDT Clinical Support [address] Advanced [address] [address] Halina Ocasio, PhD 06/30/2025 9:30 AM CDT Infusion [address] [address] Squamous cell carcinoma of scalp (Primary Dx) 06/30/2025 8:30 AM CDT Office Visit [facility] Medicine Oncology [address] [place] [phone] Ian Smith PA Squamous cell carcinoma of scalp (Primary Dx) 06/30/2025 8:00 AM CDT Lab [address] [address] Squamous cell carcinoma of scalp 06/30/2025 Social Work [facility] Medicine Oncology [address] [place] [phone] Mellissa Crook LCSW 06/28/2025 Social Work [facility] [address] [place] [phone] Mellissa Crook LCSW 06/09/2025 9:30 AM CDT Infusion [address] [address] Squamous cell carcinoma of scalp (Primary Dx) 06/09/2025 8:45 AM CDT Office Visit [facility] [address] [place] [phone] Crystal Mir MD Squamous cell carcinoma of scalp (Primary Dx); Pleomorphic dermal sarcoma 06/09/2025 8:15 AM CDT Lab [address] [address] Squamous cell carcinoma of scalp 06/09/2025 [facility] Work [facility] [address] [place] [phone] Mellissa Crook LCSW 05/31/2025 2:00 PM CDT Clinical Support [address] [place] [address] Halina Ocasio, PhD from Last 3 Months Surgical History Surgery Date Site/Laterality Comments CORONARY ARTERY BYPASS GRAFT [id number] double bypass HERNIA REPAIR 2016 x2, 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 Patient does not drink Frequency of Binge Drinking Not on file 04/24 Personal Safety Answer Date Recorded Have you ever been in or are you currently in a harmful physical or emotional relationship or is someone making you feel afraid or unsafe? Denies 12/27/2024 Sex and Gender Information Value Date Recorded Sex Assigned at Not on file Legal Sex Male 7:35 PM WELL PULLER Gender Identity Not on file Sexual Orientation Not on file Last Filed Vital Signs Vital Sign Reading Time Taken Comments Blood Pressure 109/70 08/17/2025 10:13 AM WELL PULLER Pulse 66 08/17/2025 10:13 AM WELL PULLER Temperature 36.4 C (97.5 F) 08/17/2025 10:13 AM WELL PULLER Respiratory Rate 16 08/17/2025 10:1 3 AM WELL PULLER Oxygen Saturation 96% 08/17/2025 10: 13 AM WELL PULLER Inhaled Oxygen Concentration - - Weight 80.6 kg (177 lb 12.8 oz) 025 10:13 AM WELL PULLER Height 173 cm (5' 8.11) 05/19/2025 8:36 AM CDT Body Mass Index 26.95 05/19/2025 8:36 AM CDT Plan of Treatment Health Maintenance Due Date Last Done Comments Colon Cancer Screening-Colonoscopy 1961 Depression Screening 1961 Hepatitis C Screening 1961 Prostate Cancer Screening-PSA 1961 Hepatitis B Screening 12/29/1979 Regular Well Visit/Exam 18-64 12/29/1979 Pneumococcal vaccine <65 (1 of 2 - PCV) 1980 Zoster Vaccine (1 of 2) 1980 Covid-19 Vaccine (4 - season) 2025 06/30/2021, 09/30/2020, 09/09/2020 Influenza Vaccine (#1) 2025 07/12/2023 DTaP/Tdap/Td Vaccine (2 - Td or Tdap) 04/12/2031 Medical Devices Implanted Type Area Global Manager Device Identifier Shelf Expiration Date Model / Serial / Lot [employer] Technology [employer] [place] Microvascular 3mm Ring Pin Protective Cover Jaw Assembly Latex Free [id number] - [id number] Implanted:Qty: 1 on 03/16/2024 by Minh Orozco MD at [facility] [employer] [id number] 01/08/2028 [id number] / / [id number] Procedures Procedure Name Priority Date/Time Associated Diagnosis Comments EGFR STAT 08/17/2025 10:10 AM WELL PULLER Squamous cell carcinoma of scalp DIFFERENTIAL AUTO Routine 08/17/2025 10: 10 AM WELL PULLER Squamous cell carcinoma of scalp THYROID FUNCTION CASCADE Routine 08/17/2025 10:10 AM WELL PULLER Squamous cell carcinoma of scalp CBC WITH AUTO DIFFERENTIAL Routine 08/17/2025 10:10 AM WELL PULLER Squamous cell carcinoma of scalp COMPREHENSIVE METABOLIC PANEL STAT 08/17/2025 10:10 AM WELL PULLER Squamous cell carcinoma of scalp EGFR Routine 07/20/2025 10:13 AM CDT Squamous cell carcinoma of scalp DIFFERENTIAL AUTO Routine 07/20/2025 10: 13 AM CDT Squamous cell carcinoma of scalp CBC WITH AUTO DIFFERENTIAL Routine 07/20/2025 10:13 AM CDT Squamous cell carcinoma of scalp COMPREHENSIVE METABOLIC PANEL Routine 07/20/2025 10:13 AM CDT Squamous cell carcinoma of scalp THYROID FUNCTION CASCADE Routine 07/20/2025 10:13 AM CDT Squamous cell carcinoma of scalp PET/CT FDG WHOLE BODY Schedule Routine, Read Routine (OP Routine) 07/07/2025 3:36 PM CDT Pleomorphic dermal sarcoma EGFR STAT 06/30/2025 8:00 AM CDT Squamous cell carcinoma of scalp DIFFERENTIAL AUTO Routine 06/30/2025 8:0 0 AM CDT Squamous cell carcinoma of scalp CBC WITH AUTO DIFFERENTIAL Routine 06/30/2025 8:00 AM CDT Squamous cell carcinoma of scalp COMPREHENSIVE METABOLIC PANEL STAT 06/30/2025 8:00 AM CDT Squamous cell carcinoma of scalp EGFR STAT 06/09/2025 7:57 AM CDT Squamous cell carcinoma of scalp DIFFERENTIAL AUTO Routine 06/09/2025 7:5 7 AM CDT Squamous cell carcinoma of scalp CBC WITH AUTO DIFFERENTIAL Routine 06/09/2025 7:57 AM CDT Squamous cell carcinoma of scalp COMPREHENSIVE METABOLIC PANEL STAT 06/09/2025 7:57 AM CDT Squamous cell carcinoma of scalp from Last 3 Months Results * eGFR (08/17/2025 10:10 AM WELL PULLER) eGFR 85 >=60 mL/min/1. 73 m2 Comment: [...] interpretive data was last reviewed 2021. Blood 08/17/2025 10:1 0 AM WELL PULLER 08/17/2025 10:10 AM WELL PULLER us Ian HATCH LAB BLOOD ORDERABLES Final Result [facility] Department [place] [address] * (ABNORMAL) Differential, auto (08/17/2025 10:10 AM WELL PULLER) Neutrophil abs 4.47 1.50 - 6.50 K/cumm Comment:Testing performed by : [facility], [address] [place] [address] Imm gran abs 0.02 0.00 - 0.10 K/cumm [facility] Lymphocyte abs 1.58 0.80 - 3.30 K/cumm [facility] Monocyte abs 0.93(H) 0.20 - 0.80 K/cumm [facility] Eosinophil abs 0.26 0.00 - 0.50 K/cumm [facility] Basophil abs 0.06 0.00 - 0.10 K/cumm [facility] Neutrophil pct 61.0 % [facility] Comment: Interpretive Data Percent cell count reference ranges are not reported, since discordance with absolute values may lead to misinterpretation of CBC data. Current Interpretive Data was last revised on 2017. Imm gran pct 0.3 % [facility] Comment: Interpretive Data Percent cell count reference ranges are not reported, since discordance with absolute values may lead to misinterpretation of CBC data. Current Interpretive Data was last revised on 2017. Lymphocyte pct 21.6 % [facility] Comment: Interpretive Data Percent cell count reference ranges are not reported, since discordance with absolute values may lead to misinterpretation of CBC data. Current Interpretive Data was last revised on 2017. Monocyte pct 12.7 % [facility] Comment: Interpretive Data Percent cell count reference ranges are not reported, since discordance with absolute values may lead to misinterpretation of CBC data. Current Interpretive Data was last revised on 2017. Eosinophil pct 3.6 % [facility] Comment: Interpretive Data Percent cell count reference ranges are not reported, since discordance with absolute values may lead to misinterpretation of CBC data. Current Interpretive Data was last revised on 2017. Basophil pct 0.8 % [facility] Comment: Interpretive Data Percent cell count reference ranges are not reported, since discordance with absolute values may lead to misinterpretation of CBC data. Current Interpretive Data was last revised on 2017. Blood 08/17/2025 10:1 0 AM WELL PULLER 08/17/2025 10:10 AM WELL PULLER Ian HATCH LAB BLOOD ORDERABLES Final Result [facility] Department [place] [address] * Thyroid Function Door (08/17/2025 10:10 AM WELL PULLER) TSH 0.83 0.30 - 4.20 mcIUnit/mL Blood 08/17/2025 10:1 0 AM WELL PULLER 08/17/2025 11:35 AM WELL PULLER Ian HATCH LAB BLOOD ORDERABLES Final Result [facility] Department [place] [address] * CBC with auto differential (08/17/2025 10:10 AM WELL PULLER) WBC 7.32 3.80 - 9.90 K/cumm Comment:Testing performed by : [facility], [address] [place] [address] Hgb 14.6 13.0 - 17.5 g/dL [facility] Comment:Testing performed by : [facility], [address] [place] [address] Hct 41.0 38.9 - 50.3 % [facility] Comment:Testing performed by : [facility], [address] [place] [address] Plt 202 150 - 400 K/cumm [facility] Comment:Testing performed by : [facility], [address] [place] [address] MPV 9.8 9.1 - 12.3 fL [facility] RBC 4.68 4.30 - 5.80 M/cumm [facility] MCV 87.6 81.3 - 96.4 fL [facility] MCH 31.2 27.1 - 33.3 pg [facility] MCHC 35.6 32.3 - 35.7 g/dL [facility] RDW CV 12.5 11.1 - 14.9 % [facility] RDW SD 39.9 35.7 - 48.1 fL [facility] NRBC abs 0.00 0.00 - 0.01 K/cumm [facility] ANC Prelim 4.47 1.50 - 6.50 K/cumm [facility] Comment: Interpretive Data The rapid ANC is a preliminary automated count and may vary from the final ANC (Neut Abs) reported in the WBC differential that follows. Current interpretive data was last revised 2024. Blood 08/17/2025 10:1 0 AM WELL PULLER 08/17/2025 10:10 AM WELL PULLER us Ian HATCH LAB BLOOD ORDERABLES Final Result [facility] Department [place] [address] * Comprehensive metabolic panel (08/17/2025 10:10 AM WELL PULLER) [facility] Sodium 138 135 - 145 mmol/L Comment:Testing performed by : [facility], [address] [facility] [address] Potassium, pl 4.3 3.3 - 4.9 mmol/L [facility] Chloride 105 97 - 110 mmol/L [facility] CO2 28 22 - 32 mmol/L [facility] Anion gap 5 2 - 15 mmol/L [facility] BUN 15 6 - 25 mg/dL [facility] Creatinine 1.00 0.80 - 1.30 mg/dL [facility] Glucose 91 70 - 199 mg/dL [facility] Comment: Interpretive Data Fasting glucose >/= 126 [...] interpretive data was last revised 2022. Calcium 9.9 8.5 - 10.3 mg/dL [facility] Bilirubin, total 0.4 0.1 - 1.2 mg/dL [facility] Protein, pl 7.5 6.5 - 8.5 g/dL [facility] Albumin 4.3 3.5 - 5.0 g/dL [facility] Alk phos 75 40 - 130 Units/L [facility] ALT 27 7 - 55 Units/L [facility] AST 26 10 - 50 Units/L [facility] Blood 08/17/2025 10:1 0 AM WELL PULLER 08/17/2025 10:10 AM WELL PULLER us Ian HATCH LAB BLOOD ORDERABLES Final Result [facility] Department [place] [address] * eGFR (07/20/2025 10:13 AM CDT) eGFR 86 >=60 mL/min/1. 73 m2 Comment: Interpretive Data [...] interpretive data was last reviewed 2021. Blood 07/20/2025 10:1 3 AM CDT 07/20/2025 10:13 AM CDT us Ian HATCH LAB BLOOD ORDERABLES Final Result [facility] Department of Laboratories [place], [place] [id number] * (ABNORMAL) Differential, auto (07/20/2025 10:13 AM CDT) Neutrophil abs 4.59 1.50 - 6.50 K/cumm Comment:Testing performed by : [facility], [address] [place] [address] Imm gran abs 0.01 0.00 - 0.10 K/cumm [facility] Lymphocyte abs 1.47 0.80 - 3.30 K/cumm [facility] Monocyte abs 0.94(H) 0.20 - 0.80 K/cumm [facility] Eosinophil abs 0.25 0.00 - 0.50 K/cumm [facility] Basophil abs 0.05 0.00 - 0.10 K/cumm [facility] Neutrophil pct 62.8 % [facility] Comment: Interpretive Data Percent cell count reference ranges are not reported, since discordance with absolute values may lead to misinterpretation of CBC data. Current Interpretive Data was last revised on 2017. Imm gran pct 0.1 % [facility] Comment: Interpretive Data Percent cell count reference ranges are not reported, since discordance with absolute values may lead to misinterpretation of CBC data. Current Interpretive Data was last revised on 2017. Lymphocyte pct 20.1 % [facility] Comment: Interpretive Data Percent cell count reference ranges are not reported, since discordance with absolute values may lead to misinterpretation of CBC data. Current Interpretive Data was last revised on 2017. Monocyte pct 12.9 % [facility] Comment: Interpretive Data Percent cell count reference ranges are not reported, since discordance with absolute values may lead to misinterpretation of CBC data. Current Interpretive Data was last revised on 2017. Eosinophil pct 3.4 % [facility] Comment: Interpretive Data Percent cell count reference ranges are not reported, since discordance with absolute values may lead to misinterpretation of CBC data. Current Interpretive Data was last revised on 2017. Basophil pct 0.7 % [facility] Comment: Interpretive Data Percent cell count reference ranges are not reported, since discordance with absolute values may lead to misinterpretation of CBC data. Current Interpretive Data was last revised on 2017. Blood 07/20/2025 10:1 3 AM CDT 07/20/2025 10:13 AM CDT Ian HATCH LAB BLOOD ORDERABLES Final Result [facility] Department [place] [address] * Thyroid Function Door (07/20/2025 10:13 AM CDT) TSH 0.87 0.30 - 4.20 mcIUnit/mL Blood 07/20/2025 10:1 3 AM CDT 07/20/2025 11:41 AM CDT Ian HATCH LAB BLOOD ORDERABLES Final Result [facility] One [facility] [place] [address] * CBC with auto differential (07/20/2025 10:13 AM CDT) [facility] WBC 7.31 3.80 - 9.90 K/cumm Comment:Testing performed by : [address] [address] Hgb 14.3 13.0 - 17.5 g/dL [facility] Comment:Testing performed by : [address] [address] Hct 41.3 38.9 - 50.3 % [facility] Comment:Testing performed by : [address] [address] Plt 195 150 - 400 K/cumm [facility] Comment:Testing performed by : [address] [address] MPV 9.7 9.1 - 12.3 fL [facility] RBC 4.71 4.30 - 5.80 M/cumm [facility] MCV 87.7 81.3 - 96.4 fL [facility] MCH 30.4 27.1 - 33.3 pg [facility] MCHC 34.6 32.3 - 35.7 g/dL [facility] RDW CV 12.3 11.1 - 14.9 % [facility] RDW SD 39.8 35.7 - 48.1 fL [facility] NRBC abs 0.00 0.00 - 0.01 K/cumm [facility] ANC Prelim 4.59 1.50 - 6.50 K/cumm [facility] Comment: Interpretive Data The rapid ANC is a preliminary automated count and may vary from the final ANC (Neut Abs) reported in the WBC differential that follows. Current interpretive data was last revised 2024. Blood 07/20/2025 10:1 3 AM CDT 07/20/2025 10:13 AM CDT us Ian HATCH LAB BLOOD ORDERABLES Final Result [facility] Department [place] [address] * Comprehensive metabolic panel (07/20/2025 10:13 AM CDT) Sodium 139 135 - 145 mmol/L Comment:Testing performed by : [facility], [address] [place] [address] Potassium, pl 4.1 3.3 - 4.9 mmol/L [facility] Chloride 105 97 - 110 mmol/L [facility] CO2 29 22 - 32 mmol/L [facility] Anion gap 5 2 - 15 mmol/L [facility] BUN 18 6 - 25 mg/dL [facility] Creatinine 0.99 0.80 - 1.30 mg/dL [facility] Glucose 100 70 - 199 mg/dL [facility] Comment: Interpretive Data Fasting glucose >/= 126 [...] interpretive data was last revised 2022. Calcium 9.6 8.5 - 10.3 mg/dL [facility] Bilirubin, total 0.5 0.1 - 1.2 mg/dL [facility] Protein, pl 7.3 6.5 - 8.5 g/dL [facility] Albumin 4.3 3.5 - 5.0 g/dL [facility] Alk phos 78 40 - 130 Units/L [facility] ALT 29 7 - 55 Units/L [facility] AST 28 10 - 50 Units/L [facility] Blood 07/20/2025 10:1 3 AM CDT 07/20/2025 10:13 AM CDT us Ian HATCH LAB BLOOD ORDERABLES Final Result [facility] Department [place] [address] * PET/CT FDG Whole Body (07/07/2025 3:36 PM CDT) Anatomical Region Laterality Modality Body N/A Positron Emissio n Tomography (PET) 07/07/2025 4:42 PM CDT Impressions 07/08/2025 3:16 PM CDT 1. Favorable treatment response evidenced by interval resolution of hypermetabolic subcarinal lymph node and right lower lobe pulmonary nodule and one of the pleural foci. No new definite metastatic disease. 2. Unchanged focus of moderate FDG avidity in the right pleura limits improvement at other sites. This may represent uptake in the surgery-related material. Suggest attention to this area on future PET scans. 3. New uptake in right axillary nodes and right deltoid, likely related to recent immunization. Dictated by: Mary Sims M.D. The radiology attending physician has personally reviewed this study, and had reviewed and/or edited this written report and agrees with it. Electronically signed by: Radha Amos MD Narrative 07/08/2025 3:16 PM CDT EXAMINATION: TUMOR FDG-PET/CT IMAGING DATE OF STUDY: 07/07/2025 SCANNER: [facility] RADIOPHARMACEUTICAL: 15.2 mCi F-18 Fluorodeoxyglucose (FDG) i.v. 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 Surgically resected with adjuvant radiation therapy completed 07/12/2024. 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 Underwent right middle lobectomy with resection of this nodule. Currently being treated with pembrolizumab, initiated 05/19/25, status post cycle 3 on 06/30/2025. The study is requested for treatment monitoring during therapy. Subsequent treatment strategy. TECHNIQUE: The patient's fasting blood glucose level, measured by glucometer before injection of FDG, was 102 mg/dL. After intravenous administration of FDG, noncontrast CT images were obtained for attenuation correction and for fusion with emission PET images to allow for anatomical localization of PET findings. Emission PET images were then obtained. The study was interpreted on the Ztail workstation. The mean liver SUV (reported for quality assurance manager purposes) is 2.6. The total scanned area was skull vertex to toes. Images of the body were obtained starting 61 minutes after injection of tracer. All reported SUVs are maximum SUVs, unless otherwise specified. COMPARISON: PET/CT dated 04/28/2025 DESCRIPTORS OF LESION FDG AVIDITY: Minimal: <= blood pool Mild: > blood pool and <= liver Moderate: > liver and <= 2x SUVmax liver Moderate to marked: >2x SUVmax liver and <= 3x SUVmax liver Marked: > 3x SUVmax liver FINDINGS: There has been interval resolution of the previously noted enlarged, hypermetabolic subcarinal lymph node. The previously noted right lower lobe pulmonary nodule just superior to the right hemidiaphragm is also not appreciated on this exam. There is an unchanged focus of moderate FDG avidity in the right pleura (SUV 4.6, previously 4.9), favored to represent postsurgical change from right middle lobectomy. A small, mildly hypermetabolic focus is noted in the right deltoid with two associated mildly avid right axillary lymph nodes; patient confirms history of recent vaccination. No new suspicious foci of FDG uptake are identified. Additional CT findings: Postsurgical changes of median sternotomy and coronary artery bypass grafting. Surgical clips are noted in the left axilla. Few tiny hepatic cysts. Large bilateral renal cysts. Nonobstructing left renal calculus. Fat-containing left inguinal hernia. Diverticulosis without diverticulitis. Right hip arthroplasty is noted. Procedure Note Radha Amos MD - 07/08/2025 EXAMINATION: TUMOR FDG-PET/CT IMAGING DATE OF STUDY: 07/07/2025 SCANNER: [facility] RADIOPHARMACEUTICAL: 15.2 mCi F-18 Fluorodeoxyglucose (FDG) i.v. 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 Surgically resected with adjuvant radiation therapy completed 07/12/2024. 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 Underwent right middle lobectomy with resection of this nodule. Currently being treated with pembrolizumab, initiated 05/19/25, status post cycle 3 on 06/30/2025. The study is requested for treatment monitoring during therapy. Subsequent treatment strategy. TECHNIQUE: The patient's fasting blood glucose level, measured by glucometer before injection of FDG, was 102 mg/dL. After intravenous administration of FDG, noncontrast CT images were obtained for attenuation correction and for fusion with emission PET images to allow for anatomical localization of PET findings. Emission PET images were then obtained. The study was interpreted on the Ztail workstation. The mean liver SUV (reported for quality assurance manager purposes) is 2.6. The total scanned area was skull vertex to toes. Images of the body were obtained starting 61 minutes after injection of tracer. All reported SUVs are maximum SUVs, unless otherwise specified. COMPARISON: PET/CT dated 04/28/2025 DESCRIPTORS OF LESION FDG AVIDITY: Minimal: <= blood pool Mild: > blood pool and <= liver Moderate: > liver and <= 2x SUVmax liver Moderate to marked: >2x SUVmax liver and <= 3x SUVmax liver Marked: > 3x SUVmax liver FINDINGS: There has been interval resolution of the previously noted enlarged, hypermetabolic subcarinal lymph node. The previously noted right lower lobe pulmonary nodule just superior to the right hemidiaphragm is also not appreciated on this exam. There is an unchanged focus of moderate FDG avidity in the right pleura (SUV 4.6, previously 4.9), favored to represent postsurgical change from right middle lobectomy. A small, mildly hypermetabolic focus is noted in the right deltoid with two associated mildly avid right axillary lymph nodes; patient confirms history of recent vaccination. No new suspicious foci of FDG uptake are identified. Additional CT findings: Postsurgical changes of median sternotomy and coronary artery bypass grafting. Surgical clips are noted in the left axilla. Few tiny hepatic cysts. Large bilateral renal cysts. Nonobstructing left renal calculus. Fat-containing left inguinal hernia. Diverticulosis without diverticulitis. Right hip arthroplasty is noted. IMPRESSION: 1. Favorable treatment response evidenced by interval resolution of hypermetabolic subcarinal lymph node and right lower lobe pulmonary nodule and one of the pleural foci. No new definite metastatic disease. 2. Unchanged focus of moderate FDG avidity in the right pleura limits improvement at other sites. This may represent uptake in the surgery-related material. Suggest attention to this area on future PET scans. 3. New uptake in right axillary nodes and right deltoid, likely related to recent immunization. Dictated by: Mary Sims M.D. The radiology attending physician has personally reviewed this study, and had reviewed and/or edited this written report and agrees with it. Electronically signed by: Radha Amos MD us Crystal Mir MD IMG PET PROCEDURES Final Resu lt * eGFR (06/30/2025 8:00 AM CDT) eGFR 89 >=60 mL/min/1. 73 m2 Comment: Interpretive Data [...] interpretive data was last reviewed 2021. Blood 06/30/2025 8:00 AM CDT 06/30/2025 8:05 AM CDT us Crystal Mir MD LAB BLOOD ORDERABLES Final Re sult [facility] Department of Laboratories [place], [place] [id number] * (ABNORMAL) Differential, auto (06/30/2025 8:00 AM CDT) Neutrophil abs 5.20 1.50 - 6.50 K/cumm Comment:Testing performed by : [facility], [address] [facility] [address] Imm gran abs 0.02 0.00 - 0.10 K/cumm [facility] Lymphocyte abs 1.51 0.80 - 3.30 K/cumm [facility] Monocyte abs 0.94(H) 0.20 - 0.80 K/cumm [facility] Eosinophil abs 0.32 0.00 - 0.50 K/cumm [facility] Basophil abs 0.06 0.00 - 0.10 K/cumm [facility] Neutrophil pct 64.6 % [facility] Comment: Interpretive Data Percent cell count reference ranges are not reported, since discordance with absolute values may lead to misinterpretation of CBC data. Current Interpretive Data was last revised on 2017. Imm gran pct 0.2 % [facility] Comment: Interpretive Data Percent cell count reference ranges are not reported, since discordance with absolute values may lead to misinterpretation of CBC data. Current Interpretive Data was last revised on 2017. Lymphocyte pct 18.8 % [facility] Comment: Interpretive Data Percent cell count reference ranges are not reported, since discordance with absolute values may lead to misinterpretation of CBC data. Current Interpretive Data was last revised on 2017. Monocyte pct 11.7 % [facility] Comment: Interpretive Data Percent cell count reference ranges are not reported, since discordance with absolute values may lead to misinterpretation of CBC data. Current Interpretive Data was last revised on 2017. Eosinophil pct 4.0 % [facility] Comment: Interpretive Data Percent cell count reference ranges are not reported, since discordance with absolute values may lead to misinterpretation of CBC data. Current Interpretive Data was last revised on 2017. Basophil pct 0.7 % [facility] Comment: Interpretive Data Percent cell count reference ranges are not reported, since discordance with absolute values may lead to misinterpretation of CBC data. Current Interpretive Data was last revised on 2017. Blood 06/30/2025 8:00 AM CDT 06/30/2025 8:00 AM CDT Crystal Mir MD LAB BLOOD ORDERABLES Final Re sult [facility] Department [place] [address] * CBC with auto differential (06/30/2025 8:00 AM CDT) [facility] Signature WBC 8.05 3.80 - 9.90 K/cumm Comment:Testing performed by : [facility], [address] [place] [address] Hgb 14.5 13.0 - 17.5 g/dL [facility] Comment:Testing performed by : [address] [address] Hct 42.5 38.9 - 50.3 % [facility] Comment:Testing performed by : [address] [address] Plt 184 150 - 400 K/cumm [facility] Comment:Testing performed by : [address] [address] MPV 9.8 9.1 - 12.3 fL [facility] RBC 4.80 4.30 - 5.80 M/cumm [facility] MCV 88.5 81.3 - 96.4 fL [facility] MCH 30.2 27.1 - 33.3 pg [facility] MCHC 34.1 32.3 - 35.7 g/dL [facility] RDW CV 12.5 11.1 - 14.9 % [facility] RDW SD 40.9 35.7 - 48.1 fL [facility] NRBC abs 0.00 0.00 - 0.01 K/cumm [facility] ANC Prelim 5.20 1.50 - 6.50 K/cumm [facility] Comment: Interpretive Data The rapid ANC is a preliminary automated count and may vary from the final ANC (Neut Abs) reported in the WBC differential that follows. Current interpretive data was last revised 2024. Blood 06/30/2025 8:00 AM CDT 06/30/2025 8:00 AM CDT Crystal Mir MD LAB BLOOD ORDERABLES Final Re sult [facility] Department [place] [address] * Comprehensive metabolic panel (06/30/2025 8:00 AM CDT) Sodium 141 135 - 145 mmol/L Comment:Testing performed by : [facility], [address] [place] [address] Potassium, pl 4.3 3.3 - 4.9 mmol/L [facility] Chloride 106 97 - 110 mmol/L [facility] CO2 29 22 - 32 mmol/L [facility] Anion gap 6 2 - 15 mmol/L [facility] BUN 18 6 - 25 mg/dL [facility] Creatinine 0.96 0.80 - 1.30 mg/dL [facility] Glucose 93 70 - 199 mg/dL [facility] Comment: Interpretive Data Fasting glucose >/= 126 [...] interpretive data was last revised 2022. Calcium 9.5 8.5 - 10.3 mg/dL [facility] Bilirubin, total 0.5 0.1 - 1.2 mg/dL [facility] Protein, pl 7.5 6.5 - 8.5 g/dL [facility] Albumin 4.2 3.5 - 5.0 g/dL [facility] Alk phos 82 40 - 130 Units/L [facility] ALT 29 7 - 55 Units/L [facility] AST 23 10 - 50 Units/L [facility] Blood 06/30/2025 8:00 AM CDT 06/30/2025 8:00 AM CDT us Crystal Mir MD LAB BLOOD ORDERABLES Final Re sult Performing Organization Address [facility] Co de [facility] Number [facility] [place] [address] * eGFR (06/09/2025 7:57 AM CDT) eGFR 90 >=60 mL/min/1. 73 m2 Comment: Interpretive Data [...] interpretive data was last reviewed 2021. Blood 06/09/2025 7:57 AM CDT 06/09/2025 7:57 AM CDT us Crystal Mir MD LAB BLOOD ORDERABLES Final Re sult Performing Organization Address [facility]/ZIP Co de Phone Number [facility] Department [place] [address] * (ABNORMAL) Differential, auto (06/09/2025 7:57 AM CDT) Neutrophil abs 5.31 1.50 - 6.50 K/cumm Comment:Testing performed by : [facility], [address] [place] [address] Imm gran abs 0.03 0.00 - 0.10 K/cumm [facility] Lymphocyte abs 1.59 0.80 - 3.30 K/cumm [facility] Monocyte abs 0.98(H) 0.20 - 0.80 K/cumm [facility] Eosinophil abs 0.33 0.00 - 0.50 K/cumm [facility] Basophil abs 0.05 0.00 - 0.10 K/cumm [facility] Neutrophil pct 64.0 % [facility] Comment: Interpretive Data Percent cell count reference ranges are not reported, since discordance with absolute values may lead to misinterpretation of CBC data. Current Interpretive Data was last revised on 2017. Imm gran pct 0.4 % [facility] Comment: Interpretive Data Percent cell count reference ranges are not reported, since discordance with absolute values may lead to misinterpretation of CBC data. Current Interpretive Data was last revised on 2017. Lymphocyte pct 19.2 % [facility] Comment: Interpretive Data Percent cell count reference ranges are not reported, since discordance with absolute values may lead to misinterpretation of CBC data. Current Interpretive Data was last revised on 2017. Monocyte pct 11.8 % [facility] Comment: Interpretive Data Percent cell count reference ranges are not reported, since discordance with absolute values may lead to misinterpretation of CBC data. Current Interpretive Data was last revised on 2017. Eosinophil pct 4.0 % [facility] Comment: Interpretive Data Percent cell count reference ranges are not reported, since discordance with absolute values may lead to misinterpretation of CBC data. Current Interpretive Data was last revised on 2017. Basophil pct 0.6 % [facility] Comment: Interpretive Data Percent cell count reference ranges are not reported, since discordance with absolute values may lead to misinterpretation of CBC data. Current Interpretive Data was last revised on 2017. Blood 06/09/2025 7:57 AM CDT 06/09/2025 7:57 AM CDT us Crystal Mir MD LAB BLOOD ORDERABLES Final Re sult [facility] Department [place] [address] * CBC with auto differential (06/09/2025 7:57 AM CDT) [facility] WBC 8.29 3.80 - 9.90 K/cumm Comment:Testing performed by : [facility], [address] [place] [address] Hgb 14.4 13.0 - 17.5 g/dL [facility] Comment:Testing performed by : [address] [address] Hct 42.5 38.9 - 50.3 % [facility] Comment:Testing performed by : [address] [address] Plt 195 150 - 400 K/cumm [facility] Comment:Testing performed by : [address] [address] MPV 10.0 9.1 - 12.3 fL [facility] RBC 4.78 4.30 - 5.80 M/cumm [facility] MCV 88.9 81.3 - 96.4 fL [facility] MCH 30.1 27.1 - 33.3 pg [facility] MCHC 33.9 32.3 - 35.7 g/dL [facility] RDW CV 12.5 11.1 - 14.9 % [facility] RDW SD 41.1 35.7 - 48.1 fL [facility] NRBC abs 0.00 0.00 - 0.01 K/cumm [facility] ANC Prelim 5.31 1.50 - 6.50 K/cumm [facility] Comment: Interpretive Data The rapid ANC is a preliminary automated count and may vary from the final ANC (Neut Abs) reported in the WBC differential that follows. Current interpretive data was last revised 2024. Blood 06/09/2025 7:57 AM CDT 06/09/2025 7:57 AM CDT us Crystal Mir MD LAB BLOOD ORDERABLES Final Re sult [facility] Department [place] [address] * Comprehensive metabolic panel (06/09/2025 7:57 AM CDT) Sodium 140 135 - 145 mmol/L Comment:Testing performed by : [facility], [address] [place] [address] Potassium, pl 4.4 3.3 - 4.9 mmol/L [facility] Chloride 106 97 - 110 mmol/L [facility] CO2 28 22 - 32 mmol/L [facility] Anion gap 6 2 - 15 mmol/L [facility] BUN 15 6 - 25 mg/dL [facility] Creatinine 0.95 0.80 - 1.30 mg/dL [facility] Glucose 72 70 - 199 mg/dL [facility] Comment: Interpretive Data Fasting glucose >/= 126 [...] interpretive data was last revised 2022. Calcium 9.5 8.5 - 10.3 mg/dL [facility] Bilirubin, total 0.6 0.1 - 1.2 mg/dL [facility] Protein, pl 7.3 6.5 - 8.5 g/dL [facility] Albumin 4.3 3.5 - 5.0 g/dL [facility] Alk phos 79 40 - 130 Units/L [facility] ALT 30 7 - 55 Units/L [facility] AST 28 10 - 50 Units/L [facility] Blood 06/09/2025 7:57 AM CDT 06/09/2025 7:57 AM CDT Crystal Mir MD LAB BLOOD ORDERABLES Final Re sult [facility] [place] [address] from Last [address] [facility] Member Subscriber Plan / Payer (Ef fective 2012-Present) Name:Adalgisa Mendoza Relation to Subscriber:Self Name:Adalgisa Mendoza Payer ID:[id number] (NA) Type:[facility] HMO/PPO Address: [address] Advance Directives For more information, please contact: [phone] * Full Code (Latest Code Status on File) Date Activated Date Inactivated Comments 12/11/2024 6:31 PM 12/15/2024 3:57 PM * Full Code Date Activated Date Inactivated Comments 03/16/2024 4:36 PM 03/21/2024 3:59 PM * Full Code Date Activated Date Inactivated Comments 01/28/2022 9:19 PM 02/05/2022 5:17 PM Care Teams Strategic Communications Manager Relationship Specialty Start Date End Date Gabe George DO PCP - General Internal Medicine 05/17/25 Gabe George DO Internal Medicine 12/30/24 ArielGabe DO Internal Medicine 12/30/24 Ian Michel MD Dermatology 02/10/23 Parul Baldwin MD [address] [place] [address] Referring Physician Dermatology 02/10/23 Felix Sher MD [address] [place] [id number] Consulting Physician Cardiology 10/21/24 Dre Cerna MD [address] [place] [address] Surgeon Thoracic Surgery 12/15/24 Juan Daniel MD [address] [facility] [address] [place] [address] [place] [address] Consulting Physician Pulmonary Disease 04/22/25
--- OUTSIDE RECORDS SUMMARY | 2025-08-25 17:03 | XMS_ITS ---
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 Pembrolizumab 21 Day Cycles* Plan Start Date:05/04/2025 Plan Provider:Crystal Mir MD Linked Problems Squamous cell carcinoma of s calp Treatment Medications Current Day (Day 1 , Cycle 6 - Planned for 09/07/2025) Next Day (Day 1, Cycle 7 - Planned for 09/28/2025) pembrolizumab (KEYTRUDA) pembrolizumab ( KEYTRUDA) 200 mg in sodium chloride 0.9% 100 mL pembrolizumab (KEYTRUDA) 200 mg in sodium chloride 0.9% 100 mL Past Treatment and Therapy Plans No past plan information found. Radiation Treatments * Course [id number]/19/2024 - 10/01/2024 Treatment Period Energy Fraction Dose Fractions Total Dose Plans Planned SCALP 05/19/2024 - 10/01/2024 200 33 / 6,600 Reference Points Delivered [id number] 05/19/2024 - 10/01/2024 6,600 Lifetime Dose Tracking * Chemical Lifetime Dose Automatic Entry Manual Entr y DLP 4,320 mGycm 4,320 mGycm 0 mGycm
--- OUTSIDE RECORDS SUMMARY | 2025-08-25 17:03 | XMS_ITS | Encounter Summary ---
Author Organization [facility] Address [address] [place] [address] Phone Care Team Providers Care Network Security Officer Name Role Phone Gabe George DO Unavailable Gabe George DO Unavailable Ian Michel MD Unavailable [phone] Parul Baldwin MD Unavailable [phone] Felix Sher MD Unavailable [phone] Dre Cerna MD Unavailable Juan Daniel MD Unavailable [phone] Gabe George DO Primary Care Provider [phone] Encounter Details Date Type Department Care Team (Late st Contact Info) Description 08/24/2025 Telephone [facility] Medicine Oncology [facility] [place] [address] [place] [address] Mary Bach RN Social History Tobacco Use Types Packs/Day Years Used Date Smoking Tobacco: Never Smokeless Tobacco: Never AUDIT-C Answer Date Recorded Frequency of Alcohol [...] on file 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 When he has a bowel movement, they are seeing blood when he wipes Called patient to discuss symptoms. Blood only on tissue, not in toilet, not dripping. Regular bowel movements. No diarrhea, no constipation. Verified patient is on plavix. Labs added for count check- orders faxed to [facility] - will go tomorrow after work. Will continue to monitor, aware to call if blood can be seen in toilet as well as on tissue. EMERGENCY EMERGENCY documented in this encounter Plan of Treatment Not on file documented as of this encounter Visit Diagnoses Not on filedocumented in this encounter Care Teams Network Security Officer Relationship Specialty Start Date End Date Gabe George DO PCP - General Internal Medicine 05/17/25 Gabe George DO Internal Medicine 12/30/24 Gabe George DO Internal Medicine 12/30/24 Ian Michel MD Dermatology 02/10/23 Parul Baldwin MD [address] [place] [address] Referring Physician Dermatology 02/10/23 Felix Sher MD [address] [id number] Consulting Physician Cardiology 10/21/24 Dre Cerna MD [address] [address] Surgeon Thoracic Surgery 12/15/24 Juan Daniel MD [address] [facility] [address] [place] [address] [place] [address] Consulting Physician Pulmonary Disease 04/22/25 documented as of this encounter
--- OUTSIDE RECORDS SUMMARY | 2025-08-25 17:03 | XMS_ITS | Encounter Summary ---
Author Organization [facility] Healthcare Address [address] [place] [address] Care Team Providers Care Supervisor Stage Carpentry Name Role Phone Gabe George DO Primary Care Provider [phone] Gabe George DO Unavailable Gabe George DO Unavailable Ian Michel MD Unavailable [phone] Parul Baldwin MD Unavailable [phone] Felix Sher MD Unavailable [phone] Dre Cerna MD Unavailable Juan Daniel MD Unavailable [phone] Gabe George DO Primary Care Provider [phone] Encounter Details Date Type Department Care Team (Late st Contact Info) Description 12/17/2024 [facility] Post Discharge Follow up phone call [facility] [address] [place] [address] Rosalee Gerardo Social History Tobacco Use [...] on file 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 Gender Identity Not on file Sexual Orientation Not on file documented as of this encounter Plan of Treatment Not on file documented as of this encounter Visit Diagnoses Not on filedocumented in this encounter Care Teams Supervisor Stage Carpentry Relationship Specialty Start Date End Date Gabe George DO PCP - General Internal Medicine 08/03/24 12/29/24 Gabe George DO PCP - General Internal Medicine 05/17/25 Gabe George DO Internal Medicine 12/30/24 Gabe George DO Internal Medicine 12/30/24 Ian Michle MD Dermatology 02/10/23 Parul Baldwin MD [address] [place] [address] Referring Physician Dermatology 02/10/23 Felix Sher MD [address] [place] [address] Consulting Physician Cardiology 10/21/24 Dre Cerna MD [address] [place] [address] Surgeon Thoracic Surgery 12/15/24 Juan Daniel MD [address] [facility] [address] [place] [address] Consulting Physician Pulmonary Disease 04/22/25 documented as of this encounter
--- OUTSIDE RECORDS SUMMARY | 2025-08-25 17:03 | XMS_ITS | Encounter Summary ---
Author Organization [facility] Address [address] [place] [address] Phone Care Team Providers Care Shale Planer Operator Helper Name Role Phone Gabe George DO Unavailable Gabe George DO Unavailable Ian Michel MD Unavailable [phone] Parul Baldwin MD Unavailable [phone] Felix Sher MD Unavailable [phone] Dre Cerna MD Unavailable Juan Daniel MD Unavailable [phone] Gabe George DO Primary Care Provider [phone] Encounter Details Date Type Department Care Team (Late st Contact Info) Description 08/24/2025 Orders Only [facility] Medicine Oncology [address] [facility] [address] [place] [address] Mary Bach RN Pleomorphic dermal sarcoma (Primary Dx) Social History Tobacco Use Types [...] on file 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 Sex 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 Gender Identity Not on file Sexual Orientation Not on file documented as of this encounter Plan of Treatment Scheduled Orders Name Type Priority Associated Diagnoses Orde r Schedule CBC with auto differential Lab Routine Pleomorphic dermal sarcoma Expected: 08/25/2025 (Approximate), Expires: 11/23/2025 Comprehensive metabolic panel Lab Routine Pleomorphic dermal sarcoma Expected: 08/25/2025 (Approximate), Expires: 11/23/2025 documented as of this encounter Visit Diagnoses Diagnosis Pleomorphic dermal sarcoma- Primary documented in this encounter Care Teams Shale Planer Operator Helper Relationship Specialty Start Date End Date Gabe George DO PCP - General Internal Medicine 05/17/25 Gabe George DO Internal Medicine 12/30/24 Gabe George DO Internal Medicine 12/30/24 Ian Michel MD Dermatology 02/10/23 Parul Baldwin MD [address] [place] [address] Referring Physician Dermatology 02/10/23 Felix Sher MD [address] [facility] [address] [place] [address] Consulting Physician Cardiology 10/21/24 Dre Cerna MD [address] [facility] [address], [place] [address] Surgeon Thoracic Surgery 12/15/24 Juan Daniel MD [address] [facility] [place] [address] Consulting Physician Pulmonary Disease 04/22/25 documented as of this encounter
== END 2025-08-25 15:56 | disposition home or self-care (01) ==
PROVIDERS: PCP Internal Medicine
DX: C44.90 Unspecified malignant neoplasm of skin, unspecified (principal)
CPT/HCPCS: 36415; 80053; 85025